=== PATIENT | female | born 1965 | race Caucasian/White ===

== ENCOUNTER → 2017-03-24 16:07 | Outpatient (CLI) | payer MEDICARE, MEDICAID, SELFPAY ==
--- NOTE | 2017-03-24 16:13 | MM_ITS ---
MM Dig screening mamm BI w/CAD CAD Screening ORDERING PHYSICIAN : Jonny Burton MD PATIENT AGE: 51 years GENDER: Female COMPARISON: Previous mammograms: Jun2014October 2015, November 2012 INDICATION: 51-yr-old female Taking Premarin . No new complaints. Family history. Noncontributory TECHNIQUE: Standard CC and MLO images were obtained. R2 CAD reviewed. FINDINGS: No significant calcifications. Minimal Benign calcifications bilateral appear stable.. No new worrisome mass or architectural distortion. Mild asymmetry with fibrolinear elements slightly more evident the left breast RIGHT BREAST:A stable small intramammary node at the deep axillary right breast.. It measures up to 7 mm height & millimeters AP on today's MLO view, unchanged since August 2014 MLO view. Minimal umbilication at hilum seen along the posterior margin of this feature supporting intramammary lymph node is well follow-up in one year adequate Minimal area wispy parenchymal density superior right breast is similar to 2015 MLO view, and dissipates on the cc view. LEFT BREAST:No significant new findings but stable fibroglandular elements most evident towards upper-outer quadrant IMPRESSION: 1.. No significant interval change. Stable bilateral mammogram. Stable Mild asymmetry. Stable Intramammary lymph node upper-outer quadrant right breast stable since 2014. BI-RADS Category: 2 Benign Finding(s) RECOMMENDED FOLLOW-UP: 1YR - 1 YEAR FOLLOW-UP (A letter has been sent to the patient regarding results of the study.)
== END ==
PROVIDERS: Family Provider Family Medicine; PCP Family Medicine; Visit Provider Obstetrics & Gynecology
DX: Z12.31 Encounter for screening mammogram for malignant neoplasm of breast (principal)
CPT/HCPCS: 77067

== ENCOUNTER 2017-04-12 17:53 | Emergency (ER) | payer MEDICARE, MEDICAID, SELFPAY ==
[2017-04-12 18:04] VITALS: BP 148/87; PULSE 120; RESP 20; TEMP 38.3; O2SAT 95; BMI 29.5
--- NOTE | 2017-04-12 18:09 | HMH.EDUTC ---
[facility] [place] Impression: Influenza Disposition: Home, Self-Care Condition on Discharge: Good Instructions: Influenza, DI for Fever (Symptom) -- Adult, DI for Headache Additional Instructions: ? Start Tamiflu today if you are going to take it. Discussed risk and possible benefits. ? Lots of rest ? Increase Fluids water, Gatorade, powerade, pedialyte,if infant/toddler/child ? Alternate Tylenol and / or ibuprofen as discussed for fever, aches, chills x 24 hours without medication for symptoms ? Follow up IMMEDIATELY for new or worsening Symptoms OR no noticeable improvement over the next 48-72 hours, 911 for difficulty or breathing ? You or your child area contagious until no fever, aches, chills for 24 hours with medication for symptoms Prescriptions: Dextromethorphan Polistirex [Delsym] 10 ml PO Q12H PRN #200 buck.er.12h PRN Reason: Cough Oseltamivir Phosphate [Tamiflu 75mg Capsule] 75 mg PO BID #10 cap Referrals: Sandy Steven [Primary Care Provider] - Time of Disposition: 18:30 Medical Decision Making - Medical Records Medical records reviewed: Yes: I reviewed the patient's medical records. Vital Signs: 04/12/17 18:04 Temperature 100.9 F H Temperature Source Oral Pulse Rate [Right] 120 H Respiratory Rate 20 Blood Pressure [Right Arm] 148/87 Blood Pressure Mean [Right Arm] 107 Blood Pressure Source [Right Arm] Automatic Cuff Blood Pressure Position [Right Arm] Sitting 02 Sat by Pulse Oximetry 95 Oxygen Delivery Method Room Air - Kimo Inquiry Pt receiving controlled substance: No Kimo was queried for this patient: No - Reevaluation(s) Time: 18:24 (Patient flu swab positive patient informed and educated on drinking plenty of fluids, over the coutner medication for fever or pain ) [facility] [place] - General Stated complaint: Fever, body aches Mode of Arrival: Ambulatory Source of Information: Patient Limitations: No Limitations Description of Symptoms (Recalled from Triage Doc. by RN): HEADACHE, ACHES, FEVER X3 DAYS HEENT Symptoms (Recalled from RN notes): Yes Resp Symptoms (Recalled from RN notes): No Skin Symptoms (Recalled from RN notes): No MS Symptoms (Recalled from RN notes): No Functional Status (Recalled from RN notes): N - History of Present Illness Provider Complaint: Patient states that she started feeling bad about 3 days ago and has continued to get worse States that she is having fever, body aches, cough nasal congestion and headache State that earlier today she began to run a fever and it was as high as 102.2 State that she took Motrin and Tylenol to controll fever and treat headache - Related Data Home Medications Medication Instructions Recorded Confirmed Estrogens, Conjugated [Premarin] 1.25 mg PO DAILY 03/22/17 03/22/17 Gabapentin [Gabapentin 100mg Cap] 200 mg PO HS 03/22/17 03/22/17 Levocetirizine Dihydrochloride 5 mg PO DAILY 03/22/17 03/22/17 Losartan/Hydrochlorothiazide 0.5 each PO DAILY 03/22/17 03/22/17 [Losartan-Hctz 100-12.5 mg Tab] Topiramate [Topamax 100mg tablet] 100 mg PO DAILY 03/22/17 03/22/17 Previous Rx's Medication Instructions Recorded Dextromethorphan Polistirex 10 ml PO Q12H PRN #200 buck.er.12h 04/12/17 [Delsym] Oseltamivir Phosphate [Tamiflu 75 mg PO BID #10 cap 04/12/17 75mg Capsule] Allergies Allergy/AdvReac Type Severity Reaction Status Date / Time codeine [CODEINE] Allergy Unknown ITCHING Verified 04/12/17 18:08 - Worker's Comp Is this a Worker's Comp case?: No [facility] History I have reviewed the patient's past medical history: Yes Medical History: Reports:: Diabetes Mellitus Type 2 (BORDERLINE) Denies:: Diabetes Mellitus Type 1, Internal Pacemaker, Lung Disease Laterality Cases: Right: Total Knee Replacement Other Surgeries: No: Pacemaker - *Social History Smoking Status: Never smoker Alcohol Intake: never - Psychiatric History Expresses thoughts of harming self/others: None Suicide Plan Description:
--- NOTE | 2017-04-12 18:12 | ED_ITS ---
[facility] [place]: Influenza Disposition: Home, Self-Care Condition on Discharge: Good Instructions: Influenza, DI for Fever (Symptom) -- Adult, DI for Headache Additional Instructions: ? Start Tamiflu today if you are going to take it. Discussed risk and possible benefits. ? Lots of rest ? Increase Fluids water, Gatorade, powerade, pedialyte,if infant/toddler/child ? Alternate Tylenol and / or ibuprofen as discussed for fever, aches, chills x 24 hours without medication for symptoms ? Follow up IMMEDIATELY for new or worsening Symptoms OR no noticeable improvement over the next 48-72 hours, 911 for difficulty or breathing ? You or your child area contagious until no fever, aches, chills for 24 hours with medication for symptoms Prescriptions: Dextromethorphan Polistirex [Delsym] 10 ml PO Q12H PRN #200 buck.er.12h PRN Reason: Cough Oseltamivir Phosphate [Tamiflu 75mg Capsule] 75 mg PO BID #10 cap Referrals: Sandy Steven [Primary Care Provider] - Time of Disposition: 18:30 Medical Decision Making - Medical Records Medical records reviewed: Yes: I reviewed the patient's medical records. Vital Signs: 04/12/17 18:04 Temperature 100.9 F H Temperature Source Oral Pulse Rate [Right] 120 H Respiratory Rate 20 Blood Pressure [Right Arm] 148/87 Blood Pressure Mean [Right Arm] 107 Blood Pressure Source [Right Arm] Automatic Cuff Blood Pressure Position [Right Arm] Sitting 02 Sat by Pulse Oximetry 95 Oxygen Delivery Method Room Air - Kimo Inquiry Pt receiving controlled substance: No Kimo was queried for this patient: No - Reevaluation(s) Time: 18:24 (Patient flu swab positive patient informed and educated on drinking plenty of fluids, over the coutner medication for fever or pain ) [facility] [place] - General Stated complaint: Fever, body aches Mode of Arrival: Ambulatory Source of Information: Patient Limitations: No Limitations Description of Symptoms (Recalled from Triage Doc. by RN): HEADACHE, ACHES, FEVER X3 DAYS HEENT Symptoms (Recalled from RN notes): Yes Resp Symptoms (Recalled from RN notes): No Skin Symptoms (Recalled from RN notes): No MS Symptoms (Recalled from RN notes): No Functional Status (Recalled from RN notes): N - History of Present Illness Provider Complaint: Patient states that she started feeling bad about 3 days ago and has continued to get worse States that she is having fever, body aches, cough nasal congestion and headache State that earlier today she began to run a fever and it was as high as 102.2 State that she took Motrin and Tylenol to controll fever and treat headache - Related Data Home Medications Medication Instructions Recorded Confirmed Estrogens, Conjugated [Premarin] 1.25 mg PO DAILY 03/22/17 03/22/17 Gabapentin [Gabapentin 100mg Cap] 200 mg PO HS 03/22/17 03/22/17 Levocetirizine Dihydrochloride 5 mg PO DAILY 03/22/17 03/22/17 Losartan/Hydrochlorothiazide 0.5 each PO DAILY 03/22/17 03/22/17 [Losartan-Hctz 100-12.5 mg Tab] Topiramate [Topamax 100mg tablet] 100 mg PO DAILY 03/22/17 03/22/17 Previous Rx's Medication Instructions Recorded Dextromethorphan Polistirex 10 ml PO Q12H PRN #200 buck.er.12h 04/12/17 [Delsym] Oseltamivir Phosphate [Tamiflu 75 mg PO BID #10 cap 04/12/17 75mg Capsule] Allergies Allergy/AdvReac Type Sever
[2017-04-12 18:46] LABS: UTC Influenza A Antigen Positive (Negative); UTC Influenza B Antigen Negative (Negative)
== END 2017-04-12 18:43 | disposition home or self-care (01) ==
PROVIDERS: Emergency Provider Nurse Practitioner; Family Provider Family Medicine; PCP Family Medicine
DX: J11.1 Influenza due to unidentified influenza virus with other respiratory manifestations (principal); E11.9 Type 2 diabetes mellitus without complications; Z79.890 Hormone replacement therapy; Z79.899 Other long term (current) drug therapy; Z88.5 Allergy status to narcotic agent; Z96.659 Presence of unspecified artificial knee joint
CPT/HCPCS: 87804; 99201

== ENCOUNTER 2017-05-24 17:18 | Emergency (ER) | payer MEDICARE, MEDICAID, SELFPAY ==
[2017-05-24 17:24] VITALS: BP 144/89; PULSE 83; RESP 20; TEMP 36.7; O2SAT 100; BMI 28.6
--- NOTE | 2017-05-24 17:31 | XR_ITS ---
XR knee RT 3V HISTORY: Right knee pain ITS.REASON: Hx of replacement, states it popped out of place. ORDERING PHYSICIAN: Joshua Marc MD PATIENT AGE: 51 years COMPARISON: 08/19/2013 FINDINGS: Patient has had prior medial hemiarthroplasty which appears to be in good alignment. There are no other postoperative exams available. Minimal osteoarthritic changes are present involving the lateral compartment. No fracture or dislocation. IMPRESSION: Status post medial hemiarthroplasty with good alignment.
--- NOTE | 2017-05-24 17:34 | HMH.EDGENADL ---
ED Disposition Clinical Impression: Right knee pain Qualifiers: Chronicity: acute Qualified Code(s): M25.561 - Pain in right knee Disposition: Home, Self-Care Condition on Discharge: Good Instructions: DI for Knee Pain, How to Use a Knee Immobilizer Additional Instructions: Use your walker. Use knee immobilizer. Follow-up with your orthopedist, call tomorrow. Additional instructions for EXTREMITY PAIN: See your physician as soon as possible for further evaluation. Return to an emergency department immediately if you have uncontrollable pain, fever, loss of feeling or inability to move your injured extremity. Referrals: Chanel Nielsen APRN [Primary Care Provider] - - Critical Care Critical Care Time: No Attestation: On , the high probability of a clinically significant, sudden or life threatening deterioration of the following system(s) required my full and direct attention, intervention and personal management. The time I documented below is in addition to time spent performing reported procedures but includes the following listed in this critical care notation. Medical Decision Making Vital Signs: 05/24/17 17:24 05/24/17 18:01 Temperature 98.0 F Temperature Source Oral Pulse Rate [Right Radial] 83 78 Respiratory Rate 20 20 Blood Pressure [Right Arm] 144/89 140/85 Blood Pressure Mean [Right Arm] 107 103 Blood Pressure Source [Right Arm] Automatic Cuff Automatic Cuff Blood Pressure Position [Right Arm] Sitting Sitting 02 Sat by Pulse Oximetry 100 98 Oxygen Delivery Method Room Air Room Air Orders (Tests/Meds): ORDERS Category Date Time Status Knee XR right 3 views [XR knee RT 3V] Stat Exams 05/24/17 17:31 Taken - Radiology Data #1 Image(s): Knee Image Reviewed: Yes I reviewed the patient's radiology results - Kimo Inquiry Pt receiving controlled substance: No General Adult HPI - General Chief complaint: PAIN Stated complaint: Right knee pain Mode of Arrival: Wheelchair Limitations: Physical Limitations Description of Symptoms (Recalled from ER Triage Doc. by RN): States she was just sitting on her couch and her right knee popped out of place. States this is the fifth time this has happened. Has been to Dr. Verduzco and he was going to set her up for knee surgery. Has had a double knee replacement. States that the left one is fine, but the right one is always swollen. - History of Present Illness HPI narrative: Patient complains of severe right knee pain. She says that she was sitting on the couch and her right knee felt like it popped out of place. She is unable to tell me whether her patella was visibly out of normal position. She thinks that since she arrived here it as pop back . She says that she had her right knee replaced in December of last year by Dr. Stephens in [place] due to severe osteoarthritis. Since that surgery this has occurred 4 times. It has always popped back on its own and she has not been to an emergency department or to a physician for evaluation for it until today. She did see her orthopedic physician last and states that she is supposed to have surgery later this month because the parts he put and are not working . She says she was told that if it popped out again to come to the emergency room to have it x-rayed. She says that she has been off of pain medication for couple of months but was given a new prescription for Percocet on . She says that since her surgery she still has swelling whenever she walks on it. She is currently able to walk without any assistance or devices. She does have a walker and a crutch at home. She does not have a right knee brace. - Related Data Home Medications Medication Instructions Recorded Confirmed Estrogens, Conjugated [Premarin] 1.25 mg PO DAILY 03/22/17 03/22/17 Gabapentin [Gabapentin 100mg Cap] 200 mg PO HS 03/22/17 03/22/17 Levocetirizine Dihydrochloride 5 mg PO DAILY 03/22/17
[2017-05-24 18:01] VITALS: BP 140/85; PULSE 78; RESP 20; O2SAT 98
[2017-05-24 19:03] VITALS: BP 126/87; PULSE 79; RESP 14; TEMP 36.7; O2SAT 99
== END 2017-05-24 19:04 | disposition home or self-care (01) ==
PROVIDERS: Emergency Provider Emergency Medicine; Family Provider Family Medicine; PCP Nurse Practitioner Family
DX: M25.561 Pain in right knee (principal); E11.9 Type 2 diabetes mellitus without complications; Z79.899 Other long term (current) drug therapy; Z88.6 Allergy status to analgesic agent; Z96.653 Presence of artificial knee joint, bilateral
CPT/HCPCS: 29505; 73562; 99283

== ENCOUNTER → 2017-06-01 11:39 | Outpatient (CLI) | payer MEDICARE, MEDICAID, SELFPAY ==
[2017-06-01 14:13] LABS: Alanine Aminotransferase 18 U/L (12-78); Albumin Level 3.1 gm/dL (3.4-5.0); Albumin/Globulin Ratio 0.8 (1.1-1.8); Alkaline Phosphatase 131 U/L (46-116); Anion Gap 12.5 mEq/L (5-15); Aspartate Amino Transferase 12 U/L (15-37); Bilirubin,Total 0.2 mg/dL (0.2-1.0); Blood Urea Nitrogen 7 mg/dL (7-18); Calcium 8.7 mg/dL (8.5-10.1); Carbon Dioxide 26 mmol/L (21.0-32.0); Chloride 107 mmol/L (98-107); Creatinine,Serum 0.67 mg/dL (0.55-1.02); Estimated Glomerular Filt Rate 93 ml/min (>60); GFR (African American) 113 ML/MIN (>60); Globulin 3.7 gm/dl (1.3-3.2); Glucose 94 mg/dL (74-106); Potassium 3.5 mmoL/L (3.5-5.1); Sodium 142 mmol/L (136-145); Total Protein,Serum 6.8 gm/dL (6.4-8.2)
== END ==
PROVIDERS: PCP Nurse Practitioner Family; Visit Provider Nurse Practitioner Family
DX: E11.41 Type 2 diabetes mellitus with diabetic mononeuropathy (principal)
CPT/HCPCS: 36415; 80053

== ENCOUNTER 2017-08-25 10:00 | Outpatient (RCR) | payer MEDICARE, MEDICAID, SELFPAY | END 2017-08-25 10:01 | disposition home or self-care (01) | LOC: PT 10:00 | PROVIDERS: Family Provider Family Medicine; PCP Nurse Practitioner Family; Visit Provider Nurse Practitioner Family | DX: G44.209 Tension-type headache, unspecified, not intractable (principal); M54.2 Cervicalgia | CPT/HCPCS: 97010; 97014; 97035; 97163; G0283 ==

== ENCOUNTER → 2017-09-21 14:09 | Outpatient (CLI) | payer MEDICARE, MEDICAID, SELFPAY ==
[2017-09-21 14:23] LABS: Basophils % 0.2 % (0.1-2.0); Eosinophils # 0.1 K/mm3 (0.0-0.4); Eosinophils % 2.6 % (0.1-12.0); Hematocrit 37.8 % (37.0-47.0); Hemoglobin 12.1 g/dL (12.2-16.2); Lymphocytes % 36.4 K/mm3 (10-50); Mean Corpuscular HGB Conc 32.1 g/dL (31.8-35.4); Mean Corpuscular Hemoglobin 28.9 pg (27.0-31.2); Mean Corpuscular Volume 90.2 fl (81-99); Mean Platelet Volume 7.6 fl (7.4-10.4); Monocytes # 0.3 K/mm3 (0.1-1.0); Monocytes % 5.8 % (1.7-9.3); Neutrophils % 55.1 % (37.0-80.0); Platelet Count 230 K/mm3 (142-424); Red Blood Count 4.19 M/mm3 (4.20-5.40); Red Cell Distribution Width 13.3 % (11.5-17.5); White Blood Count 5.5 K/mm3 (4.8-10.8)
--- NOTE | 2017-09-21 14:23 | MR_ITS ---
MR head/brain wo/w con HISTORY: Severe headaches with blurred vision with feeling of blacking out ITS.REASON: Headache ORDERING PHYSICIAN: Brayan Edwards PATIENT AGE: 52 years Comparison: None TECHNIQUE: Standard multiplanar multiecho sequences are performed without and with gadolinium enhancement . FINDINGS: No midline shift, mass effect, intracranial hemorrhage, hydrocephalus, or enhancing lesions are evident. No intra or extra-axial masses. The cerebellopontine angle, cerebellum, and brainstem are unremarkable. There is normal morton-white matter differentiation. The hippocampal gyri are unremarkable and the temporal horns are symmetric. The optic chiasm is unremarkable as well as the pituitary. No cerebellar ectopia. There are scant T2 white matter hyperintensities nonspecific. No mastoid effusion or sinus air-fluid level. There is some minimal mucosal thickening of the ethmoid and right frontal sinus. IMPRESSION: 1. No acute intracranial findings. 2. Scant punctate T2 white matter hyperintensities nonspecific and may be seen with gliotic microangiopathic changes or migraine headache. 3. Mild sinus disease
[2017-09-21 15:04] LABS: Blood Urea Nitrogen 10 mg/dL (7-18); Creatinine,Serum 0.84 mg/dL (0.55-1.02); Estimated Glomerular Filt Rate 71 ml/min (>60); GFR (African American) 86 ML/MIN (>60)
[2017-09-21 15:14] LABS: Thyroid Stimulating Hormone 1.65 uIU/ml (0.358-3.740)
--- NOTE | 2017-09-21 15:26 | HMH.ITSHM ---
PREMARIN POTASSIUM METFORMIN TOPIRAMATE LEVOCETIRIZE HCTZ LOSARTAN
[2017-09-21 15:48] LABS: Erythrocyte Sedimentation Rate 21 mm/hr (0-30)
[2017-09-22 11:43] LABS: Folate 8.7 ng/mL (>3.0); Vitamin B12 165 pg/mL (232-1245)
== END ==
PROVIDERS: Family Provider Family Medicine; PCP Nurse Practitioner Family; Visit Provider Nurse Practitioner Family
DX: R51 Headache (principal); R53.83 Other fatigue; M54.2 Cervicalgia
CPT/HCPCS: 36415; 70553; 82565; 82607; 82746; 84443; 84520; 85025; 85651; A9576

== ENCOUNTER → 2017-10-03 09:00 | Outpatient (CLI) | payer MEDICARE, MEDICAID, SELFPAY ==
--- NOTE | 2017-10-03 09:03 | XR_ITS ---
EXAM: XR cervical spine w flex/ext HISTORY: Neck pain ITS.REASON: Occipital headache with radiation to the neck ORDERING PHYSICIAN: Brayan Edwards PATIENT AGE: 52 years COMPARISON: None FINDINGS: Normal alignment. No fracture or dislocation. No lytic or blastic change. No significant degenerative change. The disc spaces are preserved. Oblique films show normal neural foramina bilaterally. The prevertebral soft tissues are normal and the odontoid is normal. Flexion-extension and extension views show normal range of motion. IMPRESSION: No acute finding, grossly normal-appearing cervical spine
== END ==
PROVIDERS: PCP Nurse Practitioner Family; Visit Provider Nurse Practitioner Family
DX: M54.2 Cervicalgia; R51 Headache
CPT/HCPCS: 72052

== ENCOUNTER → 2017-10-09 09:23 | Outpatient (CLI) | payer MEDICARE, MEDICAID, SELFPAY | PROVIDERS: Family Provider Family Medicine; PCP Nurse Practitioner Family; Visit Provider Nurse Practitioner Family | DX: R55 Syncope and collapse (principal); R51 Headache | CPT/HCPCS: 93225; 93226; 95819 ==

== ENCOUNTER → 2017-11-07 10:30 | Outpatient (POV) | payer MEDICARE, MEDICAID, SELFPAY | PROVIDERS: Visit Provider Otolaryngology | DX: Z00.00 Encounter for general adult medical examination without abnormal findings (principal) ==

== ENCOUNTER → 2018-03-30 08:55 | Outpatient (CLI) | payer MEDICARE, MEDICAID, SELFPAY ==
--- NOTE | 2018-03-30 08:59 | XR_ITS ---
XR DEXA axial skeleton HISTORY: ITS.REASON: SCREENING ORDERING PHYSICIAN: Jonny Burton MD PATIENT AGE: 52 years COMPARISON: None FINDINGS: The BMD measured at the Left femoral neck is 1.233 g/cm squared with a T score of 1.4. This is considered Normal according to the World Health Organization criteria. Fracture risk is Low. L1 L4 density has a T score 2.4 which is normal. IMPRESSION: Normal bone density with low fracture risk. Recommend follow-up exam March 2020
--- NOTE | 2018-03-30 08:59 | MM_ITS ---
MM Dig screening mamm BI w/CAD ORDERING PHYSICIAN : Jonny Burton MD PATIENT AGE: 52 years GENDER: Female COMPARISON: March 2007 02 November 2015. Bilateral mammogram INDICATION: Screening mammogram. takes Premarin.. No new complaints. Noncontributory family history. TECHNIQUE: Standard CC and MLO images were obtained. R2 CAD reviewed. FINDINGS: Minimal residual fibroglandular elements with stable mild asymmetry. Mild to moderate generalized fatty replacement most evident at the right breast RIGHT BREAST: No new findings Stable small nodular density [quadrant right breast small intramammary lymph node is unchanged LEFT BREAST: No new findings of concern . minor asymmetric breast tissue upper-outer quadrant left breast is unchanged. IMPRESSION: Stable bilateral mammogram. . Follow-up in one year Low-density breast with Moderate generalized replacement. Stable mild asymmetry BI-RADS Category: 2 Benign Finding(s) RECOMMENDED FOLLOW-UP: 1YR 1 YEAR FOLLOW-UP (A letter has been sent to the patient regarding results of the study.)
== END ==
PROVIDERS: PCP Nurse Practitioner Family; Visit Provider Obstetrics & Gynecology
DX: Z12.31 Encounter for screening mammogram for malignant neoplasm of breast (principal); Z78.0 Asymptomatic menopausal state; Z13.820 Encounter for screening for osteoporosis
CPT/HCPCS: 77067; 77080

== ENCOUNTER 2018-05-23 15:00 | Outpatient (RCR) | payer MEDICARE, MEDICAID, SELFPAY | END 2018-05-23 15:05 | disposition home or self-care (01) | LOC: PT 15:00 | PROVIDERS: Visit Provider Nurse Practitioner Family | DX: G44.209 Tension-type headache, unspecified, not intractable (principal) | CPT/HCPCS: 97010; 97014; 97035; 97110; 97140; 97163; G0283 ==

== ENCOUNTER → 2018-10-16 10:36 | Outpatient (CLI) | payer MEDICARE, MEDICAID, SELFPAY ==
--- NOTE | 2018-10-16 10:41 | XR_ITS ---
XR chest 2V HISTORY: ITS.REASON: CHEST PAIN ORDERING PHYSICIAN: Chanel Nielsen APRN PATIENT AGE: 53 years COMPARISON: 8 FINDINGS: The cardiomediastinal silhouette and pulmonary vascularity are within normal limits. The lungs are clear without infiltrates, suspicious nodules, or pleural effusions. There is calcified granuloma in the right middle lobe No acute bony abnormalities. IMPRESSION: Negative chest, no acute finding
== END ==
PROVIDERS: PCP Nurse Practitioner Family; Visit Provider Nurse Practitioner Family
DX: R07.9 Chest pain, unspecified (principal)
CPT/HCPCS: 71046

== ENCOUNTER → 2019-01-23 12:20 | Outpatient (CLI) | payer MEDICARE, MEDICAID, SELFPAY ==
--- NOTE | 2019-01-23 12:22 | CT_ITS ---
PROCEDURE: CT HEAD/BRAIN WO CON CLINICAL INDICATION: MIGRAINE WITH AURA Severe headache COMPARISON: No exams were available for comparison TECHNIQUE: Axial images obtained. All CT scans at the facility use one or more dose reduction, viz: automated exposure control, ma/kV adjustment per patient size (including targeted exams where dose is matched to indication, i.e. head), or iterative reconstruction technique. FINDINGS: No midline shift, mass effect, intracranial hemorrhage, hydrocephalus, or extra-axial fluid collection is evident. The calvarium has an unremarkable appearance. No mastoid effusion. There is mild mucosal thickening of the ethmoid and right maxillary sinuses. IMPRESSION: 1. No acute intracranial findings. 2. Mild sinus disease Dictated by: Tyrese Downey MD 01/24/2019 06:55 Electronically signed by Tyrese Downey MD in [facility] 01/24/2019 06:56
== END ==
PROVIDERS: PCP Nurse Practitioner Family; Visit Provider Nurse Practitioner
DX: G43.109 Migraine with aura, not intractable, without status migrainosus (principal)
CPT/HCPCS: 70450

== ENCOUNTER → 2019-08-02 09:38 | Outpatient (CLI) | payer MEDICARE, MEDICAID, SELFPAY ==
--- NOTE | 2019-08-02 09:46 | XR_ITS ---
PROCEDURE: XR CHEST 2V CLINICAL HISTORY: COUGH COMPARISON: No exams were available for comparison FINDINGS: The cardiomediastinal silhouette and pulmonary vascularity are within normal limits. The lungs are clear without infiltrates, suspicious nodules, or pleural effusions. There is a small partially calcified granuloma right middle lobe. No acute bony abnormalities. IMPRESSION: No acute findings. Dictated by: Dr. Wali Valdes MD 08/02/2019 10:[address] Wali Valdes MD in [place] 08/02/2019 10:42
--- NOTE | 2019-08-02 09:46 | MM_ITS ---
PROCEDURE: MM DIG SCREENING MAMM BI W/CAD DIGITAL BREAST TOMOSYNTHESIS INCLUDED Patient Age:53Y CLINICAL INDICATION: SCREENING taking Premarin. No new complaints. Family history. Noncontributory COMPARISON: [facility] DIG MAMM-DX [facility] from 12/04/2012 [facility] DIG MAMM-SCREEN [facility] from 09/15/2014 [facility] DIG MAMM-SCREEN [facility] from 10/28/2015 [facility] MM Dig screening mamm BI w/CAD from 03/24/2017 [facility] MM Dig screening mamm BI w/CAD from 03/30/2018 TECHNIQUE: Standard CC and MLO images were obtained. R2 CAD reviewed. Bilateral digital breast tomosynthesis included. FINDINGS: Minimal residual fibroglandular elements. No dominant nor new suspicious mass no architectural changes but no suspicious calcifications the Right breast: Small stable intramammary nodes deep axillary breast Left breast: No new areas of significant concern. Fibroglandular elements most evident superiorly superior breast and towards upper-outer quadrant the left breast but these areas appear stable. IMPRESSION: Stable bilateral mammogram. Follow-up 1 year recommended BI-RAD Category: 2 Benign Finding(s) FOLLOW-UP: 1YR 1 Year Follow-up (A letter has been sent to the patient regarding results of the study.) Dictated by: Lukas Chakraborty MD 08/07/2019 09:55 Electronically signed by Lukas Chakraborty MD in [place] 08/07/2019 09:55
== END ==
PROVIDERS: PCP Nurse Practitioner Family; Visit Provider Nurse Practitioner Family
DX: Z12.31 Encounter for screening mammogram for malignant neoplasm of breast (principal); R05 Cough
CPT/HCPCS: 71046; 77063; 77067

== ENCOUNTER → 2019-08-08 13:16 | Outpatient (CLI) | payer MEDICARE, MEDICAID, SELFPAY ==
[2019-08-08 14:33] LABS: Basophils % 0.2 % (0.1-2.0); Eosinophils # 0.2 K/mm3 (0.0-0.4); Eosinophils % 2.3 % (0.1-12.0); Hemoglobin 11.6 g/dL (12.2-16.2); Lymphocytes # 2.3 K/mm3 (0.7-4.5); Lymphocytes % 29.8 % (10-50); Mean Corpuscular HGB Conc 30.6 g/dL (31.8-35.4); Mean Corpuscular Hemoglobin 27.9 pg (27.0-31.2); Mean Corpuscular Volume 91.1 fl (81-99); Mean Platelet Volume 6.9 fl (7.4-10.4); Monocytes # 0.5 K/mm3 (0.1-1.0); Monocytes % 6.3 % (1.7-9.3); Neutrophils # 4.7 K/mm3 (1.8-7.8); Neutrophils % 61.3 % (37.0-80.0); Platelet Count 238 K/mm3 (142-424); Red Blood Count 4.17 M/mm3 (4.20-5.40); Red Cell Distribution Width 14.5 % (11.5-17.5); White Blood Count 7.7 K/mm3 (4.8-10.8)
[2019-08-08 16:13] LABS: Free T4 (Free Thyroxine) 0.71 ng/dl (0.78-2.19)
[2019-08-08 16:26] LABS: Thyroid Stimulating Hormone 2.32 uIU/mL (0.465-4.68)
[2019-08-10 10:36] LABS: Thyroid Peroxidase Antibodies <9 IU/mL (0-34); Vitamin D 25 Hydroxy 21.1 ng/mL (30.0-100.0)
[2019-08-12 11:12] LABS: Immunoglobulin E, Total 749 IU/mL (6-495)
[2019-08-14 03:47] LABS: Thyroglobulin Level <1.0 IU/mL (0.0-0.9)
== END ==
PROVIDERS: Visit Provider Nurse Practitioner
DX: J45.50 Severe persistent asthma, uncomplicated (principal); J30.9 Allergic rhinitis, unspecified; R49.0 Dysphonia
CPT/HCPCS: 36415; 82652; 82785; 84439; 84443; 85025; 86376; 86800

== ENCOUNTER 2019-10-30 08:15 | Outpatient (CLI) | payer MEDICARE, MEDICAID, SELFPAY ==
[2019-10-30 08:45] VITALS: BP 126/78; PULSE 59; RESP 18; TEMP 36.3; O2SAT 98
[2019-10-30 09:15] VITALS: BP 117/63; PULSE 49; RESP 18; O2SAT 100
[2019-10-30 09:45] VITALS: BP 115/71; PULSE 67; RESP 18; O2SAT 99
[2019-10-30 10:15] VITALS: BP 118/71; PULSE 55; RESP 18
[2019-10-30 10:45] VITALS: BP 116/73; PULSE 54; RESP 18; O2SAT 100
--- NOTE | 2019-10-30 11:09 | XR_ITS ---
PROCEDURE: XR FOOT WT BEARING LT 3V CLINICAL INDICATION: pain COMPARISON: No exams were available for comparison FINDINGS: No fracture or dislocation. No lytic or blastic change. There is normal mineralization. The joint spaces are well-preserved. No significant degenerative/arthritic changes. No erosive changes evident. Other findings:There is a small calcaneal spur. Minimal hypertrophic changes are present at the dorsal and proximal aspect of the navicular IMPRESSION: No acute findings. Dictated b Tyrese Downey MD 10/30/2019 14:08 Tyrese Downey MD in [place] 10/30/2019 14:08
--- NOTE | 2019-10-30 11:09 | XR_ITS ---
PROCEDURE: XR FOOT WT BEARING RT 3V CLINICAL INDICATION: pain COMPARISON: No exams were available for comparison FINDINGS: No fracture or dislocation. No lytic or blastic change. There is normal mineralization. The joint spaces are well-preserved. No significant degenerative/arthritic changes. No erosive changes evident. Other findings:There is a small calcaneal spur. Minimal hypertrophic changes noted along the dorsal distal aspect of the 1st metatarsal IMPRESSION: No acute findings. Dictated b Tyrese Downey MD 10/30/2019 14:09 Tyrese Downey MD in [place] 10/30/2019 14:09
== END 2019-10-30 10:50 | disposition home or self-care (01) ==
PROVIDERS: PCP Internal Medicine Adolescent Medicine; Visit Provider Allergy & Immunology
DX: M79.671 Pain in right foot (principal); M79.672 Pain in left foot
CPT/HCPCS: 73630; 96372; J2357

== ENCOUNTER 2019-11-15 08:25 | Outpatient (CLI) | payer MEDICARE, MEDICAID, SELFPAY ==
[2019-11-15 08:50] VITALS: BP 125/64; PULSE 49; RESP 20; TEMP 36.6; O2SAT 100
[2019-11-15 09:20] VITALS: BP 119/66; PULSE 54; RESP 18
[2019-11-15 09:50] VITALS: BP 112/66; PULSE 49; RESP 18; O2SAT 98
[2019-11-15 10:20] VITALS: BP 114/60; PULSE 63; RESP 18
[2019-11-15 10:50] VITALS: BP 113/63; PULSE 60; RESP 16
== END 2019-11-15 10:55 | disposition home or self-care (01) ==
LOC: INF 08:28
PROVIDERS: Visit Provider Allergy & Immunology
DX: J45.50 Severe persistent asthma, uncomplicated (principal)
CPT/HCPCS: 96372; J2357

== ENCOUNTER 2019-12-13 08:56 | Outpatient (CLI) | payer MEDICARE, MEDICAID, SELFPAY ==
[2019-12-13 09:21] VITALS: BP 106/60; PULSE 55; RESP 20; TEMP 36.9; O2SAT 95
--- NOTE | 2019-12-13 09:21 | PC.NURSE ---
injections given in both arms
[2019-12-13 10:00] VITALS: BP 110/74; PULSE 68; RESP 20; TEMP 36.9; O2SAT 95
[2019-12-13 11:00] VITALS: BP 108/74; PULSE 68; RESP 20; TEMP 36.7; O2SAT 95
== END 2019-12-13 11:15 | disposition home or self-care (01) ==
PROVIDERS: Visit Provider Allergy & Immunology
DX: J45.50 Severe persistent asthma, uncomplicated (principal)
CPT/HCPCS: 96372; J2357

== ENCOUNTER → 2019-12-27 08:59 | Outpatient (CLI) | payer MEDICARE, MEDICAID, SELFPAY ==
[2019-12-27 09:40] VITALS: BP 121/86; PULSE 61; RESP 18; TEMP 36.6; O2SAT 98
== END ==
PROVIDERS: Visit Provider Allergy & Immunology
DX: J45.50 Severe persistent asthma, uncomplicated (principal)
CPT/HCPCS: 96372; J2357

== ENCOUNTER 2020-01-09 09:04 | Outpatient (CLI) | payer MEDICARE, MEDICAID, SELFPAY ==
[2020-01-09 09:25] VITALS: BP 122/72; PULSE 62; RESP 18; TEMP 36.5; O2SAT 99
== END 2020-01-09 09:40 | disposition home or self-care (01) ==
LOC: INF 09:04
PROVIDERS: Visit Provider Allergy & Immunology
DX: J45.50 Severe persistent asthma, uncomplicated (principal)
CPT/HCPCS: 96372; J2357

== ENCOUNTER 2020-01-24 09:50 | Outpatient (CLI) | payer MEDICARE, MEDICAID, SELFPAY ==
[2020-01-24 10:07] VITALS: BP 119/65; PULSE 62; RESP 18; TEMP 36.8; O2SAT 99
== END 2020-01-24 10:07 | disposition home or self-care (01) ==
LOC: INF 09:50
PROVIDERS: Visit Provider Nurse Practitioner
DX: J45.50 Severe persistent asthma, uncomplicated (principal)
CPT/HCPCS: 96372; J2357

== ENCOUNTER 2020-02-24 09:04 | Emergency (ER) | payer MEDICARE, MEDICAID, SELFPAY ==
--- NOTE | 2020-02-24 09:00 | ECG_ITS ---
APPROVED REPORT Exam: Resting ECG HR:78 bpm ECG Measurements Heart Rate 78 AXES OR 136 P 63 QRSd 88 QRS 31 QT 422 T 41 QTc 481 Conclusion Normal sinus rhythm with sinus arrhythmia Nonspecific ST abnormality Prolonged QT Abnormal ECG Electronically signed by : Fran Jaimes, 02/25/2020 19:37:56
[2020-02-24 09:05] VITALS: BP 118/79; PULSE 78; RESP 18; TEMP 37.1; O2SAT 96; BMI 33.2
--- NOTE | 2020-02-24 09:15 | XR_ITS ---
PROCEDURE: XR CHEST PORTABLE CLINICAL HISTORY: cough COMPARISON: 08/02/2019 FINDINGS: The cardiomediastinal silhouette and pulmonary vascularity are within normal limits. The lungs are clear without infiltrates, suspicious nodules, or pleural effusions. No acute bony abnormalities. IMPRESSION: No acute findings. Dictated by: Tyrese Downey MD 02/24/2020 10:02 Tyrese Downey MD in [place] 02/24/2020 10:02
--- NOTE | 2020-02-24 09:18 | HMH.EDCP ---
ED Disposition Clinical Impression: Musculoskeletal chest pain Disposition: Home, Self-Care Condition on Discharge: Good Instructions: DI for Atypical Chest Pain - Critical Care Critical Care Time: No Attestation: On , the high probability of a clinically significant, sudden or life threatening deterioration of the following system(s) required my full and direct attention, intervention and personal management. The time I documented below is in addition to time spent performing reported procedures but includes the following listed in this critical care notation. Medical Decision Making - Medical Records Medical records reviewed: Yes: I reviewed the patient's medical records. - Kimo Inquiry Pt receiving controlled substance: No Vital Signs: 02/24/20 09:05 02/24/20 09:27 Temperature 98.7 F Temperature Source Oral Pulse Rate [Left Radial] 78 65 Respiratory Rate 18 Blood Pressure [Right Arm] 118/79 121/89 Blood Pressure Mean [Right Arm] 92 99 Blood Pressure Source [Right Arm] Automatic Cuff Automatic Cuff Blood Pressure Position [Right Arm] Sitting Sitting 02 Sat by Pulse Oximetry 96 96 Oxygen Delivery Method Room Air Room Air - Lab Data Lab Results 02/24/20 09:05: WBC 7.9, RBC 4.50, Hgb 13.1, Hct 39.6, MCV 87.9, MCH 29.1, MCHC 33.1, RDW 14.7, Plt Count 274, MPV 7.4, Neut % (Auto) 59.7, Lymph % (Auto) 33.0, [place] % (Auto) 5.5, Eos % (Auto) 1.3, Baso % (Auto) 0.4, Neut # (Auto) 4.7, Lymph # (Auto) 2.6, [place] # (Auto) 0.4, Eos # (Auto) 0.1, Baso # (Auto) 0.0 02/24/20 09:05: Sodium 138, Potassium 2.8 L*, Chloride 103, Carbon Dioxide 26, BUN 11, Creatinine 1.00, Estimated Creat Clear 99, Estimated GFR 58 L, Est GFR ( Amer) 70, Glucose 102 H, Calcium 9.2, Total Bilirubin 0.7, AST 23, ALT 14, Alkaline Phosphatase 180 H, Troponin I < 0.01, NT-Pro-B Natriuret Pep 44.4, Total Protein 7.6, Albumin 4.2, Globulin 3.4 H, Albumin/Globulin Ratio 1.2 02/24/20 09:05: D-Dimer 0.76 Result diagrams: 02/24/20 09:05 02/24/20 09:05 Orders (Tests/Meds): ED MEDICATIONS Discontinued Medications Generic Name Dose Route Start Last Admin Trade Name Omar PRN Reason Stop Dose Admin Acetaminophen 1,000 mg 02/24/20 09:30 02/24/20 09:36 Acetaminophen 500mg Tab PO 02/24/20 09:31 1,000 mg ONCE ONE Administration Morphine Sulfate 4 mg 02/24/20 09:16 02/24/20 09:25 Morphine 4mg/Ml Syringe IV 02/24/20 09:17 Not Given ONCE ONE Ondansetron HCl 4 mg 02/24/20 09:16 02/24/20 09:26 Ondansetron 4mg/2ml Vial IV 02/24/20 09:17 Not Given ONCE ONE Potassium Chloride 40 meq 02/24/20 09:38 02/24/20 09:42 Potassium Chloride 20meq Tab PO 02/24/20 09:39 40 meq ONCE ONE Administration ORDERS Category Date Time Status Brain Natriuretic Peptide Stat Lab 02/24/20 09:05 Results Comprehensive Metabolic Panel Stat Lab 02/24/20 09:05 Results Trop I [Troponin I] Stat Lab 02/24/20 09:05 Results Troponin I Q3H Lab 02/24/20 12:30 Ordered Troponin I Q3H Lab 02/24/20 15:30 Ordered - Radiology Data #1 Image(s): Chest Image Reviewed: Yes I reviewed the patient's radiology results, Yes I reviewed the patient's radiology image, Yes I have reviewed radiologist's interpretation Preliminary Findings: Normal/NAD, No Fracture Seen - ECG Data Tracing #1 No ventricular rate is 70 bpm, DE interval 136 ms. Prolonged QTC. Normal sinus rhythm with nonspecific changes. ECG initial impression date: 02/24/20 ECG initial impression time: 09:03 - Reevaluation(s) Time: 10:15 Reevaluation #1: On reevaluation, the patient's pain is improved. There is no evidence of fracture. Negative troponin, negative D-dimer. Patient is to follow-up with PCP. Given strict return precautions. Verbalized understanding. Medical Decision Narrative: 54-year-old female presenting with chest discomfort. Appears to be musculoskeletal in nature. Reproducible. Low risk for ACS. Work-up initiated. C
--- NOTE | 2020-02-24 09:24 | PC.NURSE ---
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
[2020-02-24 09:27] VITALS: BP 121/89; PULSE 65; O2SAT 96
--- NOTE | 2020-02-24 09:31 | PC.NURSE ---
rad at BS for portable xray
[2020-02-24 09:33] LABS: Basophils % 0.4 % (0.1-2.0); Chloride 103 mmol/L (98-107); Eosinophils # 0.1 K/mm3 (0.0-0.4); Eosinophils % 1.3 % (0.1-12.0); Hematocrit 39.6 % (37.0-47.0); Hemoglobin 13.1 g/dL (12.2-16.2); Lymphocytes # 2.6 K/mm3 (0.7-4.5); Mean Corpuscular HGB Conc 33.1 g/dL (31.8-35.4); Mean Corpuscular Hemoglobin 29.1 pg (27.0-31.2); Mean Corpuscular Volume 87.9 fl (81-99); Mean Platelet Volume 7.4 fl (7.4-10.4); Monocytes # 0.4 K/mm3 (0.1-1.0); Monocytes % 5.5 % (1.7-9.3); Neutrophils # 4.7 K/mm3 (1.8-7.8); Neutrophils % 59.7 % (37.0-80.0); Platelet Count 274 K/mm3 (142-424); Red Cell Distribution Width 14.7 % (11.5-17.5); White Blood Count 7.9 K/mm3 (4.8-10.8)
[2020-02-24 09:34] LABS: Sodium 138 mmol/L (136-145)
[2020-02-24 09:36] LABS: Alanine Aminotransferase 14 U/L (12-78); Alkaline Phosphatase 180 U/L (38-126); Aspartate Amino Transferase 23 U/L (14-36); Bilirubin,Total 0.7 mg/dl (0.2-1.3); Blood Urea Nitrogen 11 mg/dl (7-17); Carbon Dioxide 26 mmol/L (22.0-30.0); Creatinine Clearance Estimated 99 mL/min (50-200); Estimated Glomerular Filt Rate 58 ml/min (>60); GFR (African American) 70 ML/MIN (>60)
[2020-02-24 09:37] LABS: Albumin Level 4.2 g/dl (3.5-5.0); Albumin/Globulin Ratio 1.2 (1.1-1.8); Calcium 9.2 mg/dl (8.4-10.2); Globulin 3.4 g/dL (1.3-3.2); Glucose 102 mg/dl (74-100); Potassium 2.8 mmoL/L (3.5-5.1); Total Protein,Serum 7.6 g/dl (6.3-8.2)
--- NOTE | 2020-02-24 09:37 | PC.NURSE ---
ER notified of critical potassium
[2020-02-24 09:43] LABS: D-Dimer 0.76 ug/mL (0.15-8.0)
--- NOTE | 2020-02-24 09:44 | PC.NURSE ---
PT RESTING WITH NO COMPLAINTS
[2020-02-24 09:48] LABS: NT Pro Brain Natriuretic Pep. 44.4 pg/mL (0-125)
[2020-02-24 09:52] LABS: Troponin I < 0.01 ng/ml (0.00-0.034)
[2020-02-24 10:16] VITALS: BP 118/83; PULSE 68; O2SAT 96
[2020-02-24 10:43] VITALS: BP 123/82; PULSE 78; RESP 20; TEMP 37.1; O2SAT 97
== END 2020-02-24 10:44 | disposition home or self-care (01) ==
PROVIDERS: Emergency Provider Emergency Medicine; PCP Nurse Practitioner
DX: R07.89 Other chest pain (principal); R06.02 Shortness of breath; E11.9 Type 2 diabetes mellitus without complications; I10 Essential (primary) hypertension; Z79.899 Other long term (current) drug therapy; G43.709 Chronic migraine without aura, not intractable, without status migrainosus; Z88.5 Allergy status to narcotic agent
CPT/HCPCS: 71045; 80053; 83880; 84484; 85025; 85378; 93005; 99283

== ENCOUNTER 2020-03-24 13:20 | Outpatient (CLI) | payer MEDICARE, MEDICAID, SELFPAY ==
[2020-03-24 13:38] VITALS: BP 116/76; PULSE 77; RESP 18; TEMP 36.6; O2SAT 100
== END 2020-03-24 13:38 ==
PROVIDERS: Visit Provider Nurse Practitioner
DX: J45.50 Severe persistent asthma, uncomplicated (principal)
CPT/HCPCS: 96372; J2357

== ENCOUNTER 2020-06-17 08:15 | Outpatient (CLI) | payer MEDICARE, MEDICAID, SELFPAY ==
[2020-06-17 08:34] VITALS: BP 141/86; PULSE 74; RESP 18; TEMP 36.3; O2SAT 98
== END 2020-06-17 08:34 | disposition home or self-care (01) ==
LOC: INF 08:21
PROVIDERS: Visit Provider Allergy & Immunology
DX: J45.50 Severe persistent asthma, uncomplicated (principal)
CPT/HCPCS: 96372; J2357

== ENCOUNTER 2020-07-01 08:24 | Outpatient (CLI) | payer MEDICARE, MEDICAID, SELFPAY ==
[2020-07-01 08:39] VITALS: BP 128/77; PULSE 56; RESP 18; TEMP 36.2; O2SAT 100
== END 2020-07-01 09:06 | disposition home or self-care (01) ==
LOC: INF 08:24
PROVIDERS: Visit Provider Nurse Practitioner
DX: J45.50 Severe persistent asthma, uncomplicated (principal)
CPT/HCPCS: 96372; J2357

== ENCOUNTER 2020-07-21 08:14 | Outpatient (CLI) | payer MEDICARE, MEDICAID, SELFPAY ==
[2020-07-21 08:36] VITALS: BP 131/59; PULSE 60; RESP 17; TEMP 36.7; O2SAT 98
[2020-07-21 08:42] VITALS: BP 131/59; PULSE 60; RESP 17; TEMP 36.7; O2SAT 98
== END 2020-07-21 08:45 | disposition home or self-care (01) ==
LOC: INF 08:24
PROVIDERS: Visit Provider Nurse Practitioner
DX: J45.50 Severe persistent asthma, uncomplicated (principal)
CPT/HCPCS: 96372; J2357

== ENCOUNTER → 2020-08-04 08:21 | Outpatient (CLI) | payer MEDICARE, MEDICAID, SELFPAY ==
--- NOTE | 2020-08-04 08:21 | MM_ITS ---
PROCEDURE INFORMATION: Exam: MG Screening 3D Mammography Exam date and time: 08/04/2020 8:21 AM Age: 54 years old Clinical indication: screening mammogram for malignant neoplasm of breast TECHNIQUE: Imaging protocol: Screening tomosynthesis and 2D mammography including computer-aided detection (CAD) when performed. COMPARISON: 1. MG MM DIG SCREENING MAMM BI W/CAD 08/02/2019 9:51 AM 2. MG SCBI MM Dig screening mamm BI w/CAD 03/30/2018 9:22 AM 3. MG SCBI MM Dig screening mamm BI w/CAD 03/24/2017 4:29 PM 4. MG DMSB DIG MAMM-SCREEN SABRINA 10/28/2015 10:18 AM FINDINGS: MAMMOGRAPHY: Breast composition: There are scattered areas of fibroglandular density. Mass: None. Architectural distortion: No new or suspicious architectural distortion. Calcifications: No new or suspicious calcifications are present Asymmetric density: No new or suspicious asymmetric density is present Skin thickening: None. Axillary adenopathy: None. IMPRESSION: No mammographic evidence of malignancy. Recommend annual screening mammography unless otherwise clinically indicated. ASSESSMENT: BI-RADS category 2: Benign
== END ==
PROVIDERS: PCP Pediatrics; Visit Provider Obstetrics & Gynecology
DX: Z12.31 Encounter for screening mammogram for malignant neoplasm of breast (principal)
CPT/HCPCS: 77063; 77067

== ENCOUNTER 2020-08-04 08:49 | Outpatient (CLI) | payer MEDICARE, MEDICAID, SELFPAY ==
[2020-08-04 09:22] VITALS: BP 149/79; PULSE 69; RESP 17; O2SAT 96
== END 2020-08-04 09:25 | disposition home or self-care (01) ==
LOC: INF 08:53
PROVIDERS: Visit Provider Nurse Practitioner
DX: J45.50 Severe persistent asthma, uncomplicated (principal); Z12.31 Encounter for screening mammogram for malignant neoplasm of breast
CPT/HCPCS: 77063; 77067; 96372; J2357

== ENCOUNTER 2020-08-21 08:54 | Outpatient (CLI) | payer MEDICARE, MEDICAID, SELFPAY ==
[2020-08-21 09:25] VITALS: BP 110/89; PULSE 67; RESP 17; TEMP 36.7; O2SAT 98
[2020-08-21 09:35] VITALS: BP 103/86; PULSE 62; RESP 17; TEMP 36.6; O2SAT 97
== END 2020-08-21 09:27 | disposition home or self-care (01) ==
LOC: INF 08:54
PROVIDERS: PCP Pediatrics; Visit Provider Allergy & Immunology
DX: J45.50 Severe persistent asthma, uncomplicated (principal)
CPT/HCPCS: 96372; J2357

== ENCOUNTER 2020-09-11 08:55 | Outpatient (CLI) | payer MEDICARE, MEDICAID, SELFPAY ==
[2020-09-11 09:20] VITALS: BP 126/81; PULSE 55; RESP 18; TEMP 36.6; O2SAT 99
== END 2020-09-11 09:35 | disposition home or self-care (01) ==
LOC: INF 08:57
PROVIDERS: Visit Provider Allergy & Immunology
DX: J45.50 Severe persistent asthma, uncomplicated (principal)
CPT/HCPCS: 96372; J2357

== ENCOUNTER 2020-09-29 08:55 | Outpatient (CLI) | payer MEDICARE, MEDICAID, SELFPAY ==
[2020-09-29 09:40] VITALS: BP 128/74; PULSE 61; RESP 18; TEMP 36.3; O2SAT 98
== END 2020-09-29 10:00 | disposition home or self-care (01) ==
LOC: INF 08:55
PROVIDERS: Visit Provider Allergy & Immunology
DX: J45.50 Severe persistent asthma, uncomplicated (principal)
CPT/HCPCS: 96372; J2357

== ENCOUNTER 2020-10-13 09:00 | Outpatient (CLI) | payer MEDICARE, MEDICAID, SELFPAY ==
[2020-10-13 09:30] VITALS: BP 117/70; PULSE 87; RESP 17; TEMP 36.8
== END 2020-10-13 09:32 | disposition home or self-care (01) ==
LOC: INF 09:07
PROVIDERS: Visit Provider Allergy & Immunology
DX: J45.50 Severe persistent asthma, uncomplicated (principal)
CPT/HCPCS: 96372; J2357

== ENCOUNTER 2020-11-04 08:55 | Outpatient (CLI) | payer MEDICARE, MEDICAID, SELFPAY ==
[2020-11-04 09:15] VITALS: BP 100/61; PULSE 74; RESP 18; O2SAT 98
== END 2020-11-04 09:30 | disposition home or self-care (01) ==
LOC: INF 09:07
PROVIDERS: Visit Provider Allergy & Immunology
DX: J45.50 Severe persistent asthma, uncomplicated (principal)
CPT/HCPCS: 96372; J2357

== ENCOUNTER 2020-11-17 08:56 | Outpatient (CLI) | payer MEDICARE, MEDICAID, SELFPAY ==
[2020-11-17 09:51] VITALS: BP 117/71; PULSE 71; RESP 17; TEMP 36.8; O2SAT 98
== END 2020-11-17 09:53 | disposition home or self-care (01) ==
LOC: INF 08:59
PROVIDERS: PCP Pediatrics; Visit Provider Allergy & Immunology
DX: J45.50 Severe persistent asthma, uncomplicated (principal)
CPT/HCPCS: 96372; J2357

== ENCOUNTER 2020-12-14 08:57 | Outpatient (CLI) | payer MEDICARE, MEDICAID, SELFPAY ==
[2020-12-14 09:30] VITALS: BP 106/62; PULSE 65; RESP 20; TEMP 36.9; O2SAT 95
== END 2020-12-14 09:40 | disposition home or self-care (01) ==
LOC: INF 09:01
PROVIDERS: PCP Pediatrics; Visit Provider Surgery
DX: J45.50 Severe persistent asthma, uncomplicated (principal)
CPT/HCPCS: 96372; J2357

== ENCOUNTER 2021-01-01 08:24 | Outpatient (CLI) | payer MEDICARE, MEDICAID, SELFPAY ==
[2021-01-01 08:55] VITALS: BP 131/75; PULSE 81; RESP 17; TEMP 36.6; O2SAT 97
== END 2021-01-01 09:02 | disposition home or self-care (01) ==
LOC: INF 08:26
PROVIDERS: PCP Nurse Practitioner Family; Visit Provider Allergy & Immunology
DX: J45.50 Severe persistent asthma, uncomplicated (principal)
CPT/HCPCS: 96372; J2357

== ENCOUNTER → 2021-01-06 14:45 | Outpatient (CLI) | payer MEDICARE, MEDICAID, SELFPAY ==
--- NOTE | 2021-01-06 14:49 | XR_ITS ---
PROCEDURE: XR FOOT WT BEARING RT 3V CLINICAL INDICATION: pain COMPARISON: CR XR FOOT WT BEARING RT 3V from 10/30/2019 CR XR FOOT WT BEARING LT 3V from 10/30/2019 FINDINGS: No fracture or dislocation. No lytic or blastic change. There is normal mineralization. Minimal hypertrophic changes are present involving the distal aspect of the 1st metatarsal. There is a small calcaneal spur. Other findings:None. IMPRESSION: No change with no acute finding Dictated by: Tyrese Downey MD 01/06/2021 15:15 Tyrese Downey MD in [facility] 01/06/2021 15:15
--- NOTE | 2021-01-06 14:49 | XR_ITS ---
PROCEDURE: XR FOOT WT BEARING LT 3V CLINICAL INDICATION: pain COMPARISON: CR XR FOOT WT BEARING RT 3V from 10/30/2019 CR XR FOOT WT BEARING LT 3V from 10/30/2019 FINDINGS: No fracture or dislocation. No lytic or blastic change. There is normal mineralization. The joint spaces are well-preserved. No significant degenerative/arthritic changes. No erosive changes evident. Other findings:Mild spurring along the anterior aspect of the navicular proximally. Small calcaneal spur. IMPRESSION: No acute findings. Dictated by: Tyrese Downey MD 01/06/2021 15:16 Tyrese Downey MD in [facility] 01/06/2021 15:16
--- NOTE | 2021-01-06 14:50 | CT_ITS ---
PROCEDURE: CT SINUS WO CON CLINICAL HISTORY: CHRONIC SINUSITIS COMPARISON: No exams were available for comparison TECHNIQUE: Axial images obtained with sagittal and coronal reformats. All CT scans at the facility use one or more dose reduction, viz: automated exposure control, ma/kV adjustment per patient size (including targeted exams where dose is matched to indication, i.e. head), or iterative reconstruction technique. FINDINGS: There has been bilateral maxillary antrostomies in superior turbinectomies.. No significant mucosal thickening. No sinus air-fluid levels. There is a small right jeffrey bullosa. There is mild leftward nasal septal deviation. No mastoid effusion. The orbits have an unremarkable appearance. There are few scattered small cervical lymph nodes. Small soft tissue density noted in the parotid on the left at 5 mm possibly due to small intraparotid node. Follow-up may confirm stability. TMJs have an unremarkable appearance. IMPRESSION: Postsurgical changes. No evidence of acute or chronic sinusitis. Dictated by: Tyrese Downey MD 01/07/2021 08:41 Tyrese Downey MD in [facility] 01/07/2021 08:41
== END ==
PROVIDERS: PCP Nurse Practitioner Family; Visit Provider Allergy & Immunology
DX: M79.672 Pain in left foot (principal); M79.671 Pain in right foot; J32.8 Other chronic sinusitis
CPT/HCPCS: 70486; 73630

== ENCOUNTER → 2021-01-08 17:35 | Outpatient (CLI) | payer MEDICARE, BC, SELFPAY | PROVIDERS: Visit Provider Nurse Practitioner Family | DX: Z20.822 Contact with and (suspected) exposure to COVID-19 (principal) | CPT/HCPCS: C9803; U0003; U0005 ==

== ENCOUNTER 2021-01-15 08:52 | Outpatient (CLI) | payer MEDICARE, MEDICAID, SELFPAY ==
[2021-01-15 09:15] VITALS: BP 123/73; PULSE 78; RESP 18; TEMP 36.4; O2SAT 98
== END 2021-01-15 09:30 | disposition home or self-care (01) ==
LOC: INF 08:54
PROVIDERS: PCP Family Medicine; Visit Provider Allergy & Immunology
DX: J45.50 Severe persistent asthma, uncomplicated (principal)
CPT/HCPCS: 96372; J2357

== ENCOUNTER 2021-01-29 08:51 | Outpatient (CLI) | payer MEDICARE, MEDICAID, SELFPAY ==
[2021-01-29 09:38] VITALS: BP 130/84; PULSE 71; RESP 18; TEMP 36.3; O2SAT 99
== END 2021-01-29 09:50 | disposition home or self-care (01) ==
LOC: INF 08:52
PROVIDERS: PCP Family Medicine; Visit Provider Allergy & Immunology
DX: J45.50 Severe persistent asthma, uncomplicated (principal)
CPT/HCPCS: 96372; J2357

== ENCOUNTER 2021-02-15 09:14 | Outpatient (CLI) | payer MEDICARE, MEDICAID, SELFPAY ==
[2021-02-15 09:41] VITALS: BP 141/81; PULSE 78; RESP 18; TEMP 36.4; O2SAT 98
== END 2021-02-15 10:03 | disposition home or self-care (01) ==
LOC: INF 09:14
PROVIDERS: PCP Family Medicine; Visit Provider Allergy & Immunology
DX: J45.50 Severe persistent asthma, uncomplicated (principal)
CPT/HCPCS: 96372; J2357

== ENCOUNTER 2021-02-26 08:53 | Outpatient (CLI) | payer MEDICARE, MEDICAID, SELFPAY ==
[2021-02-26 09:39] VITALS: BP 129/76; PULSE 79; RESP 19; O2SAT 97
== END 2021-02-26 09:39 | disposition home or self-care (01) ==
LOC: INF 08:55
PROVIDERS: PCP Family Medicine; Visit Provider Allergy & Immunology
DX: J45.50 Severe persistent asthma, uncomplicated (principal)
CPT/HCPCS: 96372; J2357

== ENCOUNTER 2021-03-10 08:20 | Outpatient (CLI) | payer MEDICARE, MEDICAID, SELFPAY ==
[2021-03-10 08:40] VITALS: BP 117/66; PULSE 66; RESP 18; TEMP 36.5; O2SAT 99
== END 2021-03-10 08:55 | disposition home or self-care (01) ==
LOC: INF 08:22
PROVIDERS: PCP Family Medicine; Visit Provider Allergy & Immunology
DX: J45.50 Severe persistent asthma, uncomplicated (principal)
CPT/HCPCS: 96372; J2357

== ENCOUNTER 2021-04-09 08:16 | Outpatient (CLI) | payer MEDICARE, MEDICAID, SELFPAY ==
[2021-04-09 08:45] VITALS: BP 116/78; PULSE 75; RESP 16; TEMP 36.5; O2SAT 100
== END 2021-04-09 09:00 | disposition home or self-care (01) ==
LOC: INF 08:18
PROVIDERS: PCP Family Medicine; Visit Provider Allergy & Immunology
DX: J45.50 Severe persistent asthma, uncomplicated (principal)
CPT/HCPCS: 96372; J2357

== ENCOUNTER 2021-04-26 08:23 | Outpatient (CLI) | payer MEDICARE, MEDICAID, SELFPAY ==
[2021-04-26 08:43] VITALS: BP 122/75; PULSE 91; RESP 20; TEMP 36.4; O2SAT 99
== END 2021-04-26 09:15 | disposition home or self-care (01) ==
LOC: INF 08:25
PROVIDERS: PCP Family Medicine; Visit Provider Allergy & Immunology
DX: J45.50 Severe persistent asthma, uncomplicated (principal)
CPT/HCPCS: 96372; J2357

== ENCOUNTER → 2021-05-06 09:42 | Outpatient (CLI) | payer MEDICARE, MEDICAID, SELFPAY ==
[2021-05-06 10:37] LABS: Basophils % 0.2 % (0.1-2.0); Eosinophils # 0.1 K/mm3 (0.0-0.4); Eosinophils % 1.2 % (0.1-12.0); Hematocrit 39.8 % (37.0-47.0); Hemoglobin 12.7 g/dL (12.2-16.2); Lymphocytes # 2.8 K/mm3 (0.7-4.5); Lymphocytes % 28.6 % (10-50); Mean Corpuscular Hemoglobin 29.1 pg (27.0-31.2); Mean Corpuscular Volume 91.1 fl (81-99); Mean Platelet Volume 6.8 fl (7.4-10.4); Monocytes # 0.5 K/mm3 (0.1-1.0); Monocytes % 4.6 % (1.7-9.3); Neutrophils # 6.3 K/mm3 (1.8-7.8); Neutrophils % 65.4 % (37.0-80.0); Platelet Count 256 K/mm3 (142-424); Red Blood Count 4.37 M/mm3 (4.20-5.40); Red Cell Distribution Width 13.8 % (11.5-17.5); White Blood Count 9.7 K/mm3 (4.8-10.8)
[2021-05-06 10:51] LABS: Chloride 108 mmol/L (98-107); Potassium 3.7 mmoL/L (3.5-5.1); Sodium 134 mmol/L (136-145)
[2021-05-06 10:54] LABS: Alanine Aminotransferase 26 U/L (12-78); Aspartate Amino Transferase 31 U/L (14-36); Bilirubin,Total 0.3 mg/dl (0.2-1.3); Blood Urea Nitrogen 6 mg/dl (7-17); Estimated Glomerular Filt Rate 75 ml/min (>60); GFR (African American) 90 ML/MIN (>60)
[2021-05-06 11:10] LABS: Free T4 (Free Thyroxine) 0.93 ng/dl (0.78-2.19)
[2021-05-06 11:37] LABS: Albumin Level 3.5 g/dl (3.5-5.0); Albumin/Globulin Ratio 1.3 (1.1-1.8); Alkaline Phosphatase 121 U/L (38-126); Anion Gap 7.7 mEq/L (5-15); Calcium 8.6 mg/dl (8.4-10.2); Carbon Dioxide 22 mmol/L (22.0-30.0); Globulin 2.7 g/dL (1.3-3.2); Glucose 95 mg/dl (74-100); Total Protein,Serum 6.2 g/dl (6.3-8.2)
[2021-05-06 11:56] LABS: 25-OH Vitamin D, Total 31.4 ng/mL (30-100)
[2021-05-06 12:09] LABS: Thyroid Stimulating Hormone 2.29 uIU/mL (0.465-4.68)
[2021-05-06 12:44] LABS: Vitamin B12 562 pg/mL (239-931)
[2021-05-06 12:57] LABS: Folate 7.89 ng/mL
[2021-05-07 12:14] LABS: Ceruloplasmin 42.1 mg/dL (19.0-39.0)
[2021-05-07 19:17] LABS: Antinuclear Antibodies, IFA Negative (.)
[2021-05-14 15:12] LABS: Vitamin B6 31.5 ug/L (2.0-32.8)
[2021-05-17 12:09] LABS: Vitamin B1 104.5 nmol/L (66.5-200.0)
== END ==
PROVIDERS: Visit Provider Nurse Practitioner
DX: R53.83 Other fatigue; G62.9 Polyneuropathy, unspecified; D51.8 Other vitamin B12 deficiency anemias; E53.1 Pyridoxine deficiency; E55.9 Vitamin D deficiency, unspecified
CPT/HCPCS: 36415; 80053; 82306; 82390; 82525; 82607; 82746; 84207; 84425; 84439; 84443; 85025; 86038

== ENCOUNTER 2021-05-14 08:12 | Outpatient (CLI) | payer MEDICARE, MEDICAID, SELFPAY ==
[2021-05-14 08:44] VITALS: BP 143/98; PULSE 62; RESP 18; O2SAT 99
== END 2021-05-14 08:44 | disposition home or self-care (01) ==
LOC: INF 08:12
PROVIDERS: Visit Provider Allergy & Immunology
DX: J45.50 Severe persistent asthma, uncomplicated (principal)
CPT/HCPCS: 96372; J2357

== ENCOUNTER 2021-06-18 08:51 | Outpatient (CLI) | payer MEDICARE, MEDICAID, SELFPAY ==
--- NOTE | 2021-06-18 10:56 | PC.NURSE ---
904 - PT CAME IN FOR XOLAIR INJECTION. PHARMACY NOTIFIED US THAT ORDER WAS THEREFORE PT COULD NOT RECEIVE MED TODAY. DR APPLE OFFICE CLOSED TODAY SO UNABLE TO GET NEW ORDER. PLAN TO CALL OFFICE ON MONDAY TO REQUEST NEW ORDER AND RESCHEDULE PT FOR XOLAIR.
== END 2021-06-18 09:15 | disposition home or self-care (01) ==
LOC: INF 08:53
PROVIDERS: PCP Family Medicine; Visit Provider Allergy & Immunology
DX: J45.50 Severe persistent asthma, uncomplicated (principal)

== ENCOUNTER → 2021-06-29 07:54 | Outpatient (CLI) | payer MEDICARE, MEDICAID, SELFPAY ==
--- NOTE | 2021-06-29 07:55 | XR_ITS ---
FINAL REPORT TECHNIQUE: Chest PA & Lateral CLINICAL HISTORY: SOB FINDINGS: 2 views of the chest were performed. The heart size is normal. The mediastinum is within normal limits. There is no acute cardiopulmonary process. There are no pleural effusions. There is no pneumothorax. The bony thorax appears intact. IMPRESSION: No acute cardiopulmonary process. Reviewed, Interpreted and Dictated by Ken Colon MD Transcribed by Xavier Gibson Authenticated by Ken Colon MD on 06/29/2021 11:38:[address] [facility]
[2021-06-29 08:40] VITALS: PULSE 61; PULSE 70
[2021-06-29 09:42] LABS: Basophils # 0.1 K/mm3 (0-0.2); Basophils % 0.7 % (0.1-2.0); Eosinophils # 0.1 K/mm3 (0.0-0.4); Eosinophils % 1.9 % (0.1-12.0); Hematocrit 38.4 % (37.0-47.0); Hemoglobin 12.5 g/dL (12.2-16.2); Lymphocytes # 3.2 K/mm3 (0.7-4.5); Lymphocytes % 44.3 % (10-50); Mean Corpuscular HGB Conc 32.4 g/dL (31.8-35.4); Mean Corpuscular Hemoglobin 30.1 pg (27.0-31.2); Mean Corpuscular Volume 92.8 fl (81-99); Mean Platelet Volume 7.1 fl (7.4-10.4); Monocytes # 0.4 K/mm3 (0.1-1.0); Monocytes % 5.7 % (1.7-9.3); Neutrophils # 3.4 K/mm3 (1.8-7.8); Neutrophils % 47.4 % (37.0-80.0); Platelet Count 269 K/mm3 (142-424); Red Blood Count 4.14 M/mm3 (4.20-5.40); Red Cell Distribution Width 14.5 % (11.5-17.5); White Blood Count 7.2 K/mm3 (4.8-10.8)
[2021-07-05 09:14] LABS: D001-IgE D pteronyssinus <0.10 kU/L (Class 0); D002-IgE D farinae <0.10 kU/L (Class 0); E001-IgE Cat Dander <0.10 kU/L (Class 0); E005-IgE Dog Dander 3.45 kU/L (Class III); E072-IgE Mouse Urine <0.10 kU/L (Class 0); G006-IgE Timothy Grass 0.24 kU/L (Class 0/I); Immunoglobulin E, Total 638 IU/mL (6-495); M001-IgE Penicillium chrysogen <0.10 kU/L (Class 0); M002-IgE Cladosporium herbarum <0.10 kU/L (Class 0); M003-IgE Aspergillus fumigatus <0.10 kU/L (Class 0); M006-IgE Alternaria alternata <0.10 kU/L (Class 0); T001-IgE Maple/Box Elder 0.26 kU/L (Class 0/I); T003-IgE Common Silver Birch 0.17 kU/L (Class 0/I); T006-IgE Cedar, Mountain 0.23 kU/L (Class 0/I); T007-IgE Oak, White 0.28 kU/L (Class 0/I); T008-IgE Elm, American 0.22 kU/L (Class 0/I); T010-IgE Walnut 0.22 kU/L (Class 0/I); T011-IgE Maple Leaf Sycamore 0.26 kU/L (Class 0/I); T015-IgE Ash, White 0.23 kU/L (Class 0/I); T022-IgE Pecan, Hickory 0.16 kU/L (Class 0/I); T070-IgE White Mulberry 0.14 kU/L (Class 0/I); W001-IgE Ragweed, Short 0.23 kU/L (Class 0/I); W011-IgE Thistle, Russian 0.25 kU/L (Class 0/I); W014-IgE Pigweed, Common 0.21 kU/L (Class 0/I)
== END ==
PROVIDERS: PCP Family Medicine; Visit Provider Internal Medicine Pulmonary Disease
DX: R06.00 Dyspnea, unspecified (principal); R06.02 Shortness of breath; J45.909 Unspecified asthma, uncomplicated
CPT/HCPCS: 36415; 71046; 82785; 85025; 86003; 94060; 94618; 94640; 94727; 94729

== ENCOUNTER 2021-10-05 10:29 | Emergency (ER) | payer MEDICARE, MEDICAID, SELFPAY ==
[2021-10-05 10:35] VITALS: BP 144/80; PULSE 69; RESP 20; TEMP 36.7; O2SAT 97; BMI 34.0
--- NOTE | 2021-10-05 10:58 | HMH.EDUTC ---
[facility] [place] Disposition Clinical Impression: Viral syndrome, Exposure to COVID-19 virus Disposition: Home, Self-Care Condition on Discharge: Good Instructions: DI for Viral Syndrome, DI for Headache, DI for COVID-19 (Suspected or Confirmed ), Preventing the Spread of Coronavirus Discharge Instructions Additional Instructions: *Monitor Temp, Over the counter Motrin or Tylenol as directed/as needed Tylenol every 4 hours and Motrin every 6 hours (as long as your family doctor has told you that you can take it) for fever or pain. and straight to ER if unable to lower temp less than 101.0 after medication given *Warm salt water gargles may help to soothe the throat *Throat Lozenges *Warm fluids like tea with honey may help to soothe the throat *Sleep elevated *Humidifier/Vaporizer *Make sure that you are drinking plenty of water and gatoraid to stay hydrated Follow up IMMEDIATELY for new or worsening symptoms or no Noticeable improvement over the next 48-72 hours. 911 for difficulty breathing or swallowing Straight to ER for any life threatening symptoms You were tested for today for COVID19 your test result should be back in the next 24-48 hours, you may check your results on the [facility] My Health Portal Make sure to take your Vitamins Vit. C Vit D and Zinc if you can take them Referrals: Elvi Sheets [Primary Care Provider] - As needed Time of Disposition: 11:37 Medical Decision Making - Kimo Inquiry Pt receiving controlled substance: No Kimo was queried for this patient: No Vital Signs: 10/05/21 10:35 10/05/21 11:10 Temperature 98.0 F 98.0 F Temperature Source Oral Pulse Rate 69 Pulse Rate [Right Brachial] 69 Respiratory Rate 20 20 Blood Pressure 144/80 H Blood Pressure [Right Arm] 144/80 H Blood Pressure Mean [Right Arm] 101 Blood Pressure Source [Right Arm] Automatic Cuff Blood Pressure Position [Right Arm] Sitting 02 Sat by Pulse Oximetry 97 Oxygen Delivery Method Room Air Orders (Tests/Meds): ED MEDICATIONS Discontinued Medications Generic Name Dose Route Start Last Admin Trade Name Freq PRN Reason Stop Dose Admin Ubrogepant 50 mg 10/05/21 11:14 10/05/21 11:23 Ubrogepant 50mg Tablet PO 10/05/21 11:15 50 mg ONCE ONE Administration ORDERS Category Date Time Status Covid-19 Nasal PCR ([facility]) Routine Lab 10/05/21 10:40 Received Medical Decision Narrative: Medication discussed with pharmacy will give Ubrelvy for headache Patient states that headache is much improved after medication [facility] [place] HPI - General Stated complaint: covid test Time Seen by Provider: 10/05/21 10:59 Mode of Arrival: Ambulatory Source of Information: Patient Limitations: No Limitations Description of Symptoms (Recalled from Triage Doc. by RN): PATIENT C/O CHILLS, DIARREHA, NAUSEA, SNEEZING, BODY ACHES, HEADACHE, AND FATIGUE X 1 WEEK. RECENTLY EXPOSED TO COVID HEENT Symptoms (Recalled from RN notes): Yes Resp Symptoms (Recalled from RN notes): No Skin Symptoms (Recalled from RN notes): No MS Symptoms (Recalled from RN notes): No Functional Status (Recalled from RN notes): WNL - History of Present Illness Provider Complaint: Patient states that she was around her neice all last week and she tested positive for COVID yesterday States that she has been having a bad headache, body aches, chills, nausea, diarrhea and sleeping alot States that she is not sure if she has had a fever or anything but she has been having chills and then when she woke up she had sweated some. States that she has taken Excedrin and stuff for her headache and it will come right back Denies vision changes states that she just feels sick and weak - Related Data Home Medications Medication Instructions Recorded Confirmed Levocetirizine Dihydrochloride 5 mg PO DAILY 03/22/17 09/02/21 pantoprazole 40 mg tablet,delayed 40 mg PO DAILY 30 Days #30 10/16/17 09/02/21 release Topiramate [Topiramate ER] 200 mg PO DAILY 09/29/2009/02
[2021-10-05 11:10] VITALS: BP 144/80; PULSE 69; RESP 20; TEMP 36.7; O2SAT 97
== END 2021-10-05 11:42 | disposition home or self-care (01) ==
PROVIDERS: Emergency Provider Nurse Practitioner; PCP Family Medicine
DX: Z20.822 Contact with and (suspected) exposure to COVID-19 (principal); B34.9 Viral infection, unspecified; R50.9 Fever, unspecified; R19.7 Diarrhea, unspecified; R11.0 Nausea; R51.9 Headache, unspecified; R53.1 Weakness; Z88.6 Allergy status to analgesic agent; E11.9 Type 2 diabetes mellitus without complications; E78.5 Hyperlipidemia, unspecified; I10 Essential (primary) hypertension
CPT/HCPCS: 99212; C9803; G0463; U0003; U0005

== ENCOUNTER → 2021-10-18 07:42 | Outpatient (CLI) | payer MEDICARE, MEDICAID, SELFPAY ==
--- NOTE | 2021-10-18 07:45 | MR_ITS ---
FINAL REPORT CLINICAL HISTORY: LOW BACK PAIN. Bilateral leg pain and tingling. symptoms for years. No injury or trauma. COMPARISON: 01/21/2016 FINDINGS: MRI LUMBAR SPINE W/O CONTRAST Multiplanar MR imaging of the lumbar spine was performed without contrast. On the sagittal T2-weighted images, disc degeneration is seen at several levels. The vertebral alignment is normal. There is no evidence of fracture. The conus has an unremarkable appearance. T11-12: An annular disc bulge is present. No significant central canal stenosis or neural foraminal narrowing. T12-L1: No central canal stenosis or neural foraminal narrowing. L1-2: An annular disc bulge is present. No significant central canal stenosis or neural foraminal narrowing. L2-3: No significant central canal stenosis or neural foraminal narrowing. L3-4: An annular disc bulge is present. There is mild bilateral neural foraminal narrowing. L4-5: An annular disc bulge is present. There is mild right neural foraminal narrowing. L5-S1: There is an annular disc bulge with facet arthropathy and vertebral osteophytes. There is mild bilateral neural foraminal narrowing. IMPRESSION: Multilevel disc degeneration and spondylosis with areas of neural foraminal narrowing, similar to the prior exam. Reviewed, Interpreted and Dictated by Steve Richardson III, MD Transcribed by Chica Gonzalez Authenticated and [facility]
== END ==
PROVIDERS: PCP Family Medicine; Visit Provider Nurse Practitioner
DX: M54.16 Radiculopathy, lumbar region (principal)
CPT/HCPCS: 72148; 76376

== ENCOUNTER → 2021-12-03 12:36 | Outpatient (CLI) | payer MEDICARE, MEDICAID, SELFPAY ==
--- NOTE | 2021-12-03 12:39 | XR_ITS ---
FINAL REPORT CLINICAL HISTORY: knee pain FINDINGS: 4 weight-bearing views of the right knee were obtained. There is no acute fracture or dislocation. There has been knee arthroplasty. There are soft tissue calcifications. IMPRESSION: Right knee arthroplasty without evidence of hardware complication. Reviewed, Interpreted and Dictated by Steve Richardson III, MD Transcribed by Xavier Gibson Authenticated and [facility]
== END ==
PROVIDERS: PCP Family Medicine; Visit Provider Orthopaedic Surgery
DX: M25.561 Pain in right knee (principal)
CPT/HCPCS: 73564

== ENCOUNTER 2022-01-25 08:13 | Outpatient (CLI) | payer MEDICARE, MEDICAID, SELFPAY ==
[2022-01-25 08:31] VITALS: BP 124/77; PULSE 55; RESP 18; TEMP 36.3; O2SAT 99
== END 2022-01-25 08:34 | disposition home or self-care (01) ==
LOC: INF 08:15
PROVIDERS: PCP Family Medicine; Visit Provider Nurse Practitioner
DX: J45.50 Severe persistent asthma, uncomplicated (principal)
CPT/HCPCS: 96372; J2357

== ENCOUNTER 2022-02-14 08:12 | Emergency (ER) | payer MEDICARE, MEDICAID, SELFPAY ==
[2022-02-14 08:18] VITALS: BP 120/84; PULSE 105; RESP 17; TEMP 37.6; O2SAT 97; BMI 33.3
--- NOTE | 2022-02-14 09:09 | EXP.UTC ---
Discharge Plan Disposition Patient Disposition: Home, Self-Care Condition: Good Prescriptions Prescriptions: New benzonatate [benzonatate] 100 mg capsule 100 mg PO TIDP PRN (Reason: Cough) Qty: 30 0RF phenazopyridine [Pyridium] 200 mg tablet 200 mg PO Q8H 2 Days Qty: 6 0RF cefdinir 300 mg capsule 300 mg PO BID Qty: 20 0RF No Action Zembrace Symtouch 3 mg/0.5 mL pen injector 0.5 ml SQ Q2HP PRN (Reason: MIGRAINES) atorvastatin 20 mg tablet 20 mg PO DAILY pantoprazole 40 mg tablet,delayed release (DR/EC) 40 mg PO DAILY 30 Days Qty: 30 albuterol sulfate 90 mcg/actuation HFA aerosol inhaler 2 inh INHALATION Q6H PRN (Reason: shortness of breath or wheezing) 90 Days Qty: 8.5 3RF budesonide-formoterol [Symbicort] 160-4.5 mcg/actuation HFA aerosol inhaler 2 puff INHALATION BID 90 Days Qty: 10.2 3RF fluticasone propionate 50 mcg/actuation spray,suspension 2 spray INTRANASAL DAILY 90 Days Qty: 15.8 3RF Rx Instructions: administer into each nostril azelastine 205.5 mcg (0.15 %) spray,non-aerosol 2 spray INTRANASAL HS 90 Days Qty: 30 3RF Rx Instructions: administer into each nostril ipratropium-albuterol 0.5 mg-3 mg(2.5 mg base)/3 mL solution for nebulization 3 ml INHALATION QID PRN (Reason: shortness of breath or wheezing) 90 Days Qty: 360 3RF Qulipta 60 mg tablet 60 mg PO DAILY Reyvow 100 mg tablet PO Label Comments: patient states she is given on site of her neurologist topiramate 50 MG capsule,sprinkle,ER 24hr 50 mg PO HS multivitamin 1 EACH tablet 1 each PO DAILY cyanocobalamin (vitamin B-12) 1,000 MCG tablet 1,000 mcg PO BID pyridoxine (vitamin B6) 100 MG tablet 100 mg PO DAILY cholecalciferol (vitamin D3) 1,000 UNIT capsule 2,000 unit PO DAILY magnesium oxide 400 MG capsule 400 mg PO DAILY ascorbic acid (vitamin C) 500 MG capsule 500 mg PO DAILY levocetirizine 5 MG tablet 5 mg PO DAILY topiramate 200 MG capsule,royer,ER 24hr 200 mg PO DAILY Referrals Follow up/Referrals: Elvi Sheets [Primary Care Provider] - See instructions Activity Restrictions/Add. Instructions Additional Instructions/Restrictions: Drink plenty of fluids. Take tylenol or ibuprofen for pain or fever. Take the medications as directed. Follow up with your regular doctor. GO TO THE ER FOR ANY WORSENING SYMPTOMS The pyridium will make your urine turn orange, this is an expected side effect. It will stain your clothes if it comes into contact with them. We will culture the urine. That will tell what bacteria is causing your infection and which antibiotics will treat it best. Sometimes the first antibiotic we prescribe turns out to not work against different bacteria. So, make sure you follow up within 3 days if you are not getting better. Clinical Impressions Clinical Impression: UTI (urinary tract infection), Sinusitis Instructions Patient Instructions: Urinary Tract Infection, Urine Culture, DI for Sinusitis, DI for Urinary Tract Infection (UTI), Phenazopyridine Discharge ED Provider: Yash Krishnan [facility] General Stated complaint: Cough,Congestion,fever Limitations: No Limitations Time Seen by Provider: 02/14/22 09:09 Description of Symptoms (Recalled from Triage Doc. by RN): PT REPORTS COUGH, FEVER, BODYACHES, CONGESTION, SORE THROAT AND HEADACHE History of Present Illness Provider Complaint: She reports that for the past 3 days she has had left sided low back pain, dysuria, foul smelling urine. She has also had sinus congestion, sore throat and ear pain. Related Data Home Medications Medication Instructions Recorded Confirmed levocetirizine 5 mg tablet 5 mg PO DAILY Allergy symptoms 03/22/17 01/24/22 pantoprazole 40 mg tablet,delayed 40 mg PO DAILY GERD 30 days ##30 10/16/17 01/24/22 release topiramate 200 mg capsule 200 mg PO DAILY migraines
[2022-02-14 09:17] LABS: UTC Strep Screen (Rapid) Negative (Negative)
[2022-02-14 09:18] LABS: UTC Influenza A Antigen Negative (Negative); UTC Influenza B Antigen Negative (Negative)
[2022-02-14 09:20] VITALS: BP 120/84; PULSE 105; RESP 17; TEMP 37.6; O2SAT 97; BMI 34.3
[2022-02-14 09:31] LABS: Apearance,Urine Clear (Clear); Bilirubin,Urine 1+ (Negative); Blood, Urine 4+ (Negative); Color,Urine Dark Yellow (Yellow); Glucose,Urine (UA) Negative (Negative); Ketones,Urine TRACE (Negative); PH,Urine 5.5 (5.0-8.5); Protein,Urine 1+ (Negative); Specific Gravity, Urine >= 1.030 (1.005-1.030); UTC Leukocyte Esterase,Urine Negative (Negative); UTC Nitrate,Urine Negative (Negative); Urobilinogen,Urine 0.2 EU/dl (0.2)
[2022-02-14 09:36] LABS: Adenovirus,PCR Not Detected (NotDetected); Bordetella Pertussis Not Detected (NotDetected); Chlamydophila Pneumoniae, PCR Not Detected (NotDetected); Coronavirus 229E Not Detected (NotDetected); Coronavirus NL63 Not Detected (NotDetected); Coronavirus OC43 Not Detected (NotDetected); Coronovirus HKU1,PCR Not Detected (NotDetected); Human Metapneumovirus Not Detected (NotDetected); Influenza A, PCR Not Detected (NotDetected); Influenza AH1, 2009 Not Detected (NotDetected); Influenza AH1, PCR Not Detected (NotDetected); Influenza AH3,PCR Not Detected (NotDetected); Influenza B, PCR Not Detected (NotDetected); Mycoplasma Pneumoniae, PCR Not Detected (NotDetected); Parainfluenza 1, PCR Not Detected (NotDetected); Parainfluenza 2, PCR Not Detected (NotDetected); Parainfluenza 3, PCR Not Detected (NotDetected); Parainfluenza 4, PCR Not Detected (NotDetected); Respiratory Syncytial Virus Not Detected (NotDetected); Rhinovirus/Enterovirus Not Detected (NotDetected)
[2022-02-14 09:41] VITALS: BP 120/84; PULSE 105; RESP 17; TEMP 37.6
[2022-02-14 20:54] LABS: Coronavirus 19, PCR Detected (NotDetected)
== END 2022-02-14 09:45 | disposition home or self-care (01) ==
PROVIDERS: Emergency Provider Nurse Practitioner Family; PCP Family Medicine
DX: U07.1 COVID-19 (principal); J32.9 Chronic sinusitis, unspecified; N39.0 Urinary tract infection, site not specified
CPT/HCPCS: 81003; 87086; 87581; 87632; 87798; 87804; 87880; 99212; C9803; G0463; U0003; U0005

== ENCOUNTER → 2022-02-22 10:27 | Outpatient (CLI) | payer MEDICARE, MEDICAID, SELFPAY ==
--- NOTE | 2022-02-22 10:33 | MM_ITS ---
PROCEDURE INFORMATION: Exam: MG Bilateral Screening 3D Mammography Exam date and time: 02/22/2022 10:30 AM Age: 56 years old Clinical indication: Screening. No family history of breast cancer. TECHNIQUE: Imaging protocol: Bilateral Screening tomosynthesis and 2D mammography including computer-aided detection (CAD) when performed. COMPARISON: 1. MG MM DIG SCREENING MAMM BI W/CAD 08/04/2020 8:23 AM 2. MG MM DIG SCREENING MAMM BI W/CAD 08/02/2019 9:51 AM 3. MG SCBI MM Dig screening mamm BI w/CAD 03/30/2018 9:22 AM 4. MG SCBI MM Dig screening mamm BI w/CAD 03/24/2017 4:29 PM FINDINGS: MAMMOGRAPHY: Breast composition: There are scattered areas of fibroglandular density. Mass: Oval 0.6 cm mass in the left upper outer quadrant, 4-5 cm from the nipple ,CC frame 27 and MLO frame 20. Architectural distortion: None. Calcifications: No suspicious calcifications. Asymmetric density: None. Skin thickening: None. Axillary adenopathy: None. IMPRESSION: Patient will be recalled for left sonography for further evaluation of left breast mass. ASSESSMENT: BI-RADS Category 0: Incomplete- Need Additional Imaging Evaluation and/or Prior Mammograms for Comparison
== END ==
PROVIDERS: PCP Family Medicine; Visit Provider Obstetrics & Gynecology
DX: Z12.31 Encounter for screening mammogram for malignant neoplasm of breast (principal)
CPT/HCPCS: 77063; 77067

== ENCOUNTER → 2022-03-02 08:44 | Outpatient (CLI) | payer MEDICARE, MEDICAID, SELFPAY ==
[2022-03-02 08:45] VITALS: BP 143/79; PULSE 66; RESP 18; O2SAT 96
== END ==
PROVIDERS: PCP Family Medicine; Visit Provider Allergy & Immunology
DX: J45.50 Severe persistent asthma, uncomplicated (principal)
CPT/HCPCS: 96372; J2357

== ENCOUNTER → 2022-03-14 10:42 | Outpatient (CLI) | payer MEDICARE, MEDICAID, SELFPAY ==
--- NOTE | 2022-03-14 10:42 | US_ITS ---
PROCEDURE INFORMATION: Exam: US Left Breast, Complete Exam date and time: 03/14/2022 10:51 AM Age: 56 years old Clinical indication: Patient recalled for further evaluation of a left breast mass TECHNIQUE: Imaging protocol: Complete ultrasound of all four quadrants of the Left breast and the retroareolar regions, including ultrasound of the axilla when performed. COMPARISON: MG MM DIG SCREENING MAMM BI W/CAD 02/22/2022 10:30 AM FINDINGS: Breast: Sonographic images of the left breast including the retroareolar region, all 4 quadrants and the axilla do not demonstrate any solid masses. Few cysts are noted in the upper outer quadrant including a 0.7 cm cyst in the 2 o'clock axis 3 cm from the nipple most closely corresponding to the mass on mammography. No architectural distortion or acoustical shadowing. No skin thickening or axillary adenopathy. IMPRESSION: Mass on screening mammography corresponds to underlying cystic change sonographically. There is no mammographic evidence of malignancy.Annual bilateral mammographic screening is recommended unless otherwise clinically indicated. ASSESSMENT: BI-RADS Category 2: Benign
== END ==
PROVIDERS: PCP Family Medicine; Visit Provider Obstetrics & Gynecology
DX: R92.8 Other abnormal and inconclusive findings on diagnostic imaging of breast (principal)
CPT/HCPCS: 76641

== ENCOUNTER 2022-03-16 13:06 | Outpatient (CLI) | payer MEDICARE, MEDICAID, SELFPAY ==
[2022-03-16 13:22] VITALS: BP 149/91; PULSE 90; RESP 18; O2SAT 97
== END 2022-03-16 13:31 | disposition home or self-care (01) ==
LOC: INF 13:07
PROVIDERS: PCP Family Medicine; Visit Provider Allergy & Immunology
DX: J45.50 Severe persistent asthma, uncomplicated (principal)
CPT/HCPCS: 96372; J2357

== ENCOUNTER 2022-03-30 09:27 | Outpatient (CLI) | payer MEDICARE, MEDICAID, SELFPAY ==
[2022-03-30 09:50] VITALS: BP 137/76; PULSE 89; RESP 18; TEMP 36.4; O2SAT 99
== END 2022-03-30 10:10 | disposition home or self-care (01) ==
LOC: INF 09:29
PROVIDERS: PCP Family Medicine; Visit Provider Allergy & Immunology
DX: J45.50 Severe persistent asthma, uncomplicated (principal)
CPT/HCPCS: 96372; J2357

== ENCOUNTER 2022-04-13 10:41 | Outpatient (CLI) | payer MEDICARE, MEDICAID, SELFPAY ==
[2022-04-13 10:52] VITALS: BP 133/68; PULSE 61; RESP 18; TEMP 36.4; O2SAT 99
== END 2022-04-13 11:18 | disposition home or self-care (01) ==
LOC: INF 10:42
PROVIDERS: PCP Family Medicine; Visit Provider Allergy & Immunology
DX: J45.50 Severe persistent asthma, uncomplicated (principal)
CPT/HCPCS: 96372; J2357

== ENCOUNTER 2022-04-27 08:41 | Outpatient (CLI) | payer MEDICARE, MEDICAID, SELFPAY ==
[2022-04-27 09:00] VITALS: BP 127/73; PULSE 72; RESP 18; O2SAT 100
== END 2022-04-27 09:15 | disposition home or self-care (01) ==
LOC: INF 08:42
PROVIDERS: PCP Family Medicine; Visit Provider Allergy & Immunology
DX: J45.50 Severe persistent asthma, uncomplicated (principal)
CPT/HCPCS: 96372; J2357

== ENCOUNTER 2022-05-11 08:14 | Outpatient (CLI) | payer MEDICARE, MEDICAID, SELFPAY ==
[2022-05-11 08:30] VITALS: BP 119/69; PULSE 60; RESP 18; TEMP 36.4; O2SAT 98
== END 2022-05-11 08:40 | disposition home or self-care (01) ==
LOC: INF 08:15
PROVIDERS: PCP Family Medicine; Visit Provider Allergy & Immunology
DX: J45.50 Severe persistent asthma, uncomplicated (principal)
CPT/HCPCS: 96372; J2357

== ENCOUNTER 2022-05-25 08:28 | Outpatient (CLI) | payer MEDICARE, MEDICAID, SELFPAY ==
[2022-05-25 08:48] VITALS: BP 130/65; PULSE 75; RESP 18; O2SAT 98
== END 2022-05-25 08:55 | disposition home or self-care (01) ==
LOC: INF 08:29
PROVIDERS: PCP Family Medicine; Visit Provider Allergy & Immunology
DX: J45.50 Severe persistent asthma, uncomplicated (principal)
CPT/HCPCS: 96372; J2357

== ENCOUNTER 2022-06-08 08:22 | Outpatient (CLI) | payer MEDICARE, MEDICAID, SELFPAY ==
[2022-06-08 08:50] VITALS: BP 146/87; PULSE 69; RESP 18; TEMP 36.2; O2SAT 99
[2022-06-08] MEDS: OMALIZUMAB 150MG VIAL 375 MG SQ (08:50)
== END 2022-06-08 09:15 | disposition home or self-care (01) ==
LOC: INF 08:22
PROVIDERS: PCP Family Medicine; Visit Provider Allergy & Immunology
DX: J45.50 Severe persistent asthma, uncomplicated (principal)
CPT/HCPCS: 96372; J2357

== ENCOUNTER 2022-06-22 08:51 | Outpatient (CLI) | payer MEDICARE, MEDICAID, SELFPAY ==
[2022-06-22] MEDS: OMALIZUMAB 150MG VIAL 375 MG SQ (09:19)
[2022-06-22 09:20] VITALS: BP 113/70; PULSE 70; RESP 18; O2SAT 99
== END 2022-06-22 09:30 | disposition home or self-care (01) ==
LOC: INF 08:52
PROVIDERS: PCP Family Medicine; Visit Provider Allergy & Immunology
DX: J45.50 Severe persistent asthma, uncomplicated (principal)
CPT/HCPCS: 96372; J2357

== ENCOUNTER 2022-07-06 09:14 | Outpatient (CLI) | payer MEDICARE, MEDICAID, SELFPAY ==
[2022-07-06 09:40] VITALS: BP 113/73; PULSE 60; RESP 18; TEMP 36.3; O2SAT 100
[2022-07-06] MEDS: OMALIZUMAB 150MG VIAL 375 MG SQ (09:40)
== END 2022-07-06 09:55 | disposition home or self-care (01) ==
LOC: INF 09:15
PROVIDERS: PCP Family Medicine; Visit Provider Allergy & Immunology
DX: J45.50 Severe persistent asthma, uncomplicated (principal)
CPT/HCPCS: 96372; J2357

== ENCOUNTER 2022-07-20 09:20 | Outpatient (CLI) | payer MEDICARE, MEDICAID, SELFPAY ==
[2022-07-20 09:57] VITALS: BP 121/74; PULSE 84; RESP 18; O2SAT 97
[2022-07-20] MEDS: OMALIZUMAB 150MG VIAL 375 MG SQ (09:57)
== END 2022-07-20 10:02 | disposition home or self-care (01) ==
LOC: INF 09:20
PROVIDERS: PCP Family Medicine; Visit Provider Allergy & Immunology
DX: J45.50 Severe persistent asthma, uncomplicated (principal)
CPT/HCPCS: 96372; J2357

== ENCOUNTER 2022-08-03 09:15 | Outpatient (CLI) | payer MEDICARE, MEDICAID, SELFPAY ==
[2022-08-03 10:10] VITALS: BP 118/79; PULSE 59; RESP 18; TEMP 36.7; O2SAT 98
[2022-08-03] MEDS: OMALIZUMAB 150MG VIAL 375 MG SQ (10:10)
== END 2022-08-03 10:30 | disposition home or self-care (01) ==
LOC: INF 09:16
PROVIDERS: PCP Family Medicine; Visit Provider Allergy & Immunology
DX: J45.50 Severe persistent asthma, uncomplicated (principal)
CPT/HCPCS: 96372; J2357

== ENCOUNTER 2022-08-24 08:37 | Outpatient (CLI) | payer MEDICARE, MEDICAID, SELFPAY ==
[2022-08-24 09:04] VITALS: BP 120/71; PULSE 73; RESP 18; O2SAT 97
[2022-08-24] MEDS: OMALIZUMAB 150MG VIAL 375 MG SQ (09:04)
== END 2022-08-24 09:15 | disposition home or self-care (01) ==
LOC: INF 08:38
PROVIDERS: PCP Family Medicine; Visit Provider Allergy & Immunology
DX: J45.50 Severe persistent asthma, uncomplicated (principal)
CPT/HCPCS: 96372; J2357

== ENCOUNTER 2022-09-07 08:27 | Outpatient (CLI) | payer MEDICARE, MEDICAID, SELFPAY ==
[2022-09-07] MEDS: OMALIZUMAB 150MG VIAL 375 MG SQ (08:53)
[2022-09-07 08:55] VITALS: BP 131/73; PULSE 63; RESP 18; TEMP 36.6; O2SAT 97
== END 2022-09-07 08:55 | disposition home or self-care (01) ==
LOC: INF 08:28
PROVIDERS: PCP Family Medicine; Visit Provider Allergy & Immunology
DX: J45.50 Severe persistent asthma, uncomplicated (principal)
CPT/HCPCS: 96372; J2357

== ENCOUNTER 2022-09-21 08:16 | Outpatient (CLI) | payer MEDICARE, MEDICAID, SELFPAY ==
[2022-09-21 08:36] VITALS: BP 109/74; PULSE 61; RESP 18; TEMP 36.4; O2SAT 99
[2022-09-21] MEDS: OMALIZUMAB 150MG VIAL 375 MG SQ (08:36)
== END 2022-09-21 08:47 | disposition home or self-care (01) ==
LOC: INF 08:16
PROVIDERS: PCP Family Medicine; Visit Provider Allergy & Immunology
DX: J45.50 Severe persistent asthma, uncomplicated (principal)
CPT/HCPCS: 96372; J2357

== ENCOUNTER 2022-10-05 08:08 | Outpatient (CLI) | payer MEDICARE, MEDICAID, SELFPAY ==
[2022-10-05 08:35] VITALS: BP 111/72; PULSE 73; RESP 16; O2SAT 98
[2022-10-05] MEDS: OMALIZUMAB 150MG VIAL 375 MG SQ (08:35)
== END 2022-10-05 08:50 | disposition home or self-care (01) ==
LOC: INF 08:10
PROVIDERS: PCP Family Medicine; Visit Provider Allergy & Immunology
DX: J45.50 Severe persistent asthma, uncomplicated (principal)
CPT/HCPCS: 96372; J2357

== ENCOUNTER 2022-10-07 10:16 | Emergency (ER) | payer MEDICARE, MEDICAID, SELFPAY ==
[2022-10-07 10:17] VITALS: BP 154/81; PULSE 79; RESP 18; TEMP 36.7; O2SAT 99; BMI 34.2
[2022-10-07 10:20] VITALS: BP 154/81; PULSE 79; O2SAT 97
[2022-10-07 10:30] VITALS: BP 143/70; PULSE 60; O2SAT 98
--- NOTE | 2022-10-07 10:40 | XR_ITS ---
FINAL REPORT CLINICAL HISTORY: fall, right knee injury COMPARISON: 12/03/2021 FINDINGS: AP, lateral and oblique views of the right knee were obtained. There are changes from total knee arthroplasty. The hardware is intact with a stable appearance. There is no acute osseous abnormality of the right knee. The joint space is preserved. The soft tissues are normal. There is no joint effusion. IMPRESSION: Postoperative changes without acute osseous abnormality. Reviewed, Interpreted and Dictated by Alexandra Powell MD Transcribed by Maki Sr Authenticated and [facility]
--- NOTE | 2022-10-07 10:40 | XR_ITS ---
FINAL REPORT CLINICAL HISTORY: fall, left knee pain COMPARISON: None FINDINGS: AP, lateral and oblique views of the left knee were obtained. There is no prior exam for comparison. There are changes from medial hemiarthroplasty. The hardware is intact. There is no acute osseous abnormality of the left knee. There is degenerative disease at the patellofemoral compartment. The soft tissues are normal. There is no joint effusion. IMPRESSION: Postoperative and degenerative changes without acute osseous abnormality. Reviewed, Interpreted and Dictated by Alexandra Powell MD Transcribed by Maki Sr Authenticated and . [facility]
--- NOTE | 2022-10-07 10:43 | HMH.EDGENADL ---
Discharge Plan Disposition Patient Disposition: Home, Self-Care Prescriptions Prescriptions: New cephalexin 500 mg capsule 500 mg PO QID 5 Days Qty: 20 0RF No Action atorvastatin 20 mg tablet 20 mg PO DAILY pantoprazole 40 mg tablet,delayed release (DR/EC) 40 mg PO DAILY 30 Days Qty: 30 albuterol sulfate 90 mcg/actuation HFA aerosol inhaler 2 inh INHALATION Q6H PRN (Reason: shortness of breath or wheezing) 90 Days Qty: 8.5 3RF ipratropium-albuterol 0.5 mg-3 mg(2.5 mg base)/3 mL solution for nebulization 3 ml INHALATION QID PRN (Reason: shortness of breath or wheezing) 90 Days Qty: 360 3RF Qulipta 60 mg tablet 60 mg PO DAILY Reyvow 100 mg tablet 100 mg PO NEEDED PRN (Reason: migraines) Patient Comments: patient states she is given on site of her neurologist gabapentin 300 mg capsule 300 mg PO HS Xolair 150 mg recon soln 375 mg SQ Q2W estradiol valerate [Delestrogen] 20 mg/mL oil 20 mg IM Q4W topiramate 50 MG capsule,sprinkle,ER 24hr 50 mg PO HS multivitamin 1 EACH tablet 1 each PO DAILY pyridoxine (vitamin B6) 100 MG tablet 100 mg PO DAILY indomethacin 50 mg Capsule 50 mg PO BIDP PRN (Reason: migraines) Rx Instructions: administer with food or milk hydroxyzine HCl 25 mg Tablet 25 mg PO HSP PRN (Reason: Itching) levocetirizine 5 MG tablet 5 mg PO DAILY topiramate 200 MG capsule,sprinkle,ER 24hr 200 mg PO DAILY fluticasone propionate 50 mcg/actuation spray,suspension 2 spray INTRANASAL DAILY Rx Instructions: administer into each nostril budesonide-formoterol [Symbicort] 160-4.5 mcg/actuation HFA aerosol inhaler 2 puff INHALATION BID azelastine 205.5 mcg (0.15 %) spray,non-aerosol 2 spray INTRANASAL HS Rx Instructions: administer into each nostril Referrals Follow up/Referrals: Elvi Sheets [Primary Care Provider] - See instructions Activity Restrictions/Add. Instructions Additional Instructions/Restrictions: Your wound was extensively irrigated no foreign bodies noted. However with a wood injury infection is still possible and it may cause an immunogenic inflammatory response as well. Return with any significant worsening redness or pus coming from your wound. Get your sutures out in 7 days. Clinical Impressions Clinical Impression: Laceration of right upper arm, Contusion of knee, left, Contusion of knee, right Instructions Patient Instructions: DI for Laceration Repair Discharge ED Provider: Hortencia Bishop General Adult HPI General Chief complaint: Wound/Laceration Stated complaint: AO7/@home, lac on Rt arm Time Seen by Provider: 10/07/22 10:22 Mode of Arrival: Ambulatory Source of Information: Patient Limitations: No Limitations Description of Symptoms (Recalled from ER Triage Doc. by RN): Patient states she was carrying some things when she tripped and fell landing on the dog gate causing a laceration to her right inner upper arm. History of Present Illness HPI narrative: Patient is a 57-year-old female here with bilateral knee injuries and right upper extremity laceration after falling and landing directly into a dog gate. She sustained a laceration to the medial aspect of her right upper extremity around antecubital fossa. She is not sure as to when she has had her last tetanus vaccination. Additionally she fell directly onto her knees and had significant bruising of bilateral knees and states that she had some pain with ambulation but has been able to ambulate. No injuries elsewhere. Has not had any Tylenol or ibuprofen or anything for pain yet. Related Data Home Medications Medication Instructions Recorded Confirmed levocetirizine 5 mg tablet 5 mg PO DAILY Allergy symptoms 03/22/17 10/05/22 pantoprazole 40 mg tablet,delayed 40 mg PO DAILY GERD 30 days ##30 10/16/17 10/05/22 release topiramate 200 mg capsule 200 mg PO DAILY migrai
[2022-10-07 11:40] VITALS: BP 141/71; PULSE 77; RESP 18; TEMP 36.8; O2SAT 99
== END 2022-10-07 11:42 | disposition home or self-care (01) ==
PROVIDERS: Emergency Provider Student in an Organized Health Care Education/Training Program; PCP Family Medicine
DX: S41.111A Laceration without foreign body of right upper arm, initial encounter (principal); S80.02XA Contusion of left knee, initial encounter; S80.01XA Contusion of right knee, initial encounter; W01.198A Fall on same level from slipping, tripping and stumbling with subsequent striking against other object, initial encounter; J45.50 Severe persistent asthma, uncomplicated; G43.909 Migraine, unspecified, not intractable, without status migrainosus; Z23 Encounter for immunization
CPT/HCPCS: 12034; 73562; 90471; 90715; 96372; 99283

== ENCOUNTER 2022-10-24 08:21 | Outpatient (CLI) | payer MEDICARE, MEDICAID, SELFPAY ==
[2022-10-24 08:56] VITALS: BP 125/73; PULSE 58; RESP 18; TEMP 36.4; O2SAT 98
[2022-10-24] MEDS: OMALIZUMAB 150MG VIAL 375 MG SQ (08:56)
== END 2022-10-24 09:20 | disposition home or self-care (01) ==
LOC: INF 08:21
PROVIDERS: PCP Family Medicine; Visit Provider Allergy & Immunology
DX: J45.50 Severe persistent asthma, uncomplicated (principal)
CPT/HCPCS: 96372; J2357

== ENCOUNTER 2022-11-11 08:13 | Outpatient (CLI) | payer MEDICARE, MEDICAID, SELFPAY ==
[2022-11-11] MEDS: OMALIZUMAB 150MG VIAL 375 MG SQ (09:01)
[2022-11-11 09:04] VITALS: BP 143/79; PULSE 57; RESP 18; TEMP 36.4; O2SAT 99
== END 2022-11-11 09:04 | disposition home or self-care (01) ==
LOC: INF 08:13
PROVIDERS: PCP Family Medicine; Visit Provider Allergy & Immunology
DX: J45.50 Severe persistent asthma, uncomplicated (principal)
CPT/HCPCS: 96372; J2357

== ENCOUNTER → 2022-12-08 10:48 | Outpatient (CLI) | payer MEDICARE, MEDICAID, SELFPAY | PROVIDERS: PCP Family Medicine; Visit Provider Allergy & Immunology | DX: J45.50 Severe persistent asthma, uncomplicated (principal) ==

== ENCOUNTER 2022-12-09 08:39 | Outpatient (CLI) | payer MEDICARE, MEDICAID, SELFPAY ==
[2022-12-09 09:06] VITALS: BP 128/70; PULSE 71; RESP 20; TEMP 36.9; O2SAT 95
[2022-12-09] MEDS: OMALIZUMAB 150MG VIAL 375 MG SQ (09:25)
== END 2022-12-09 09:30 | disposition home or self-care (01) ==
LOC: INF 08:40
PROVIDERS: PCP Family Medicine; Visit Provider Allergy & Immunology
DX: J45.50 Severe persistent asthma, uncomplicated (principal)
CPT/HCPCS: 96372; J2357

== ENCOUNTER 2022-12-23 08:20 | Outpatient (CLI) | payer MEDICARE, MEDICAID, SELFPAY ==
--- OUTSIDE RECORDS SUMMARY | 2022-12-23 08:24 | XMS_ITS | Clinical Summary ---
Author Name Unknown Address [address] [place] [address] Phone Organization [facility] Address [address] [place] [address] Phone Care Team Providers Care Entertainment Reporter Name Role Phone ARIS KING, NIGEL Guillen Primary Care Provider [phone] Thai KING, Steven Rizo Unavailable [phone] Adrian Landa MD Unavailable Unavailable Reason for Visit and Chief Complaint The Chief Complaint is: Right Knee Pain Problems Includes: Problems addressed during this encounter and other active Problems All Visits Onset Date Resolved Date Provider Condition S tatus Lower Back Pain Radiating To the Legs 11/05/2020 Duncan Lovett MD Active Plan of Treatment No Plan of Treatment Recorded Assessments Includes: Assessments from this encounter Findings 53-year-old female with right total knee pain again I think this is neuropathic in nature recommend nerve ablation study we had a long discussion today about what that entailed patient voiced understanding of it is willing to move forward with attempt at that she will follow up with me on an as-needed basis - Last Documented On 04/19/2019 4:35PM ; [facility] Medical Equipment - Implanted Devices Includes: Current Devices No Medical Equipment Recorded Medications Includes: Medications discussed during this encounter and other current Medications Current Medications (continue as prescribed) Pennsaid 2% External Solution 11/08/2021 Provider: Sheila Reina PA-C Diagnosis: use as directed Apply 2 pump s to affected knee 2 times daily Reyvow 100 MG Oral Tablet 11/08/2021 Provider: Diagnosis: Gabapentin 300 MG Oral Capsule 10/30/2021 Provider: Diagnosis: Topiramate ER 200 MG Oral Capsule ER 24 Hour Sprinkle 10/25/2021 Provider: Diagnosis: Past Medications on file Dexamethasone Sodium Phosphate 4MG/ML Injection Solution 11/27/2018 - 12/27/2018 Provider: Panfilo Matos MD Diagnosis: use as directed by physical therapist Roxicodone 5mg Oral Tablet 01/24/2017 - 02/23/2017 Pro vider: Tito Stephens MD Diagnosis: 1 every 4 - 6 hours as needed TraMADol HCl 50MG Oral Tablet 01/24/2017 - 02/23/2017 Provider: Tito menchaca MD Diagnosis: 1 every 4 - 6 hours as needed TraMADol HCl 50 MG Tablet 11/30/2015 - 12/30/2015 Prov ider: Tito Stephens MD Diagnosis: 1 po q 4h Mobic 15 MG OR TABS 11/04/2015 - 02/02/2016 Provider: Tito Stephens MD Diagnosis: to replace celebrex rx Roxicodone 5mg Tablet 10/13/2015 - 11/12/2015 Provider : Tito Stephens MD Diagnosis: 1-2 po q 4-6h TraMADol HCl 50 MG Tablet 10/13/2015 - 11/12/2015 Prov ider: Tito Stephens MD Diagnosis: 1 po q 4h Promethazine HCl 12.5 MG Tablet 09/29/2015 - 10/09/2015 Provider: Tito menchaca MD Diagnosis: 1 po q 6h prn nausea- use after surgery CeleBREX 200 MG Capsule, conventional 09/29/2015 - 12/28/2015 Provider: Tito menchaca MD Diagnosis: once a day - use after surgery Ultram 50 MG Tablet 09/29/2015 - 10/09/2015 Provider: Tito Stephens MD Diagnosis: 1 every 6 hours Roxicodone 5mg Tablet 09/29/2015 - 10/09/2015 Provider : Tito Stephens MD Diagnosis: 1 tab every 6 hrs prn pain Aspirin 325 MG Tablet 09/29/2015 - 10/14/2015 Provider : Tito Stephens MD Diagnosis: twice a day- use after surgery Mupirocin 2 % Ointment 08/27/2015 - 09/01/2015 Provide r: Tito Stephens MD Diagnosis: twice a day- use in each nos tril starting on 09/24/15 twice a day for surgery Medications Administered Includes: Administered Medications from this encounter No Administered Medications Recorded Vital Signs Includes: Vital Signs from this encounter Vital Name 04/19/2019 02:41P Blood Pressure Sitting (mmHg) 141/88 Pulse Rate-Sitting (bpm) 74 Height (in) 67 Weight (lb) 180 Body Mass Index (kg/m2) 28.2 Body Surface Area (m2) 1.9 Note: PJ Last Documented On: 04/19/2019 2:42PM ; [facility] Results Includes: Results discussed during this encounter No Results Recorded For Specified Dates History of Present Illness Includes: History of Present Illness from this encounter CHONG Mendez is a 53 year old female. - Allergy list reviewed - Problem list reviewed - Medication list reviewed with patient - Medication reconciliation performed 53-year-old female here today for follow-up she is referred up from a conversion from partial total knee overall she continues to have lateral sided pain that has been recalcitrant to multiple therapy options last visit I had recommended a nerve ablation study by pain management she got scared at what the hospital receptionist had said that they would burn her nerves and all had more questions about that and discuss that with me today Social History Description Last Updated Caffeine use 07/08/2016 Procedures and Surgical History Includes: Procedures from this encounter Procedures Code Diagnosis Performing Provider Service L ocation Service Date Clinical summary provided to patient Surgical History Last Updated History of hysterectomy 06/15/2015 Medical History Includes: Medical History addressed during this encounter Description Last Updated Arthritic joint problems acid reflux Family History Includes: Family History addressed during this encounter Description Last Updated Family history [use for free text] 07/08 Review of Systems Includes: Review of Systems from this encounter Systemic: Not feeling tired (fatigue), no recent weight loss, and no recent weight gain. No edema. Head: Headache. No sinus pain. Eyes: No vision problems. Vision problems. No glaucomatous visual field defect. Otolaryngeal: No hearing loss and no tinnitus. No nasal symptoms. Cardiovascular: Chest pain or discomfort. No chest pain or discomfort and no palpitations. Pulmonary: No daytime asthma symptoms and no cough. Chronic cough and wheezing. Gastrointestinal: No heartburn and no abdominal pain. Endocrine: No hot flashes and no muscle weakness. Hematologic: No easy bleeding and no tendency for easy bruising. Musculoskeletal: Lower back pain. No soft tissue swelling and no localized joint pain. Neurological: No dizziness, no convulsions, and no numbness. Psychological: No anxiety, no emotional lability, no depression, and no insomnia. Not crying for no reason. Skin: No dry skin, no rash, and no ulcers. Allergic and Immunologic: No complaint of seasonal allergic reaction. no ROS changes 04/19/2019 Mental Status Includes: Mental Status from this encounter Description No anxiety Functional Status Includes: Functional Status from this encounter No Functional Status Recorded Physical Exam Includes: Physical Exam from this encounter Allergies Includes: Active Allergies Substance Type Reaction Onset Date Resolved Date Statu s Codeine Phosphate Allergy itching 06/15/2015 A ctive Encounters Encounter Provider Location Date Check-In Time Check- Out Time Diagnosis Follow Up Panfilo Shepherd MD [facility] 0 2:20PM 3:05PM Insurance Includes: Active Insurance Policies Plan Name Member ID Group # Subscriber Relationship Effect lizzy Dates 1 - [facility] [id number] Allison Mendez Self 03/20/2019 - Unknown 2 - [facility] [id number] Allison Mendez Self 11/18/2005 - Unknown Clinical Notes Includes: Clinical Notes from this encounter No Clinical Notes Recorded
--- OUTSIDE RECORDS SUMMARY | 2022-12-23 08:24 | XMS_ITS | Clinical Summary ---
Author Name Unknown Address [address] [place] [address] Phone Organization [facility] Address [address] [place] [address] Phone Care Team Providers Care Rifle Case Repairer Name Role Phone ARIS KING, NIGEL Guillen Primary Care Provider [phone] Thai KING, Steven Rizo Unavailable [phone] Adrian Landa MD Unavailable Unavailable Reason for Referral Date Encounter Description Provider Reason for Referral 11/08/21 Follow Up Sheila Reina PA-C Referral To Physician Reason for Visit and Chief Complaint The Chief Complaint is: Right Knee Pain Problems Includes: Problems addressed during this encounter and other active Problems All Visits Onset Date Resolved Date Provider Condition S tatus Lower Back Pain Radiating To the Legs 11/05/2020 Duncan Lovett MD Active Plan of Treatment I gave her Pennsaid samples to apply to the lateral aspect of the right knee and will send in a prescription as well. She will follow up with our office if she does not have improvement in symptoms, at which time, she will be scheduled with Dr. Shepherd for further evaluation. - Last Documented On 11/08/2021 4:35PM ; [facility] Instructions to patient No intervention and counseli maci on cessation of tobacco use Last Documented On 2 2:36PM ; [facility] Lose weight Last Documented On 2 2:36PM ; [facility] Assessments Includes: Assessments from this encounter Findings 56 year old female presents with symptoms that correlate with a right LCL sprain. She is status post right total knee arthroplasty that took place on 11/29/17. Incision site is well healed and without signs of infection. She denies fever and chills. She states that 2 days ago she felt a pop while she was moving over on the couch and has had discomfort along the lateral aspect of the knee since. - Last Documented On 11/08/2021 4:35PM ; [facility] Instructions Includes: Instructions from this encounter Instructions to patient No intervention and counseli maci on cessation of tobacco use Last Documented On 2 2:36PM ; [facility] Lose weight Last Documented On 2 2:36PM ; [facility] Medical Equipment - Implanted Devices Includes: Current Devices No Medical Equipment Recorded Medications Includes: Medications discussed during this encounter and other current Medications Discontinued / Stopped on this date on 11/05/2020 Pantoprazole Sodium 40 MG Oral Tablet Delayed Release Provider: Diagnosis: Valsartan 80 MG Oral Tablet Provider: Diagnosis: Premarin 0.9 MG Oral Tablet Provider: Diagnosis: Azelastine HCl 137 MCG/SPRAY Nasal Solution Provider: Diagnosis: Levalbuterol HCl 1.25 MG/0.5 ML Inhalation Nebulization solution Provider: Diagnosis: Fluticasone Propionate (Inha l) 50 MCG/BLIST Inhalation Aerosol Powder Breath Activated Provider: Diagnosis: Nystatin 153192 UNIT/GM External Ointment Provider: Diagnosis: Atorvastatin Calcium 20 MG Oral Tablet Pr ovider: Steven Andre MD Diagnosis: hydroCHLOROthiazide 12.5 MG Oral Tablet P rovider: Steven Andre MD Diagnosis: Gabapentin 300 MG Oral Capsule Provider: Steven Andre MD Diagnosis: Gabapentin 300 MG Oral Capsule Provider: Steven Andre MD Diagnosis: Topiramate ER 200 MG Oral Capsule ER 24 Hour Sprinkle Provider: Diagnosis: Topiramate ER 50 MG Oral Capsule ER 24 Hour Sprinkle Provider: Diagnosis: Spiriva Respimat 1.25 MCG/ACT Inhalation Aerosol Solut ion Provider: Diagnosis: New / Renewed during this visit Sheila Reina PA-C on 11/08/2021 Pennsaid 2% External Solution Provider: Sheila Reina PA-C 30 day supply: 112 gram, 2 refills Diagnosis: use as directed Apply 2 pump s to affected knee 2 times daily Pharmacy: [facility] - [address] [place], [address] - Current Medications (continue as prescribed) Reyvow 100 MG Oral Tablet 11/08/2021 Provider: [...] Vital Signs from this encounter Vital Name 11/08/2021 02:35P Blood Pressure Sitting (mmHg) 140/80 Pulse Rate-Sitting (bpm) 76 Height (in) 66 Weight (lb) 219 Body Mass Index (kg/m2) 35.3 Body Surface Area (m2) 2.1 Note: rw Last Documented On: 11/08/2021 2:35PM ; [facility] Results Includes: Results discussed during this encounter No Results Recorded For Specified Dates History of Present Illness Includes: History of Present Illness from this encounter HPI Allison Mendez is a 56 year old female. - Allergy list reviewed - Problem list reviewed - Medication reconciliation performed - Medication list reviewed - Medication list reviewed with patient - Pain is throbbing - Pain is dull, aching - Patient pain level from 1-10: 6 56 year old female presents with right knee pain. She is status post right total knee arthroplasty that took place on 11/29/17. Incision site is well healed and without signs of infection. She denies fever and chills. She states that 2 days ago she felt a pop while she was moving over on the couch and has had discomfort along the lateral aspect of the knee since. Social History Description Last Updated No recent change in diet 11/08/2021 Procedures and Surgical History Includes: Procedures from this encounter Procedures Code Diagnosis Performing Provider Service L ocation Service Date no intervention and counseling on cessation of tobacco use 4000F Surgical History Last Updated History of History of Gallbladder 2021 Medical History Includes: Medical History addressed during this encounter Description Last Updated History of arthritis 11/08/2021 Family History Includes: Family History addressed during this encounter Description Last Updated No significant family history 11/08/2021 Review of Systems Includes: Review of Systems from this encounter Systemic: Not feeling tired, no recent weight loss, and no recent weight gain. No edema. Head: Headache and sinus pain. Eyes: Vision problems and vision problems. No glaucomatous visual field defect. No Cataracts, no Glasses/Contacts, and no Glaucoma. Otolaryngeal: No hearing loss and no tinnitus. No nasal symptoms. Cardiovascular: Chest pain or discomfort. No chest pain or discomfort, no palpitations, no Hypertension, and no High Cholesterol. Pulmonary: Daytime asthma symptoms. No cough. Chronic cough and wheezing. Gastrointestinal: No heartburn and no abdominal pain. No Indigestion, no Acid Reflux, no Peptic Ulcer, no GI Stomach Bleed, and no Ulcers. Endocrine: No hot flashes, no muscle weakness, no Diabetes, no Hypothyroid, and no Hyperthyroid. Hematologic: No easy bleeding, no tendency for easy bruising, and no Anemia. Musculoskeletal: Arthritis and lower back pain. No soft tissue swelling and no localized joint pain. Neurological: No dizziness, no convulsions, and no numbness. Psychological: No anxiety, no emotional lability, no depression, and no insomnia. Not crying for no reason. Skin: No dry skin. No Ulcers, no Scars, no rash, and no ulcers. Allergic and Immunologic: Complaint of seasonal allergic reaction. Mental Status Includes: Mental Status from this [...] Time Check- Out Time Diagnosis Follow Up Sheila Reina PA-C [facility] 2 1:52PM 2:56PM Insurance Includes: Active Insurance Policies Plan Name Member ID Group # Subscriber Relationship Effect lizzy Dates 1 - [facility] [id number] Allison Mendez Self 03/20/2019 - Unknown 2 - [facility] [id number] Allison Mendez Self 11/18/2005 - Unknown Clinical Notes Includes: Clinical Notes from this encounter No Clinical Notes Recorded
--- OUTSIDE RECORDS SUMMARY | 2022-12-23 08:24 | XMS_ITS ---
Care Plan - [facility], [facility] Created on: December 23, 2022 Allison Mendez : 1965 Sex: Female Author Name Unknown Address [address] [place] [address] Phone Organization [facility] Address [address] [place] [address] Phone Care Team Providers Care Store Receiving Clerk Name Role Phone ARIS KING, NIGEL Guillen Primary Care Provider [phone] Thai KING, Steven Rizo Unavailable [phone] Cordell KING, Adrian Falcon Unavailable Unavailable
--- OUTSIDE RECORDS SUMMARY | 2022-12-23 08:24 | XMS_ITS ---
Author Name Unknown Address [address] [place] [address] Phone Organization [facility] Address [address] [place] [address] Phone Care Team Providers Care Premium Auditor Name Role Phone ARIS KING, NIGEL Guillen Primary Care Provider [phone] Thai KING, Steven Rizo Unavailable [phone] Adrian Landa MD Unavailable Unavailable Reason for Referral Date Encounter Description Provider Reason for Referral 11/08/21 Follow Up Sheila CALLESC Referral To Physician Problems Includes: Active, inactive, and resolved Problems All Visits Onset Date Resolved Date Provider Condition S tatus Lower Back Pain Radiating To the Legs 11/05/2020 Duncan Lovett MD Active Plan of Treatment Instructions to patient No intervention and counseli ng on cessation of tobacco use Last Documented On 2 2:36PM ; [facility] Lose weight Last Documented On 2 2:36PM ; [facility] Lose weight Last Documented On 1 11:10AM ; [facility] Instructions for patient see pcp for bp and weight Last Documented On 9 8:08AM ; [facility] Lose weight Last Documented On 9 8:08AM ; [facility] Instructions for patient see pcp for bp and weight Last Documented On 9 8:04AM ; [facility] Lose weight Last Documented On 9 8:04AM ; [facility] Instructions for patient see pcp for bp and weight Last Documented On 9 8:21AM ; [facility] Lose weight Last Documented On 9 8:21AM ; [facility] Instructions for patient see pcp for bp and weight Last Documented On 8 9:54AM ; [facility] Lose weight Last Documented On 8 9:54AM ; [facility] Instructions for patient see pcp for bp and weight Last Documented On 8 1:24PM ; [facility] Lose weight Last Documented On 8 1:24PM ; [facility] Instructions for patient see pcp for bp and weight Last Documented On 8 3:14PM ; [facility] Lose weight Last Documented On 8 3:14PM ; [facility] Instructions for patient see pcp for bp Last Documented On 8 2:37PM ; [facility] Instructions for patient see pcp for bp Last Documented On 8 10:33AM ; [facility] Lose weight Last Documented On 8 10:33AM ; [facility] Instructions for patient see pcp for bp Last Documented On 8 2:22PM ; [facility] Lose weight Last Documented On 8 2:22PM ; [facility] Instructions for patient see pcp for bp Last Documented On 8 9:03AM ; [facility] Lose weight Last Documented On 8 9:03AM ; [facility] Instructions for patient see pcp for bp Last Documented On 8 9:14AM ; [facility] Lose weight Last Documented On 8 9:14AM ; [facility] Instructions for patient see pcp for bp Last Documented On 8 9:28AM ; [facility] Lose weight Last Documented On 8 9:28AM ; [facility] Instructions for patient see pcp for bp Last Documented On 8 11:16AM ; [facility] Lose weight Last Documented On 8 11:16AM ; [facility] Instructions for patient see pcp for bp Last Documented On 7 10:36AM ; [facility] Lose weight Last Documented On 7 10:36AM ; [facility] Instructions for patient see pcp for bp Last Documented On 7 9:29AM ; [facility] Lose weight Last Documented On 7 9:29AM ; [facility] Instructions for patient see pcp for bp Last Documented On 7 1:54PM ; [facility] Lose weight Last Documented On 7 1:54PM ; [facility] Instructions for patient see pcp for bp Last Documented On 7 10:16AM ; [facility] Lose weight Last Documented On 7 10:16AM ; [facility] Instructions for patient see pcp for bp Last Documented On 7 10:20AM ; [facility] Lose weight Last Documented On 7 10:20AM ; [facility] Instructions for patient see pcp for bp Last Documented On 7 10:29AM ; [facility] Lose weight Last Documented On 7 10:29AM ; [facility] Instructions for patient see pcp for bp Last Documented On 7 1:52PM ; [facility] Lose weight Last Documented On 7 1:53PM ; [facility] Instructions for patient see pcp for bp Last Documented On 7 10:35AM ; [facility] Instructions for patient see pcp for bp Last Documented On 7 10:10AM ; [facility] Instructions for patient see pcp fro weight and bp Last Documented On 7 9:09AM ; [facility] Lose weight Last Documented On 7 9:09AM ; [facility] Instructions for patient see pcp fro weight and bp Last Documented On 6 9:47AM ; [facility] Lose weight Last Documented On 6 9:47AM ; [facility] Instructions for patient see pcp fro weight and bp Last Documented On 6 3:26PM ; [facility] Lose weight Last Documented On 6 3:26PM ; [facility] Instructions for patient see pcp fro weight and bp Last Documented On 6 9:13AM ; [facility] Lose weight Last Documented On 6 9:13AM ; [facility] Instructions for patient see pcp fro weight and bp Last Documented On 6 11:35AM ; [facility] Lose weight Last Documented On 6 11:35AM ; [facility] Instructions for patient see pcp fro weight and bp Last Documented On 6 9:17AM ; [facility] Lose weight Last Documented On 6 9:17AM ; [facility] Instructions for patient Last Documented On 6 12:49PM ; [facility] Instructions for patient Last Documented On 6 7:57AM ; [facility] Instructions for patient see pcp for wt mgmt Last Documented On 6 8:49AM ; [facility] Instructions for patient see pcp for wt mgmt Last Documented On 6 1:27PM ; [facility] Instructions for patient Last Documented On 6 9:51AM ; [facility] Assessments Includes: Assessments for all patient encounters No Assessments Recorded Instructions Includes: Instructions for all patient encounters Instructions to patient No intervention and counseli ng on cessation of tobacco use Last Documented On 2 2:36PM ; [facility] Lose weight Last Documented On 2 2:36PM ; [facility] Lose weight Last Documented On 1 11:10AM ; [facility] Instructions for patient see pcp for bp and weight Last Documented On 9 8:08AM ; [facility] Lose weight Last Documented On 9 8:08AM ; [facility] Instructions for patient see pcp for bp and weight Last Documented On 9 8:04AM ; [facility] Lose weight Last Documented On 9 8:04AM ; [facility] Instructions for patient see pcp for bp and weight Last Documented On 9 8:21AM ; [facility] Lose weight Last Documented On 9 8:21AM ; [facility] Instructions for patient see pcp for bp and weight Last Documented On 8 9:54AM ; [facility] Lose weight Last Documented On 8 9:54AM ; [facility] Instructions for patient see pcp for bp and weight Last Documented On 8 1:24PM ; [facility] Lose weight Last Documented On 8 1:24PM ; [facility] Instructions for patient see pcp for bp and weight Last Documented On 8 3:14PM ; [facility] Lose weight Last Documented On 8 3:14PM ; [facility] Instructions for patient see pcp for bp Last Documented On 8 2:37PM ; [facility] Instructions for patient see pcp for bp Last Documented On 8 10:33AM ; [facility] Lose weight Last Documented On 8 10:33AM ; [facility] Instructions for patient see pcp for bp Last Documented On 8 2:22PM ; [facility] Lose weight Last Documented On 8 2:22PM ; [facility] Instructions for patient see pcp for bp Last Documented On 8 9:03AM ; [facility] Lose weight Last Documented On 8 9:03AM ; [facility] Instructions for patient see pcp for bp Last Documented On 8 9:14AM ; [facility] Lose weight Last Documented On 8 9:14AM ; [facility] Instructions for patient see pcp for bp Last Documented On 8 9:28AM ; [facility] Lose weight Last Documented On 8 9:28AM ; [facility] Instructions for patient see pcp for bp Last Documented On 8 11:16AM ; [facility] Lose weight Last Documented On 8 11:16AM ; [facility] Instructions for patient see pcp for bp Last Documented On 7 10:36AM ; [facility] Lose weight Last Documented On 7 10:36AM ; [facility] Instructions for patient see pcp for bp Last Documented On 7 9:29AM ; [facility] Lose weight Last Documented On 7 9:29AM ; [facility] Instructions for patient see pcp for bp Last Documented On 7 1:54PM ; [facility] Lose weight Last Documented On 7 1:54PM ; [facility] Instructions for patient see pcp for bp Last Documented On 7 10:16AM ; [facility] Lose weight Last Documented On 7 10:16AM ; [facility] Instructions for patient see pcp for bp Last Documented On 7 10:20AM ; [facility] Lose weight Last Documented On 7 10:20AM ; [facility] Instructions for patient see pcp for bp Last Documented On 7 10:29AM ; [facility] Lose weight Last Documented On 7 10:29AM ; [facility] Instructions for patient see pcp for bp Last Documented On 7 1:52PM ; [facility] Lose weight Last Documented On 7 1:53PM ; [facility] Instructions for patient see pcp for bp Last Documented On 7 10:35AM ; [facility] Instructions for patient see pcp for bp Last Documented On 7 10:10AM ; [facility] Instructions for patient see pcp fro weight and bp Last Documented On 7 9:09AM ; [facility] Lose weight Last Documented On 7 9:09AM ; [facility] Instructions for patient see pcp fro weight and bp Last Documented On 6 9:47AM ; [facility] Lose weight Last Documented On 6 9:47AM ; [facility] Instructions for patient see pcp fro weight and bp Last Documented On 6 3:26PM ; [facility] Lose weight Last Documented On 6 3:26PM ; [facility] Instructions for patient see pcp fro weight and bp Last Documented On 6 9:13AM ; [facility] Lose weight Last Documented On 6 9:13AM ; [facility] Instructions for patient see pcp fro weight and bp Last Documented On 6 11:35AM ; [facility] Lose weight Last Documented On 6 11:35AM ; [facility] Instructions for patient see pcp fro weight and bp Last Documented On 6 9:17AM ; [facility] Lose weight Last Documented On 6 9:17AM ; [facility] Instructions for patient Last Documented On 6 12:49PM ; [facility] Instructions for patient Last Documented On 6 7:57AM ; [facility] Instructions for patient see pcp for wt mgmt Last Documented On 6 8:49AM ; [facility] Instructions for patient see pcp for wt mgmt Last Documented On 6 1:27PM ; [facility] Instructions for patient Last Documented On 6 9:51AM ; [facility] Medical Equipment - Implanted Devices Includes: Current and historical Devices No Medical Equipment Recorded Medications Includes: Current and historical Medications Current Medications (continue as prescribed) Pennsaid 2% External Solution 11/08/2021 Provider: Sheila Reina PA-C Diagnosis: use as directed Apply 2 pump s to affected knee 2 times daily Reyvow 100 MG Oral Tablet 11/08/2021 Provider: Diagnosis: Gabapentin 300 MG Oral Capsule 10/30/2021 Provider: Diagnosis: Topiramate ER 200 MG Oral Capsule ER 24 Hour Sprinkle 10/25/2021 Provider: Diagnosis: Past Medications on file Pantoprazole Sodium 40 MG Or al Tablet Delayed Release 11/05/2020 - 11/08/2021 Provider: Diagnosis: Valsartan 80 MG Oral Tablet 11/05/2020 - 11/08/2021 Pr ovider: Diagnosis: Premarin 0.9 MG Oral Tablet 11/05/2020 - 11/08/2021 Pr ovider: Diagnosis: Azelastine HCl 137 MCG/SPRAY Nasal Solution 11/05/2020 - 11/08/2021 Provider: Diagnosis: Levalbuterol HCl 1.25 MG/0.5 ML Inhalation Nebulization solution 11/05/2020 - 11/08/2021 Provider: Diagnosis: Fluticasone Propionate (Inha l) 50 MCG/BLIST Inhalation Aerosol Powder Breath Activated 11/05/2020 - 11/08/2021 Provider: Diagnosis: Nystatin 829520 UNIT/GM External Ointment 11/05/2020 - 11/08/2021 Provider: Diagnosis: Atorvastatin Calcium 20 MG Oral Tablet 10/22/2020 - 11/08/2021 Provider: Steven montana MD Diagnosis: hydroCHLOROthiazide 12.5 MG Oral Tablet 10/21/2020 - 11/08/2021 Provider: Steven montana MD Diagnosis: Gabapentin 300 MG Oral Capsule 10/14/2020 - 11/08/2021 Provider: Steven Andre MD Diagnosis: Gabapentin 300 MG Oral Capsule 10/14/2020 - 11/08/2021 Provider: Steven Andre MD Diagnosis: Topiramate ER 200 MG Oral Ca psule ER 24 Hour Sprinkle 10/13/2020 - 11/08/2021 Provider: Diagnosis: Topiramate ER 50 MG Oral Cap juan ER 24 Hour Sprinkle 10/12/2020 - 11/08/2021 Provider: Diagnosis: Spiriva Respimat 1.25 MCG/AC T Inhalation Aerosol Solution 10/12/2020 - 11/08/2021 Provider: Diagnosis: Dexamethasone Sodium Phosphate 4MG/ML Injection Solution 11/27/2018 - 12/27/2018 Provider: Panfilo Matos MD Diagnosis: use as directed by physical therapist Gabapentin 300MG Oral Capsule, conventional 01/25/2018 - 11/27/2018 Provider: Panfilo Shepherd MD Diagnosis: 1 every bedtime [place] 7.5-325MG Oral Tablet 12/08/2017 - 11/27/2018 Pr ovider: Panfilo Shepherd MD Diagnosis: 1 every 4 - 6 hours as needed for pain Cefadroxil 500MG Oral Capsule 12/08/2017 - 11/27/2018 Provider: Panfilo Matos MD Diagnosis: twice a day Cefadroxil 500MG Oral Capsule 12/01/2017 - 11/27/2018 Provider: Diagnosis: [place] 7.5-325MG Oral Tablet 11/27/2017 - 11/27/2018 Pr ovider: Panfilo Shepherd MD Diagnosis: 1 every 4 - 6 hours as needed for pain Mupirocin 2% External Ointment 11/23/2017 - 11/27/2018 Provider: Panfilo Matos MD Diagnosis: Apply twice a day to the ins micah of each nostril every day for 5 days prior to surgery [place] 10-325MG Oral Tablet 06/02/2017 - 11/27/2018 Pro vider: Tito Stephens MD Diagnosis: 1 every 4 - 6 hours as needed for pain Percocet 7.5-325MG Oral Tablet 05/22/2017 - 11/27/2018 Provider: Tito menchaca MD Diagnosis: 1 every 4 - 6 hours as needed for pain MetFORMIN HCl 1000MG Oral Tablet 04/03/2017 - 11/06/19 21 Provider: Diagnosis: [place] 10-325MG Oral Tablet 02/20/2017 - 11/27/2018 Pro vider: Tito Stephens MD Diagnosis: 1 every 4 - 6 hours as needed for pain Roxicodone 5mg Oral Tablet 01/24/2017 - 02/23/2017 Pro vider: Tito Stephens MD Diagnosis: 1 every 4 - 6 hours as needed TraMADol HCl 50MG Oral Tablet 01/24/2017 - 02/23/2017 Provider: Tito menchaca MD Diagnosis: 1 every 4 - 6 hours as needed Roxicodone 5mg Oral Tablet 01/17/2017 - 11/27/2018 Pro vider: Tito Stephens MD Diagnosis: 1 every 4 - 6 hours as needed Roxicodone 5mg Oral Tablet 01/10/2017 - 11/27/2018 Pro vider: Tito Stephens MD Diagnosis: 1 every 4 - 6 hours as needed TraMADol HCl 50MG Oral Tablet 01/10/2017 - 11/27/2018 Provider: Tito menchaca MD Diagnosis: 1 every 4 - 6 hours as needed TraMADol HCl 50MG Oral Tablet 01/06/2017 - 11/27/2018 Provider: Tito menchaca MD Diagnosis: 1 every 4 - 6 hours as needed FOR PAIN Roxicodone 5mg Oral Tablet 01/06/2017 - 11/27/2018 Pro vider: Tito Stephens MD Diagnosis: 1 every 4 - 6 hours as needed FOR PAIN Promethazine HCl 50MG Oral Tablet 01/06/2017 - 11/27/2018 Provider: Tito menchaca MD Diagnosis: 1 every 6 hours NEEDED FOR NAUSEA Aspirin 325MG Oral Tablet 01/06/2017 - 11/05/2020 Prov ider: Tito Stephens MD Diagnosis: twice a day POST OP ONLY Omeprazole 40 MG Capsule Delayed Release 07/08/2016 - 11/05/2020 Provider: Diagnosis: Potassium Chloride ER 10 MEQ Capsule Extended Release 07/08/2016 - 11/05/2020 Provider: Diagnosis: RaNITidine HCl 150 MG Tablet 07/08/2016 - 11/05/2020 P rovider: Diagnosis: Topiramate 100 MG Tablet 07/08/2016 - 11/05/2020 Provi aashish: Diagnosis: Cetirizine HCl 10 MG Tablet 07/08/2016 - 11/05/2020 Pr ovider: Diagnosis: Losartan Potassium 50 MG Tablet 07/08/2016 - Provider: Diagnosis: TraMADol HCl 50 MG Tablet 11/30/2015 - [...] on 09/24/15 twice a day for surgery Topamax 50 MG Tablet 06/15/2015 - 11/05/2020 Provider: Diagnosis: Gabapentin 100 MG Capsule 06/15/2015 - 07/08/2016 Prov ider: Diagnosis: Premarin 1.25 MG Tablet 06/15/2015 - 11/05/2020 Provid er: Diagnosis: Medications Administered Includes: Administered Medications in patient's chart No Administered Medications Recorded Results Includes: Results from 12/23/2021 through 12/23/2022 No Results Recorded For Specified Dates History of Present Illness History of Present Illness not supported for this document type No History of Present Illness Recorded Social History Description Last Updated No recent change in diet 11/08/2021 Procedures and Surgical History Surgical History Last Updated History of History of Gallbladder 2021 Medical History Includes: Medical History in patient's chart Description Last Updated History of arthritis 11/08/2021 Family History Includes: Family History in patient's chart Description Last Updated No significant family history 11/08/2021 Review of Systems Review of Systems not supported for this document type No Review of Systems Recorded Mental Status Description No anxiety Functional Status No Functional Status Recorded Physical Exam Physical Exam not supported for this document type No Physical Exam Recorded Allergies Includes: Active, inactive, and resolved Allergies Substance Type Reaction Onset Date Resolved Date Statu s Codeine Phosphate Allergy itching 06/15/2015 A ctive Insurance Includes: Active Insurance Policies Plan Name Member ID Group # Subscriber Relationship Effect lizzy Dates 1 - [facility] [id number] Allison Mendez Self 03/20/2019 - Unknown 2 - [facility] [id number] Allison Mendez Self 11/18/2005 - Unknown Clinical Notes Includes: Signed Clinical Notes starting from 03/03/2022 No Clinical Notes Recorded
--- OUTSIDE RECORDS SUMMARY | 2022-12-23 08:24 | XMS_ITS | Clinical Summary ---
Author Name Unknown Address [address] [place] [address] Phone Organization [facility] , [facility] Address [address] [place] [address] Phone Care Team Providers Care Breaker Up Name Role Phone ARIS KING, NIGEL Guillen Primary Care Provider [phone] Thai KING, Steven Rizo Unavailable [phone] Adrian Landa MD Unavailable Unavailable Reason for Visit and Chief Complaint The Chief Complaint is: Lumbar pain radiates down both legs Problems Includes: Problems addressed during this encounter and other active Problems Current Visit Onset Date Resolved Date Provider Conditio n Status Lower Back Pain Radiating To the Legs 11/05/2020 Duncan Lovett MD Active Past Visits Onset Date Resolved Date Provider Condition Status Joint Pain, Localized in the Knee 07/08/2016 Tito Stephens MD Active Plan of Treatment Patient was seen by myself and Dr. Bony Gonzalez PA-C. Patient will follow up With us as needed working to refer her to pain management to possibly have a spinal cord stimulator trial to block pain no back surgery would be needed - Last Documented On 11/05/2020 11:11AM ; [facility] Instructions to patient Lose weight Last Documented On 1 11:10AM ; [facility] Assessments Includes: Assessments from this encounter Findings Left lower leg numbness likely related from the previous surgery on the left lower leg that she had in December 2019 - Last Documented On 11/05/2020 11:11AM ; [facility] Instructions Includes: Instructions from this encounter Instructions to patient Lose weight Last Documented On 08/19/202 1 11:10AM ; [facility] Medical Equipment - Implanted Devices Includes: Current Devices No Medical Equipment Recorded Medications Includes: Medications discussed during this encounter and other current Medications Discontinued / Stopped on this date on 04/03/2017 MetFORMIN HCl 1000MG Oral Tablet Provider : Diagnosis: Aspirin 325MG Oral Tablet Provider: Gilberto Stephens MD Diagnosis: Omeprazole 40 MG Capsule Delayed Release Provider: Diagnosis: Potassium Chloride ER 10 MEQ Capsule Extended Release Provider: Diagnosis: RaNITidine HCl 150 MG Tablet Provider: Diagnosis: Topiramate 100 MG Tablet Provider: Diagnosis: Cetirizine HCl 10 MG Tablet Provider: Diagnosis: Losartan Potassium 50 MG Tablet Provider: Diagnosis: Topamax 50 MG Tablet Provider: Diagnosis: Premarin 1.25 MG Tablet Provider: Diagnosis: Current Medications (continue as prescribed) Pennsaid 2% [...] Vital Signs from this encounter Vital Name 11/05/2020 10:21A Blood Pressure Sitting (mmHg) 100/68 Pulse Rate-Sitting (bpm) 86 Height (in) 66 Weight (lb) 219 Body Mass Index (kg/m2) 35.3 Body Surface Area (m2) 2.1 Note: rosetta Last Documented On: 11/05/2020 10:22AM ; [facility] Results Includes: Results discussed during this encounter No Results Recorded For Specified Dates History of Present Illness Includes: History of Present Illness from this encounter HPI Allison Mendez is a 55 year old female. - Symptoms Rubbing legs and hot bath makes symptoms better. Walking, stiting, standing, or laying makes symptoms worse. - Allergy list reviewed - Problem list reviewed - Medication reconciliation performed - Medication list reviewed with patient - Previous history of new onset pain Injury is not work related or an automotive accident - Sharp pain Symptoms - Stabbing - Pain is occasional (25% of the time) - Pain is dull, aching - Patient pain level from 1-10: 8 - Yes, previous treatment. Dr. Siegel - History of Physical Therapy - History of Home Exercise Medications used for this condition: Gabapentin Patient did have complaints of numbness in the left lower leg and some in the right lower leg the left lower leg started after her surgery by a account services specialist he states in December 2019 is been worse since that time she not exactly sure what surgery she had done. The left leg is more painful than the right difficulties walking she has had an EMG study also denies any bowel or bladder problems and was sent here as they thought maybe this was coming from her back Social History Description Last Updated Not a current smoker. 11/05/2020 Procedures and Surgical History Includes: Procedures from this encounter Procedures Code Diagnosis Performing Provider Service L ocation Service Date use of tobacco assessment performed 1000F Surgical History Last Updated History of hysterectomy 06/15/2015 Medical History Includes: Medical History addressed during this encounter Description Last Updated Arthritis 11/05/2020 Family History Includes: Family History addressed during this encounter Description Last Updated Diabetes mellitus 11/05/2020 Review of Systems Includes: Review of Systems from this encounter Systemic: Not feeling tired and no recent weight loss. Recent weight gain. No edema. Head: Headache. No sinus pain. Eyes: Vision problems and vision problems. No glaucomatous visual field defect. No Cataracts, no Glasses/Contacts, and no Glaucoma. Otolaryngeal: No hearing loss and no tinnitus. No nasal symptoms. Cardiovascular: No chest pain or discomfort, no chest pain or discomfort, no palpitations, and no Hypertension. High Cholesterol. Pulmonary: Daytime asthma symptoms. No cough. Chronic cough. No wheezing. Gastrointestinal: No heartburn and no abdominal pain. No Indigestion, no Acid Reflux, no Peptic Ulcer, no GI Stomach Bleed, and no Ulcers. Endocrine: No hot flashes, no muscle weakness, no Diabetes, no Hypothyroid, and no Hyperthyroid. Hematologic: No easy bleeding, no tendency for easy bruising, and no Anemia. Musculoskeletal: Arthritis and lower back pain. No soft tissue swelling. Pain localized to one or more joints. Neurological: No dizziness, no convulsions, and no numbness. Psychological: No anxiety, no emotional lability, no depression, and no insomnia. Not crying for no reason. Skin: No dry skin. No Ulcers, no Scars, no rash, and no ulcers. Allergic and Immunologic: No complaint of seasonal allergic reaction. no ROS changes 11/05/2020 Mental Status Includes: Mental Status from this encounter Description No anxiety Functional Status Includes: Functional Status from this encounter No Functional Status Recorded Physical Exam Includes: Physical Exam from this encounter Allergies Includes: Active Allergies Substance Type Reaction Onset Date Resolved Date Statu s Codeine Phosphate Allergy itching 06/15/2015 A ctive Encounters Encounter Provider Location Date Check-In Time Check-Out Time Diagnosis Physician Specified Duncan Lovett MD [facility] 11/06/19 21 10:00AM 10:40AM Insurance Includes: Active Insurance Policies Plan Name Member ID Group # Subscriber Relationship Effect lizzy Dates 1 - [facility] [id number] Allison Mendez Self 03/20/2019 - Unknown 2 - [facility] [id number] Allison Mendez Self 11/18/2005 - Unknown Clinical Notes Includes: Clinical Notes from this encounter No Clinical Notes Recorded
--- OUTSIDE RECORDS SUMMARY | 2022-12-23 08:24 | XMS_ITS | Clinical Summary ---
Author Name Unknown Address [address] [place] [address] Phone Organization [facility] , [facility] Address [address] [place] [address] Phone Care Team Providers Care Edge Blacker Name Role Phone ARIS KING, NIGEL Guillen Primary Care Provider [phone] Thai KING, Steven Rizo Unavailable [phone] Cordell KING, Adrian Falcon Unavailable Unavailable Reason for Visit and Chief Complaint IN HOUSE REFERRAL Problems Includes: Problems addressed during this encounter and other active Problems All Visits Onset Date Resolved Date Provider Condition S tatus Lower Back Pain Radiating To the Legs 11/05/2020 Duncan Lovett MD Active Plan of Treatment Urine drug screen is positive for marijuana she admits using it. ORT is moderate. She complains of chronic tingling numbness 1 insertion bilateral lower extremities below the knee for a few years. Also lumbar facet joint tenderness at L3-4-5 levels bilateral. Tingling numbness bilateral lower extremities. NCV EMG bilateral lower extremities showed neuropathy. MRI scan lumbar spine show degenerative disc disease facet joint arthritis. Dr. Lovett recommend a spinal cord stimulator trial no surgery at this time. Continue Neurontin 3 mg twice a day from PCP at this time. She tried high doses without any help. Refer to Dr. Irwin for SCS trial clearance. - Last Documented On 11/13/2020 9:10AM ; [facility] Assessments Includes: Assessments from this encounter Findings Idiopathic peripheral neuropathy or possible diabetic neuropathy bilateral lower extremities below the knee and feet. The facet joint arthritis lumbar radiculopathy - Last Documented On 11/13/2020 9:10AM ; [facility] Medical Equipment - Implanted Devices Includes: [...] Vital Signs from this encounter Vital Name 11/13/2020 08:47A Height (in) 66 Weight (lb) 219 Body Mass Index (kg/m2) 35.3 Body Surface Area (m2) 2.1 Note: bnf Last Documented On: 11/13/2020 8:48AM ; [facility], [facility] Results Includes: Results discussed during this encounter No Results Recorded For Specified Dates History of Present Illness Includes: History of Present Illness from this encounter HPI Allison Mendez is a 55 year old female. - Allergy list reviewed - Problem list reviewed - Medication reconciliation performed Pain Medication: gabapentis for legs Last Dose:2 every night (11/12/20 Date/Time of Last Dose: Current Pain(1-10):6 Average Pain (1-10):8 Worse Pain (1-10):10 Previous Pain Management: none ADL's affected by pain: cant walk,grocery really everything, including house work due to the pain Previous Surgeries: none Previous Physical Therapy:yes Social History Description Last Updated Caffeine use 07/08/2016 Procedures and Surgical History Surgical History Last Updated History of hysterectomy 06/15/2015 Medical History Includes: Medical History addressed during this encounter Description Last Updated Arthritic joint problems acid reflux Family History Includes: Family History addressed during this encounter Description Last Updated Family history [use for free text] 07/08 Review of Systems Includes: Review of Systems from this encounter No Review of Systems Recorded Mental Status Includes: Mental Status from this encounter No Mental Status Recorded Functional Status Includes: Functional Status from this encounter No Functional Status Recorded Physical Exam Includes: Physical Exam from this encounter Allergies Includes: Active Allergies Substance Type Reaction Onset Date Resolved Date Statu s Codeine Phosphate Allergy itching 06/15/2015 A ctive Encounters Encounter Provider Location Date Check-In Time Check-Out Time Diagnosis IN HOUSE REFERRAL Juan Villatoro MD [facility] 11/14/19 21 8:38AM 9:06AM Insurance Includes: Active Insurance Policies Plan Name Member ID Group # Subscriber Relationship Effect lizzy Dates 1 - [facility] [id number] Allison Andrea Self 03/20/2019 - Unknown 2 - [facility] [id number] Allison Mendez Self 11/18/2005 - Unknown Clinical Notes Includes: Clinical Notes from this encounter No Clinical Notes Recorded
--- OUTSIDE RECORDS SUMMARY | 2022-12-23 08:25 | XMS_ITS | Clinical Summary ---
Author Name Unknown Address [address] [place] [address] Phone Organization [facility] , [facility] Address [address] [place] [address] Phone Care Team Providers Care Rental Manager Name Role Phone ARIS KING, NIGEL Guillen Primary Care Provider [phone] Thai KING, Steven Rizo Unavailable [phone] Cordell KING, Adrian Falcon Unavailable Unavailable Reason for Visit and Chief Complaint The Chief Complaint is: Right Knee Pain Problems Includes: Problems addressed during this encounter and other active Problems All Visits Onset Date Resolved Date Provider Condition S tatus Lower Back Pain Radiating To the Legs 11/05/2020 Duncan Lovett MD Active Plan of Treatment Instructions to patient Instructions for patient see pcp for bp and weight Last Documented On 9 8:08AM ; [facility] Lose weight Last Documented On 9 8:08AM ; [facility], [facility] Assessments Includes: Assessments from this encounter Findings 53-year-old female with pain following revision right total knee replacement. At this point her objective viable things of her knee are very benign she is no fluid in the knee and great motion of the knee very stable knee x-rays look stable not quite sure what to continue to cause his lateral sided pain however consider seeing pain management for potential nerve ablation of some of the lateral geniculate nerves to see if this could help improve some of the pain in her knee - Last Documented On 01/29/2019 11:27AM ; [facility], [facility] Instructions Includes: Instructions from this encounter Instructions to patient Instructions for patient see pcp for bp and weight Last Documented On 9 8:08AM ; [facility] Lose weight Last Documented On 9 8:08AM ; [facility] Medical Equipment - Implanted Devices [...] Vital Signs from this encounter Vital Name 01/29/2019 08:09A Blood Pressure Sitting (mmHg) 124/65 Pulse Rate-Sitting (bpm) 70 Height (in) 67 Weight (lb) 180 Body Mass Index (kg/m2) 28.2 Body Surface Area (m2) 1.9 Note: aek Last Documented On: 01/29/2019 8:12AM ; [facility], [facility] Results Includes: Results discussed during this encounter No Results Recorded For Specified Dates History of Present Illness Includes: History of Present Illness from this encounter CHONG Mendez is a 53 year old female. - Allergy list reviewed - Problem list reviewed - Medication list reviewed with patient - Medication reconciliation performed 53-year-old female here today for follow-up she is status post conversion from partial to total knee she continues to have some lateral sided knee pain I sent her to physical therapy to work on IT band tendinitis she states that she was unable to really tolerate the physical therapy because the pain was so severe in her leg. Objectively she is got very good finding she has good motion and good stability she walks without assistive device walks without a limp when she is here in the office but states that this lateral pain becomes so severe that she is unable to really ambulate or do daily activities. Social History Description Last Updated Caffeine use [...] Immunologic: No complaint of seasonal allergic reaction. reviewed 01/29/19 Mental Status Includes: Mental Status from this [...] Time Diagnosis Follow Up Panfilo Shepherd MD [facility] 9 8:07AM 8:21AM Insurance Includes: Active Insurance Policies Plan Name Member ID Group # Subscriber Relationship Effect lizzy Dates 1 - [facility] [id number] Allison Mendez Self 03/20/2019 - Unknown 2 - [facility] [id number] Allison Mendez Self 11/18/2005 - Unknown Clinical Notes Includes: Clinical Notes from this encounter No Clinical Notes Recorded
[2022-12-23] MEDS: OMALIZUMAB 150MG VIAL 375 MG SQ (08:45)
[2022-12-23 08:54] VITALS: BP 119/83; PULSE 74; RESP 18; O2SAT 97
== END 2022-12-23 08:50 | disposition home or self-care (01) ==
PROVIDERS: PCP Family Medicine; Visit Provider Allergy & Immunology
DX: J45.50 Severe persistent asthma, uncomplicated (principal)
CPT/HCPCS: 96372; J2357

== ENCOUNTER 2023-01-05 08:22 | Outpatient (CLI) | payer MEDICARE, MEDICAID, SELFPAY ==
[2023-01-05 08:45] VITALS: BP 128/76; PULSE 81; RESP 18; O2SAT 99
[2023-01-05] MEDS: OMALIZUMAB 150MG VIAL 375 MG SQ (08:45)
== END 2023-01-05 09:00 | disposition home or self-care (01) ==
LOC: INF 08:23
PROVIDERS: PCP Family Medicine; Visit Provider Nurse Practitioner
DX: J45.50 Severe persistent asthma, uncomplicated (principal)
CPT/HCPCS: 96372; J2357

== ENCOUNTER 2023-01-20 08:20 | Outpatient (CLI) | payer MEDICARE, MEDICAID, SELFPAY ==
[2023-01-20] MEDS: OMALIZUMAB 150MG VIAL 375 MG SQ (08:46)
[2023-01-20 08:50] VITALS: BP 114/66; PULSE 67
== END 2023-01-20 09:00 | disposition home or self-care (01) ==
LOC: INF 08:21
PROVIDERS: PCP Family Medicine; Visit Provider Allergy & Immunology
DX: J45.50 Severe persistent asthma, uncomplicated (principal)
CPT/HCPCS: 96372; J2357

== ENCOUNTER 2023-02-03 08:19 | Outpatient (CLI) | payer MEDICARE, MEDICAID, SELFPAY ==
[2023-02-03 08:45] VITALS: BP 139/74; PULSE 74; RESP 18; O2SAT 99
[2023-02-03] MEDS: OMALIZUMAB 150MG VIAL 375 MG SQ (08:45)
== END 2023-02-03 09:00 | disposition home or self-care (01) ==
LOC: INF 08:21
PROVIDERS: PCP Family Medicine; Visit Provider Allergy & Immunology
DX: J45.50 Severe persistent asthma, uncomplicated (principal)
CPT/HCPCS: 96372; J2357

== ENCOUNTER 2023-02-20 08:13 | Outpatient (CLI) | payer MEDICARE, MEDICAID, SELFPAY ==
[2023-02-20 08:50] VITALS: BP 116/67; PULSE 74; RESP 18; TEMP 36.8; O2SAT 97
[2023-02-20] MEDS: OMALIZUMAB 150MG VIAL 375 MG SQ (08:50)
== END 2023-02-20 09:00 | disposition home or self-care (01) ==
LOC: INF 08:14
PROVIDERS: PCP Family Medicine; Visit Provider Allergy & Immunology
DX: J45.50 Severe persistent asthma, uncomplicated (principal)
CPT/HCPCS: 96372; J2357

== ENCOUNTER 2023-03-06 08:17 | Outpatient (CLI) | payer MEDICARE, MEDICAID, SELFPAY ==
[2023-03-06 08:47] VITALS: BP 130/65; PULSE 72; RESP 18; TEMP 36.3; O2SAT 98
[2023-03-06] MEDS: OMALIZUMAB 150MG VIAL 375 MG SQ (08:47)
== END 2023-03-06 08:56 | disposition home or self-care (01) ==
LOC: INF 08:18
PROVIDERS: PCP Family Medicine; Visit Provider Allergy & Immunology
DX: J45.50 Severe persistent asthma, uncomplicated (principal)
CPT/HCPCS: 96372; J2357

== ENCOUNTER → 2023-03-08 13:58 | Outpatient (CLI) | payer MEDICARE, MEDICAID, SELFPAY ==
--- NOTE | 2023-03-08 14:01 | CT_ITS ---
FINAL REPORT CLINICAL HISTORY: CHRONIC SINUSITIS patient could not get the earrings out, she took out what she could COMPARISON: 01/06/2021 FINDINGS: There has been interval resection of the ostiomeatal units bilaterally. There is no mucoperiosteal thickening or air-fluid levels. The paranasal sinuses are well aerated. There is no fracture. IMPRESSION: Unremarkable. Reviewed, Interpreted and Dictated by Ken Colon MD Transcribed by Maki Sr Authenticated and [facility]
== END ==
PROVIDERS: PCP Family Medicine; Visit Provider Allergy & Immunology
DX: J32.9 Chronic sinusitis, unspecified (principal)
CPT/HCPCS: 70486

== ENCOUNTER 2023-03-24 08:38 | Outpatient (CLI) | payer MEDICARE, MEDICAID, SELFPAY ==
[2023-03-24] MEDS: OMALIZUMAB 150MG VIAL 375 MG SQ (09:08)
[2023-03-24 09:11] VITALS: BP 126/62; PULSE 73; RESP 18; O2SAT 98
== END 2023-03-24 09:11 | disposition home or self-care (01) ==
LOC: INF 08:39
PROVIDERS: PCP Family Medicine; Referring Provider Nurse Practitioner; Visit Provider Nurse Practitioner
DX: J45.50 Severe persistent asthma, uncomplicated (principal)
CPT/HCPCS: 96372; J2357

== ENCOUNTER 2023-04-10 08:54 | Outpatient (CLI) | payer MEDICARE, MEDICAID, SELFPAY ==
[2023-04-10 09:14] VITALS: BP 137/78; PULSE 72; RESP 18; TEMP 36.6; O2SAT 97
[2023-04-10] MEDS: OMALIZUMAB 150MG VIAL 375 MG SQ (09:14)
== END 2023-04-10 09:30 | disposition home or self-care (01) ==
LOC: INF 08:55
PROVIDERS: PCP Family Medicine; Visit Provider Allergy & Immunology
DX: J45.50 Severe persistent asthma, uncomplicated (principal)
CPT/HCPCS: 96372; J2357

== ENCOUNTER 2023-04-17 13:33 | Outpatient (CLI) | payer MEDICARE, MEDICAID, SELFPAY ==
--- NOTE | 2023-04-17 13:33 | US_ITS ---
Ultrasound Sonograher: PROCEDURE: US TRANSVAGINAL CLINICAL INDICATION: pelvic pain COMPARISON: No exams were available for comparison FINDINGS: Transvaginal and transabdominal sonographic images of the pelvis were obtained. UTERUS: Surgically absent The vaginal cuff is intact. LEFT OVARY: Surgically absent RIGHT OVARY: Surgically absent Both ovaries are surgically absent. There is no fluid in the cul-de-sac. IMPRESSION: 1. The uterus and ovaries have been surgically removed. 2. The vaginal cuff is intact. 3. No adnexal masses. 4. No fluid in the cul-de-sac. Dictated by: Juan Antonio Dixon MD 04/17/2023 16:09 Juan Antonio Dixon MD in OV 04/17/2023 16:09
== END 2023-04-17 23:59 ==
LOC: RAD 13:33
PROVIDERS: PCP Family Medicine; Visit Provider Obstetrics & Gynecology
DX: R10.2 Pelvic and perineal pain (principal)
CPT/HCPCS: 76830

== ENCOUNTER 2023-04-27 08:42 | Outpatient (CLI) | payer MEDICARE, MEDICAID, SELFPAY ==
[2023-04-27] MEDS: OMALIZUMAB 150MG VIAL 375 MG SQ (09:06)
[2023-04-27 09:10] VITALS: BP 124/71; PULSE 76; RESP 18; O2SAT 97
== END 2023-04-27 09:15 | disposition home or self-care (01) ==
LOC: INF 08:44
PROVIDERS: PCP Family Medicine; Visit Provider Nurse Practitioner
DX: J45.50 Severe persistent asthma, uncomplicated (principal)
CPT/HCPCS: 96372; J2357

== ENCOUNTER 2023-05-11 08:41 | Outpatient (CLI) | payer MEDICARE, MEDICAID, SELFPAY ==
[2023-05-11 09:13] VITALS: BP 133/82; PULSE 76; RESP 18; TEMP 36.6; O2SAT 98
[2023-05-11] MEDS: OMALIZUMAB 150MG VIAL 375 MG SQ (09:13)
== END 2023-05-11 09:25 | disposition home or self-care (01) ==
LOC: INF 08:42
PROVIDERS: PCP Family Medicine; Visit Provider Allergy & Immunology
DX: J45.50 Severe persistent asthma, uncomplicated (principal)
CPT/HCPCS: 96372; J2357

== ENCOUNTER 2023-05-29 09:08 | Outpatient (CLI) | payer MEDICARE, MEDICAID, SELFPAY ==
[2023-05-29 09:36] VITALS: BP 151/78; PULSE 71; RESP 20; TEMP 36.6; O2SAT 100
[2023-05-29] MEDS: OMALIZUMAB 150MG VIAL 375 MG SQ (09:36)
== END 2023-05-29 09:56 | disposition home or self-care (01) ==
LOC: INF 09:08
PROVIDERS: PCP Family Medicine; Visit Provider Allergy & Immunology
DX: J45.50 Severe persistent asthma, uncomplicated (principal)
CPT/HCPCS: 96372; J2357

== ENCOUNTER 2023-06-12 08:47 | Outpatient (CLI) | payer MEDICARE, MEDICAID, SELFPAY ==
[2023-06-12 09:20] VITALS: BP 136/76; PULSE 69; RESP 18; TEMP 36.6; O2SAT 99
[2023-06-12] MEDS: OMALIZUMAB 150MG VIAL 375 MG SQ (09:20)
== END 2023-06-12 09:32 | disposition home or self-care (01) ==
LOC: INF 08:49
PROVIDERS: PCP Family Medicine; Visit Provider Allergy & Immunology
DX: J45.50 Severe persistent asthma, uncomplicated (principal)
CPT/HCPCS: 96372; J2357

== ENCOUNTER 2023-07-06 08:48 | Outpatient (CLI) | payer MEDICARE, MEDICAID, SELFPAY ==
[2023-07-06] MEDS: OMALIZUMAB 150MG VIAL 375 MG SQ (09:37)
== END 2023-07-06 09:43 | disposition home or self-care (01) ==
LOC: INF 08:49
PROVIDERS: Visit Provider Allergy & Immunology
DX: J45.50 Severe persistent asthma, uncomplicated (principal)
CPT/HCPCS: 96372; J2357

== ENCOUNTER 2023-07-19 08:49 | Outpatient (CLI) | payer MEDICARE, MEDICAID, SELFPAY ==
[2023-07-19 09:12] VITALS: BP 146/85; PULSE 61; RESP 18; TEMP 36.5; O2SAT 100
[2023-07-19] MEDS: OMALIZUMAB 150MG VIAL 375 MG SQ (09:12)
== END 2023-07-19 09:30 | disposition home or self-care (01) ==
LOC: INF 08:50
PROVIDERS: Visit Provider Allergy & Immunology
DX: J45.50 Severe persistent asthma, uncomplicated (principal)
CPT/HCPCS: 96372; J2357

== ENCOUNTER 2023-08-02 08:27 | Outpatient (CLI) | payer MEDICARE, MEDICAID, SELFPAY ==
[2023-08-02 09:12] VITALS: BP 123/69; PULSE 63; RESP 20; TEMP 36.4; O2SAT 99
[2023-08-02] MEDS: OMALIZUMAB 150MG VIAL 375 MG SQ (09:12)
== END 2023-08-02 09:29 | disposition home or self-care (01) ==
LOC: INF 08:28
PROVIDERS: PCP Family Medicine; Visit Provider Nurse Practitioner
DX: J45.50 Severe persistent asthma, uncomplicated (principal)
CPT/HCPCS: 96372; J2357

== ENCOUNTER 2023-08-10 11:04 | Outpatient (CLI) | payer MEDICARE, MEDICAID, SELFPAY ==
--- NOTE | 2023-08-10 11:13 | XR_ITS ---
FINAL REPORT CLINICAL HISTORY: SOA FINDINGS: 2 views of the chest were obtained . The heart is normal in size. The mediastinum is within normal limits. The lungs are clear. There is no pneumothorax. Osseous structures are unremarkable. IMPRESSION: No acute cardiopulmonary process. Reviewed, Interpreted and Dictated by Ken Colon MD Transcribed by Sonam Kim Authenticated and [facility]
== END 2023-08-10 23:59 | disposition home or self-care (01) ==
LOC: RAD 11:05
PROVIDERS: PCP Family Medicine; Visit Provider Allergy & Immunology
DX: R06.02 Shortness of breath (principal)
CPT/HCPCS: 71046

== ENCOUNTER 2023-08-16 14:50 | Outpatient (CLI) | payer MEDICARE, MEDICAID, SELFPAY ==
--- NOTE | 2023-08-16 14:55 | MM_ITS ---
PROCEDURE INFORMATION: Exam: MG Bilateral Diagnostic Breast Tomosynthesis Exam date and time: 08/16/2023 2:43 PM Age: 58 years old Clinical indication: Left breast pain TECHNIQUE: Imaging protocol: Bilateral Diagnostic tomosynthesis and 2D mammography including computer-aided detection (CAD) when performed. Unilateral or bilateral exam. COMPARISON: MG MM DIG SCREENING MAMM BI W/CAD 02/22/2022 10:30 AM FINDINGS: MAMMOGRAPHY: Breast composition: The breasts are heterogeneously dense, which may obscure small masses. Breast mammogram findings: Questionable 1.5 cm focal asymmetry in the posterior left upper outer quadrant. There is no stellate mass, architectural distortion or suspicious microcalcifications in either breast to suggest malignancy. No skin thickening or axillary adenopathy. IMPRESSION: Patient to be recalled for spot compression views of the left breast in the CC and MLO projections, a full 90 degree lateral view, and possible left breast ultrasound for further evaluation of left breast asymmetry and pain. ASSESSMENT: BI-RADS Category 0: Incomplete- Need Additional Imaging Evaluation and/or Prior Mammograms for Comparison.
[2023-08-16 15:24] VITALS: BP 142/81; PULSE 76; RESP 18; TEMP 36.6; O2SAT 96
[2023-08-16] MEDS: OMALIZUMAB 150MG VIAL 375 MG SQ (15:24)
== END 2023-08-16 15:49 | disposition home or self-care (01) ==
LOC: INF 14:52
PROVIDERS: Visit Provider Nurse Practitioner
DX: J45.50 Severe persistent asthma, uncomplicated (principal); N64.4 Mastodynia
CPT/HCPCS: 77062; 77066; 96372; G0279; J2357

== ENCOUNTER 2023-08-30 08:46 | Outpatient (CLI) | payer MEDICARE, MEDICAID, SELFPAY ==
[2023-08-30 09:12] VITALS: BP 127/74; PULSE 64; RESP 18; TEMP 36.6; O2SAT 98
== END 2023-08-30 09:39 | disposition home or self-care (01) ==
LOC: INF 08:47
PROVIDERS: Visit Provider Nurse Practitioner
DX: R06.09 Other forms of dyspnea (principal)
CPT/HCPCS: 96372; J2357

== ENCOUNTER 2023-08-31 13:46 | Outpatient (CLI) | payer MEDICARE, MEDICAID, SELFPAY ==
--- NOTE | 2023-08-31 13:47 | MM_ITS ---
PROCEDURE INFORMATION: Exam: US Left Breast, Complete MG Left Diagnostic Breast Tomosynthesis Exam date and time: 08/31/2023 1:49 PM Age: 58 years old Clinical indication: Callback for additional assessment questionable 1.5 cm focal asymmetry in the posterior left upper outer quadrant identified on screening mammogram 08/16/2023 TECHNIQUE: Imaging protocol: Complete ultrasound of all four quadrants of the left breast and the retroareolar regions, including ultrasound of the axilla when performed. Left Diagnostic tomosynthesis and 2D mammography including computer-aided detection (CAD) when performed. Unilateral or bilateral exam. COMPARISON: 1. MG MM DIG MAMM BI DX W/CAD 08/16/2023 2:43 PM 2. MG MM DIG SCREENING MAMM BI W/CAD 02/22/2022 10:30 AM 3. MG MM DIG SCREENING MAMM BI W/CAD 08/04/2020 8:23 AM FINDINGS: MAMMOGRAPHY: Breast composition: The breast is heterogeneously dense, which may obscure small masses. Breast mammogram findings: There is a persistent 1.5 cm focal asymmetry in the posterior left upper outer quadrant without associated architectural distortion or calcifications ULTRASOUND: Breast ultrasound findings: Heterogeneously hypoechoic suspected collection with posterior acoustic enhancement along the 1 o'clock axis 6 cm from the left nipple measures 1 x 0.3 x 0.9 cm compared with 0.8 x 0.8 x 0 point 4 cm on 03/14/2022 Heterogeneously hypoechoic mass along the 2 o'clock axis 3 cm from the left nipple measures 0.6 x 0.6 x 0.3 cm, compared with 0.7 x 0.3 x 0.7 cm on 03/14/2022. This has features of a complicated cyst Heterogeneously hypoechoic parallel gently lobulated circumscribed suspected collection along the 8 o'clock axis 6 cm from the left nipple measures 0.7 x 0.2 x 0.7 cm Heterogeneously hypoechoic suspected cysts with posterior acoustic enhancement along the 2 o'clock axis 7 cm from the left nipple measures 0.3 x 0.3 a 0.3 cm No suspicious solid or cystic mass is present. No architectural distortion or shadowing is present. IMPRESSION: Probably benign. There are 4 morphologically similar appearing heterogeneously hypoechoic parallel mostly circumscribed masses which have features suggestive complicated cysts along the 1 o'clock axis, 2 o'clock axis, and 8 o'clock axis. As a precaution, six-month follow-up targeted ultrasound is recommended to assure stability ASSESSMENT: BI-RADS category 3: Probably benign
== END 2023-08-31 23:59 | disposition home or self-care (01) ==
LOC: RAD 13:47
PROVIDERS: Visit Provider Obstetrics & Gynecology
DX: R92.8 Other abnormal and inconclusive findings on diagnostic imaging of breast (principal)
CPT/HCPCS: 76641; 77061; 77065; G0279

== ENCOUNTER 2023-09-12 08:23 | Outpatient (CLI) | payer MEDICARE, MEDICAID, SELFPAY ==
[2023-09-12 09:10] VITALS: BP 126/70; PULSE 76; RESP 19; TEMP 36.4; O2SAT 96
== END 2023-09-12 09:10 | disposition home or self-care (01) ==
LOC: INF 08:24
PROVIDERS: PCP Family Medicine; Visit Provider Allergy & Immunology
DX: R06.00 Dyspnea, unspecified (principal)
CPT/HCPCS: 96372; J2357

== ENCOUNTER 2023-09-29 08:44 | Outpatient (CLI) | payer MEDICARE, MEDICAID, SELFPAY ==
[2023-09-29 09:33] VITALS: BP 124/73; PULSE 76; RESP 18; TEMP 37.1; O2SAT 95
== END 2023-09-29 23:59 | disposition home or self-care (01) ==
LOC: INF 08:45
PROVIDERS: Visit Provider Allergy & Immunology
DX: R06.00 Dyspnea, unspecified (principal)
CPT/HCPCS: 96372; J2357

== ENCOUNTER 2023-10-13 08:45 | Outpatient (CLI) | payer MEDICARE, MEDICAID, SELFPAY ==
[2023-10-13 09:05] VITALS: BP 128/69; PULSE 60; RESP 20; TEMP 36.8; O2SAT 99
== END 2023-10-13 09:40 | disposition home or self-care (01) ==
LOC: INF 08:46
PROVIDERS: PCP Family Medicine; Visit Provider Nurse Practitioner
DX: R06.00 Dyspnea, unspecified (principal)
CPT/HCPCS: 96372; J2357

== ENCOUNTER 2023-10-25 08:33 | Outpatient (CLI) | payer MEDICARE, MEDICAID, SELFPAY ==
[2023-10-25 09:00] LABS: Basophils % 0.4 % (0.1-2.0); Eosinophils # 0.1 K/mm3 (0.0-0.4); Eosinophils % 1.5 % (0.1-12.0); Hematocrit 38.5 % (37.0-47.0); Hemoglobin 12.2 g/dL (12.2-16.2); Lymphocytes # 2.5 K/mm3 (0.7-4.5); Lymphocytes % 35.6 % (10-50); Mean Corpuscular HGB Conc 31.7 g/dL (31.8-35.4); Mean Corpuscular Hemoglobin 29.6 pg (27.0-31.2); Mean Corpuscular Volume 93.1 fl (81-99); Mean Platelet Volume 7.2 fl (7.4-10.4); Monocytes # 0.4 K/mm3 (0.1-1.0); Neutrophils # 4.1 K/mm3 (1.8-7.8); Neutrophils % 57.6 % (37.0-80.0); Platelet Count 217 K/mm3 (142-424); Red Blood Count 4.13 M/mm3 (4.20-5.40); Red Cell Distribution Width 14.1 % (11.5-17.5)
[2023-10-25 09:33] LABS: Alanine Aminotransferase 12 U/L (12-78); Albumin Level 3.3 g/dl (3.5-5.0); Albumin/Globulin Ratio 1.2 (1.1-1.8); Alkaline Phosphatase 100 U/L (38-126); Anion Gap 9.6 mEq/L (5-15); Aspartate Amino Transferase 19 U/L (14-36); Bilirubin,Total 0.5 mg/dl (0.2-1.3); Blood Urea Nitrogen 8 mg/dl (7-17); Calcium 8.3 mg/dl (8.4-10.2); Carbon Dioxide 23 mmol/L (22.0-30.0); Chloride 111 mmol/L (98-107); Estimated Glomerular Filt Rate 65 ml/min (>60); GFR (African American) 78 ML/MIN (>60); Globulin 2.8 g/dL (1.3-3.2); Glucose 112 mg/dl (74-100); Potassium 3.6 mmoL/L (3.5-5.1); Sodium 140 mmol/L (136-145); Total Protein,Serum 6.1 g/dl (6.3-8.2)
[2023-10-25 09:50] LABS: Free T4 (Free Thyroxine) 0.63 ng/dl (0.78-2.19)
[2023-10-25 09:51] LABS: 25-OH Vitamin D, Total 26.4 ng/mL (30-100)
[2023-10-25 10:03] LABS: Thyroid Stimulating Hormone 2.96 uIU/mL (0.465-4.68)
[2023-10-25 10:39] LABS: Vitamin B12 395 pg/mL (239-931)
[2023-10-25 10:55] LABS: Folate 6.12 ng/mL
[2023-10-25 12:10] LABS: Hemoglobin A1C 5.4 % (4.0-6.0)
[2023-10-28 10:12] LABS: Vitamin B1 97.5 nmol/L (66.5-200.0)
[2023-10-28 16:16] LABS: Vitamin B6 4.2 ug/L (3.4-65.2)
== END 2023-10-25 23:59 | disposition home or self-care (01) ==
LOC: LAB 08:34
PROVIDERS: PCP Family Medicine; Visit Provider Nurse Practitioner
DX: G62.9 Polyneuropathy, unspecified (principal); R73.09 Other abnormal glucose; E56.9 Vitamin deficiency, unspecified; E55.9 Vitamin D deficiency, unspecified
CPT/HCPCS: 36415; 80050; 80053; 82306; 82607; 82746; 83036; 84207; 84425; 84439; 84443; 85025

== ENCOUNTER 2023-11-01 12:50 | Outpatient (CLI) | payer MEDICARE, MEDICAID, SELFPAY ==
--- NOTE | 2023-11-01 12:54 | XR_ITS ---
FINAL REPORT CLINICAL HISTORY: LT ANKLE PAIN FINDINGS: Left ankle Three views were obtained. There is no acute fracture or dislocation. The joint spaces appear normal. No soft tissue abnormality is identified. Plantar calcaneal spur is identified. IMPRESSION: No acute process. Reviewed, Interpreted and Dictated by Steve Richardson III, MD Transcribed by Christie Ibrahim Authenticated and [facility]
--- NOTE | 2023-11-01 12:54 | XR_ITS ---
FINAL REPORT CLINICAL HISTORY: LT FOOT PAIN COMPARISON: 10/30/2019 FINDINGS: Left foot Three views were obtained. There is no acute fracture or dislocation. There are mild degenerative changes. Small plantar calcaneal spur is identified. No soft tissue abnormality is identified. IMPRESSION: Mild degenerative changes. Reviewed, Interpreted and Dictated by Steve Richardson III, MD Transcribed by Christie Ibrahim Authenticated and [facility]
== END 2023-11-01 23:59 | disposition home or self-care (01) ==
LOC: RAD 12:51
PROVIDERS: PCP Family Medicine; Visit Provider Physician Assistant
DX: M25.572 Pain in left ankle and joints of left foot (principal); M79.672 Pain in left foot
CPT/HCPCS: 73610; 73630

== ENCOUNTER 2023-11-02 08:31 | Outpatient (CLI) | payer MEDICARE, MEDICAID, SELFPAY ==
[2023-11-02 09:00] VITALS: BP 118/74; PULSE 66; RESP 18; O2SAT 96
== END 2023-11-02 09:00 | disposition home or self-care (01) ==
LOC: INF 08:33
PROVIDERS: PCP Family Medicine; Visit Provider Allergy & Immunology
DX: R06.09 Other forms of dyspnea (principal)
CPT/HCPCS: 96372; J2357

== ENCOUNTER 2023-11-17 08:52 | Outpatient (CLI) | payer MEDICARE, MEDICAID, SELFPAY ==
[2023-11-17 09:21] VITALS: BP 130/74; PULSE 66; RESP 18; O2SAT 98
== END 2023-11-17 09:21 | disposition home or self-care (01) ==
LOC: INF 08:53
PROVIDERS: PCP Family Medicine; Visit Provider Nurse Practitioner
DX: R06.09 Other forms of dyspnea (principal)
CPT/HCPCS: 96372; J2357

== ENCOUNTER 2023-12-01 09:01 | Outpatient (CLI) | payer MEDICARE, MEDICAID, SELFPAY ==
[2023-12-01] MEDS: OMALIZUMAB 150MG VIAL 375 MG SQ (09:30)
[2023-12-01 09:34] VITALS: BP 134/74; PULSE 63; RESP 18; TEMP 36.7; O2SAT 99
== END 2023-12-01 09:34 | disposition home or self-care (01) ==
LOC: INF 09:03
PROVIDERS: PCP Family Medicine; Visit Provider Allergy & Immunology
DX: R06.09 Other forms of dyspnea (principal)
CPT/HCPCS: 96372; J2357

== ENCOUNTER 2023-12-15 08:43 | Outpatient (CLI) | payer MEDICARE, MEDICAID, SELFPAY ==
[2023-12-15 09:12] VITALS: BP 131/68; PULSE 52; RESP 17; O2SAT 98
[2023-12-15] MEDS: OMALIZUMAB 150MG VIAL 375 MG SQ (09:12)
== END 2023-12-15 09:30 | disposition home or self-care (01) ==
LOC: INF 08:45
PROVIDERS: PCP Family Medicine; Visit Provider Nurse Practitioner
DX: J45.909 Unspecified asthma, uncomplicated (principal)
CPT/HCPCS: 96372; J2357

== ENCOUNTER 2024-01-03 08:45 | Outpatient (CLI) | payer MEDICARE, MEDICAID, SELFPAY ==
[2024-01-03 09:10] VITALS: BP 135/77; PULSE 64; RESP 17; O2SAT 98
[2024-01-03] MEDS: OMALIZUMAB 150MG VIAL 375 MG SQ (09:10)
== END 2024-01-03 09:30 | disposition home or self-care (01) ==
LOC: INF 08:47
PROVIDERS: Visit Provider Nurse Practitioner
DX: J45.909 Unspecified asthma, uncomplicated (principal)
CPT/HCPCS: 96372; J2357

== ENCOUNTER 2024-01-17 08:57 | Outpatient (CLI) | payer MEDICARE, MEDICAID, SELFPAY ==
[2024-01-17 09:13] VITALS: BMI 34.7
[2024-01-17 09:22] VITALS: BP 125/81; PULSE 68; RESP 18; TEMP 36.5; O2SAT 98
[2024-01-17] MEDS: OMALIZUMAB 150MG VIAL 375 MG SUBCUT (09:22)
== END 2024-01-17 09:27 | disposition home or self-care (01) ==
LOC: INF 08:58
PROVIDERS: PCP Family Medicine; Visit Provider Allergy & Immunology
DX: J45.909 Unspecified asthma, uncomplicated (principal)
CPT/HCPCS: 96372; J2357

== ENCOUNTER 2024-01-22 08:22 | Outpatient (CLI) | payer MEDICARE, MEDICAID, SELFPAY ==
[2024-01-22 09:17] LABS: Basophils % 0.4 % (0.1-2.0); Eosinophils # 0.1 K/mm3 (0.0-0.4); Eosinophils % 1.5 % (0.1-12.0); Hematocrit 38.7 % (37.0-47.0); Lymphocytes # 2.4 K/mm3 (0.7-4.5); Lymphocytes % 38.1 % (10-50); Mean Corpuscular HGB Conc 33.6 g/dL (31.8-35.4); Mean Corpuscular Hemoglobin 29.6 pg (27.0-31.2); Mean Corpuscular Volume 87.9 fl (81-99); Mean Platelet Volume 6.6 fl (7.4-10.4); Monocytes # 0.4 K/mm3 (0.1-1.0); Monocytes % 5.4 % (1.7-9.3); Neutrophils # 3.5 K/mm3 (1.8-7.8); Neutrophils % 54.6 % (37.0-80.0); Platelet Count 224 K/mm3 (142-424); Red Blood Count 4.41 M/mm3 (4.20-5.40); Red Cell Distribution Width 14.3 % (11.5-17.5); White Blood Count 6.4 K/mm3 (4.8-10.8)
[2024-01-22 09:41] LABS: Alanine Aminotransferase 10 U/L (12-78); Albumin Level 3.4 g/dl (3.5-5.0); Albumin/Globulin Ratio 1.3 (1.1-1.8); Alkaline Phosphatase 117 U/L (38-126); Anion Gap 5.5 mEq/L (5-15); Aspartate Amino Transferase 16 U/L (14-36); Bilirubin,Total 0.6 mg/dl (0.2-1.3); Blood Urea Nitrogen 7 mg/dl (7-17); Calcium 8.6 mg/dl (8.4-10.2); Carbon Dioxide 22 mmol/L (22.0-30.0); Chloride 113 mmol/L (98-107); Chol/HDL Ratio 3.1 (1-3.5); Cholesterol 152 mg/dl (140-200); Estimated Glomerular Filt Rate 65 ml/min (>60); GFR (African American) 78 ML/MIN (>60); Globulin 2.7 g/dL (1.3-3.2); Glucose 98 mg/dl (74-100); HDL Cholesterol 49 mg/dl (40-60); Potassium 3.5 mmoL/L (3.5-5.1); Sodium 137 mmol/L (136-145); Total Protein,Serum 6.1 g/dl (6.3-8.2); Triglycerides 147 mg/dl (30-150); VLDL Cholesterol 29 mg/dL (0-40)
[2024-01-22 09:48] LABS: Hemoglobin A1C 5.3 % (4.0-6.0)
[2024-01-22 09:53] LABS: Direct LDL Cholesterol 67.23 mg/dL (100-129)
[2024-01-22 09:58] LABS: 25-OH Vitamin D, Total 34.5 ng/mL (30-100)
[2024-01-22 10:00] LABS: Free T4 (Free Thyroxine) 0.78 ng/dl (0.78-2.19)
[2024-01-22 10:12] LABS: Iron 62 ug/dL (37-170)
[2024-01-22 10:13] LABS: Thyroid Stimulating Hormone 3.58 uIU/mL (0.465-4.68)
[2024-01-22 10:22] LABS: Total Iron Binding Capacity 325 ug/dL (265-497)
[2024-01-22 10:48] LABS: Vitamin B12 481 pg/mL (239-931)
[2024-01-22 10:49] LABS: Folate 6.52 ng/mL
[2024-01-22 10:50] LABS: Ferritin 9.44 ng/ml (11.1-264)
[2024-01-24 15:12] LABS: Antinuclear Antibodies, IFA Negative (.)
[2024-01-27 15:37] LABS: Vitamin B1 73.9 nmol/L (66.5-200.0)
[2024-01-29 16:15] LABS: Vitamin B6 1.7 ug/L (3.4-65.2)
== END 2024-01-22 23:59 | disposition home or self-care (01) ==
LOC: LAB 08:24
PROVIDERS: PCP Family Medicine; Visit Provider Family Medicine
DX: E11.42 Type 2 diabetes mellitus with diabetic polyneuropathy (principal); E55.9 Vitamin D deficiency, unspecified; E78.2 Mixed hyperlipidemia; E56.9 Vitamin deficiency, unspecified; G25.81 Restless legs syndrome; R61 Generalized hyperhidrosis; M19.049 Primary osteoarthritis, unspecified hand; R79.9 Abnormal finding of blood chemistry, unspecified; G62.9 Polyneuropathy, unspecified
CPT/HCPCS: 36415; 80053; 80061; 82306; 82533; 82607; 82728; 82746; 83036; 83540; 83550; 84207; 84425; 84439; 84443; 85025; 86038; 86140

== ENCOUNTER 2024-01-29 09:57 | Outpatient (CLI) | payer MEDICARE, MEDICAID, SELFPAY ==
[2024-01-29 11:01] LABS: Alanine Aminotransferase 11 U/L (12-78); Albumin Level 3.8 g/dl (3.5-5.0); Albumin/Globulin Ratio 1.4 (1.1-1.8); Alkaline Phosphatase 111 U/L (38-126); Anion Gap 13.8 mEq/L (5-15); Aspartate Amino Transferase 16 U/L (14-36); Bilirubin,Total 0.6 mg/dl (0.2-1.3); Blood Urea Nitrogen 7 mg/dl (7-17); Calcium 9.1 mg/dl (8.4-10.2); Carbon Dioxide 21 mmol/L (22.0-30.0); Chloride 110 mmol/L (98-107); Estimated Glomerular Filt Rate 65 ml/min (>60); GFR (African American) 78 ML/MIN (>60); Globulin 2.7 g/dL (1.3-3.2); Glucose 104 mg/dl (74-100); Potassium 3.8 mmoL/L (3.5-5.1); Sodium 141 mmol/L (136-145); Total Protein,Serum 6.5 g/dl (6.3-8.2)
== END 2024-01-29 23:59 | disposition home or self-care (01) ==
LOC: LAB 09:58
PROVIDERS: PCP Family Medicine; Visit Provider Obstetrics & Gynecology
DX: E11.42 Type 2 diabetes mellitus with diabetic polyneuropathy (principal)
CPT/HCPCS: 36415; 80053

== ENCOUNTER 2024-01-31 08:53 | Outpatient (CLI) | payer MEDICARE, MEDICAID, SELFPAY ==
[2024-01-31] MEDS: OMALIZUMAB 150MG VIAL 375 MG SUBCUT (09:14)
[2024-01-31 09:20] VITALS: BP 124/70; PULSE 68; RESP 17; O2SAT 99
== END 2024-01-31 09:35 | disposition home or self-care (01) ==
LOC: INF 08:54
PROVIDERS: PCP Family Medicine; Visit Provider Nurse Practitioner
DX: J45.909 Unspecified asthma, uncomplicated (principal)
CPT/HCPCS: 96372; J2357

== ENCOUNTER 2024-02-14 08:47 | Outpatient (CLI) | payer MEDICARE, MEDICAID, SELFPAY ==
[2024-02-14] MEDS: OMALIZUMAB 150MG VIAL 375 MG SUBCUT (09:20)
[2024-02-14 09:22] VITALS: BP 128/68; PULSE 69; RESP 18; O2SAT 98
== END 2024-02-14 09:22 | disposition home or self-care (01) ==
LOC: INF 08:48
PROVIDERS: PCP Family Medicine; Visit Provider Nurse Practitioner
DX: J45.909 Unspecified asthma, uncomplicated (principal)
CPT/HCPCS: 96372; J2357

== ENCOUNTER 2024-02-27 08:44 | Outpatient (CLI) | payer MEDICARE, MEDICAID, SELFPAY ==
[2024-02-27 09:11] VITALS: BP 131/63; PULSE 72; RESP 18; TEMP 36.6; O2SAT 97
[2024-02-27] MEDS: OMALIZUMAB 150MG VIAL 375 MG SUBCUT (09:11)
[2024-02-27 09:25] LABS: Albumin Level 3.8 g/dl (3.5-5.0); Chloride 111 mmol/L (98-107)
[2024-02-27 09:26] LABS: Potassium 3.7 mmoL/L (3.5-5.1); Sodium 141 mmol/L (136-145)
[2024-02-27 09:28] LABS: Alanine Aminotransferase 14 U/L (12-78); Albumin/Globulin Ratio 1.4 (1.1-1.8); Alkaline Phosphatase 112 U/L (38-126); Anion Gap 9.7 mEq/L (5-15); Aspartate Amino Transferase 21 U/L (14-36); Bilirubin,Total 0.6 mg/dl (0.2-1.3); Blood Urea Nitrogen 7 mg/dl (7-17); Carbon Dioxide 24 mmol/L (22.0-30.0); Estimated Glomerular Filt Rate 57 ml/min (>60); GFR (African American) 69 ML/MIN (>60); Globulin 2.7 g/dL (1.3-3.2); Total Protein,Serum 6.5 g/dl (6.3-8.2)
[2024-02-27 09:29] LABS: Calcium 8.7 mg/dl (8.4-10.2); Glucose 109 mg/dl (74-100)
== END 2024-02-27 09:30 | disposition home or self-care (01) ==
LOC: INF 08:45
PROVIDERS: Obstetrics & Gynecology; PCP Family Medicine; Visit Provider Allergy & Immunology
DX: N95.1 Menopausal and female climacteric states (principal); G43.111 Migraine with aura, intractable, with status migrainosus
CPT/HCPCS: 80053; 96372; J2357

== ENCOUNTER 2024-03-04 12:56 | Outpatient (CLI) | payer MEDICARE, MEDICAID, SELFPAY ==
--- NOTE | 2024-03-04 12:57 | US_ITS ---
PROCEDURE INFORMATION: Exam: US Left Breast, Complete Exam date and time: 03/04/2024 1:19 PM Age: 58 years old Clinical indication: Follow-up from prior for probably benign masses in the left breast. TECHNIQUE: Imaging protocol: Complete ultrasound of all four quadrants of the left breast and the retroareolar regions, including ultrasound of the axilla when performed. COMPARISON: US BREAST LT COMPLETE 08/31/2023 2:28 PM FINDINGS: ULTRASOUND: Breast ultrasound findings: Left breast ultrasound: Parallel circumscribed palpable oval mass at 1 o'clock 6 cm from nipple measuring 0.9 x 0.8 x 0 3 cm, unchanged. Similar-appearing structure at 2 o'clock, 7 cm from the nipple measuring 0.7 x 0.8 x 0.6 cm. On today's exam compatible with benign clustered microcysts. Benign calcification at 2 o'clock 4 cm from nipple measuring 0.3 cm. Probable complicated cyst at 7 o'clock 4 cm from the nipple measuring 0.7 cm (previously labeled as 8 o'clock 6 cm from the nipple. No abnormal lymph nodes in the axilla. IMPRESSION: Stable probable complicated cysts in the left breast at 1 o'clock and 7 o'clock, unchanged since 08/31/2023 and probably benign. Recommend six-month follow-up left breast ultrasound to ensure stability. The patient will be due for screening mammography at time. ASSESSMENT: BI-RADS Category 3: Probably benign.
== END 2024-03-04 23:59 | disposition home or self-care (01) ==
LOC: RAD 12:57
PROVIDERS: PCP Family Medicine; Referring Provider Obstetrics & Gynecology; Visit Provider Obstetrics & Gynecology
DX: R92.8 Other abnormal and inconclusive findings on diagnostic imaging of breast (principal)
CPT/HCPCS: 76641

== ENCOUNTER 2024-03-14 09:12 | Outpatient (CLI) | payer MEDICARE, MEDICAID, SELFPAY ==
[2024-03-14] MEDS: OMALIZUMAB 150MG VIAL 375 MG SUBCUT (09:40)
[2024-03-14 09:54] VITALS: BP 120/77; PULSE 54; RESP 18; O2SAT 99
== END 2024-03-14 09:44 | disposition home or self-care (01) ==
LOC: INF 09:13
PROVIDERS: PCP Family Medicine; Visit Provider Nurse Practitioner
DX: J45.50 Severe persistent asthma, uncomplicated (principal)
CPT/HCPCS: 96372; J2357

== ENCOUNTER 2024-03-28 08:47 | Outpatient (CLI) | payer MEDICARE, MEDICAID, SELFPAY ==
[2024-03-28 09:15] VITALS: BP 130/78; PULSE 74; RESP 17; O2SAT 98
[2024-03-28] MEDS: OMALIZUMAB 150MG VIAL 375 MG SUBCUT (09:15)
== END 2024-03-28 09:30 | disposition home or self-care (01) ==
LOC: INF 08:48
PROVIDERS: PCP Family Medicine; Visit Provider Allergy & Immunology
DX: J45.901 Unspecified asthma with (acute) exacerbation (principal)
CPT/HCPCS: 96372; J2357

== ENCOUNTER 2024-04-11 08:44 | Outpatient (CLI) | payer MEDICARE, MEDICAID, SELFPAY ==
[2024-04-11 09:10] VITALS: BP 122/69; PULSE 62; RESP 16; TEMP 36.4; O2SAT 99
[2024-04-11] MEDS: OMALIZUMAB 150MG VIAL 375 MG SUBCUT (09:10)
== END 2024-04-11 09:25 | disposition home or self-care (01) ==
LOC: INF 08:45
PROVIDERS: PCP Family Medicine; Visit Provider Nurse Practitioner
DX: J45.909 Unspecified asthma, uncomplicated (principal)
CPT/HCPCS: 96372; J2357

== ENCOUNTER 2024-04-26 09:09 | Outpatient (CLI) | payer MEDICARE, MEDICAID, SELFPAY ==
[2024-04-26 09:40] VITALS: BP 138/75; PULSE 83; RESP 18; TEMP 36.8; O2SAT 98
[2024-04-26] MEDS: OMALIZUMAB 150MG VIAL 375 MG SUBCUT (11:12)
== END 2024-04-26 09:50 | disposition home or self-care (01) ==
LOC: INF 09:11
PROVIDERS: PCP Family Medicine; Visit Provider Nurse Practitioner
DX: J45.50 Severe persistent asthma, uncomplicated (principal)
CPT/HCPCS: 96372; J2357

== ENCOUNTER 2024-05-10 08:42 | Outpatient (CLI) | payer MEDICARE, MEDICAID, SELFPAY ==
[2024-05-10 09:12] VITALS: BP 138/79; PULSE 81; RESP 18; TEMP 36.7; O2SAT 98
[2024-05-10] MEDS: OMALIZUMAB 150MG VIAL 375 MG SUBCUT (09:12)
== END 2024-05-10 09:30 | disposition home or self-care (01) ==
LOC: INF 08:43
PROVIDERS: PCP Family Medicine; Visit Provider Allergy & Immunology
DX: J45.50 Severe persistent asthma, uncomplicated (principal)
CPT/HCPCS: 96372; J2357

== ENCOUNTER 2024-05-24 08:41 | Outpatient (CLI) | payer MEDICARE, SELFPAY | END 2024-05-24 08:50 | disposition home or self-care (01) | PROVIDERS: PCP Family Medicine; Visit Provider Nurse Practitioner | DX: J45.50 Severe persistent asthma, uncomplicated (principal) ==

== ENCOUNTER 2024-06-12 10:07 | Outpatient (CLI) | payer MEDICARE, MEDICAID, SELFPAY ==
--- NOTE | 2024-06-12 10:34 | US_ITS ---
FINAL REPORT CLINICAL HISTORY: PAIN IN ARMPIT AND DOWN ARM -LEFT FINDINGS: ULTRASOUND SOFT TISSUES OF THE LEFT AXILLA Limited sonographic images of the soft tissues of the left axilla were obtained. There were multiple lymph nodes at the area of interest. The largest measures 1.7 cm. All have a benign appearance with fatty joon. There is no mass or fluid collection. IMPRESSION: Mildly prominent benign appearing lymph nodes. Reviewed, Interpreted and Dictated by Alexandra Powell MD Transcribed by Allyn Severino Authenticated and [facility]
[2024-06-12 11:47] LABS: Alanine Aminotransferase 16 U/L (12-78); Albumin/Globulin Ratio 1.5 (1.1-1.8); Alkaline Phosphatase 108 U/L (38-126); Anion Gap 12.9 mEq/L (5-15); Aspartate Amino Transferase 21 U/L (14-36); Bilirubin,Total 0.6 mg/dl (0.2-1.3); Blood Urea Nitrogen 11 mg/dl (7-17); Calcium 9.5 mg/dl (8.4-10.2); Carbon Dioxide 26 mmol/L (22.0-30.0); Chloride 105 mmol/L (98-107); Estimated Glomerular Filt Rate 65 ml/min (>60); GFR (African American) 78 ML/MIN (>60); Globulin 2.6 g/dL (1.3-3.2); Glucose 94 mg/dl (74-100); Potassium 3.9 mmoL/L (3.5-5.1); Sodium 140 mmol/L (136-145); Total Protein,Serum 6.6 g/dl (6.3-8.2)
[2024-06-12 13:09] LABS: HIV Combo NEGATIVE (Negative)
[2024-06-12 13:16] LABS: Hepatitis C Ab Qual. W/ RFX NEGATIVE (Negative)
== END 2024-06-12 23:59 | disposition home or self-care (01) ==
PROVIDERS: PCP Family Medicine; Visit Provider Obstetrics & Gynecology
DX: N95.1 Menopausal and female climacteric states (principal); M79.622 Pain in left upper arm; R92.8 Other abnormal and inconclusive findings on diagnostic imaging of breast; Z11.59 Encounter for screening for other viral diseases
CPT/HCPCS: 36415; 76642; 80053; 86803; 87389

== ENCOUNTER 2024-08-07 13:34 | Outpatient (CLI) | payer MEDICARE, MEDICAID, SELFPAY ==
--- NOTE | 2024-08-07 13:45 | US_ITS ---
PROCEDURE INFORMATION: Exam: US Left Breast, Complete Exam date and time: 08/07/2024 1:47 PM Age: 58 years old Clinical indication: Concern for palpable finding at 4 o'clock, notes that 2 weeks ago patient was bitten by a child in that area and started feeling the lump. Six-month follow-up for probably benign complicated cysts on the left at 1 and 7 o'clock initiation 08/31/2023. TECHNIQUE: Imaging protocol: Complete ultrasound of all four quadrants of the left breast and the retroareolar regions, including ultrasound of the axilla when performed. COMPARISON: US BREAST LT COMPLETE 03/04/2024 1:19 PM US BREAST LT COMPLETE 08/31/2023 2:28 PM FINDINGS: ULTRASOUND: Breast ultrasound findings: Targeted sonography of the palpable concern at 4 o'clock 5 cm from the nipple shows a superficial mass which is mostly echogenic with slightly ill-defined borders and some cystic components, measuring 3.3 x 1.3 x 2.6 cm with related Doppler flow. At 1 o'clock 6 cm from the nipple, oval hypoechoic avascular mass measuring 0.8 x 0.9 x 0.3 cm which measured 0.9 x 0.8 x 0.3 cm on 08/31/2023. At 2 o'clock 7 cm from the nipple, lobulated hypoechoic mass measuring 1.0 x 0.6 x 0.7 cm which measured 0.7 x 0.8 x 0.6 cm on 08/31/2023. At 2 o'clock 4 cm from the nipple, echogenic shadowing calcification, stable since 08/31/2023. In the lower inner quadrant, no findings demonstrated, following up 2 findings demonstrated at 7 o'clock-8 o'clock on 08/31/2023 and 03/04/2024. IMPRESSION: See comments Corresponding to the palpable concern, mostly echogenic and heterogeneous mass which may be a hematoma though related flow may be technical or suggest an infected component. Correlate clinically and consider antibiotics if appropriate and recommend repeat left sonography in 2 weeks unless otherwise clinically indicated. Probably benign complicated cluster of cysts on the left 2 o'clock is slightly larger than 2023, and probably benign mass at 1 o'clock is stable since 08/31/2023, suggest continued six-month follow-up left sonography unless otherwise clinically indicated. No that patient is due for her mammogram in August 2024. ASSESSMENT: BI-RADS Category 3: Probably benign.
== END 2024-08-07 23:59 | disposition home or self-care (01) ==
LOC: RAD 13:35
PROVIDERS: PCP Family Medicine; Visit Provider Obstetrics & Gynecology
DX: N63.23 Unspecified lump in the left breast, lower outer quadrant (principal); N63.21 Unspecified lump in the left breast, upper outer quadrant; N60.12 Diffuse cystic mastopathy of left breast
CPT/HCPCS: 76641

== ENCOUNTER 2024-08-21 10:51 | Outpatient (CLI) | payer MEDICARE, MEDICAID, SELFPAY ==
--- NOTE | 2024-08-21 11:08 | US_ITS ---
PROCEDURE INFORMATION: Exam: US Left Breast Limited Exam date and time: 08/21/2024 11:15 AM Age: 59 years old Clinical indication: Follow-up from prior for probably benign probable hematoma in the left breast. TECHNIQUE: Imaging protocol: Limited ultrasound of left breast with image documentation, including axilla when performed. Exam focused on the search and evaluation for mass. COMPARISON: US BREAST LT COMPLETE 08/07/2024 1:47 PM FINDINGS: ULTRASOUND: Breast ultrasound findings: Left breast ultrasound: Targeted ultrasound was performed in the left breast at 4 o'clock, 5 cm from nipple. Redemonstrated parallel oval echogenic region measuring 2.1 x 0.9 x 1.7 cm, decreased in size since prior when measured 2.6 x 3.3 x 1 3 cm compatible with resolving benign process such as hematoma. No solid or suspicious masses. IMPRESSION: 1. Interval decrease in size of echogenic region of tissue in the left breast at 4 o'clock compatible with resolving benign process such as hematoma. Recommend clinical follow-up. 2. The patient is due for screening mammography. 3. The patient will be due for follow-up left breast ultrasound in six-months for additional findings noted on 08/07/2024 exam which were not evaluated on today's exam. ASSESSMENT: BI-RADS Category 3: Probably benign.
== END 2024-08-21 23:59 | disposition home or self-care (01) ==
LOC: RAD 10:52
PROVIDERS: PCP Obstetrics & Gynecology; Visit Provider Obstetrics & Gynecology
DX: N63.23 Unspecified lump in the left breast, lower outer quadrant (principal); R92.332 Mammographic heterogeneous density, left breast
CPT/HCPCS: 76642

== ENCOUNTER 2024-09-02 09:49 | Outpatient (CLI) | payer MEDICARE, MEDICAID, SELFPAY ==
--- OUTSIDE RECORDS SUMMARY | 2024-07-16 09:00 | XMS_ITS | Encounter Summary ---
Author Organization [employer] Address [address] [place] [address] Care Team Providers Care Vb Developer Name Role Phone Mariluz Reyes DO Primary Care Provider [phone] Mana Rodriguez PA-C Unavailable [phone] Reason for Referral * Consultation (Routine) - Closed Specialty Diagnoses / Procedures Referred By Rahul villarreal Referred To Contact Bariatrics Diagnoses Obesity, class 2 Mariluz Reyes DO [address] [place] [address] Phone: tel: fax: [facility] [address] [place] [phone] Phone: tel: fax: Referral ID Status Reason Start Date Expiration Date Visits Re quested Visits Authorized [id number] Closed 07/16/2024 07/16/2025 1 1 Scheduling Instructions Medical Weight Loss Reason for Visit * Reason Comments Follow-up 2 month follow up Encounter Details Date Type Department Care Team (Carlota st Contact Info) Description 07/16/2024 9:00 AM EDT Office Visit [facility] [address] [place] [place] [address] Mrailuz Reyes, [address] [place] [address] Vitamin B6 deficiency neuropathy (HCC) (Primary Dx); Moderate persistent allergic asthma; Obesity, class 2; Hypokalemia; B12 deficiency Social History Tobacco Use Types Packs/Day Years Used Date Smoking Tobacco: Never Smokeless Tobacco: Never Tobacco Cessation:Counseling Given: Not Answered Alcohol Use Standard Drinks/Week Comments Never 0 (1 standard drink = 0.6 oz pur e alcohol) PHQ-2 Answer Date Recorded Patient Health Questionnaire-2 Score 3 01/18/2024 Interpersonal Safety Answer Date Record ed Family or friends hurt you Not on file 03/29 Family or friends insult you Not on file 12/2023 Family or friends threaten you Not on file 0 03/29/2023 Family or friends scream or curse at you Not on file 03/29/2023 Housing Stability Answer Date Recorded Living situation today Not on file Living situation problems Not on file 2023 Family and Community Support Answer Moses e Recorded Help with Day to Day Activities Not on file 03/29/2023 Feeling Lonely or Isolated Not on file 03/29 Educational Attainment Answer Date Rayray rded Speak language other than Syrian at home Not on file 03/29/2023 Want help with school or training Not on file 03/29/2023 Depression Answer Date Recorded PHQ-2 Risk Not on file 03/29/2023 Disabilities Answer Date Recorded Difficulty concentrating Not on file 024 Difficulty doing errands alone Not on file 0 03/29/2023 Substance Use Answer Date Recorded Used prescription meds for non-medical reasons N ot on file 03/29/2023 Used illegal drugs past 12 months Not on file 03/29/2023 Comments No Sex and Gender Information Value Date Recorded Sex Assigned at Female 12/14/2023 2:59 PM CDT Legal Sex Female 6:19 PM CDT Gender Identity Female 12/14/2023 2:58 PM CDT Sexual Orientation Straight 12/14/2023 2: 58 PM CDT documented as of this encounter Last Filed Vital Signs Vital Sign Reading Time Taken Comments Blood Pressure 121/74 07/16/2024 9:14 AM EDT Pulse 77 07/16/2024 9:14 AM EDT Temperature 36.5 C (97.7 F) 07/16/2024 9:14 AM EDT Respiratory Rate 16 07/16/2024 9:14 AM EDT Oxygen Saturation 96% 07/16/2024 9:14 AM EDT Inhaled Oxygen Concentration - - Weight 101.2 kg (223 lb) 07/16/2024 9:14 AM EDT Height 167.6 cm (5' 6 ) 07/16/2024 9:14 AM EDT Body Mass Index 35.99 07/16/2024 9:14 AM EDT documented in this encounter Progress Notes * Analysarah Eric, DO - 07/16/2024 9:00 AM EDT Subjective Allison Mendez is a 58 y.o. female with active problems as below presents to clinic today for Follow-up (2 month follow up) HPI GERD Referred to GI Was diagnosed with campylobacter diarrhea treated with Azithromycin Hypokalemia On K replacement Started B1 and B6 replacement Has seen neurology for neuropathic pain this month Laboratory workup completed. Started on Nortriptyline 25mg increase as tolerated to 75mg Stopped as it made her stomach hurt. Concern for small fiber neuropathy Consistently low B6 after 2 months on 100mg daily increased from 4 to 9. Is gaining weight Gain/Loss Since Last Wt (Kgs): 3 kg Bowels are moving well Lost weight intially on Topamax but leveled out and did not help migraines so she doesn't take daily. Patient Active Problem List Diagnosis Date Noted ??? Abnormal stools 05/16/2024 ??? Abdominal bloating 05/16/2024 ??? Abdominal pain 05/16/2024 ??? Acid reflux 05/14/2024 ??? Hypokalemia 05/14/2024 ??? Muscle spasm 05/14/2024 ??? B12 deficiency 05/05/2024 ??? Iron deficiency 03/22/2024 ??? Hand arthritis 01/21/2024 ??? Intractable chronic migraine with aura and without status migrainosus 01/21/2024 ??? Vegetarian diet 01/21/2024 ??? Mononeuritis of lower limb 01/18/2024 ??? Menopausal problem 01/18/2024 ??? Metatarsalgia of both feet 01/18/2024 ??? Memory impairment 01/18/2024 ??? Moderate persistent allergic asthma 01/18/2024 ??? Nausea 01/18/2024 ??? Night sweats 01/18/2024 ??? Musculoskeletal chest pain 01/18/2024 ??? Obesity (BMI 30.0-34.9) 01/18/2024 ??? Osteoarthritis of knee 01/18/2024 ??? Diabetic feet (HCC) 01/18/2024 ??? Plantar fasciitis 01/18/2024 ??? Pre-diabetes 01/18/2024 ??? Restless legs 01/18/2024 ??? Sciatica 01/18/2024 ??? Severe persistent asthma 01/18/2024 ??? Status post right knee replacement 01/18/2024 ??? Cobalamin deficiency 01/18/2024 ??? Mixed hyperlipidemia 08/21/2023 ??? Neuropathy 05/05/2021 ??? Vitamin B6 deficiency 05/05/2021 Current Outpatient Medications Medication Instructions ??? albuterol 90 mcg/actuation inhaler 2 puffs, inhalation, Every 6 hours PRN ??? amLODIPine (NORVASC) 5 mg, Daily ??? atorvastatin (LIPITOR) 20 mg, Daily ??? cholecalciferol, vitamin D3, 1,250 mcg (50,000 unit) capsule Take 1 cap weekly for 8 weeks thenonce monthly ??? cyanocobalamin 1,000 mcg/mL injection Inject 1ml subcutaneously weekly for 4 doses and then start monthly injections for 6 doses ??? ferrous gluconate (FERGON) 324 mg, oral, Daily with breakfast ??? fluticasone propionate (FLONASE) 50 mcg/actuation nasal spray 2 sprays, Every morning ??? folic acid (FOLVITE) 1 mg, oral, Daily ??? hydroCHLOROthiazide (HYDRODIURIL) 12.5 mg, Daily ??? ipratropium-albuteroL (DUO-NEB) 0.5 mg-3 mg(2.5 mg base)/3 mL nebulizer solution 3 mLs, nebulization, Every 6 hours PRN ??? levalbuterol (XOPENEX) 1.25 mg/3 mL nebulizer solution 1 ampule, Every 4 hours PRN ??? levocetirizine (XYZAL) 5 MG tablet levocetirizine 5 mg tablet ??? Linzess 72 mcg Cap 1 capsule, Daily ??? losartan (COZAAR) 25 mg ??? pantoprazole (PROTONIX) 40 mg, Daily ??? pyridoxine (vitamin B6) (VITAMIN B6) 500 mg, oral, Daily ??? sod sulf-pot chloride-mag sulf (Sutab) 1.479-0.188- 0.225 gram tab 12 tablets, oral, See admin instructions, Take first 12 tablets at 4 pm evening before procedure. Take remaining 12 tablets at 10 pm evening before procedure. ??? Spiriva Respimat 1.25 mcg/actuation mist inhalation 2 puffs, inhalation, Daily (RT) ??? syringe-needle,safety,disp unt 3 mL 25 gauge x 5/8 syrg Use as directed for B12 subcutaneous Injections ??? thiamine (VITAMIN B-1) 100 mg, oral, Daily ??? topiramate (QUDEXY XR) 150 mg, oral, Daily ??? Veozah 45 mg tab 1 tablet, Daily Allergies Allergen Reactions ??? Codeine Itching 1no rash, just [id number] ??? Tramadol Other reaction(s): Insomnia, Itching The following portions of the patient's chart were reviewed in this encounter and updated as appropriate: past medical history, surgical history, family history, tobacco history, allergies and medications. ROS documented in HPI Objective Vitals: 07/16/24 0914 BP: 121/74 BP Location: Left arm Patient Position: Sitting Cuff Size: Large Adult Pulse: 77 Resp: 16 Temp: 97.7 ??F (36.5 ??C) SpO2: 96% Weight: 101.2 kg (223 lb) Height: 1.676 m (5' 6 ) Physical Exam Vitals reviewed. Constitutional: Appearance: Normal appearance. She is obese. She is not ill-appearing. HENT: Head: Normocephalic and atraumatic. Nose: Nose normal. Neurological: General: No focal deficit present. Mental Status: She is alert and oriented to person, place, and time. Mental status is at baseline. Psychiatric: Mood and Affect: Mood normal. Behavior: Behavior normal. Thought Content: Thought content normal. Judgment: Judgment normal. Results: None Assessment/Plan: Allison Mendez is a 58 y.o. female who has been evaluated today for The primary encounter diagnosis was Vitamin B6 deficiency neuropathy (HCC). Diagnoses of Moderate persistent allergic asthma, Obesity, class 2, Hypokalemia, and B12 deficiency were also pertinent to this visit. Discussion: B6 neuropathy Only slight improvement in B6 levels after 2 months on 100mg B6 Increase B6 supplementation to 500mg for 3 months and then decrease to 250mg daily. Follow up with neurology as planned. Given B12 shot today. Referral to medical weight loss given persistently gaining weight. Suspect she will get additional benefit from B6 supplementation for nausea symptoms. RFP today to monitor hypokalemia on supplementation. ICD-10-CM ICD-9-CM 1. Vitamin B6 deficiency neuropathy (HCC) E53.1 266.1 G63 357.4 2. Moderate persistent allergic asthma J45.40 493.90 pyridoxine, vitamin B6, (VITAMIN B6) 500 MG tablet 3. Obesity, class 2 E66.812 278.00 Ambulatory referral to Medical Weight Loss 4. Hypokalemia E87.6 276.8 Renal function panel Renal function panel 5. B12 deficiency E53.8 266.2 New Prescriptions No medications on file Modified Medications Modified Medication Previous Medication PYRIDOXINE, VITAMIN B6, (VITAMIN B6) 500 MG TABLET pyridoxine, vitamin B6, (VITAMIN B6) 100 MG tablet Take 1 tablet (500 mg total) by mouth daily. Take 1 tablet (100 mg total) by mouth daily. Previous Medications ALBUTEROL 90 MCG/ACTUATION INHALER Inhale 2 puffs by mouth every 6 (six) hours as needed for wheezing. AMLODIPINE (NORVASC) 5 MG TABLET Take 1 tablet (5 mg total) by mouth daily. ATORVASTATIN (LIPITOR) 20 MG TABLET Take 1 tablet (20 mg total) by mouth daily. CHOLECALCIFEROL, VITAMIN D3, 1,250 MCG (50,000 UNIT) CAPSULE Take 1 cap weekly for 8 weeks then once monthly. CYANOCOBALAMIN 1,000 MCG/ML INJECTION Inject 1ml subcutaneously weekly for 4 doses and then start monthly injections for 6 doses. FERROUS GLUCONATE (FERGON) 324 MG TABLET Take 1 tablet (324 mg total) by mouth daily with breakfast. FLUTICASONE PROPIONATE (FLONASE) 50 MCG/ACTUATION NASAL SPRAY 2 sprays every morning. FOLIC ACID (FOLVITE) 1 MG TABLET Take 1 tablet (1 mg total) by mouth daily. HYDROCHLOROTHIAZIDE (HYDRODIURIL) 12.5 MG TABLET Take 1 tablet (12.5 mg total) by mouth daily. IPRATROPIUM-ALBUTEROL (DUO-NEB) 0.5 MG-3 MG(2.5 MG BASE)/3 ML NEBULIZER SOLUTION Inhale 3 mLs by nebulization every 6 (six) hours as needed for wheezing or shortness of breath. LEVALBUTEROL (XOPENEX) 1.25 MG/3 ML NEBULIZER SOLUTION Inhale 3 mLs (1.25 mg total) by nebulizationevery 4 (four) hours as needed for wheezing. LEVOCETIRIZINE (XYZAL) 5 MG TABLET levocetirizine 5 mg tablet LINZESS 72 MCG CAP Take 1 capsule (72 mcg total) by mouth daily. LOSARTAN (COZAAR) 25 MG TABLET Take 1 tablet (25 mg total) by mouth. PANTOPRAZOLE (PROTONIX) 40 MG TABLET Take 1 tablet (40 mg total) by mouth daily. SOD SULF-POT CHLORIDE-MAG SULF (SUTAB) 1.479-0.188- 0.225 GRAM TAB Take 12 tablets by mouth as directed Take first 12 tablets at 4 pm evening before procedure. Take remaining 12 tablets at 10 pm evening before procedure.. SPIRIVA RESPIMAT 1.25 MCG/ACTUATION MIST INHALATION Inhale 2 puffs by mouth once daily. SYRINGE-NEEDLE,SAFETY,DISP UNT 3 ML 25 GAUGE X 5/8 SYRG Use as directed for B12 subcutaneous Injections. THIAMINE (VITAMIN B-1) 100 MG TABLET Take 1 tablet (100 mg total) by mouth daily. TOPIRAMATE (QUDEXY XR) 150 MG ER CAPSULE Take 1 capsule by mouth once daily VEOZAH 45 MG TAB Take 1 tablet by mouth daily. Return in about 3 months (around 10/15/2024) for Follow Up (15 min), Ok for Telehealth. Mariluz Reyes, DO This note was partially generated using [employer], and there may be some incorrect words, spellings, and punctuation that were not noted in checking the note before saving. Note to Patient: The 21st Century Cure Act makes medical noted like these available to patients in the interest of transparency. However, be advised this is a medical document. It is intended as peerto peer communication. It is written in medical language and may contain abbreviations or verbiage that are unfamiliar. It may appear blunt or direct. Medical documents are intended to carry relevantinformation, facts as evident, and the clinical opinion of the physician. documented in this encounter Plan of Treatment Upcoming Encounters Date Type Department Care Team (Late st Contact Info) Description 09/06/2024 10:30 AM EDT Procedure Visit [facility] - [facility] [address] [facility] [address] [place] [id number] Nik Gu MD [address] [facility] [address] [place] [address] 09/19/2024 1:15 PM EDT Office Visit [facility] [address] [facility] [address] [place] [address] Ann Espana, [employer]BO[employer] OPERATOR C[address] [place] [address] 10/15/2024 9:00 AM EDT Office Visit [facility] [address] [place] [address] Mariluz Reyes DO [address] [place] [address] 10/24/2024 10:30 AM EDT Office Visit [facility] [address] [facility] [address] [place] [address] Mana Rodriguez PA-C [address] [place] [address] Scheduled Referrals Name Type Priority Associated Diagnoses Order Schedule Ambulatory referral to Medical Weight Loss Outpatient Referral Routine Obesity, class 2 Expected: 07/16/2024 (Approximate), Expires: 07/16/2025 documented as of this encounter Procedures Procedure Name Priority Date/Time Associated Diagnosis Comments RENAL FUNCTION PANEL Routine 07/16/2024 10:35 AM EDT Hypokalemia documented in this encounter Results * Renal function panel (07/16/2024 10:35 AM EDT) Pathologist [facility] Glucose, Serum 96 70 - 99 mg/dL [facility] BUN 9 6 - 24 mg/dL [facility] Creatinine, Serum 0.95 0.57 - 1.00 mg/dL [facility] EGFR 70 >59 mL/min/1.73 [facility] BUN/Creatinine Ratio 9 9 - 23 [facility] Sodium, Serum 141 134 - 144 mmol/L [facility] Potassium, Serum 4.3 3.5 - 5.2 mmol/L [facility] Chloride, Serum 104 96 - 106 mmol/L [facility] Carbon Dioxide, Total 22 20 - 29 mmol/L [facility] Calcium, Serum 9.5 8.7 - 10.2 mg/dL [facility] Phosphorus, Serum 3.9 3.0 - 4.3 mg/dL [facility] Albumin, Serum 4.1 3.8 - 4.9 g/dL [facility] Blood 07/16/2024 10:3 5 AM EDT 07/16/2024 Narrative [facility] - 07/17/2024 4:06 AM EDT Performed at: 01 - [facility] [address] [id number] Lapel Padder Blindstitch: Cliff Nugent PhD, Phone: [phone] us Nova White DO LAB BLOOD ORDERABLES Final Resul t [facility] documented in this encounter Visit Diagnoses Diagnosis Vitamin B6 deficiency neuropathy (HCC)- Primary Vitamin B6 deficiency Moderate persistent allergic asthma Obesity, class 2 Hypokalemia Hypopotassemia B12 deficiency documented in this encounter Administered Medications Active Administered Medications - up to 3 most recent administrations Medication Order MAR Action Action Date Dose Rate Site cyanocobalamin injection 1,000 mcg 1,000 mcg Every 30 days, intraMUSCULAR, First dose on Mon05/14/24 at 1630Indications:B12 deficiency Given 07/16/2024 11:47 AM EDT 1,000 mcg Left Deltoid Given 05/14/2024 4:02 PM EST 1,000 mcg Ri ght Deltoid documented in this encounter Care Teams Vb Developer Relationship Specialty Start Date End Date Mariluz Reyes DO [address] [place] [address] PCP - General Family Medicine 01/18/24 Mana Rodriguez PA-C [address] [place] [address] Gastroenterology 05/16/24 documented as of this encounter
--- OUTSIDE RECORDS SUMMARY | 2024-08-15 14:00 | XMS_ITS | Encounter Summary ---
Author Organization [employer] Address [address] [place] [address] Care Team Providers Care Rubber Stamp Assembler Name Role Phone Eric Mariluz Primary Care Provider [phone] Mana Rodriguez PA-C Unavailable [phone] Reason for Visit * Reason Comments Weight Management A1c was 5.7 on 025 Encounter Details Date Type Department Care Team (Late st Contact Info) Description 2024 2:00 PM EDT Office Visit [facility] Bariatric Services [address] [address] Ann Espana, ADMINISTRATIVE VOLUNTEER [address] [place] [address] BMI 35.0-35.9,adult (Primary Dx) Social History Tobacco Use Types Packs/Day Years Used Date Smoking Tobacco: Never Smokeless Tobacco: Never Alcohol Use Standard Drinks/Week Comments Never 0 [...] Date Rayray rded Speak language other than Slovak at home Not on file 03/29/2023 Want [...] Sign Reading Time Taken Comments Blood Pressure 130/70 2024 2:30 PM EDT Pulse 80 2024 2:30 PM EDT Temperature - - Respiratory Rate - - Oxygen Saturation - - Inhaled Oxygen Concentration - - Weight 102.1 kg (225 lb) 2024 2:30 PM EDT Height 170.2 cm (5' 7 ) 2024 2:30 PM EDT Body Mass Index 35.24 2024 2:30 PM EDT documented in this encounter Progress Notes * Ann Espana APRN - 2024 2:00 PM EDT Subjective: Chief Complaint Patient presents with Weight Management A1c was 5.7 on 06/20/2024 Allison Mendez is a 59 y.o. female who presents to the office today to establish care for obesity management. Comorbidities: Denies DM, heart disease, sleep apnea. Admits HTN, HLD Referred by: Mariluz Reyes Feels like eating patterns are out of control: N Reports frequent snacking: Y Reports emotional eating: Y Dietary Habits: Regular Exercise Habits: Walk dogs Short Term Goals: 50 lbs Jail Goals: Maintain Past efforts: over the counter diet aids Barriers: Legs/Feet Neuropathy Labs: Reviewed recent labs from 07/12 Denies personal and family history of MTC or MEN 2 syndrome. Denies history of thyroid nodules. Review of Systems All other systems reviewed and are negative. Past Medical History: Diagnosis Date Allergy Asthma Migraines Neuropathy Past Surgical History: Procedure Laterality Date CHOLECYSTECTOMY HYSTERECTOMY KNEE SURGERY Bilateral right total , left partial Social History: reports that she has never smoked. She has never used smokeless tobacco. She reports that she does not drink alcohol and does not use drugs. Family History Problem Relation Name Age of Onset Aneurysm Mother Heart disease Father Seizures Sister Diabetes Brother Allergies Allergen Reactions Codeine Itching 1no rash, just [id number] Tramadol Other reaction(s): Insomnia, Itching Current Outpatient Medications: albuterol 90 mcg/actuation inhaler, Inhale 2 puffs by mouth every 6 (six) hours as needed for wheezing., Disp: 1 Inhaler, Rfl: 3 amLODIPine (NORVASC) 5 MG tablet, Take 1 tablet (5 mg total) by mouth daily., Disp: 90 tablet, Rfl:3 atorvastatin (LIPITOR) 20 MG tablet, Take 1 tablet (20 mg total) by mouth nightly., Disp: 90 tablet, Rfl: 3 cholecalciferol, vitamin D3, 1,250 mcg (50,000 unit) capsule, Take 1 cap weekly for 8 weeks then once monthly., Disp: 10 capsule, Rfl: 1 cyanocobalamin 1,000 mcg/mL injection, Inject 1ml subcutaneously weekly for 4 doses and then start monthly injections for 6 doses., Disp: 10 mL, Rfl: 0 ferrous gluconate (FERGON) 324 MG tablet, Take 1 tablet (324 mg total) by mouth daily with breakfast., Disp: 90 tablet, Rfl: 0 fluticasone propionate (FLONASE) 50 mcg/actuation nasal spray, Administer 2 sprays into each nostril daily., Disp: 9.9 mL, Rfl: 11 folic acid (FOLVITE) 1 MG tablet, Take 1 tablet (1 mg total) by mouth daily., Disp: 30 tablet, Rfl:11 gabapentin (NEURONTIN) 600 MG tablet, Take 1 tablet (600 mg total) by mouth 3 (three) times daily for 180 days. Max Daily Amount: 1,800 mg (Patient taking differently: Take 1 tablet (600 mg total) bymouth daily.), Disp: 270 tablet, Rfl: 1 hydroCHLOROthiazide (HYDRODIURIL) 12.5 MG tablet, Take 1 tablet (12.5 mg total) by mouth daily., Disp: , Rfl: ipratropium-albuteroL (DUO-NEB) 0.5 mg-3 mg(2.5 mg base)/3 mL nebulizer solution, Inhale 3 mLs by nebulization every 6 (six) hours as needed for wheezing or shortness of breath., Disp: 90 mL, Rfl: 3 levalbuterol (XOPENEX) 1.25 mg/3 mL nebulizer solution, Inhale 3 mLs (1.25 mg total) by nebulization every 4 (four) hours as needed for wheezing., Disp: , Rfl: levocetirizine (XYZAL) 5 MG tablet, levocetirizine 5 mg tablet, Disp: , Rfl: Linzess 72 mcg Cap, Take 1 capsule (72 mcg total) by mouth daily., Disp: , Rfl: losartan (COZAAR) 25 MG tablet, Take 1 tablet (25 mg total) by mouth., Disp: , Rfl: pantoprazole (PROTONIX) 40 MG tablet, Take 1 tablet (40 mg total) by mouth daily., Disp: 90 tablet,Rfl: 3 pyridoxine, vitamin B6, (VITAMIN B6) 500 MG tablet, Take 1 tablet (500 mg total) by mouth daily., Disp: 90 tablet, Rfl: 0 sod sulf-pot chloride-mag sulf (Sutab) 1.479-0.188- 0.225 gram tab, Take 12 tablets by mouth as directed Take first 12 tablets at 4 pm evening before procedure. Take remaining 12 tablets at 10 pm evening before procedure.., Disp: 24 tablet, Rfl: 0 thiamine (vitamin B-1) 100 MG tablet, Take 1 tablet (100 mg total) by mouth daily., Disp: 30 tablet, Rfl: 11 topiramate (QUDEXY XR) 150 mg ER capsule, Take 1 capsule by mouth once daily, Disp: 30 capsule, Rfl: 0 Veozah 45 mg tab, Take 1 tablet by mouth daily., Disp: , Rfl: Spiriva Respimat 1.25 mcg/actuation mist inhalation, Inhale 2 puffs by mouth once daily. (Patient not taking: Reported on 2024), Disp: 4 g, Rfl: 3 syringe-needle,safety,disp unt 3 mL 25 gauge x 5/8 syrg, Use as directed for B12 subcutaneous Injections. (Patient not taking: Reported on 2024), Disp: 100 each, Rfl: 0 Current Facility-Administered Medications: cyanocobalamin injection 1,000 mcg, 1,000 mcg, intraMUSCULAR, Q30 Days, Novsarah Reyes DO, 1,000 mcg at 07/16/24 1147 Objective: BP 130/70 Pulse 80 Ht 1.702 m (5' 7 ) Wt 102.1 kg (225 lb) BMI 35.24 kg/m?? Physical Exam Vitals and nursing note reviewed. Constitutional: Appearance: Normal appearance. She is obese. HENT: Head: Normocephalic and atraumatic. Right Ear: External ear normal. Left Ear: External ear normal. Nose: Nose normal. Eyes: Pupils: Pupils are equal, round, and reactive to light. Cardiovascular: Rate and Rhythm: Normal rate and regular rhythm. Pulses: Normal pulses. Heart sounds: Normal heart sounds. Pulmonary: Effort: Pulmonary effort is normal. Breath sounds: Normal breath sounds. Abdominal: Palpations: Abdomen is soft. Musculoskeletal: General: Normal range of motion. Cervical back: Normal range of motion and neck supple. Skin: General: Skin is warm and dry. Neurological: General: No focal deficit present. Mental Status: She is alert and oriented to person, place, and time. Psychiatric: Mood and Affect: Mood normal. Behavior: Behavior normal. Thought Content: Thought content normal. Judgment: Judgment normal. Assessment: 1. BMI 35.0-35.9,adult No results found for this visit on 08/15/24 (from the past 24 hours). Plan: Diagnoses and all orders for this visit: BMI 35.0-35.9,adult - phentermine 15 MG capsule; Take 1 capsule (15 mg total) by mouth every morning for 30 days. Max Daily Amount: 15 mg Continue topamax, will add phentermine. Discussed weight loss medication options. Will start med asabove. Side effects, risks, benefits discussed with patient. Patient provided nutrition informationin office. F/U in 1 month, sooner if needed. Ann Espana APRN Electronically signed by Ann Espana APRN - 2024 - 2:40 PM EDT * Missy Wright RD - 2024 2:00 PM EDT Nutrition Note Assessment DOS: 2024 Allison Mendez 59 y.o. 1965 Reason for appointment: Patient here to meet with provider for weight loss medication. Interested in making some diet changes. Vitals: 08/15/24 1430 BP: 130/70 Pulse: 80 Weight: 102.1 kg (225 lb) Height: 1.702 m (5' 7 ) Body mass index is 35.24 kg/m??. [place] Body Wt: 61.36 kg Current Diet: Breakfast: 1 egg, 3 jimenez, piece of bread or toast Lunch: skips Dinner: maybe chicken and mac and cheese Snacks: cookies sometimes Beverages: pineapple lemonade, water, soda (3/d) Intervention Goals as discussed and agreed upon with Allison Mendez: Discussed trying to add in fruits and vegetables through canned foods. Also discussed switching to calorie-free beverages. Monitoring and Evaluation Encouraged her to reach out as needed. Electronically signed by Missy Wright RD - 2024 - 2:51 PM EDT documented in this encounter Plan of Treatment Upcoming Encounters Date Type Department Care Team (Late st Contact Info) Description 09/06/2024 10:30 AM EDT Procedure Visit [facility] Neurology - [address] [place] [address] [phone] Nik Gu MD [address] [place] [address] [address] [place] [address] 09/19/2024 1:15 PM EDT Office Visit [facility] Bariatric Services [address] [place] [address] Ann Espana, ADMINISTRATIVE VOLUNTEER [address] [place] [phone] 10/15/2024 9:00 AM EDT Office Visit [facility] Primary Care [address] [place] [id number] Mariluz Reyes DO [address] [place] [address] 10/24/2024 10:30 AM EDT Office Visit [facility] Gastroenterology [address] [facility] [address] [place] [address] Mana Rodriguez PA-C [address] [place] [address] [address] [place] [address] documented as of this encounter Visit Diagnoses Diagnosis BMI 35.0-35.9,adult- Primary documented in this encounter Care Teams Rubber Stamp Assembler Relationship Specialty Start Date End Date Marliuz Reyes DO [address] [place], [place] [id number] PCP - General Family Medicine 01/18/24 Mana Rodriguez PA-C [address] [facility] [address] [place] [address] Gastroenterology 05/16/24 documented as of this encounter
--- OUTSIDE RECORDS SUMMARY | 2024-08-22 09:10 | XMS_ITS | Encounter Summary ---
Author Organization [employer] Address [address] [place] [address] Care Team Providers Care Overlocker Name Role Phone EricMariluz Primary Care Provider [phone] Mana Rodrigeuz PA-C Unavailable [phone] Encounter Details Date Type Department Care Team (Late st Contact Info) Description 08/22/2024 9:10 AM EDT Anesthesia Event [facility] Endoscopy [address] [place] [address] MD [address] [place], [place] [id number] Anesthesia Record Procedure Summary Procedure Name Responsible Anesthesiologist Anesthesia Start Time Anesthesia Stop Time Events No events on file. Meds * Agents No agents on file. * Blood No blood administrations on file. Lines, Drains, and Airways No LDAs on file. documented in this encounter Social History Tobacco Use Types Packs/Day Years [...] Date Rayray rded Speak language other than South Korean at home Not on file 03/29/2023 Want [...] PM CDT documented as of this encounter OR Notes * Anesthesia Preprocedure Evaluation - Fernando St MD - 08/22/2024 7:40 AM EDT Relevant Problems GASTROINTESTINAL (+) Acid reflux NEURO/PSYCH (+) Intractable chronic migraine with aura and without status migrainosus (+) Status post right knee replacement RESPIRATORY SYSTEM (+) Moderate persistent allergic asthma (+) Severe persistent asthma Other (+) Hand arthritis (+) Osteoarthritis of knee ANESTHESIA PREOPERATIVE EVALUATION Patient: Allison Mendez Date/Time: 08/22/24 0910 Procedures: COLONOSCOPY EGD (ESOPHAGOGASTRODUODENOSCOPY) Location: [facility] ENDO BEDSIDE / [facility] ENDO Surgeons: Mary Goins MD There were no vitals filed for this visit. Allergies Allergen Reactions Codeine Itching 1no rash, just [id number] Tramadol Other reaction(s): Insomnia, Itching Current Outpatient Medications Medication Instructions albuterol 90 mcg/actuation inhaler 2 puffs, inhalation, Every 6 hours PRN amLODIPine (NORVASC) 5 mg, oral, Daily atorvastatin (LIPITOR) 20 mg, oral, Every Night cholecalciferol, vitamin D3, 1,250 mcg (50,000 unit) capsule Take 1 cap weekly for 8 weeks then once monthly cyanocobalamin 1,000 mcg/mL injection Inject 1ml subcutaneously weekly for 4 doses and then start monthly injections for 6 doses ferrous gluconate (FERGON) 324 mg, oral, Daily with breakfast fluticasone propionate (FLONASE) 50 mcg/actuation nasal spray 2 sprays, each nostril, Daily folic acid (FOLVITE) 1 mg, oral, Daily gabapentin (NEURONTIN) 600 mg, oral, 3 times daily hydroCHLOROthiazide (HYDRODIURIL) 12.5 mg, Daily ipratropium-albuteroL (DUO-NEB) 0.5 mg-3 mg(2.5 mg base)/3 mL nebulizer solution 3 mLs, nebulization, Every 6 hours PRN levalbuterol (XOPENEX) 1.25 mg/3 mL nebulizer solution 1 ampule, Every 4 hours PRN levocetirizine (XYZAL) 5 MG tablet levocetirizine 5 mg tablet Linzess 72 mcg Cap 1 capsule, Daily losartan (COZAAR) 25 mg pantoprazole (PROTONIX) 40 mg, oral, Daily phentermine 15 mg, oral, Every morning pyridoxine (vitamin B6) (VITAMIN B6) 500 mg, oral, Daily sod sulf-pot chloride-mag sulf (Sutab) 1.479-0.188- 0.225 gram tab 12 tablets, oral, See admin instructions, Take first 12 tablets at 4 pm evening before procedure. Take remaining 12 tablets at 10 pmevening before procedure. Spiriva Respimat 1.25 mcg/actuation mist inhalation 2 puffs, inhalation, Daily (RT) syringe-needle,safety,disp unt 3 mL 25 gauge x 5/8 syrg Use as directed for B12 subcutaneous Injections thiamine (VITAMIN B-1) 100 mg, oral, Daily topiramate (QUDEXY XR) 150 mg, oral, Daily Veozah 45 mg tab 1 tablet, Daily INPATIENT MEDICATIONS cyanocobalamin 1,000 mcg intraMUSCULAR Q30 Days 1,000 mcg at 07/16/24 1147 Problem List as of 08/22/2024 Cardiovascular and Mediastinum Intractable chronic migraine with aura and without status migrainosus Respiratory Moderate persistent allergic asthma Severe persistent asthma Digestive Acid reflux Endocrine Diabetic feet (HCC) Nervous and Auditory Mononeuritis of lower limb Neuropathy Sciatica Musculoskeletal and Integument Osteoarthritis of knee Plantar fasciitis Hand arthritis Other Menopausal problem Metatarsalgia of both feet Memory impairment Mixed hyperlipidemia Nausea Night sweats Musculoskeletal chest pain Obesity (BMI 30.0-34.9) Pre-diabetes Restless legs Status post right knee replacement Cobalamin deficiency Vitamin B6 deficiency Vegetarian diet Iron deficiency B12 deficiency Hypokalemia Muscle spasm Abnormal stools Abdominal bloating * (Principal) Abdominal pain Past Surgical History: Procedure Laterality Date CHOLECYSTECTOMY HYSTERECTOMY KNEE SURGERY Bilateral right total , left partial Social History Tobacco Use Smoking status: Never Smokeless tobacco: Never Vaping Use Vaping status: Never Used Substance Use Topics Alcohol use: Never Drug use: Never Clinical information reviewed: No data recorded Physical Exam Airway Mallampati: II TM distance: >3 FB Neck ROM: full Cardiovascular Rhythm: regular Rate: normal Dental Pulmonary - normal exam Breath sounds clear to auscultation Abdominal - normal exam Anesthesia Plan ASA 2 MAC The patient is not a current smoker. intravenous induction Anesthetic plan and risks discussed with patient. Use of blood products discussed with patient who. Plan discussed with ADMINISTRATIVE UNDERWRITER. documented in this encounter Plan of Treatment Upcoming Encounters Date Type Department Care Team (Late st Contact Info) Description 09/06/2024 10:30 AM EDT Procedure Visit [facility] Neurology - [address] [facility] [address] [place] [phone] Nik Gu MD [address] [facility] [address] [place] [address] 09/19/2024 1:15 PM EDT Office Visit [facility] Bariatric Services [address] [facility] [address] [place] [address] Ann Espana, SALES PROCESS MANAGER [address] [place] [address] 10/15/2024 9:00 AM EDT Office Visit [facility] Primary Care [address] [place] [address] Mariluz Reyes DO [address] [place] [address] 10/24/2024 10:30 AM EDT Office Visit [facility] Gastroenterology [address] [facility] [address] [place] [phone] Mana Rodriguez PA-C [address] [facility] [address] [place] [address] documented as of this encounter Visit Diagnoses Not on filedocumented in this encounter Care Teams Overlocker Relationship Specialty Start Date End Date Mariluz Reyes DO [address] [place] [address] PCP - General Family Medicine 01/18/24 Mana Rodriguez PA-C [address] [facility] [address] [place] [address] Gastroenterology 05/16/24 documented as of this encounter
--- NOTE | 2024-09-02 09:50 | MM_ITS ---
PROCEDURE INFORMATION: Exam: MG Bilateral Screening 3D Mammography Exam date and time: 09/02/2024 9:59 AM Age: 59 years old Clinical indication: Screening mammogram TECHNIQUE: Imaging protocol: Bilateral Screening tomosynthesis and 2D mammography including computer-aided detection (CAD) when performed. COMPARISON: 1. MG MM DIG MAMM DX UNILAT LT CAD 08/31/2023 1:49 PM 2. MG MM DIG MAMM BI DX W/CAD 08/16/2023 2:43 PM 3. MG MM DIG SCREENING MAMM BI W/CAD 02/22/2022 10:30 AM 4. MG MM DIG SCREENING MAMM BI W/CAD 08/04/2020 8:23 AM FINDINGS: MAMMOGRAPHY: Breast composition: There are scattered areas of fibroglandular density. Mass: Stable benign-appearing subcentimeter nodules are present in the left breast. No new or morphologically suspicious nodule has developed to suggest malignancy. Architectural distortion: No new or suspicious architectural distortion. Calcifications: No new or suspicious calcifications are present Asymmetric density: No new or suspicious asymmetric density is present Skin thickening: None. Axillary adenopathy: None. IMPRESSION: No mammographic evidence of malignancy. Recommend annual screening mammography unless otherwise clinically indicated. ASSESSMENT: BI-RADS category 2: Benign.
--- OUTSIDE RECORDS SUMMARY | 2024-09-02 09:52 | XMS_ITS | Encounter Summary ---
Author Organization [employer] Address [address] [place] [address] Care Team Providers Care Cycle Touring Guide Name Role Phone Analy Reyessarah Primary Care Provider [phone] Mana Rodriguez PA-C Unavailable [phone] Reason for Visit * Reason Onset Date Comments Medication Refill 08/06/2024 Encounter Details Date Type Department Care Team (Late st Contact Info) Description 08/06/2024 Telephone [facility] Neurology - [facility] [address] [facility] [address] [place] [address] Ana Amin APRN [address] [facility] [address] [place] [address] Medication Refill Social History Tobacco Use Types Packs/Day Years [...] Date Rayray rded Speak language other than Malagasy at home Not on file 03/29/2023 Want [...] PM CDT documented as of this encounter Miscellaneous Notes * Telephone Encounter - Rajani Torres - 08/06/2024 9:29 AM EDT Pt called requesting a refill for her Gabapentin documented in this encounter Plan of Treatment Upcoming Encounters Date Type Department Care Team (Late st Contact Info) Description 09/06/2024 10:30 AM EDT Procedure Visit [facility] Neurology - [facility] [address] [address] [facility] [address] [place] [phone] Nik Gu MD [address] [facility] [address] [place] [address] 09/19/2024 1:15 PM EDT Office Visit [facility] Bariatric Services [address] [place] [address] Ann Espana, STOREPERSON [address] [place] [address] 10/15/2024 9:00 AM EDT Office Visit [facility] Primary Care [address] [place] [address] Mariluz Reyes DO [address] [place] [address] 10/24/2024 10:30 AM EDT Office Visit [facility] Gastroenterology [address] [facility] [address] [place] [address] Mana Rodriguez PA-C [address] [facility] [address] [place] [address] documented as of this encounter Visit Diagnoses Not on filedocumented in this encounter Care Teams Cycle Touring Guide Relationship Specialty Start Date End Date Mariluz Reyes DO [address] [place] [address] PCP - General Family Medicine 01/18/24 Mana Rodriguez PA-C [address] [facility] [address] [place] [address] Gastroenterology 05/16/24 documented as of this encounter
--- OUTSIDE RECORDS SUMMARY | 2024-09-02 09:52 | XMS_ITS | Encounter Summary ---
Author Organization [employer] Address [address] [place] [address] Care Team Providers Care Photograph Inspector Name Role Phone Elvi Posada MD Primary Care Provider [phone] Mariluz Reyes DO Primary Care Provider [phone] Mariluz Reyes DO Primary Care Provider [phone] Mana Rodriguez PA-C Unavailable [phone] Reason for Visit * Reason Comments Medication Refill Encounter Details Date Type Department Care Team (Late st Contact Info) Description 12/20/2022 Refill [facility] Neurology - [facility] [address] [facility] [address] [place] [address] Ana Amin APRN [address] [facility] [address] [place] [address] Social History Tobacco Use Types Packs/Day Years Used Date Smoking Tobacco: Never Smokeless Tobacco: Never Alcohol Use Standard Drinks/Week Comments Not Currently 0 (1 standard drink = 0.6 oz pur e alcohol) Comments Unknown Sex and Gender Information Value Date Recorded Sex Assigned at Female 12/14/2023 2:59 PM CDT Legal Sex Female 6:19 PM CDT Gender Identity Female 12/14/2023 2:58 PM CDT Sexual Orientation Straight 12/14/2023 2: 58 PM CDT documented as of this encounter Plan of Treatment Upcoming Encounters Date Type Department Care Team (Late st Contact Info) Description 09/06/2024 10:30 AM EDT Procedure Visit [facility] Neurology - [address] [facility] [address] [place] [address] Nik Gu MD [address] [facility] [address] [place] [address] 09/19/2024 1:15 PM EDT [facility] [address] [facility] [address] [place] [address] Ann Espana, RISK MANAGER [address] [place] [address] 10/15/2024 9:00 AM EDT Office Visit [facility] Primary Care [address] [place] [address] Mariluz Reyes DO [address] [place] [address] 10/24/2024 10:30 AM EDT Office Visit [facility] Gastroenterology [address] [facility] [address] [place] [address] Mana Rodriguez PA-C [address] [place], [place] [id number] documented as of this encounter Visit Diagnoses Not on filedocumented in this encounter Care Teams Photograph Inspector Relationship Specialty Start Date End Date Elvi Posada MD PCP - General Family Medicine 01/21/22 12/19/23 Mariluz Reyes DO [address] [place] [address] PCP - General Family Medicine 12/20/23 01/13/24 Mariluz Reyes DO [address] [place] [address] PCP - General Family Medicine 01/18/24 Mana Rodriguez PA-C [address] [place] [address] Gastroenterology 05/16/24 documented as of this encounter
--- OUTSIDE RECORDS SUMMARY | 2024-09-02 09:52 | XMS_ITS | Encounter Summary ---
Author Organization [employer] Address [address] [place] [address] Care Team Providers Care Editorial Project Manager Name Role Phone EricMariluz Primary Care Provider [phone] Mana Rodriguez PA-C Unavailable [phone] Reason for Visit * Reason Comments Medication Refill Encounter Details Date Type Department Care Team (Late st Contact Info) Description 07/31/2024 Refill [facility] Neurology - [facility] [address] [facility] [address] [place] [address] Ana Amin APRN [address] [facility] [address] [place] [address] Social History Tobacco Use Types Packs/Day Years [...] Date Rayray rded Speak language other than Czech at home Not on file 03/29/2023 Want [...] Description 09/06/2024 10:30 AM EDT Procedure Visit [facility] Neurology - [address] [facility] [address] [place] [address] Nik Gu MD [address] [facility] [address] [place] [address] 09/19/2024 1:15 PM EDT Office Visit [facility] Bariatric Services [address] [facility] [address] [place] [address] Ann Espana, FILLER BLENDER [address] [place] [address] 10/15/2024 9:00 AM EDT Office Visit [facility] Primary Care [address] [place] [address] Mariluz Reyes DO [address] [place], [place] [address] 10/24/2024 10:30 AM EDT Office Visit [facility] Gastroenterology [address] [facility] [address] [place] [address] Mana Rodriguez PA-C [address] [facility] [address] [place] [id number] documented as of this encounter Visit Diagnoses Not on filedocumented in this encounter Care Teams Editorial Project Manager Relationship Specialty Start Date End Date Mariluz Reyes, [address] [place] [address] PCP - General Family Medicine 01/18/24 Mana Rodriguez PA-C [address] [facility] [address] [place] [address] Gastroenterology 05/16/24 documented as of this encounter
--- OUTSIDE RECORDS SUMMARY | 2024-09-02 09:52 | XMS_ITS | Encounter Summary ---
Author Organization [employer] Address [address] [place] [address] Care Team Providers Care Intelligence Consultant Name Role Phone Analy Reyessarah Primary Care Provider Mana Rodriguez PA-C Unavailable [phone] Encounter Details Date Type Department Care Team (Latest Contact Info) Description 07/16/2024 Travel Social History Tobacco Use Types Packs/Day Years [...] Date Rayray rded Speak language other than Tajik at home Not on file 03/29/2023 Want [...] Description 09/06/2024 10:30 AM EDT Procedure Visit [facility] Neurology - [facility] [address] [facility] [address] [place] [address] Nik Gu MD [address] [facility] [address] [place] [address] 09/19/2024 1:15 PM EDT Office Visit [facility] Bariatric Services [address] [facility] [address] [place] [address] Ann Espana, SUPERVISOR CIGAR MAKING HAND [address] [place] [address] 10/15/2024 9:00 AM EDT Office Visit [facility] Primary Care [address] [place] [address] Mariluz Reyes DO [address] [place] [address] 10/24/2024 10:30 AM EDT Office Visit [facility] Gastroenterology [address] [facility] [address] [place] [address] Mana Rodriguez PA-C [address] [address] documented as of this encounter Visit Diagnoses Not on filedocumented in this encounter Care Teams Intelligence Consultant Relationship Specialty Start Date End Date EricMariluz DO [address] [place] [address] PCP - General Family Medicine 01/18/24 Mana Rodriguez PA-C [address] [address] Gastroenterology 05/16/24 documented as of this encounter
--- OUTSIDE RECORDS SUMMARY | 2024-09-02 09:52 | XMS_ITS | Encounter Summary ---
Author Organization [employer] Address [address] [place] [address] Care Team Providers Care Tire Repair Mechanic Name Role Phone Elvi Posada MD Primary Care Provider [phone] Mariluz Reyes DO Primary Care Provider [phone] Mariluz Reyes DO Primary Care Provider [phone] Mana Rodriguez PA-C Unavailable [phone] Reason for Visit * Reason Comments Medication Refill Encounter Details Date Type Department Care Team (Late st Contact Info) Description 08/23/2023 Refill [facility] Neurology - [facility] [address] [facility] [address] [place] [address] Ana Amin APRN [address]70 [facility] [address] [place] [address] Social History Tobacco Use Types Packs/Day Years Used Date Smoking Tobacco: Never Smokeless Tobacco: Never Alcohol Use Standard Drinks/Week Comments Not Currently 0 (1 standard drink = 0.6 oz pur e alcohol) Interpersonal Safety Answer Date Record ed Family [...] Date Rayray rded Speak language other than Cambodian at home Not on file 03/29/2023 Want [...] 12 months Not on file 03/29/2023 Comments Unknown Sex and Gender Information Value [...] Description 09/06/2024 10:30 AM EDT Procedure Visit [facility] Neurology - [address] [place] [address] [place] [address] [place] [address] [address] [place] [address] 09/19/2024 1:15 PM EDT Office Visit [facility] Bariatric Services [address] [place] [address] Ann Espana, TACTICAL AIR CONTROL PARTY MANAGER [address] [place] [address] 10/15/2024 9:00 AM EDT Office Visit [facility] Primary Care [address] [place] [address] Mariluz Reyes DO [address] [place] [address] 10/24/2024 10:30 AM EDT Office Visit [facility] Gastroenterology [address] [facility] [address] [place] [address] Mana Rodriguez PA-C [address] [facility] [address] [place] [address] documented as of this encounter Visit Diagnoses Not on filedocumented in this encounter Care Teams Tire Repair Mechanic Relationship Specialty Start Date End Date Elvi Posada MD PCP - General Family Medicine 01/21/22 12/19/23 Mariluz Reyes DO [address] [place] [address] PCP - General Family Medicine 12/20/23 01/13/24 Mariluz Reyes DO [address] [place] [address] PCP - General Family Medicine 01/18/24 Mana Rodriguez PA-C 1401 [facility] [address] [place] [address] Gastroenterology 05/16/24 documented as of this encounter
--- OUTSIDE RECORDS SUMMARY | 2024-09-02 09:52 | XMS_ITS | Encounter Summary ---
Author Organization [employer] Address [address] [place] [address] Care Team Providers Care Natural Sciences Department Chair Name Role Phone Mariluz Reyes DO Primary Care Provider [phone] Mana Rodriguez PA-C Unavailable [phone] Encounter Details Date Type Department Care Team (Late st Contact Info) Description 08/09/2024 Abstract [facility] Primary Care [address] [place] [address] Mariluz Reyes DO [address] [place] [address] Social History Tobacco Use Types Packs/Day Years [...] Date Rayray rded Speak language other than Mauritanian at home Not on file 03/29/2023 Want [...] Description 09/06/2024 10:30 AM EDT Procedure Visit [facility] Neurology - [facility] [address] [facility] [address] [place] [address] Nik Gu MD 10[address] [facility] [address] [place] [address] 09/19/2024 1:15 PM EDT Office Visit [facility] Bariatric Services [address] [facility] [address] [place] [address] Ann Espana, WEBFOCUS DEVELOPER [address] [place] [address] 10/15/2024 9:00 AM EDT Office Visit [facility] Primary Care [address] [place] [address] Mariluz Reyes DO [address] [place] [address] 10/24/2024 10:30 AM EDT Office Visit [facility] Gastroenterology 14[address] [facility] [address] [place] [address] Mana Rodriguez PA-C 1401 [facility] [address] [place] [id number] documented as of this encounter Visit Diagnoses Not on filedocumented in this encounter Care Teams Natural Sciences Department Chair Relationship Specialty Start Date End Date Mariluz Reyes DO [address] [place] [address] PCP - General Family Medicine 01/18/24 Mana Rodriguez PA-C 1401 [facility] [address] [place] [id number] Gastroenterology 05/16/24 documented as of this encounter
--- OUTSIDE RECORDS SUMMARY | 2024-09-02 09:52 | XMS_ITS | Encounter Summary ---
Author Organization [employer] Address [address] [place] [address] Care Team Providers Care Wagon Driller Name Role Phone Umberto Olivares DO Primary Care Provider [phone] Mana Rodriguez PA-C Unavailable [phone] Reason for Visit * Reason Onset Date Comments Medication Problem 07/25/2024 Encounter Details Date Type Department Care Team (Late st Contact Info) Description 07/25/2024 Telephone [facility] Primary Care [address] [place] [address] Umberto Olivares DO [address] [place] [address] Medication Problem Social History Tobacco Use Types Packs/Day Years [...] Date Rayray rded Speak language other than Nigerien at home Not on file 03/29/2023 Want [...] encounter Miscellaneous Notes * Telephone Encounter - Taylor Arredondo - 07/25/2024 11:11 AM EDT FROM: Eva Lamar TO: [facility] CLINICAL FIRE WATCHMAN [[id number]] SUBJECT: Medication Related Request PROVIDER: UMBERTO OLIVARES [[id number]] DEPARTMENT: [facility] [employer] [facility] [[id number]] ENCOUNTER REASON FOR CALL: MEDICATION PROBLEM [65] ENCOUNTER TYPE: Telephone REASON FOR CALL: Medication change request
APPOINTMENT OFFERED? No
LAST VISIT: 2024-07-16
NEXT VISIT: 2024-10-15
MESSAGE PRIORITY: Routine
ADDITIONAL INFORMATION: The medication attached was sent to [facility], however they do not have this medication and do not get it in stock. Please transfer medication to [facility] as detailed below.
MEDICATION 1: MEDICATION TYPE: Non controlled RX
MEDICATION NAME: Pyridoxine, vitamin B6, (VITAMIN B6) 500 MG tablet
ORDERING PROVIDER: Umberto Olivares, DO
MEDICATION DETAILS: Take 1 tablet (500 mg total) by mouth daily.
PREFERRED PHARMACY? [id number] - [address] [facility] [address] [facility] [address] [address] [address] CALLER'S NAME: Allison Mendez RELATION TO PATIENT: Self [1] PREFERRED LANGUAGE: Nigerien BEST CALL BACK PHONE NUMBER: Mobile Phone: ([phone]) WHAT IS THE BEST WAY FOR THE OFFICE TO CONTACT YOU?: OK to leave message on voicemail documented in this encounter Plan of Treatment Upcoming Encounters Date Type Department Care Team (Late st Contact Info) Description 09/06/2024 10:30 AM EDT Procedure Visit [facility] Neurology - [address] [place] [address] 200 [place] [address] Nik Gu MD [address] [place] [address] [address] [place], [place] [address] 09/19/2024 1:15 PM EDT Office Visit [facility] Bariatric Services 160 [facility] 201 [place] [address] Ann Espana, VALUE ANALYST [address] [facility] [address] 10/15/2024 9:00 AM EDT Office Visit [facility] Primary Care [address] [place] [address] Umberto Olivares DO [address] [place] [address] 10/24/2024 10:30 AM EDT Office Visit [facility] Gastroenterology [address] [facility] [address] [place] [address] Mana Rodriguez PA-C [address] [facility] [address] [place] [address] documented as of this encounter Visit Diagnoses Not on filedocumented in this encounter Care Teams Wagon Driller Relationship Specialty Start Date End Date Umberto Olivares DO [address] [place], [place] [address] PCP - General Family Medicine 01/18/24 Mana Rodriguez PA-C [address] [facility] [address] [place], [place] [id number] Gastroenterology 05/16/24 documented as of this encounter
--- OUTSIDE RECORDS SUMMARY | 2024-09-02 09:52 | XMS_ITS | Encounter Summary ---
Author Organization [employer] Address [address] [place] [address] Care Team Providers Care Metal Bending Machine Operator Name Role Phone Elvi Posada MD Primary Care Provider [phone] Mariluz Reyes DO Primary Care Provider [phone] Mariluz Reyes DO Primary Care Provider [phone] Mana Rodriguez PA-C Unavailable [phone] Reason for Visit * Reason Comments Medication Refill Encounter Details Date Type Department Care Team (Late st Contact Info) Description 11/15/2023 Refill [facility] Neurology - [facility] [address] [facility] [address] [place] [address] Ana Amin APRN 3470 [facility] [address] [place] [address] Social History Tobacco Use Types Packs/Day Years [...] Date Rayray rded Speak language other than Argentine at home Not on file 03/29/2023 Want [...] Description 09/06/2024 10:30 AM EDT Procedure Visit [facility] Neurology - [address] [place] [address] [place] [address] [place] [address] [address] [place] [address] 09/19/2024 1:15 PM EDT Office Visit [facility] Bariatric Services [address] [place] [address] Ann Espana, RATOPRINTER [address] [place] [address] 10/15/2024 9:00 AM EDT Office Visit [facility] Primary Care [address] [place] [address] Mariluz Reyes DO [address] [place] [address] 10/24/2024 10:30 AM EDT Office Visit [facility] Gastroenterology [address] [facility] [address] [place] [address] Mana Rodriguez PA-C [address] [facility] [address] [place] [address] documented as of this encounter Visit Diagnoses Not on filedocumented in this encounter Care Teams Metal Bending Machine Operator Relationship Specialty Start Date End Date Elvi Posada MD PCP - General Family Medicine 01/21/22 12/19/23 Mariluz Reyes DO [address] [place] [address] PCP - General Family Medicine 12/20/23 01/13/24 Mariluz Reyes DO [address] [place] [address] PCP - General Family Medicine 01/18/24 Mana Rodriguez PA-C 1401 [facility] [address] [place] [address] Gastroenterology 05/16/24 documented as of this encounter
--- OUTSIDE RECORDS SUMMARY | 2024-09-02 09:52 | XMS_ITS | Encounter Summary ---
Author Organization [employer] Address [address] [place] [address] Care Team Providers Care Ramp Boss Name Role Phone Mariluz Reyes DO Primary Care Provider [phone] Mana Rodriguez PA-C Unavailable [phone] Encounter Details Date Type Department Care Team (Late st Contact Info) Description 07/28/2024 Orders Only [facility] Primary Care [address] [place] [address] Mariluz Reyes DO [address] [place] [address] Moderate persistent allergic asthma Social History Tobacco Use Types Packs/Day Years [...] Date Rayray rded Speak language other than Arabic at home Not on file 03/29/2023 Want [...] Description 09/06/2024 10:30 AM EDT Procedure Visit [facility] Neurology - [facility] [address] [facility] [address] [place] [address] Nik Gu MD 1021 [facility] [address] [place] [address] 09/19/2024 1:15 PM EDT Office Visit [facility]ariatric Services [address] [facility] [address] [place] [address] Ann Espana, MEDICAL DEVICE SALES CONSULTANT [address] [place] [address] 10/15/2024 9:00 AM EDT Office Visit [facility] Primary Care [address] [place] [address] Mariluz Reyes DO [address] [place] [address] 10/24/2024 10:30 AM EDT Office Visit [facility] Gastroenterology [address] [facility] [address] [place] [address] Mana Rodriguez PA-C 1401 [facility] [address] [place] [phone] documented as of this encounter Visit Diagnoses Diagnosis Moderate persistent allergic asthma documented in this encounter Care Teams Ramp Boss Relationship Specialty Start Date End Date Mariluz Reyes DO [address] [place] [address] PCP - General Family Medicine 01/18/24 Mana Rodriguez PA-C 1401 [facility] [address] [place] [phone] Gastroenterology 05/16/24 documented as of this encounter
--- OUTSIDE RECORDS SUMMARY | 2024-09-02 09:52 | XMS_ITS | Encounter Summary ---
Author Organization [employer] Address [address] [place] [address] Care Team Providers Care Geriatric Physical Therapist Name Role Phone Mariluz Reyes DO Primary Care Provider [phone] Mana Rodriguez PA-C Unavailable [phone] Encounter Details Date Type Department Care Team (Late st Contact Info) Description 08/08/2024 Abstract [facility] Primary Care [address] [place] [address] Mariluz Reyes DO [address] [place] [address] Social History Tobacco Use Types [...] Date Rayray rded Speak language other than Swiss at home Not on file 03/29/2023 Want [...] Description 09/06/2024 10:30 AM EDT Procedure Visit [facility] Neurology - [facility] [address] [facility] [address] [place] [address] Nik Gu MD 10[address] [facility] [address] [place] [address] 09/19/2024 1:15 PM EDT Office Visit [facility] Bariatric Services 160 [facility] [address] [place] [address] Ann Espana, TUBE STATION ATTENDANT [address] [place] [address] 10/15/2024 9:00 AM EDT Office Visit [facility] Primary Care [address] [place] [address] Mariluz Reyes DO [address] [place] [address] 10/24/2024 10:30 AM EDT Office Visit [facility] Gastroenterology [address] [facility] [address] [place] [address] Mana Rodriguez PA-C 1401 [facility] [address] [place] [phone] documented as of this encounter Visit Diagnoses Not on filedocumented in this encounter Care Teams Geriatric Physical Therapist Relationship Specialty Start Date End Date Mariluz Reyes DO [address] [place] [address] PCP - General Family Medicine 01/18/24 Mana Rodriguez PA-C [address]01 [facility] [address] [place] [id number] Gastroenterology 05/16/24 documented as of this encounter
--- OUTSIDE RECORDS SUMMARY | 2024-09-02 09:52 | XMS_ITS | Encounter Summary ---
Author Organization [employer] Address [address] [place] [address] Care Team Providers Care Algologist Name Role Phone Analy Reyessarah Primary Care Provider [phone] Mana Rodriguez PA-C Unavailable [phone] Encounter Details Date Type Department Care Team (Latest Contact Info) Description 07/26/2024 Travel Social History Tobacco Use Types Packs/Day [...] Date Rayray rded Speak language other than Nepali at home Not on file 03/29/2023 Want [...] Description 09/06/2024 10:30 AM EDT Procedure Visit [facility] Neurology - [facility] [address] [facility] [address] [place] [address] Nik Gu MD [address] [facility] [address] [place] [address] 09/19/2024 1:15 PM EDT Office Visit [facility] [address] [facility] [address] [place] [address] Ann Espana, ASSISTANT CORPORATE CONTROLLER [address] [place] [address] 10/15/2024 9:00 AM EDT Office Visit [facility] Primary Care [address] [place] [address] Mariluz Reyes DO [address] [place] [address] 10/24/2024 10:30 AM EDT Office Visit [facility] Gastroenterology [address] [facility] [address] [place] [address] Mana Rodriguez PA-C [address] [address] documented as of this encounter Visit Diagnoses Not on filedocumented in this encounter Care Teams Algologist Relationship Specialty Start Date End Date EricMariluz DO [address] [place] [address] PCP - General Family Medicine 01/18/24 Mana Rodriguez PA-C [address] [address] Gastroenterology 05/16/24 documented as of this encounter
--- OUTSIDE RECORDS SUMMARY | 2024-09-02 09:52 | XMS_ITS | Encounter Summary ---
Author Organization [employer] In [employer] Address [address] [place] [address] Care Team Providers Care Regrinder Operator Name Role Phone Elvi Posada MD Primary Care Provider [phone] Mariluz Reyes DO Primary Care Provider [phone] Mariluz Reyes DO Primary Care Provider [phone] Mana Rodriguez PA-C Unavailable [phone] Reason for Visit * Reason Comments Medication Refill Encounter Details Date Type Department Care Team (Late st Contact Info) Description 09/08/2022 Refill [facility] Neurology - [facility] [address] [facility] [address] [place] [address] Ana Amin APRN [address] [facility] [address] [place] [address] Social History Tobacco Use Types Packs/Day Years [...] Description 09/06/2024 10:30 AM EDT Procedure Visit [facility] Neurology - [address] [facility] [address] [place] [address] Nik Gu MD [address] [facility] [address] [place] [address] 09/19/2024 1:15 PM EDT Office Visit [facility] Bariatric Services [address] [facility] [address] [place] [address] Ann Espana, UNDERWRITING ASSISTANT [address] [place] [address] 10/15/2024 9:00 AM EDT Office Visit [facility] Primary Care [address] [place] [address] Mariluz Reyes DO [address] [place] [address] 10/24/2024 10:30 AM EDT Office Visit [facility] Gastroenterology [address] [facility] [address] [place] [address] Mana Rodriguez PA-C [address] [place], [place] [id number] documented as of this encounter Visit Diagnoses Not on filedocumented in this encounter Care Teams Regrinder Operator Relationship Specialty Start Date End Date Elvi Posada MD PCP - General Family Medicine 01/21/22 12/19/23 Mariluz Reyes DO [address] [place] [address] PCP - General Family Medicine 12/20/23 01/13/24 Mariluz Reyes DO [address] [place] [address] PCP - General Family Medicine 01/18/24 Mana Rodriguez PA-C [address] [place] [address] Gastroenterology 05/16/24 documented as of this encounter
--- OUTSIDE RECORDS SUMMARY | 2024-09-02 09:56 | XMS_ITS | Encounter Summary ---
Author Organization [employer] In [employer] Address [address] [place] [address] Care Team Providers Care Lead Producer Name Role Phone Elvi Posada MD Primary Care Provider [phone] Mariluz Reyes DO Primary Care Provider [phone] Mariluz Reyes DO Primary Care Provider [phone] Mana Rodriguez PA-C Unavailable [phone] Reason for Visit * Reason Comments Medication Refill Encounter Details Date Type Department Care Team (Late st Contact Info) Description 04/20/2022 Refill [facility] Neurology - [facility] [address] [facility] [address] [place] [address] Ana Amin APRN [address] [facility] [address] [place] [address] Social History Tobacco Use Types Packs/Day Years Used Date Smoking Tobacco: Never Assessed Comments Unknown Sex and Gender Information Value [...] Description 09/06/2024 10:30 AM EDT Procedure Visit [facility] Neurology - [address] [place] [address] Nik Gu MD [address] [place] [address] 09/19/2024 1:15 PM EDT Office Visit [facility] Bariatric Services [address] [place] [address] Ann Espana, CAR SUPERVISOR [address] [place] [address] 10/15/2024 9:00 AM EDT Office Visit [facility] Primary Care [address] [place] [address] Mariluz Reyes DO [address] [place] [address] 10/24/2024 10:30 AM EDT Office Visit [facility] Gastroenterology [address] [facility] [address] [place] [address] Mana Rodriguez PA-C [address] [place], [place] [address] documented as of this encounter Visit Diagnoses Not on filedocumented in this encounter Care Teams Lead Producer Relationship Specialty Start Date End Date Elvi Posada MD PCP - General Family Medicine 01/21/22 12/19/23 Mariluz Reyes DO [address] [place] [address] PCP - General Family Medicine 12/20/23 01/13/24 Mariluz Reyes DO [address] [place] [address] PCP - General Family Medicine 01/18/24 Mana Rodriguez PA-C [address] [place] [id number] Gastroenterology 05/16/24 documented as of this encounter
--- OUTSIDE RECORDS SUMMARY | 2024-09-02 09:56 | XMS_ITS | Encounter Summary ---
Author Organization [employer] Address [address] [place] [address] Care Team Providers Care Independent Agent Music Education Name Role Phone Elvi Posada MD Primary Care Provider [phone] Mariluz Reyes DO Primary Care Provider [phone] Mariluz Reyes DO Primary Care Provider Mana Rodriguez PA-C Unavailable [phone] Encounter Details Date Type Department Care Team (Late st Contact Info) Description 02/04/2020 Transcribed Document [facility] Family Medicine [address] [place] [address] ProviderLeslie MD [address] [place] [address] Social History Tobacco Use Types Packs/Day Years Used Date Smoking Tobacco: Never Assessed Comments Unknown Sex and Gender Information Value Date Recorded Sex Assigned at Female 12/14/2023 2:59 PM CDT Legal Sex Female 6:19 PM CDT Gender Identity Female 12/14/2023 2:58 PM CDT Sexual Orientation Straight 12/14/2023 2: 58 PM CDT documented as of this encounter Miscellaneous Notes * Cerner Conversion Note - Historical ProviderMD - 02/04/2020 7:48 AM FLASH RANGING [employer] [facility] Main OR PostOp Summary Primary Physician: ALAN TREVINO DPM-SUR Finalized Date/Time: 02/04/20 10:12:46 Pt. Name: ROBIN MENDEZ Zaira CarreraB./Sex: 1965 Female Med Rec #: [id number] Physician: ALAN TREVINO DPM-HANNAH Financial #: [id number] Pt. Type: O Room/Bed: / Admit/Disch: 02/04/20 08:24:00 - Institution: [facility] Main OR PostOp Case Times Entry 1 In PACU II 02/04/20 09:23:00 Ready for PACU II 02/04/20 10:12:00 Discharge Discharge from PACU 02/04/20 10:12:00 II Last Modified By: LACEY LOREDO, RICHY 02/04/20 10:12:44 [facility] Main OR PostOp Case Times Audit 02/04/20 10:12:44 Reel Repairer: HANS Modifier: ROYBETH <+> 1 Ready for PACU II Discharge <+> 1 Discharge from PACU II Finalized By: LACEY LOREDO, RN Document Signatures Signed By: LACEY LOREDO RN 02/04/20 10:12 Electronically signed by [facility] Conversion Plastic Fixture Builder Cerner at 07/05/2022 3:52 PM CDT documented in this encounter Plan of Treatment Upcoming Encounters Date Type Department Care Team (Late st Contact Info) Description 09/06/2024 10:30 AM EDT Procedure Visit [facility] Neurology - [address] [place] [address] Nik Gu MD [address] [place] [address] [address] [place] [address] 09/19/2024 1:15 PM EDT Office Visit [facility] Bariatric Services [address] [facility] [address] [place] [address] Ann Espana, PRECISION MACHINE OPERATOR [address] [place] [address] 10/15/2024 9:00 AM EDT Office Visit [facility] Primary Care [address] [place] [address] Mariluz Reyes DO [address] [place] [address] 10/24/2024 10:30 AM EDT Office Visit [facility] Gastroenterology [address] [facility] [address] [place] [address] Mana Rodriguez PA-C [address] [facility] [address] [place], [place] [id number] documented as of this encounter Visit Diagnoses Not on filedocumented in this encounter Care Teams Independent Agent Music Education Relationship Specialty Start Date End Date Elvi Posada MD PCP - General Family Medicine 01/21/22 12/19/23 Mariluz Reyes DO [address] [place] [address] PCP - General Family Medicine 12/20/23 01/13/24 Mariluz Reyes DO [address] [place] [address] PCP - General Family Medicine 01/18/24 Mana Rodriguez PA-C [address] [place] [address] [address] [place] [address] Gastroenterology 05/16/24 documented as of this encounter
--- OUTSIDE RECORDS SUMMARY | 2024-09-02 09:56 | XMS_ITS | Encounter Summary ---
Author Organization [employer] Address [address] [place] [address] Care Team Providers Care Solution Coordinator Name Role Phone Elvi Posada MD Primary Care Provider [phone] Mariluz Reyes DO Primary Care Provider [phone] Mariluz Reyes DO Primary Care Provider [phone] Mana Rodriguez PA-C Unavailable [phone] Encounter Details Date Type Department Care Team (Late st Contact Info) Description 01/28/2020 Transcribed Document [facility] Family Medicine [address] [place] [address] ProviderLeslie MD [address] [place] [address] Social History Tobacco Use Types [...] Cerner Conversion Note - Historical ProviderMD - 01/28/2020 10:24 AM CASE ADVOCATE PAT Adult Entered On: 01/28/2020 10:27 EST Performed On: 01/28/2020 10:24 EST by Jai Massey Rn Anesthesia/Transfusion History Family History of Anesthesia Reaction : No prior transfusion(s) Transfusion History : Prior anesthesia without reaction Family History of Anesthesia Reaction : None Jai Massey Rn - 01/28/2020 10:24 EST Functional Assessment Functional ADL Evaluation Index EBN Bathing : Independent (2) Dressing : Independent (2) Toileting : Independent (2) Transferring Bed or Chair : Independent (2) Continence : Independent (2) Feeding : Independent (2) Jai Massey Rn - 01/28/2020 10:24 EST ADL Index Score : 12 Jai Massey Rn - 01/28/2020 10:24 EST Advance Directive Patient has Advance Directive *Q : No, patient refuses Advance Directive information Jai Massey Rn - 01/28/2020 10:24 EST Spiritual/Cultural Needs Any Spiritual/Cultural Needs or Requests : No Jai Massey Rn - 01/28/2020 10:24 EST [place] Suicide Severity Rating Scale (C-SSRS) CSSRS Past Month Wish to be : No CSSRS Past Month Suicidal Thoughts : No CSSRS Lifetime Suicide Behavior : No Suicide Severity Rating Score : 0 Suicide Severity Rating : No Additional Care Required at this time Jai Massey Rn - 01/28/2020 10:24 EST Psychosocial History Do You Have a History of the Following? : Anxiety Currently in Unsafe Situation : No Jai Massey Rn - 01/28/2020 10:24 EST General Info Preferred Name : Allison Arrived From : Home Mode of Arrival on Unit : Ambulatory Support Person/Patient Technical Photographer : Yes Support Person/Pt Rep Name : Jarad Mendez - Support Person/Pt Rep Contact Information : [phone] Want Family/Rep/Phys Notified of Admit : No Emergency Contact #1 : ` Emergency Contact #1 Phone Number : ` Emergency Contact #1 Relationship : ` Emergency Contact #2 : ` Emergency Contact #2 Phone Number : ` Emergency Contact #2 Relationship : ` Information Obtained From : Patient Primary Language : Spanish Preferred Communication Mode : Verbal Communication Barrier : None Referral Agent Needed : No Jai Massey Rn - 01/28/2020 10:24 EST Bulmaro Scale Bulmaro Sensory Perception : No impairment Bulmaro Moisture : Rarely moist Bulmaro Activity : Walks occasionally Bulmaro Mobility : Slightly limited Bulmaro Nutrition : Adequate Bulmaro Friction and Shear : No apparent problem Bulmaro Score : 20 Jai Massey Rn - 01/28/2020 10:24 EST Sleep Apnea Risk Assmt Hx of Obstructive Sleep Apnea Diagnosis : No Snore Loudly : Yes Tired, Fatigued, or Sleepy During Day : No Observed Stopping Breathing During Sleep : No Have/Are Being Treated for Hypertension : Yes Age over 50 Years Old : Yes Gender Male : No Jai Massey Rn - 01/28/2020 10:24 EST Electronically signed by [facility] Conversion Calender Feeder Cerner at 07/05/2022 3:54 PM CDT documented in this encounter Plan of Treatment Upcoming Encounters Date Type Department Care Team (Late st Contact Info) Description 09/06/2024 10:30 AM EDT Procedure Visit [facility] Neurology - [address] [place] [address] Nik Gu MD [address] [place] [address] 09/19/2024 1:15 PM EDT Office Visit [facility] Bariatric Services [address] [place] [address] Ann Espana, RHINOLOGIST [address] [place] [address] 10/15/2024 9:00 AM EDT Office Visit [facility] Primary Care [address] [place] [address] Mariluz Reyes DO [address] [place] [address] 10/24/2024 10:30 AM EDT Office Visit [facility] Gastroenterology [address] [facility] [address] [place] [address] Mana Rodriguez PA-C [address] [place] [address] documented as of this encounter Visit Diagnoses Not on filedocumented in this encounter Care Teams Solution Coordinator Relationship Specialty Start Date End Date Elvi Posada MD PCP - General Family Medicine 01/21/22 12/19/23 Mariluz Reyes DO [address] [place] [address] PCP - General Family Medicine 12/20/23 01/13/24 Mariluz Reyes DO [address] [facility] [address] [place] [address] PCP - General Family Medicine 01/18/24 Mana Rodriguez PA-C [address] [facility] [address] [place] [address] Gastroenterology 05/16/24 documented as of this encounter
--- OUTSIDE RECORDS SUMMARY | 2024-09-02 09:56 | XMS_ITS | Clinical Summary ---
Author Organization [facility] [facility] [employer] Address [address] [place] [address] Care Team Providers Care Reporting Analyst Name Role Phone Mariluz Reyes DO Primary Care Provider [phone] Mana Rodriguez PA-C Unavailable [phone] Allergies Active Allergy Reactions Criticality Noted Date Comments Codeine Itching 06/15/2015 1no rash, just [id number] Tramadol 07/29/2022 Other reaction(s): Insomnia, Itching Medications levocetirizine (XYZAL) 5 MG tablet levocetirizine 5 mg tablet Active hydroCHLOROthiaz micah (HYDRODIURIL) 12.5 MG tablet Take 1 tablet (12.5 mg total) by mouth daily. Active levalbuterol (XOPENEX) 1.25 mg/3 mL nebulizer solution Inhale 3 mLs (1.25 mg total) by nebulization every 4 (four) hours as needed for wheezing. Active losartan (COZAAR) 25 MG tablet Take 1 tablet (25 mg total) by mouth. Active Linzess 72 mcg Cap Take 1 capsule (72 mcg total) by mouth daily. Active cholecalciferol, vitamin D3, 1,250 mcg (50,000 unit) capsule Take 1 cap weekly for 8 weeks then once monthly. 10 capsule 1 024 Active ferrous gluconate (FERGON) 324 MG tabletIndication s:Iron deficiency Take 1 tablet (324 mg total) by mouth daily with breakfast. 90 tablet Active cyanocobalamin 1,000 mcg/mL injectionIndicat ions:B12 deficiency Inject 1ml subcutaneously weekly for 4 doses and then start monthly injections for 6 doses. 10 mL Active syringe-needle,s marcial bobo 3 mL 25 gauge x 5/8 syrgIndications: B12 deficiency Use as directed for B12 subcutaneous Injections. 100 each Active Additional Information Patient not taking.Reported on 2024 folic acid (FOLVITE) 1 MG tablet Take 1 tablet (1 mg total) by mouth daily. 30 tablet 11 025 2025 Active thiamine (vitamin B-1) 100 MG tabletIndication s:Moderate persistent allergic asthma Take 1 tablet (100 mg total) by mouth daily. 30 tablet 11 025 2025 Active Spiriva Respimat 1.25 mcg/actuation mist inhalationIndica tions:Moderate persistent allergic asthma Inhale 2 puffs by mouth once daily. 4 g 3 Active Additional Information Patient not taking.Reported on 2024 albuterol 90 mcg/actuation inhalerIndicatio ns:Moderate persistent allergic asthma Inhale 2 puffs by mouth every 6 (six) hours as needed for wheezing. 1 Inhaler 3 Active ipratropium-albu teroL (DUO-NEB) 0.5 mg-3 mg(2.5 mg base)/3 mL nebulizer solutionIndicati ons:Moderate persistent allergic asthma Inhale 3 mLs by nebulization every 6 (six) hours as needed for wheezing or shortness of breath. 90 mL 3 Active sod sulf-pot chloride-mag sulf (Sutab) 1.479-0.188- 0.225 gram tab Take 12 tablets by mouth as directed Take first 12 tablets at 4 pm evening before procedure. Take remaining 12 tablets at 10 pm evening before procedure.. 24 tablet Active topiramate (QUDEXY XR) 150 mg ER capsule Take 1 capsule by mouth once daily 30 capsule Active Veozah 45 mg tab Take 1 tablet by mouth daily. Active pyridoxine, vitamin B6, (VITAMIN B6) 500 MG tabletIndication s:Moderate persistent allergic asthma Take 1 tablet (500 mg total) by mouth daily. 90 tablet Active gabapentin (NEURONTIN) 600 MG tablet Take 1 tablet (600 mg total) by mouth 3 (three) times daily for 180 days. Max Daily Amount: 1,800 mg 270 tablet 1 025 2024 Active Additional Information Patient taking differently:600 mg oralDaily, Reported on 2024 atorvastatin (LIPITOR) 20 MG tabletIndication s:Mixed hyperlipidemia Take 1 tablet (20 mg total) by mouth nightly. 90 tablet 3 Active amLODIPine (NORVASC) 5 MG tabletIndication s:HTN (hypertension) Take 1 tablet (5 mg total) by mouth daily. 90 tablet 3 Active fluticasone propionate (FLONASE) 50 mcg/actuation nasal sprayIndications :Environmental allergies Administer 2 sprays into each nostril daily. 9.9 mL 11 Active pantoprazole (PROTONIX) 40 MG tabletIndication s:Gastroesophage al reflux disease without esophagitis Take 1 tablet (40 mg total) by mouth daily. 90 tablet 3 Active phentermine 15 MG capsuleIndicatio ns:BMI 35.0-35.9,adult Take 1 capsule (15 mg total) by mouth every morning for 30 days. Max Daily Amount: 15 mg 30 capsule 025 2024 Active amLODIPine (NORVASC) 5 MG tablet Take 1 tablet (5 mg total) by mouth daily. 2024 Discontinued(R eorder) atorvastatin (LIPITOR) 20 MG tablet Take 1 tablet (20 mg total) by mouth daily. 2024 Discontinued(R eorder) pantoprazole (PROTONIX) 40 MG tablet Take 1 tablet (40 mg total) by mouth daily. 2024 Discontinued(R eorder) fluticasone propionate (FLONASE) 50 mcg/actuation nasal spray 2 sprays every morning. 023 2024 Discontinued(R eorder) gabapentin (NEURONTIN) 600 MG tablet Take 1 tablet (600 mg total) by mouth 3 (three) times daily for 180 days. Max Daily Amount: 1,800 mg 270 tablet 1 024 2024 Discontinued Hospital, Clinic, or Other Facility Administered Medication Ordered Dose Route Frequency Start Date End Date Status cyanocobalamin injection 1,000 mcgIndications:B12 deficiency 1000 mcg IM Every 30 days 05/14/2024 Active Active Problems Problem Noted Date Diagnosed Date Abnormal stools 05/16/2024 Abdominal bloating 05/16/2024 Abdominal pain 05/16/2024 Acid reflux 05/14/2024 Hypokalemia 05/14/2024 Muscle spasm 05/14/2024 B12 deficiency 05/05/2024 Iron deficiency 03/22/2024 Hand arthritis 01/21/2024 Intractable chronic migraine with aura and without status migrainosus 01/21/2024 Assessment & Plan (01/21/2024 7:56 PM EST): Following with neurology Les Amin APRN Vegetarian diet 01/21/2024 Mononeuritis of lower limb 01/18/2024 Assessment & Plan (01/21/2024 7:55 PM EST): Following with neurology Les Amin APRN Menopausal problem 01/18/2024 Overview (01/18/2024): On estradiol patch 0.5mg Dr. David Awad - gynecology On estrogen alone due to hysterectomy Has migraines with aura Metatarsalgia of both feet 01/18/2024 Memory impairment 01/18/2024 Moderate persistent allergic asthma 01/18/2024 Nausea 01/18/2024 Night sweats 01/18/2024 Musculoskeletal chest pain 01/18/2024 Obesity (BMI 30.0-34.9) 01/18/2024 Osteoarthritis of knee 01/18/2024 Diabetic feet 01/18/2024 Plantar fasciitis 01/18/2024 Pre-diabetes 01/18/2024 Restless legs 01/18/2024 Sciatica 01/18/2024 Severe persistent asthma 01/18/2024 Overview (01/18/2024): Follows with Pulmonology Dr. Mark Awad Status post right knee replacement 01/18/2024 Cobalamin deficiency 01/18/2024 Overview (01/18/2024): On injections for B12 deficiency with prior PCP Mixed hyperlipidemia 08/21/2023 Neuropathy 05/05/2021 Assessment & Plan (01/21/2024 7:55 PM EST): Following with neurology Les Amin APRN Vitamin B6 deficiency 05/05/2021 Resolved Problems Problem Noted Date Diagnosed Date Resolved Date New daily persistent headache 01/18/2024 01/18/2024 Pain 01/18/2024 05/14/2024 Encounters Date Type Department Care Team Description 08/22/2024 9:10 AM EDT Anesthesia Event [facility] Endoscopy 1 [place] [address] MD 08/22/2024 Surgery [facility] Endoscopy 1 [place] [address] Mary Goins MD 08/22/2024 Hospital Encounter [facility] Endoscopy 1 [place] [address] Mary Goins MD 2024 2:00 PM EDT Office Visit [facility] Bariatric Services [address] [facility] [address] [place] [address] Ann Espana APRN BMI 35.0-35.9,adult (Primary Dx) 2024 Telephone [facility]oscopy [address] [place] [address] Wilfrid English RN Appointment (/) 2024 Travel 2024 Orders Only [facility] Primary Care [address] [place] [address] Mariluz Reyes DO Mixed hyperlipidemia (Primary Dx); Environmental allergies; Gastroesophageal reflux disease without esophagitis; HTN (hypertension) 08/09/2024 Abstract [facility] Primary Care [address] [place] [address] Mariluz Reyes DO 08/08/2024 Abstract [facility] Primary Care [address] [place] [address] Mariluz Reyes DO 08/06/2024 Telephone [facility] Neurology [facility] [address] [place] [address] Ana Amin APRN Medication Refill 07/31/2024 Refill [facility] [address] [place] [address] Ana Amin APRN 07/28/2024 Orders Only [facility] Primary Care [address] [place] [address] Mariluz Reyes DO Moderate persistent allergic asthma 07/26/2024 Travel 07/25/2024 Telephone [facility] Primary Care [address] [place] [address] Mariluz Reyes DO Medication Problem 07/16/2024 9:00 AM EDT Office Visit [facility] Primary [facility] Emergency Department [address] [place] [address] Mariluz Reyes DO Vitamin B6 deficiency neuropathy (HCC) (Primary Dx); Moderate persistent allergic asthma; Obesity, class 2; Hypokalemia; B12 deficiency 07/16/2024 Travel 06/19/2024 Telephone [facility] Gastroenterology [address] [place] [address] [address] [place] [address] Mana Rodriguez PA-C med question 06/17/2024 12:26 PM EDT - 06/17/2024 11:59 PM EDT Hospital Encounter [facility] CT Imaging [address] [place] [address] Mana Rodriguez PA-C Abdominal pain; Diarrhea; Nausea; Gastroesophageal reflux disease, unspecified whether esophagitis present; Abnormal stools; Abdominal bloating Discharge Disposition: Home or Self Care 06/13/2024 Orders Only [facility] Primary Care [address] [place] [address] Minda Browne, DO 06/10/2024 Abstract [facility] Primary Care [address] [place] [address] Mariluz Reyes, DO 06/08/2024 Refill [facility] Neurology - [place] [address] [place] [address] Ana Amin APRN from Last 3 Months Immunizations Name Administration Dates Next Due (Shingrix, Recombinant, Adju vanted) Zoster Vaccine IM 09/30/2021,07/15/2021 Hep A / Hep B 07/17/2018,02/20/2018,12/31/2017 Influenza Four-QIV 6MO+ PF IM ([id number]) Influenza Four-qiv Pf 01/13/2021,12/10/2016 Influenza Quad-qiv Non Pf 01/12/2018,12/10/2016 Influenza Three-TIV Non-PF 4+YRS IM 12/10/2016 Influenza Three-tiv Non-pf 12/26/2011 Influenza Three-tiv Pf 12/31/2013 Pneumococcal Conjugate Vacci ne (20-Valent) IM 03/28/2023 Pneumococcal Polysaccharide (Pneumovax) 12/16/19 17 Td (Adult) 10/08/2010 Td 7+ years, (TDVAX) 2 Lf te tanus toxoid preservative free 10/15/2002 Tdap 10/07/2022,10/17/2011,10/08/2010 Family History Medical History Relation Name Comments Diabetes Brother Heart disease Father Aneurysm Mother Seizures Sister Relation Name Status Comments Brother Alive Father (Age 48) Mother (Age 50) Sister Alive Social History Tobacco Use Types Packs/Day Years [...] Date Rayray rded Speak language other than [place]an at home Not on file 03/29/2023 Want [...] Orientation Straight 12/14/2023 2: 58 PM CDT Last Filed Vital Signs Vital Sign Reading Time Taken Comments Blood Pressure 130/70 2024 2:30 PM EDT Pulse 80 2024 2:30 PM EDT Temperature 36.5 C (97.7 F) 07/16/2024 9:14 AM EDT Respiratory Rate 16 07/16/2024 9:14 AM EDT Oxygen Saturation 96% 07/16/2024 9:14 AM EDT Inhaled Oxygen Concentration - - Weight 102.1 kg (225 lb) 2024 2:30 PM EDT Height 170.2 cm (5' 7 ) 2024 2:30 PM EDT Body Mass Index 35.24 2024 2:30 PM EDT Plan of Treatment Upcoming Encounters Date Type Department Care Team (Late st Contact Info) Description 09/06/2024 10:30 AM EDT Procedure Visit [facility] Neurology - [address] [place] [address] Nik Gu MD [address] [place] [address] 09/19/2024 1:15 PM EDT Office Visit [facility] Bariatric Services [address] [place] [address] Ann Espana, HYDRAULIC ROCK DRILL OPERATOR [address] [place] [address] 10/15/2024 9:00 AM EDT Office Visit [facility] Primary Care [address] [place] [address] Mariluz Reyes DO [address] [place] [address] 10/24/2024 10:30 AM EDT Office Visit [facility] Gastroenterology [address] [facility] [address] [place] [address] Mana Rodriguez PA-C [address] [place], [place] [id number] Health Maintenance Due Date Last Done Comments CT Colonography 1966 Colonoscopy 1966 Colorectal Cancer Screening 1966 Diabetic Kidney Health Evalu ation (KED) 1966 FOBT/FIT 1966 Fit-DNA (Cologuard) 1966 Sigmoidoscopy 1966 Diabetic Eye Exam 1976 Diabetic foot exam 1976 HIV Screening 1981 Hepatitis C Screening 1984 Pap Smear 08/16/1987 Breast Cancer Screening 2006 Lipid Panel 05/31/2019 05/30/2016 COVID-19 VACCINE (2023-2 5 season) 2023 Medicare Initial AWV [id number] 05/18/2024 Hemoglobin A1C 10/28/2024 04/30/2024 Depression Screening (12+) 01/17/2025 01/18/2024 Tobacco Cessation Counseling and Screening (12+) 2025 2024 DTAP/TDAP/TD VACCINES (6 - T d or Tdap) 10/07/2032 10/07/2022, 10/17/2011, 10/08/2010, Additional history exists Shingles Vaccine (Zoster) Completed 09/30/2021, Pneumococcal 50+ years Completed 03/28/2023, 2016 Influenza Vaccine Completed 12/19/2023, , 12/10/2016 Procedures Procedure Name Priority Date/Time Associated Diagnosis Comments RENAL FUNCTION PANEL Routine 07/16/2024 10:[address] ABDOMEN/PELVIS WITH IV CONTRAST Routine 06/17/2024 2:40 PM EDT Abdominal pain Diarrhea Nausea Gastroesophageal reflux disease, unspecified whether esophagitis present Abnormal stools Abdominal bloating POCT-CREATININE NOVA Routine 06/17/2024 2:16 PM EDT EXTERNAL LAB - MISC Routine 06/13/2024 2 :02 PM EDT EXTERNAL IMAGING - US Routine 06/13/2024 1:48 PM EDT HEMOGLOBIN A1C Routine 04/30/2024 3:02 PM EST Small fiber neuropathy Elevated glucose from Last 3 Months or Most Recently Relevant to Health Maintenance Results * Renal function panel (07/16/2024 10:35 AM EDT) Glucose, Serum 96 70 - 99 mg/dL [...] AM EDT Performed at: 01 - [facility] [address] [id number] Senior Automation Engineer: Cliff Nugent PhD, Phone: [phone] us Nova White DO LAB BLOOD ORDERABLES Final Resul t [facility] * CT ABDOMEN/PELVIS WITH IV CONTRAST Standard Protocol (06/17/2024 2:40 PM EDT) Anatomical Region Laterality Modality Abdomen, Pelvis Computed Tomogra phy (CT) 06/17/2024 3:23 PM EDT Impressions 06/17/2024 3:33 PM EDT 1. Mild mucosal thickening in the descending colon, concerning for mild acute infectious or inflammatory colitis. Please correlate with nature of clinical symptoms. Lower endoscopy may be of value. Note is made that this finding is quite subtle, and could conceivably be related to simply a decompressed descending colon. Images reviewed, interpreted, and dictated by Ken Colon MD Narrative 06/17/2024 3:33 PM EDT Name: ROBIN MENDEZ : 1965 CT SCAN OF THE ABDOMEN AND PELVIS WITH CONTRAST COMPARISON: 06 May 2011 HISTORY: Abdominal pain and nausea PROCEDURE: The patient was injected with 100 mL of Isovue-370. Oral contrast was also administered. Axial images were obtained from the lung bases to the pubic symphysis by computed tomography. Individualized dose reduction techniques using automated exposure control or adjustment of the mA and/or kV according to patient size were employed. FINDINGS: ABDOMEN: Mild scarring is noted at the lung bases. There is mild diffuse fatty infiltration of the liver. Gallbladder is surgically absent. Spleen, pancreas, adrenals, and kidneys appear unremarkable. There is mild prominence of the mucosa of the descending colon. There is minimal pericolonic stranding. Findings may be related to mild descending colitis. PELVIS: Urinary bladder is of normal size and configuration. The appendix is not clearly identified. Uterus is not identified. Procedure Note Ken Colon MD - 06/17/2024 Name: ROBIN MENDEZ : 1965 CT SCAN OF THE ABDOMEN AND PELVIS WITH CONTRAST COMPARISON: 06 May 2011 HISTORY: Abdominal pain and nausea PROCEDURE: The patient was injected with 100 mL of Isovue-370. Oral contrast was also administered. Axial images were obtained from the lung bases to the pubic symphysis by computed tomography. Individualized dose reduction techniques using automated exposure control or adjustment of the mA and/or kV according to patient size were employed. FINDINGS: ABDOMEN: Mild scarring is noted at the lung bases. There is mild diffuse fatty infiltration of the liver. Gallbladder is surgically absent. Spleen, pancreas, adrenals, and kidneys appear unremarkable. There is mild prominence of the mucosa of the descending colon. There is minimal pericolonic stranding. Findings may be related to mild descending colitis. PELVIS: Urinary bladder is of normal size and configuration. The appendix is not clearly identified. Uterus is not identified. IMPRESSION: 1. Mild mucosal thickening in the descending colon, concerning for mild acute infectious or inflammatory colitis. Please correlate with nature of clinical symptoms. Lower endoscopy may be of value. Note is made that this finding is quite subtle, and could conceivably be related to simply a decompressed descending colon. Images reviewed, interpreted, and dictated by Ken Colon MD Mana Rodriguez PA-C [facility] CT ORDERABLES Final Result * POC-Creatinine (06/17/2024 2:16 PM EDT) POC-Creatinine 1.0 mg/dL 06/17/2024 2:19 PM EDT [facility] POC-EGFR 66 mL/min/1. 73M2 06/17/2024 2:19 PM EDT [facility] Comment:Proceed with contras t if eGFR > 45 ml/min/1.73 when performed on the NovaSTAT strip Creatinine meter. Compressor Technician GUSTAVO ELIZABETH 06/17/2024 2:19 PM EDT [facility] Blood 06/17/2024 2:16 PM EDT 06/17/2024 2:19 PM EDT Narrative [facility] - 06/17/2024 2:19 PM EDT Compressor Technician ID is - [id number] us Mana Rodriguez PA-C POINT OF CARE TEST ORDERABLES Final Result [facility] [address] [phone] * EXTERNAL LAB - MISC (06/13/2024 2:02 PM EDT) us Minda Browne DO LAB BLOOD ORDERABLES Fin al Result * EXTERNAL IMAGING - US (06/13/2024 1:48 PM EDT) Anatomical Region Laterality Modality Other us Minda Browne DO HEALTH MAINTENANCE Final Result * (ABNORMAL) Hemoglobin A1c (04/30/2024 3:02 PM EST) Hemoglobin A1c 5.8(H) 4.8 - 5.6 % [facility] Comment: Prediabetes: 5.7 - 6.4 Diabetes: >6.4 Glycemic control for adults with diabetes: <7.0 Blood 04/30/2024 3:02 PM EST 04/30/2024 Narrative [facility] - 05/07/2024 8:07 PM EST Performed at: 01 - [facility] [id number] Senior Automation Engineer: Cliff Nugent PhD, Phone: [phone] us Ana Amin APRN LAB BLOOD ORDERABLES Fin al Result [facility] from Last 3 Months or Most Recently Relevant to Health Maintenance Insurance MEDICAID OF [place] [employer] MCR ADV Care Teams Reporting Analyst Relationship Specialty Start Date End Date Mariluz Reyes DO [address] [place] [address] PCP - General Family Medicine 01/18/24 Mana Rodriguez PA-C [address] [place] [address] Gastroenterology 05/16/24
--- OUTSIDE RECORDS SUMMARY | 2024-09-02 09:56 | XMS_ITS | Encounter Summary ---
Author Organization [employer] Address [address] [place] [address] Care Team Providers Care Family And Consumer Education Teacher Name Role Phone Mariluz Reyes DO Primary Care Provider [phone] Mana Rodriguez PA-C Unavailable [phone] Encounter Details Date Type Department Care Team (Late st Contact Info) Description 2024 Orders Only [facility] Primary Care [address] [place] [address] Mariluz Reyes DO [address] [place] [address] Mixed hyperlipidemia (Primary Dx); Environmental allergies; Gastroesophageal reflux disease without esophagitis; HTN (hypertension) Social History Tobacco Use Types Packs/Day Years [...] Date Rayray rded Speak language other than Portuguese at home Not on file 03/29/2023 Want [...] Description 09/06/2024 10:30 AM EDT Procedure Visit [facility] Neurology - [address] [facility] [address] [place] [id number] Nik Gu MD [address] [facility] [address] [place] [address] 09/19/2024 1:15 PM EDT Office Visit [facility] Bariatric Services [address] [place] [address] Ann Espana, EMERGENCY DEPARTMENT COORDINATOR [address] [place] [address] 10/15/2024 9:00 AM EDT Office Visit [facility] Primary Care [address] [place] [address] Mariluz Reyes DO [address] [place], [place] [id number] 10/24/2024 10:30 AM EDT Office Visit [facility] Gastroenterology [address] [facility] [address] [place] [id number] Mana Rodriguez PA-C [address] [place] [phone] documented as of this encounter Visit Diagnoses Diagnosis Mixed hyperlipidemia- Primary Environmental allergies Other allergy, other than to medicinal agents Gastroesophageal reflux disease without esophagitis Esophageal reflux HTN (hypertension) Unspecified essential hypertension documented in this encounter Care Teams Family And Consumer Education Teacher Relationship Specialty Start Date End Date Mariluz Reyes, [address] [place] [address] PCP - General Family Medicine 01/18/24 Mana Rodriguez PA-C [address] [place] [address] [place] [id number] Gastroenterology 05/16/24 documented as of this encounter
--- OUTSIDE RECORDS SUMMARY | 2024-09-02 09:56 | XMS_ITS | Encounter Summary ---
Author Organization [facility] [employer] Address [address] [place] [address] Care Team Providers Care Storage Management Architect Name Role Phone Elvi Posada MD Primary Care Provider [phone] Mariluz Reyes DO Primary Care Provider [phone] Mariluz Reyes DO Primary Care Provider [phone] Mana Rodriguez PA-C Unavailable [phone] Encounter Details Date Type Department Care Team (Late st Contact Info) Description 02/04/2020 Transcribed Document [facility] [place] [address] [place] [address] ProviderLeslie MD [address] [place] [address] Social History Tobacco Use Types [...] Miscellaneous Notes * Cerner Conversion Note - Leslie ProviderMD - 02/04/2020 7:08 AM CABINET MAKER Peripheral Nerve Block Entered On: 02/04/2020 7:09 EST Performed On: 02/04/2020 7:08 EST by SANCHEZ WEAVER Peripheral Nerve Block Peripheral Nerve Block Start Date/Time : 02/04/2020 6:55 EST Verbally Confirm Pt, Site, and Procedure : Yes Time Out Pause Time : 02/04/2020 6:55 EST Site Preparation : Chlorhexidine (Hibiclens) Peripheral Nerve Block : Popliteal Laterality : Left Peripheral Nerve Block Performed by : AARON MCNALLY MD-ANS Medication Delivery Method : Single Shot Peripheral Nerve Block Assisted by : SANCHEZ WEAVER Ultra sound used during insertion : Yes Nerve Block Activity, Patient Tolerance : Good Peripheral Nerve Block End Date/Time : 02/04/2020 7:00 EST SANCHEZ WEAVER - 02/04/2020 7:08 EST documented in this encounter Plan of Treatment Upcoming Encounters Date Type Department Care Team (Late st Contact Info) Description 09/06/2024 10:30 AM EDT Procedure Visit [facility] Neurology - [facility] [address] [facility] [address] [place] [address] Nik Gu MD [address] [facility] [address] [place] [address] 09/19/2024 1:15 PM EDT Office Visit [facility] Bariatric Services [address] [facility] [address] [place] [address] Ann Espana, CARD ROOM MANAGER [address] [place] [address] 10/15/2024 9:00 AM EDT Office Visit [facility] Primary Care [address] [place] [address] Mariluz Reyes DO [address] [place] [address] 10/24/2024 10:30 AM EDT Office Visit [facility] Gastroenterology [address] [facility] [address] [place] [address] Mana Rodriguez PA-C [address] [facility] [address] [place] [address] documented as of this encounter Visit Diagnoses Not on filedocumented in this encounter Care Teams Storage Management Architect Relationship Specialty Start Date End Date Elvi Posada MD PCP - General Family Medicine 01/21/22 12/19/23 Mariluz Reyes, [address] [place] [address] PCP - General Family Medicine 12/20/23 01/13/24 Mariluz Reyes DO [address] [facility] [address] [place] [address] PCP - General Family Medicine 01/18/24 Mana Rodriguez PA-C [address] [facility] [address] [place] [id number] Gastroenterology 05/16/24 documented as of this encounter
--- OUTSIDE RECORDS SUMMARY | 2024-09-02 09:56 | XMS_ITS | Encounter Summary ---
Author Organization [facility] Address [address] [place] [address] Care Team Providers Care Stick Roller Name Role Phone Elvi Posada MD Primary Care Provider [phone] Mariluz Reyes DO Primary Care Provider [phone] Mariluz Reyes DO Primary Care Provider Mana Rodriguez PA-C Unavailable [phone] Encounter Details Date Type Department Care Team (Late st Contact Info) Description 02/04/2020 Transcribed Document [facility] [place] [address] [place] [address] ProviderLeslie MD [address] [place] [address] Social History Tobacco Use Types [...] - Historical ProviderMD - 02/04/2020 7:48 AM PROCESS DEVELOPMENT ENGINEER [facility] Main OR IntraOp Summary Primary Physician: ALAN TREVINO DPM-HANNAH Finalized Date/Time: 02/05/20 09:48:27 Pt. Name: ROBIN MENDEZ Zaira /Sex: 1965 Female Med Rec #: [id number] Physician: ALAN TREVINO DPM-SUR Financial #: [id number] Pt. Type: O Room/Bed: / Admit/Disch: 02/04/20 08:24:00 - 02/04/20 10:12:00 Institution: [facility] IntraOp Case Attendance Entry 1 Entry 2 Entry 3 Case Attendee ALAN TREVINO DPM-SUR VON KUSTER, MARIE BARRETT, LAURIE, MD-ANS LYNNETTE, PATIENT ADMITTING REPRESENTATIVE Role Performed Surgeon/Proceduralist, PATIENT ADMITTING REPRESENTATIVE/Nurse Scale Tester Anesthesiologist First Time In 02/04/20 07:28:00 02/04/20 07:28:00 02/04/20 07:28:00 Time Out 02/04/20 08:17:00 02/04/20 08:17:00 02/04/20 08:17:00 Procedure Plantar Fascia Release Plantar Fascia Release Plantar Fascia Release Endoscopic(Left) Endoscopic(Left) Endoscopic(Left) Other Attendee Superficial Wound Closed By: Last Modified By: Laine Oates Rn Taylor, Carolyn, Laine Melara Rn 02/04/20 08:20:56 02/04/20 08:20:56 02/04/20 08:20:56 Entry 4 Entry 5 Entry 6 Case Attendee Laine Oates, INDIRA Haley, Jarad Guidry, Primary Health Organisation Manager Role Performed Tractor Trailer Technician, First Tractor Trailer Technician, Second Scrub, First Time In 02/04/20 07:28:00 02/04/20 07:28:00 02/04/20 07:28:00 Time Out 02/04/20 08:17:00 02/04/20 08:17:00 02/04/20 08:17:00 Procedure Plantar Fascia Release Plantar Fascia Release Plantar Fascia Release Endoscopic(Left) Endoscopic(Left) Endoscopic(Left) Other Attendee Superficial Wound Closed By: Last Modified By: Laine Oates, Laine Melara, Laine Melara Rn 02/04/20 08:20:56 02/04/20 08:20:56 02/04/20 08:20:56 Entry 7 Case Attendee Donaldo Powell CARE ASST-HEALTH Role Performed Student Time In 02/04/20 07:28:00 Time Out 02/04/20 08:17:00 Procedure Plantar Fascia Release Endoscopic(Left) Other Attendee Superficial Wound Closed By: Last Modified By: Laine Oates Rn 02/04/20 08:20:56 [facility] IntraOp Case Attendance Audit 02/04/20 08:20:56 Wire Inserter: [id number] Modifier: [id number] 1 <+> Time Out 1 <*> Procedure Plantar Fascia Release Endoscopic(Left) 2 <+> Time Out 2 <*> Procedure Plantar Fascia Release Endoscopic(Left) 3 <+> Time Out 3 <*> Procedure Plantar Fascia Release Endoscopic(Left) 4 <+> Time Out 4 <*> Procedure Plantar Fascia Release Endoscopic(Left) 5 <+> Time Out 5 <*> Procedure Plantar Fascia Release Endoscopic(Left) 6 <+> Time Out 6 <*> Procedure Plantar Fascia Release Endoscopic(Left) 7 <+> Time Out 7 <*> Procedure Plantar Fascia Release Endoscopic(Left) 02/04/20 07:58:02 Wire Inserter: [id number] Modifier: [id number] <+> 1 Procedure 2 <*> Procedure Plantar Fascia Release Endoscopic(Left) 3 <*> Procedure Plantar Fascia Release Endoscopic(Left) 4 <*> Procedure Plantar Fascia Release Endoscopic(Left) 5 <*> Procedure Plantar Fascia Release Endoscopic(Left) 6 <*> Procedure Plantar Fascia Release Endoscopic(Left) 7 <*> Procedure Plantar Fascia Release Endoscopic(Left) 02/04/20 07:49:21 Wire Inserter: [id number] Modifier: [id number] <+> 1 Time In 2 <+> Time In 2 <*> Procedure Plantar Fascia Release Endoscopic(Left) 3 <+> Time In 3 <*> Procedure Plantar Fascia Release Endoscopic(Left) 4 <+> Time In 4 <*> Procedure Plantar Fascia Release Endoscopic(Left) 5 <+> Time In 5 <*> Procedure Plantar Fascia Release Endoscopic(Left) 6 <+> Time In 6 <*> Procedure Plantar Fascia Release Endoscopic(Left) 7 <+> Time In 7 <*> Procedure Plantar Fascia Release Endoscopic(Left) [facility] IntraOp Case Times Entry 1 Patient In Room Time 02/04/20 07:28:00 Out Room Time 02/04/20 08:17:00 Anesthesia Start Time 02/04/20 07:28:00 Stop Time 02/04/20 08:22:00 Surgery / Procedure Times Start Time 02/04/20 07:48:00 Stop Time 02/04/20 08:15:00 Last Modified By: Laine Oates Rn 02/04/20 08:20:53 [facility] IntraOp Case Times Audit 02/04/20 08:21:02 Wire Inserter: [id number] Modifier: [id number] <+> 1 Start Time 02/04/20 08:20:53 Wire Inserter: [id number] Modifier: [id number] <+> 1 Out Room Time <+> 1 Stop Time <+> 1 Stop Time 02/04/20 07:49:26 Wire Inserter: [id number] Modifier: [id number] 1 <*> Start Time 02/04/20 07:48:00 [facility] IntraOp Cautery Entry 1 ESU Identification Cautery Type Monopolar ESU ID Number [id number] ID Type Hospital Number Cautery Settings Cut Setting 30 Coag Setting 30 ESU Grounding Pad Ground Pad Type Adult Grounding Pad Site Left Lower Abdomen Grounding Pad Laine Oates Rn Applied By Grounding Pad Site Warm, dry and intact Skin Condition Before Cautery Grounding Pad Site Unchanged Skin Condition After Cautery Last Modified By: Laine Oates Rn 02/04/20 07:51:00 [facility] IntraOp Communication Entry 1 Communication To Family/Significant other Communication By INDIRA CRUZ RN Date and Time 02/04/20 07:58:00 Last Modified By: Laine Oates Rn 02/04/20 07:58:13 [facility] IntraOp Counts Verification Entry 1 Procedure Plantar Fascia Release Endoscopic(Left) Count Info Count Type Sponge, Sharps Counts Verification Baseline/pre-procedure Sequence Count Results Not Applicable Counts Performed By Count Performed By Jarad Ramos, Surgical (Scrub) Manager Oracle Count Performed By INDIRA CRUZ RN (RN) Last Modified By: Laine Oates Rn 02/04/20 07:51:15 [facility] IntraOp Counts Final Entry 1 Procedure Plantar Fascia Release Endoscopic(Left) Final Count Info Count Type Sponge, Sharps Counts Verification Skin Closure/end of Sequence procedure Count Results Correct, surgeon notified Counts Performed By Count Performed By Jarad Ramos, Surgical (Scrub) Manager Oracle Count Performed By INDIRA CRUZ RN (RN) Last Modified By: Laine Oates Rn 02/04/20 07:51:25 [facility] IntraOp Counts Final Audit 02/04/20 08:03:17 Wire Inserter: [id number] Modifier: [id number] 1 <*> Procedure Plantar Fascia Release Endoscopic(Left) 1 <+> Count Results [facility] IntraOp Delays Entry 1 Delay Reason No Delay Duration 0 Minute(s) Last Modified By: Laine Oates Rn 02/04/20 07:51:33 [facility] IntraOp Departure from OR Entry 1 Integumentary Assessment Integumentary WDL Assessment WDL Transfer/Handoff Transfer to PACU Phase I Handoff Method Online nursing summary Post-op Transport Stretcher/Gurney Via Patient Transport INDIRA CRUZ RN, Accompanied by MIGUELITO MONTIEL CRNA Last Modified By: Laine Oates Rn 02/04/20 07:51:55 [facility] IntraOp Dressing and Packing Entry 1 Type Dressing Location LEFT FOOT Applied By ALAN TREVINO DPM-HANNAH Last Modified By: Laine Oates Rn 02/04/20 07:52:13 [facility] IntraOp Fire Risk Assessment Entry 1 Fire Info Surgical Site or 0- No Incision Above the Xyphoid Open O2 Source 0- No (Mask or Cannula) Available Ignition 1- Yes (ESU, Laser, Light Source) Fire Risk 1 Assessment Score Fire Score Fire Risk Yes Assessment Complete Fire Risk Laine Oates Rn Assessment Verified By Fire Risk 02/04/20 07:45:00 Assessment Verified Date/Time Fire Risk Standard Fire Yes Safety Precautions Followed Last Modified By: Laine Oates Rn 02/04/20 07:52:34 [facility] IntraOp General Case Round Boner 1 Case Information OR OR 05 [facility] Case Level 1 Room Verified Yes Wound Class I - Clean Specialty SN Podiatry Anesthesia Type General ASA Class 2 Diagnosis Preop Diagnosis LEFT PLANTAR FASCITIS, GASTROCNEMIUS RECESSION Postop Same As Preop Yes Postop Diagnosis LEFT PLANTAR FASCITIS, GASTROCNEMIUS RECESSION Last Modified By: Laine Oates Rn 02/04/20 07:53:28 [facility] IntraOp General Case Data Audit 02/04/20 08:04:30 Wire Inserter: [id number] Modifier: [id number] 1 <*> Preop Diagnosis LEFT PLANTAR FASCITIS, GASTROCNEMIUS RECESSION 1 <*> Postop Diagnosis LEFT PLANTAR FASCITIS, GASTROCNEMIUS RECESSION [facility] IntraOp Intraoperative Assessment Entry 1 Handoff Method Online nursing summary Valid History / Yes Physical in Chart Preoperative Yes Checklist Reviewed/Evaluated Allergies Reviewed Yes Patient is Latex No Sensitive Isolation Contact Precautions Noted Level of WDL Consciousness (WDL = Alert, Oriented to Person, Place, and Time) Present Upon IVs Arrival to OR Last Modified By: Laine Oates Rn 02/04/20 07:53:44 [facility] IntraOp Intraoperative Equipment Entry 1 Type Monitoring Equipment Equipment Other ID Number [id number] [employer] Intraop Monitoring Antiembolic Devices Scopes Photo/Video Documentation Last Modified By: Laine Oates Rn 02/04/20 08:03:06 [facility] IntraOp Medication Admin Entry 1 Entry 2 Entry 3 Medication/Irrigant Bupivacaine .5% plain - lidocaine 0.5% 50ml NS 0.9% 2000ml [id number] --[id number] irrigation bottle --[id number] Combo Med List Time Administered 02/04/20 07:54:00 02/04/20 07:55:00 02/04/20 07:55:00 Route of MIXED WITH LIDOCAINE 1% LOCAL IRRIGATION ON FIELD Administration 1:1 Dose Dose 15 Unit of Measure ml Volume Administered By ALAN TREVINO DPM-SUR KIDON, ALAN, ALAN TOUSSAINT DPM-SUR Procedure Irrigation Irrigant Volume In Irrigant Volume Out Last Modified By: Laine Oates, Laine Melara, Laine Melara Rn 02/04/20 08:02:19 02/04/20 07:55:33 02/04/20 07:55:33 [facility] IntraOp Medication Admin Audit 02/04/20 08:02:19 Wire Inserter: [id number] Modifier: [id number] 1 <*> Medication/Irrigant Bupivacaine .5% plain - [id number] 1 <*> Route of Administration LOCAL 1 <+> Dose 1 <+> Unit of Measure [facility] IntraOp Patient Positioning Entry 1 Procedure Plantar Fascia Release Endoscopic(Left) Body Position Supine Left Arm Position Secured on padded arm board Right Arm Position Secured on padded arm board Left Leg Position Held on field Right Leg Position Uncrossed, parallel Positioning Devices Pad, Arm, Safety Strap, Thighs, Table, Taj Frame Positioned By MIGUELITO MONTIEL, BELINDA PATTERSON ALAN, DPM-SUR, Laine Oates, William Position Verified Positioning Yes Verified by Anesthesia Positioning Yes Verified by Surgeon Last Modified By: Laine Oates Rn 02/04/20 07:56:31 [facility] IntraOp Sign In Entry 1 Patient, Site, Yes Procedure Identified Surgical Consent Yes Confirmed Relevant Surgical Yes Documents Available Surgical Site Yes Marked by person performing procedure Anesthesia Machine Yes Check Completed Medication Checks Yes Completed Allergies Yes Airway Difficult No Airway/Aspiration Risk Difficult No Airway/Aspiration Intervention Equipment Available Blood Loss Risk No Blood Loss No Intervention Equipment Prepared and Ready Blood Identifiers Not applicable Verified Per Policy Hypothermia Risk No Warming Measures Yes Taken Last Modified By: Laine Oates Rn 02/04/20 07:56:59 [facility] IntraOp Sign Out Entry 1 RN Confirmation Surgical Yes Procedure(s) Identified Instrument, Sponge Yes and Sharps Counts Correct/Documented Equipment Problems N/A Documented Specimen Labeled N/A Correctly Urinary Catheter N/A Documented in IView [place] Patient Yes Recovery Concerns Reviewed with Anesthesia Provider, Surgeon and RN [place] Patient Yes Management Concerns Reviewed with Anesthesia Provider, Surgeon and RN Safety Checklist Yes Elements Complete? RN Sign Out Laine Oates Rn Signature RN Sign Out 02/04/20 08:20:00 Signature Date/Time Plan of Care Outcome - Fire Risk OUTCOME STATEMENT: Goal met Patient is free from injury related to surgical fire Plan of Care Outcome - Pt Positioning OUTCOME STATEMENT: Goal met Absence of signs and symptoms of positioning injury. Plan of Care Outcome - Skin Prep OUTCOME STATEMENT: Goal met Intraoperative care is consistent with measures to prevent infection Plan of Care Outcome - Xray/Images OUTCOME STATEMENT: N/A Absence of observable signs or symptoms of radiation injury Plan of Care Outcome - Counts OUTCOME STATEMENT: Goal met Absence of signs and symptoms of injury related to extraneous objects Last Modified By: Laine Oates Rn 02/04/20 07:57:23 [facility] IntraOp Sign Out Audit 02/04/20 08:21:12 Wire Inserter: [id number] Modifier: [id number] <+> 1 RN Sign Out Signature Date/Time [facility] IntraOp Skin Prep Entry 1 Procedure Plantar Fascia Release Endoscopic(Left) Prescribed N/A Pre-Surgical Prep Completed Prep Area LEFT FOOT AND LOWER LEG TO KNEE Intraop Prep Integumentary WDL Assessment WDL Prep Agents Chloraprep Prep by Laine Oates Rn Hair Removal Methods No hair removal performed Last Modified By: Laine Oates Rn 02/04/20 07:57:52 [facility] IntraOp Surgical Procedures Entry 1 Procedure Plantar Fascia Release Endoscopic Modifiers Left Additional (LT FOOT ENDOSCOPIC Procedure PLANTAR FASCIA RELEASE, Description LT LEG GASTROCNEMIUS RECESSION) Primary Procedure Yes Primary Surgeon ALAN TREVINO DPM-SUR Start 02/04/20 07:48:00 Stop 02/04/20 08:15:00 Anesthesia Type General Specialty SN Podiatry Wound Class I - Clean Last Modified By: Laine Oates Rn 02/04/20 07:58:02 [facility] IntraOp Surgical Procedures Audit 02/04/20 08:21:13 Wire Inserter: [id number] Modifier: [id number] <+> 1 Stop [facility] IntraOP Time Out Entry 1 Procedure to be Plantar Fascia Release Performed Endoscopic(Left) Time Out Time Out Pause Time 02/04/20 07:52:00 All activity Yes suspended (unless life threatening emergency) Team Verbally Correct patient Confirms Information identity, Correct side and site are marked, Consent form is present and accurate, Agreement on the procedure to be done, Correct patient position, Confirm antibiotics have been administered, Confirm the skin prep has dried, Performed in location of procedure after prepped/draped Antibiotic Yes Prophylaxis Administered Or In Progress Within the Last 60 Minutes Beta Nancy N/A Administered Venous N/A Thromboembolism Prophylaxis Required Anticipated Critical Events Surgeon None expected Anesthesia Provider None expected Nursing Assures Sterility of instruments Essential Imaging N/A Labeled and Displayed Last Modified By: Laine Oates Rn 02/04/20 07:53:06 [facility] IntraOp Tourniquet Entry 1 Type Pneumatic Serial/Unit Number [id number] Setting 300 mmHg Pheumatic Yes Tourniquet Checked Per Protocol Size 34 inches Placement Thigh, left upper Skin Protection - Yes Padded Under Cuff Applied By ALAN TREVINO DPM-SUR Removed By Jarad Ramos, Primary Health Organisation Manager Times Start Time 02/04/20 07:47:00 Stop Time 02/04/20 08:11:00 Total Time 24 calculated manually (Mins) Last Modified By: Laine Oates Rn 02/04/20 08:21:36 [facility] IntraOp Tourniquet Audit 02/04/20 08:21:36 Wire Inserter: [id number] Modifier: [id number] <+> 1 Total Time calculated manually (Mins) <+> 1 Stop Time Case Comments <None> Finalized By: DEEDEE PINZON Document Signatures Signed By: Laine Oates Rn 02/04/20 08:21 DEEDEE PINZON 02/05/20 09:48 Unfinalized History Date/Time Username Reason for Unfinalizing Freetext Reason for Unfinalizing 02/05/20 09:47 [email or web address] Correct Billing documented in this encounter Plan of Treatment Upcoming Encounters Date Type Department Care Team (Late st Contact Info) Description 09/06/2024 10:30 AM EDT Procedure Visit [facility] Neurology - [facility] [address] [facility] [address] [place] [address] Nik Gu MD [address] [facility] [address] [place] [address] 09/19/2024 1:15 PM EDT Office Visit [facility]ric Services [address] [facility] [address] [place] [address] Ann Espana, STUDENT SUCCESS ADVISOR [address] [place] [address] 10/15/2024 9:00 AM EDT Office Visit [facility] Primary Care [address] [place] [address] Mariluz Reyes DO [address] [place] [address] 10/24/2024 10:30 AM EDT Office Visit [facility] Gastroenterology [address] [facility] [address] [place] [address] Mana Rodriguez PA-C [address] [address] documented as of this encounter Visit Diagnoses Not on filedocumented in this encounter Care Teams Stick Roller Relationship Specialty Start Date End Date Elvi Posada MD PCP - General Family Medicine 01/21/22 12/19/23 Mariluz Reyes DO [address] [place] [address] PCP - General Family Medicine 12/20/23 01/13/24 Mariluz Reyes DO [address] [facility] [address] [place] [address] PCP - General Family Medicine 01/18/24 Mana Rodriguez PA-C [address] [address] Gastroenterology 05/16/24 documented as of this encounter
--- OUTSIDE RECORDS SUMMARY | 2024-09-02 09:56 | XMS_ITS | Encounter Summary ---
Author Organization [employer] Address [address] [place] [address] Care Team Providers Care Senior Technical Recruiter Name Role Phone Mariluz Reyes DO Primary Care Provider [phone] Mana Rodriguez PA-C Unavailable Reason for Visit * Auth/Cert (Routine) Specialty Diagnoses / Procedures Referred By Rahul t Referred To Contact Diagnoses Abdominal pain abdominal pain, diarrhea, bloating, nausea Procedures OK COLONOSCOPY FLX DX W/COLLJ SPEC WHEN PFRMD OK ESOPHAGOGASTRODUODENOSCOPY TRANSORAL DIAGNOSTIC COLONOSCOPY EGD (ESOPHAGOGASTRODUODENOSCOPY) [facility] 1 [place] [address] Phone: tel: fax: [facility] 1 [place] [address] Phone: tel: fax: Referral ID Status Reason Start Date Expiration Date Visits Re quested Visits Authorized [id number] 1 1 Encounter Details Date Type Department Care Team (Late st Contact Info) Description 08/22/2024 Surgery [facility] 1 [place] [address] Mary Goins MD [address] [facility] [address] [place], [place] [id number] Social History Tobacco Use Types Packs/Day Years [...] Date Rayray rded Speak language other than Spanish at home Not on file 03/29/2023 Want [...] PM CDT documented as of this encounter H&P Notes * Mary Goins MD - 08/22/2024 7:27 AM EDT HPI Patient did not show. History Of Present Illness Patient is here today for evaluation of epigastric abdominal pain worse after eating, nausea and early satiety, alternating bowel habits with foul odor. Seen in office 05/16/24 by Mana Columbus, PAC. No blood in stools and denies dysphagia. Recent infectious colitis as noted below. S/p CCY 2002. Frequent migraines and has asthma. Mana stopped her oral iron suspecting it may have been causing some of her GI upset and no recordsof iron deficiency, she also advised her to avoid NSAIDs and recommended a lactose free diet. No known family history of GI disease or malignancy. Occasional NSAIDs. Denies use of aspirin, anticoagulation/antiplatelets. Previous EGD: Dr. Miller per Mana note. No records Previous Colonoscopy: 2023 per PCP note but no records found. Recent imaging or labs: CT in May showing mild mucosal thickening in the descending colon and stool test was positive for campylobacter--treated with Azithromycin. Inflammatory markers, celiac panel negative. Normal iron studies. Current GI Meds: Protonix daily for several years, Linzess as needed Past Medical History Past Medical History: Diagnosis Date Allergy Asthma Migraines Neuropathy Surgical History Past Surgical History: Procedure Laterality Date CHOLECYSTECTOMY HYSTERECTOMY KNEE SURGERY Bilateral right total , left partial Social History Social History Tobacco Use Smoking status: Never Smokeless tobacco: Never Vaping Use Vaping status: Never Used Substance Use Topics Alcohol use: Never Drug use: Never Family History Family History Problem Relation Name Age of Onset Aneurysm Mother Heart disease Father Seizures Sister Diabetes Brother Allergies Allergies Allergen Reactions Codeine Itching 1no rash, just [id number] Tramadol Other reaction(s): Insomnia, Itching Medications Current Facility-Administered Medications: cyanocobalamin injection 1,000 mcg, 1,000 mcg, intraMUSCULAR, Q30 Days, Nova White, DO, 1,000 mcg at 07/16/24 1147 Current Outpatient Medications: albuterol 90 mcg/actuation inhaler, [...] by mouth daily., Disp: 90 tablet,Rfl: 3 phentermine 15 MG capsule, Take 1 capsule (15 mg total) by mouth every morning for 30 days. Max Daily Amount: 15 mg, Disp: 30 capsule, Rfl: 0 pyridoxine, vitamin B6, (VITAMIN B6) 500 MG tablet, Take 1 tablet (500 mg total) by mouth daily., Disp: 90 tablet, Rfl: 0 sod sulf-pot chloride-mag sulf (Sutab) 1.479-0.188- 0.225 gram tab, Take 12 tablets by mouth as directed Take first 12 tablets at 4 pm evening before procedure. Take remaining 12 tablets at 10 pm evening before procedure.., Disp: 24 tablet, Rfl: 0 Spiriva Respimat 1.25 mcg/actuation mist inhalation, Inhale 2 puffs by mouth once daily. (Patient not taking: Reported on 2024), Disp: 4 g, Rfl: 3 syringe-needle,safety,disp unt 3 mL 25 gauge x 5/8 syrg, Use as directed for B12 subcutaneous Injections. (Patient not taking: Reported on 2024), Disp: 100 each, Rfl: 0 thiamine (vitamin B-1) 100 MG tablet, Take 1 tablet (100 mg total) by mouth daily., Disp: 30 tablet, Rfl: 11 topiramate (QUDEXY XR) 150 mg ER capsule, Take 1 capsule by mouth once daily, Disp: 30 capsule, Rfl: 0 Veozah 45 mg tab, Take 1 tablet by mouth daily., Disp: , Rfl: Review of Systems Review of Systems All other systems reviewed and are negative. VITALS No data recorded Physical Exam Physical Exam Constitutional: Appearance: Normal appearance. HENT: Head: Normocephalic and atraumatic. Mouth/Throat: Mouth: Mucous membranes are moist. Eyes: Extraocular Movements: Extraocular movements intact. Pupils: Pupils are equal, round, and reactive to light. Cardiovascular: Rate and Rhythm: Normal rate and regular rhythm. Heart sounds: Normal heart sounds. Pulmonary: Effort: Pulmonary effort is normal. Breath sounds: Normal breath sounds. Abdominal: General: Abdomen is flat. Bowel sounds are normal. Palpations: Abdomen is soft. Tenderness: There is no abdominal tenderness. Musculoskeletal: General: Normal range of motion. Cervical back: Normal range of motion and neck supple. Skin: General: Skin is warm and dry. Neurological: Mental Status: She is alert and oriented to person, place, and time. Psychiatric: Mood and Affect: Mood normal. Behavior: Behavior normal. Assessment & Plan Epigastric abdominal pain worse after eating, nausea and early satiety, alternating bowel habits with foul odor with recent infectious colitis. Proceed with EGD and colonoscopy for further evaluation. Risks including that of infection, splenic rupture, bleeding and perforation have been discussed with the patient who verbalizes understanding and agrees to proceed. Further recommendations will be based on the above findings. Electronically signed by: STEFFEN CUTLER PA-C, 10:39 AM 08/22/24 documented in this encounter Plan of Treatment Upcoming Encounters Date Type Department Care Team (Late st Contact Info) Description 09/06/2024 10:30 AM EDT Procedure Visit [facility] Neurology - [address] [facility] [address] [place] [id number] [place] [address] [place] [address] [address] [place] [address] 09/19/2024 1:15 PM EDT Office Visit [facility]ariat[facility] Services [address] [facility] [address] [place] [address] Ann Espana, CORE WINDING OPERATOR [address] [place] [address] 10/15/2024 9:00 AM EDT Office Visit [facility] Primary Care [address] [place] [address] Mariluz eRyes DO [address] [place], [place] [id number] 10/24/2024 10:30 AM EDT Office Visit [facility] Gastroenterology [address] [facility] [address] [place] [address] Mana Rodriguez PA-C [address] [place] [address] documented as of this encounter Visit Diagnoses Diagnosis Abdominal pain- Primary Abdominal pain, unspecified site Abdominal pain Abdominal pain, unspecified site documented in this encounter Admitting Diagnoses Diagnosis Abdominal pain Abdominal pain, unspecified site documented in this encounter Care Teams Senior Technical Recruiter Relationship Specialty Start Date End Date Mariluz Reyes DO [address] [place] [address] PCP - General Family Medicine 01/18/24 Maan Rodriguez PA-C [address] [place] [address] Gastroenterology 05/16/24 documented as of this encounter
--- OUTSIDE RECORDS SUMMARY | 2024-09-02 09:56 | XMS_ITS | Referral Summary ---
Author Organization [employer] Address [address] [place] [address] Care Team Providers Care Lithoplate Maker Name Role Phone Mariluz Reyes DO Primary Care Provider [phone] Mana Rodriguez PA-C Unavailable [phone] Encounters Date Type Department Care Team Description 08/22/2024 9:10 AM EDT Anesthesia Event [facility] 1 [place] [address] MD 08/22/2024 Surgery [facility] Endoscopy 1 [place] [address] Mary Goins MD 08/22/2024 Hospital Encounter [facility] Endoscopy 1 [place] [address] Mary Goins MD 2024 Telephone [facility] Endoscopy 1 [place] [address] Wilfrid English RN Appointment (/) 2024 Travel 2024 Orders Only [facility] Primary Care [address] [place] [address] Mariluz Reyes DO Mixed hyperlipidemia (Primary Dx); Environmental allergies; Gastroesophageal reflux disease without esophagitis; HTN (hypertension) 2024 2:00 PM EDT Office Visit [facility] Bariatric Services [address] [place] [address] Ann Espana APRN BMI 35.0-35.9,adult (Primary Dx) 08/09/2024 Abstract [facility] Primary Care [address] [place] [address] Mariluz Reyes DO 08/08/2024 Abstract [facility] Primary Care [address] [place] [address] Mariluz Reyes DO 08/06/2024 Telephone [facility] Neurology - [facility] [address] [place] [address] Ana Amin APRN Medication Refill 07/31/2024 Refill [facility] Neurology - [facility] [address] [place] [address] Ana Amin APRN 07/28/2024 Orders Only [facility] Primary Care [address] [place] [address] Mariluz Reyes DO Moderate persistent allergic asthma 07/26/2024 Travel 07/25/2024 Telephone [facility] Primary Care [address] [place] [address] Mariluz Reyes DO Medication Problem 07/16/2024 Travel 07/16/2024 9:00 AM EDT Office Visit [facility] Primary [facility] [address] [place] [address] Mariluz Reyes, Vitamin B6 deficiency neuropathy (HCC) (Primary Dx); Moderate persistent allergic asthma; Obesity, class 2; Hypokalemia; B12 deficiency 06/19/2024 Telephone [facility] Gastroenterology [address] [facility] [address] [place] [address] Mana Rodriguez PA-C med question 06/17/2024 12:26 PM EDT - 06/17/2024 11:59 PM EDT Hospital Encounter [facility] CT Imaging [address] [place] [address] Mana Rodriguez PA-C Abdominal pain; Diarrhea; Nausea; Gastroesophageal reflux disease, unspecified whether esophagitis present; Abnormal stools; Abdominal bloating Discharge Disposition: Home or Self Care 06/13/2024 Orders Only [facility] Primary Care [address] [place] [address] Minda Browne, DO 06/10/2024 Abstract [facility] Primary Care [address] [place] [address] Mariluz Reyes, DO 06/08/2024 Refill [facility] Neurology - [place] [address] [place] [address] Ana Amin APRN from Last 3 Months Allergies Active Allergy Reactions Criticality Noted Date Comments Codeine Itching 06/15/2015 1no rash, just [id number] Tramadol 07/29/2022 Other reaction(s): Insomnia, Itching Medications [...] capsule (72 mcg total) by mouth daily. 024 Active cholecalciferol, vitamin D3, 1,250 mcg (50,000 unit) capsule Take 1 cap weekly for 8 weeks then once monthly. 10 capsule 1 024 Active ferrous gluconate (FERGON) 324 MG tabletIndication s:Iron deficiency Take 1 tablet (324 mg total) by mouth daily with breakfast. 90 tablet 025 Active cyanocobalamin 1,000 mcg/mL injectionIndicat ions:B12 deficiency Inject 1ml subcutaneously weekly for 4 doses and then start monthly injections for 6 doses. 10 mL Active syringe-needletabitha disp unt 3 mL 25 gauge x 5/8 syrgIndications: B12 deficiency Use as directed for B12 subcutaneous Injections. 100 each Active Additional Information Patient not taking.Reported on 2024 folic acid (FOLVITE) 1 MG tablet Take 1 tablet (1 mg total) by mouth daily. 30 tablet 025 2025 Active thiamine (vitamin B-1) 100 MG tabletIndication s:Moderate persistent allergic asthma Take 1 tablet (100 mg total) by mouth daily. 30 tablet 2025 Active Spiriva Respimat 1.25 mcg/actuation mist [...] Daily Amount: 1,800 mg 270 tablet 1 2024 Discontinued Hospital, Clinic, or Other Facility [...] persistent headache 01/18/2024 01/18/2024 Pain 01/18/2024 05/14/2024 Immunizations Name Administration Dates Next Due (Shingrix, Recombinant, Adju vanted) Zoster Vaccine IM 09/30/2021,07/15/2021 Hep A / Hep B 07/17/2018,02/20/2018,12/31/2017 Influenza Four-QIV 6MO+ PF IM ([id number]) Influenza Four-qiv Pf 01/13/2021,12/10/2016 Influenza Quad-qiv Non Pf 01/12/2018,12/10/2016 Influenza Three-TIV Non-PF 4+YRS IM 12/10/2016 Influenza Three-tiv Non-pf 12/26/2011 Influenza Three-tiv Pf 12/31/2013 Pneumococcal Conjugate Vacci ne (20-Valent) IM 03/28/2023 Pneumococcal Polysaccharide (Pneumovax) 12/16/19 17 Td (Adult) 10/08/2010 Td 7+ years, (TDVAX) 2 Lf te tanus toxoid preservative free 10/15/2002 Tdap 10/07/2022,10/17/2011,10/08/2010 Social History Tobacco Use Types Packs/Day Years [...] Date Rayray rded Speak language other than [place] Islander at home Not on file 03/29/2023 Want [...] Description 09/06/2024 10:30 AM EDT Procedure Visit [facility] Neurology - [address] [place] [address] Nik Gu MD [address] [facility] [address] [place] [address] 09/19/2024 1:15 PM EDT Office Visit [facility]ariatric Services [address] [facility] [address] [place] [address] Ann Espana, COIN WRAPPING MACHINE OPERATOR [address] [place] [address] 10/15/2024 9:00 AM EDT Office Visit [facility] Primary Care [address] [place] [address] Mariluz Reyes DO [address] [place] [address] 10/24/2024 10:30 AM EDT Office Visit [facility] Gastroenterology [address] [facility] [address] [place] [address] Mana Rodriguez PA-C [address] [place], [place] [id number] Procedures Procedure Name Priority Date/Time Associated Diagnosis [...] Renal function panel (07/16/2024 10:35 AM EDT) [facility] Glucose, Serum 96 70 - 99 mg/dL [...] - 07/17/2024 4:06 AM EDT Performed at: [address] [place] [id number] Senior Bookkeeper: Cliff Nugent PhD, Phone: [phone] us Nova White DO LAB BLOOD ORDERABLES [...] interpreted, and dictated by Ken Colon MD us Mana Rodriguez PA-C IMG CT ORDERABLES Final Result * POC-Creatinine (06/17/2024 2:16 PM EDT) POC-Creatinine 1.0 mg/dL 06/17/2024 2:19 PM EDT [facility] POC-EGFR 66 mL/min/1. 73M2 06/17/2024 2:19 PM EDT [facility] Comment:Proceed with contras t if eGFR > 45 ml/min/1.73 when performed on the NovaSTAT strip Creatinine meter. Infusion Therapy Nurse EILZABETH CHEN 06/17/2024 2:19 PM EDT [facility] Blood 06/17/2024 2:16 PM EDT 06/17/2024 2:19 PM EDT Narrative [facility] - 06/17/2024 2:19 PM EDT Infusion Therapy Nurse ID is - [id number] us Mana Rodriguez PA-C POINT OF CARE TEST ORDERABLES Final Result [facility] [address] [phone] * EXTERNAL LAB - MISC (06/13/2024 2:02 [...] 8:07 PM EST Performed at: 01 - [facility] [address] [id number] Senior Bookkeeper: Cliff Nugent PhD, Phone: [phone] us Ana Amin APRN LAB BLOOD ORDERABLES Fin al Result [facility] from Last 3 Months or Most Recently Relevant to Health Maintenance Insurance MEDICAID OF [place] [employer] [facility] AD[facility] Care Teams Lithoplate Maker Relationship Specialty Start Date End Date Mariluz Ryees DO [address] [place] [address] PCP - General Family Medicine 01/18/24 Mana Rodriguez PA-C [address] [place], [place] [id number] Gastroenterology 05/16/24
--- OUTSIDE RECORDS SUMMARY | 2024-09-02 09:56 | XMS_ITS | Encounter Summary ---
Author Organization [employer] Address [address] [place] [address] Care Team Providers Care Warehouse Assembly Worker Name Role Phone Elvi Posada MD Primary Care Provider [phone] Mariluz Reyes DO Primary Care Provider [phone] Mariluz Reyes DO Primary Care Provider [phone] Mana Rodriguez PA-C Unavailable [phone] Encounter Details Date Type Department Care Team (Late st Contact Info) Description 02/04/2020 Transcribed Document [facility] [place] Family Medicine [address] [place] [address] ProviderLeslie MD [address] [place] [address] Social History Tobacco Use Types [...] Notes * Cerner Conversion Note - Leslie Garcia MD - 02/04/2020 9:41 AM CONSTRUCTION SALES MANAGER Patient Education Materials Follows: General Anesthesia, Adult, Care After This sheet gives you information about how to care for yourself after your procedure. Your health care provider may also give you more specific instructions. If you have problems or questions, contact your health care provider. What can I expect after the procedure? After the procedure, the following side effects are common: ??? Pain or discomfort at the IV site. ??? Nausea. ??? Vomiting. ??? Sore throat. ??? Trouble concentrating. ??? Feeling cold or chills. ??? Weak or tired. ??? Sleepiness and fatigue. ??? Soreness and body aches. These side effects can affect parts of the body that were not involved in surgery. Follow these instructions at home: For at least 24 hours after the procedure: ??? Have a responsible adult stay with you. It is important to have someone help care for you until you are awake and alert. ??? Rest as needed. ??? Do not: ? Participate in activities in which you could fall or become injured. ? Drive. ? Use heavy machinery. ? Drink alcohol. ? Take sleeping pills or medicines that cause drowsiness. ? Make important decisions or sign legal documents. ? Take care of children on your own. Eating and drinking ??? Follow any instructions from your health care provider about eating or drinking restrictions. ??? When you feel hungry, start by eating small amounts of foods that are soft and easy to digest (bland), such as toast. Gradually return to your regular diet. ??? Drink enough fluid to keep your urine pale yellow. ??? If you vomit, rehydrate by drinking water, juice, or clear broth. General instructions ??? If you have sleep apnea, surgery and certain medicines can increase your risk for breathing problems. Follow instructions from your health care provider about wearing your sleep device: ? Anytime you are sleeping, including during daytime naps. ? While taking prescription pain medicines, sleeping medicines, or medicines that make you drowsy. ??? Return to your normal activities as told by your health care provider. Ask your health care provider what activities are safe for you. ??? Take qpto-xyx-vthxjyl and prescription medicines only as told by your health care provider. ??? If you smoke, do not smoke without supervision. ??? Keep all follow-up visits as told by your health care provider. This is important. Contact a health care provider if: ??? You have nausea or vomiting that does not get better with medicine. ??? You cannot eat or drink without vomiting. ??? You have pain that does not get better with medicine. ??? You are unable to pass urine. ??? You develop a skin rash. ??? You have a fever. ??? You have redness around your IV site that gets worse. Get help right away if: ??? You have difficulty breathing. ??? You have chest pain. ??? You have blood in your urine or stool, or you vomit blood. Summary ??? After the procedure, it is common to have a sore throat or nausea. It is also common to feel tired. ??? Have a responsible adult stay with you for the first 24 hours after general anesthesia. It is important to have someone help care for you until you are awake and alert. ??? When you feel hungry, start by eating small amounts of foods that are soft and easy to digest (bland), such as toast. Gradually return to your regular diet. ??? Drink enough fluid to keep your urine pale yellow. ??? Return to your normal activities as told by your health care provider. Ask your health care provider what activities are safe for you. This information is not intended to replace advice given to you by your health care provider. Make sure you discuss any questions you have with your health care provider. Document Released: 06/12/2001 Document Revised: 03/09/2018 Document Reviewed: 10/20/2017 Elsevier Patient Education ? 2019 [employer] Electronically signed by Ayden Mandujano Conversion Child And Family Services Specialist Cerner at 07/05/2022 3:39 PM CDT documented in this encounter Plan of Treatment Upcoming Encounters Date Type Department Care Team (Late st Contact Info) Description 09/06/2024 10:30 AM EDT Procedure Visit [facility] Neurology - [address] [facility] [address] [place] [address] [place] [address] [place] [address] [address] [place] [address] 09/19/2024 1:15 PM EDT Office Visit [facility] Bariatric Services [address] [facility] [address] [place] [address] Ann Espana, CUTTING MACHINE OPERATOR HELPER [address] [place] [address] 10/15/2024 9:00 AM EDT Office Visit [facility] Primary Care [address] [place] [address] Mariluz Reyes DO [address] [place], [place] [id number] 10/24/2024 10:30 AM EDT Office Visit [facility] Gastroenterology [address] [facility] [address] [place] [address] Mana Rodriguez PA-C [address] [facility] [address] [place] [address] documented as of this encounter Visit Diagnoses Not on filedocumented in this encounter Care Teams Warehouse Assembly Worker Relationship Specialty Start Date End Date Elvi Posada MD PCP - General Family Medicine 01/21/22 12/19/23 Mariluz Reyes DO [address] [place] [address] PCP - General Family Medicine 12/20/23 01/13/24 Mariluz Reyes DO [address] [place] [address] PCP - General Family Medicine 01/18/24 Mana Rodriguez PA-C [address] [facility] [address] [place], [place] [id number] Gastroenterology 05/16/24 documented as of this encounter
--- OUTSIDE RECORDS SUMMARY | 2024-09-02 09:56 | XMS_ITS | Encounter Summary ---
Author Organization [employer] Address [address] [place] [address] Care Team Providers Care Outreach Analyst Name Role Phone Elvi Posada MD Primary Care Provider [phone] Mariluz Reyes DO Primary Care Provider [phone] Mariluz Reyes DO Primary Care Provider [phone] Mana Rodriguez PA-C Unavailable [phone] Encounter Details Date Type Department Care Team (Late st Contact Info) Description 02/04/2020 Transcribed Document [facility] [address] [place] [address] ProviderLeslie MD [address] [place] [address] Social History Tobacco Use Types [...] - Historical ProviderMD - 02/04/2020 7:48 AM CASKET COVERER [facility] Main OR Preop Summary Primary Physician: ALAN TREVINO DPM-SUR Finalized Date/Time: 02/04/20 11:59:14 Pt. Name: ROBIN MENDEZ Zaira CarreraB./Sex: 1965 Female Med Rec #: [id number] Physician: ALAN TREVINO DPM-HANNAH Financial #: [id number] Pt. Type: O Room/Bed: / Admit/Disch: 02/04/20 08:24:00 - Institution: [facility] PreOp Case Times Entry 1 In Preop 02/04/20 05:50:00 Ready for Holding n/a Room Patient Ready for 02/04/20 07:12:00 Surgery Patient Out of Preop 02/04/20 07:23:00 Patient Out of n/a Holding Room Last Modified By: SANCHEZ WEAVER 02/04/20 11:59:11 [facility] PreOp Case Times Audit 02/04/20 11:59:11 Supervisor Fabrication: [email or web address] Modifier: [email or web address] <+> 1 Patient Out of Preop Finalized By: SANCHEZ WEAVER Document Signatures Signed By: SANCHEZ WEAVER 02/04/20 11:59 documented in this encounter Plan of Treatment Upcoming Encounters Date Type Department Care Team (Late st Contact Info) Description 09/06/2024 10:30 AM EDT Procedure Visit [facility] Neurology - [facility] [address] [facility] [address] [place] [id number] Nik Gu MD [address] [place] [address] [address] [place] [address] 09/19/2024 1:15 PM EDT Office Visit [facility] Bariatric Services [address] [facility] [address] [place] [address] Ann Espana, LABORER AIRPORT MAINTENANCE [address] [place] [address] 10/15/2024 9:00 AM EDT Office Visit [facility] Primary Care [address] [place] [address] Mariluz Reyes DO [address] [place] [address] 10/24/2024 10:30 AM EDT Office Visit [facility] Gastroenterology [address] [facility] [address] [place] [address] Mana Rodriguez PA-C [address] [facility] [address] [place] [id number] documented as of this encounter Visit Diagnoses Not on filedocumented in this encounter Care Teams Outreach Analyst Relationship Specialty Start Date End Date Elvi Posada MD PCP - General Family Medicine 01/21/22 12/19/23 Mariluz Reyes DO [address] [place] [address] PCP - General Family Medicine 12/20/23 01/13/24 Mariluz Reyes DO [address] [place] [address] PCP - General Family Medicine 01/18/24 Mana Rodriguez PA-C [address] [place] [address] [address] [place] [address] Gastroenterology 05/16/24 documented as of this encounter
--- OUTSIDE RECORDS SUMMARY | 2024-09-02 09:56 | XMS_ITS | Encounter Summary ---
Author Organization [employer] Address [address] [place] [address] Care Team Providers Care Acupuncture Physician Name Role Phone Elvi Posada MD Primary Care Provider [phone] Mariluz Reyes DO Primary Care Provider [phone] Mariluz Reyes DO Primary Care Provider [phone] Mana Rodriguez PA-C Unavailable [phone] Encounter Details Date Type Department Care Team (Late st Contact Info) Description 02/04/2020 Transcribed Document [facility] [place] [address] [place] [address] ProviderLeslie MD [address] [place] [address] Social History Tobacco Use Types [...] Conversion Note - Leslie ProviderMD - 02/04/2020 6:15 AM RESEARCH CHEMIST Patient: ALLISON MENDEZ Age: 54 years Sex: Female : 1965 Associated Diagnoses: None Author: COMER, JOSE Gonzalez APRN Chief Complaint L plantar fasciitis Review of Systems ROS reviewed as documented in chart no change since last seen by surgeon [facility] Status Allergies: Allergic Reactions (Selected) Severity Not Documented TraMADol- Insomnia and itching. Nonallergic Reactions (Selected) Severity Not Documented Codeine- Itching., Allergies (2) Active Reaction codeine Itching traMADol Insomnia Current medications: (Selected) Inpatient Medications Ordered Ancef: 2 Gram, 50 mL, 100 mL/Hr, IV Piggyback, PREOP Lactated Ringers Injection intravenous solution 1,000 mL: 20 mL/Hr, IntraVENous fentaNYL: 50 mcg, IV Push, Q10Min, PRN: Pain midazolam: 2 mg, IV Push, Q10Min, PRN: Anxiety Documented Medications Documented Breo Ellipta 200 mcg-25 mcg/inh inhalation powder: 1 Puff, Inhalation, Daily, 0 Refill(s) Flonase: 1 [place], Nostrils Both, Daily, 0 Refill(s) Premarin 0.9 mg oral tablet: Tab, Oral, Daily, 0 Refill(s) ProAir HFA 90 mcg/inh inhalation aerosol: 2 Puff, Inhalation, QID, PRN: as needed for wheezing, 0 Refill(s) Xolair 150 mg subcutaneous injection: mg, SubCutaneous, Q2Woyeg, 0 Refill(s) atorvastatin 20 mg oral tablet: Tab, Oral, Daily, 0 Refill(s) gabapentin 300 mg oral capsule: 2 Cap, Oral, At Bedtime, 0 Refill(s) hydroCHLOROthiazide 12.5 mg oral tablet: 12.5 mg, Oral, Daily, 90 Tab, 0 Refill(s) levocetirizine 5 mg oral tablet: 5 mg, Oral, QAM, 0 Refill(s) metFORMIN 500 mg oral tablet: 0.5 Tab, Oral, Daily, 180 Tab, 0 Refill(s) pantoprazole 40 mg oral delayed release tablet: 1 Tab, Oral, Daily, PRN: Indigestion, 30 Tab, 0 Refill(s) topiramate 100 mg oral tablet: 1 Tab, Oral, BID, 0 Refill(s) valsartan: 40 mg, Oral, Daily, 0 Refill(s), Home Medications (13) Active atorvastatin 20 mg oral tablet , Oral, Daily Breo Ellipta 200 mcg-25 mcg/inh inhalation powder 1 Puff, Inhalation, Daily Flonase 1 [place], Nostrils Both, Daily gabapentin 300 mg oral capsule 600 mg = 2 Cap, Oral, At Bedtime hydroCHLOROthiazide 12.5 mg oral tablet 12.5 mg, Oral, Daily levocetirizine 5 mg oral tablet 5 mg, Oral, QAM metFORMIN 500 mg oral tablet 250 mg = 0.5 Tab, Oral, Daily pantoprazole 40 mg oral delayed release tablet 40 mg = 1 Tab, PRN, Oral, Daily Premarin 0.9 mg oral tablet , Oral, Daily ProAir HFA 90 mcg/inh inhalation aerosol 2 Puff, PRN, Inhalation, QID topiramate 100 mg oral tablet 100 mg = 1 Tab, Oral, BID valsartan 40 mg, Oral, Daily Xolair 150 mg subcutaneous injection , SubCutaneous, [id number] , Medications (4) Active Scheduled: (1) ceFAZolin/D5w 2 Gram 50 mL, IV Piggyback, PREOP Continuous: (1) lactated ringers 1,000 mL 1,000 mL, IntraVENous, 20 mL/Hr PRN: (2) fentaNYL 100 mcg/2 mL inj 50 mcg 1 mL, IV Push, Q10Min midazolam 1 mg/1 mL inj 2 mL 2 mg 2 mL, IV Push, Q10Min Problem list: All Problems Chronic Sinusitis / SNOMED CT 06379087 / Confirmed Seasonal allergies / SNOMED CT 949596847 / Confirmed Plantar fasciitis kristine / SNOMED CT 234822888 / Confirmed Pain (just above right breast) / SNOMED CT 91211421 / Confirmed Osteoarthritis / SNOMED CT 3571496094 / Confirmed Migraines / SNOMED CT 61020906 / Confirmed 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 / SNOMED CT 8433801691 / Confirmed Knee pain, right / SNOMED CT 01829945 / Confirmed Kidney stones(hx of) / SNOMED CT 163067928 / Confirmed HTN (hypertension) / SNOMED CT 9162448975 / Confirmed Acid reflux / SNOMED CT 350504426 / Confirmed Diabetes / SNOMED CT 331987474 / Confirmed Abnormal heart rhythm / SNOMED CT 5077709166 / Confirmed Back pain / SNOMED CT 505119328 / Confirmed At risk for sleep apnea / IMO 14785168 / Confirmed Asthma / SNOMED CT 891182361 / Confirmed Anxiety / SNOMED CT 02612894 / Confirmed, Active Problems (17) Abnormal heart rhythm Acid reflux Anxiety Asthma At risk for sleep apnea Back pain Chronic Sinusitis Diabetes HTN (hypertension) Kidney stones(hx of) Knee pain, right 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 Family History: No family history items have been selected or recorded. Procedure history: BELLA / BSO. lithotripsy. Lap cholecystectomy. left UKA. cardiac cath (no stents/no intervention). right UKA. Hysterectomy 1998 ([id number]). Appendectomy ([id number]). Physical Examination VS/Measurements No qualifying data available General: Alert and oriented, No acute distress, obese. Eye: Pupils are equal, round and reactive to light, Extraocular movements are intact, glasses. HENT: Normocephalic, Normal hearing. Neck: Supple, Non-tender. Respiratory: Lungs are clear to auscultation, Respirations are non-labored. Cardiovascular: Normal rate, Regular rhythm, No murmur, No gallop, No edema. Gastrointestinal: Soft, Non-tender. Genitourinary: No costovertebral angle tenderness. Lymphatics: No lymphadenopathy neck, axilla, groin. Musculoskeletal: Normal strength, painful ROM L foot, wears boot. Integumentary: Warm, Dry, Entiat. Neurologic: Alert, Oriented. Psychiatric: Cooperative, Appropriate mood & affect. Review / Management Results review: No qualifying data available. Impression and Plan Condition: Stable. documented in this encounter Plan of Treatment Upcoming Encounters Date Type Department Care Team (Late st Contact Info) Description 09/06/2024 10:30 AM EDT Procedure Visit [facility] Neurology - [address] [facility] [address] [place] [address] Nik Gu MD [address] [facility] [address] [place] [address] 09/19/2024 1:15 PM EDT Office Visit [facility] Bariatric Services [address] [facility] [address] [place] [address] Ann Espana, INTERIOR PAINTER [address] [place] [address] 10/15/2024 9:00 AM EDT Office Visit [facility] Primary Care [address] [place] [address] Mariluz Reyes DO [address] [place] [address] 10/24/2024 10:30 AM EDT Office Visit [facility] Gastroenterology [address] [facility] [address] [place] [address] Mana Rodriguez PA-C [address] [facility] [address] [place] [address] documented as of this encounter Visit Diagnoses Not on filedocumented in this encounter Care Teams Acupuncture Physician Relationship Specialty Start Date End Date Elvi Posada MD PCP - General Family Medicine 01/21/22 12/19/23 Mariluz Reyes DO [address] [place] [address] PCP - General Family Medicine 12/20/23 01/13/24 Mariluz Reyes DO [address] [place] [address] PCP - General Family Medicine 01/18/24 Mana Rodriguez PA-C [address] [facility] [address] [place], [place] [address] Gastroenterology 05/16/24 documented as of this encounter
--- OUTSIDE RECORDS SUMMARY | 2024-09-02 09:56 | XMS_ITS | Encounter Summary ---
Author Organization [employer] Address [address] [place] [address] Care Team Providers Care Cash Management Clerk Name Role Phone Elvi Posada MD Primary Care Provider [phone] Mariluz Reyes DO Primary Care Provider [phone] Mariluz Reyes DO Primary Care Provider [phone] Mana Rodriguez PA-C Unavailable [phone] Encounter Details Date Type Department Care Team (Late st Contact Info) Description 02/04/2020 Transcribed Document [facility] [place] [address] [place] [address] ProviderLeslie MD [address] [place] [address] Social History Tobacco Use Types [...] - Historical ProviderMD - 02/04/2020 7:48 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 Name: ROBIN MENDEZ Zaira /Sex: 1965 Female Med Rec #: [id number] Physician: ALAN TREVINO DPM-HANNAH Financial #: [id number] Pt. Type: O Room/Bed: / Admit/Disch: 02/04/20 08:24:00 - Institution: [facility] Main OR PACU I Case Times Entry 1 In PACU I 02/04/20 08:20:00 Ready for PACU 02/04/20 09:22:00 Discharge Discharge from PACU 02/04/20 09:22:00 I Last Modified By: TERESA FRANCO RN 02/04/20 09:28:19 Finalized By: TERESA FRANCO, RN Document Signatures Signed By: TERESA FRANCO RN 02/04/20 09:28 Electronically signed by Nazia [facility] Conversion Home Health Care Physician Cerner at 07/05/2022 3:34 PM CDT documented in this encounter Plan of Treatment Upcoming Encounters Date Type Department Care Team (Late st Contact Info) Description 09/06/2024 10:30 AM EDT Procedure Visit [facility] Neurology - [address] [facility] [address] [place] [address] Nik Gu MD [address] [facility] [address] [place] [address] 09/19/2024 1:15 PM EDT Office Visit [facility] Bariatric Services [address] [facility] [address] [place] [address] Ann Espana, REPTILE KEEPER [address] [place] [address] 10/15/2024 9:00 AM EDT Office Visit [facility] Primary Care [address] [place] [address] Mariluz Reyes DO [address] [place] [address] 10/24/2024 10:30 AM EDT Office Visit [facility] Gastroenterology [address] [facility] [address] [place] [address] Mana Rodriguez PA-C [address] [facility] [address] [place], [place] [phone] documented as of this encounter Visit Diagnoses Not on filedocumented in this encounter Care Teams Cash Management Clerk Relationship Specialty Start Date End Date Elvi Posada MD PCP - General Family Medicine 01/21/22 12/19/23 Mariluz Reyes DO [address] [facility] [address] [place] [address] PCP - General Family Medicine 12/20/23 01/13/24 Mariluz Reyes DO [address] [facility] [address] [place] [address] PCP - General Family Medicine 01/18/24 Mana Rodriguez PA-C [address] [facility] [address] [place], [place] [id number] Gastroenterology 05/16/24 documented as of this encounter
--- OUTSIDE RECORDS SUMMARY | 2024-09-02 09:56 | XMS_ITS | Encounter Summary ---
Author Organization [email or web address] Address [address] [place] [address] Care Team Providers Care Payment Processor Name Role Phone Analy Reyessarah Primary Care Provider [phone] Mana Rodriguez PA-C Unavailable [phone] Encounter Details Date Type Department Care Team (Latest Contact Info) Description 2024 Travel Social History Tobacco Use Types Packs/Day [...] Date Rayray rded Speak language other than Mongolian at home Not on file 03/29/2023 Want [...] Description 09/06/2024 10:30 AM EDT Procedure Visit [facility] Neurology - [facility] [address] [facility] [address] [place] [address] Nik Gu MD [address] [facility] [address] [place] [address] 09/19/2024 1:15 PM EDT Office Visit [facility] Bariatric Services [address] [facility] [address] [place] [address] Ann Espana, OPTICAL LABORATORY MECHANIC [address] [place] [address] 10/15/2024 9:00 AM EDT Office Visit [facility] Primary Care [address] [place] [address] Mariluz Reyes DO [address] [place] [address] 10/24/2024 10:30 AM EDT Office Visit [facility] Gastroenterology [address] [facility] [address] [place] [address] Mana Rodriguez PA-C [address] [address] documented as of this encounter Visit Diagnoses Not on filedocumented in this encounter Care Teams Payment Processor Relationship Specialty Start Date End Date EricMariluz DO [address] [place] [address] PCP - General Family Medicine 01/18/24 Mana Rodriguez PA-C [address] [address] Gastroenterology 05/16/24 documented as of this encounter
--- OUTSIDE RECORDS SUMMARY | 2024-09-02 09:56 | XMS_ITS | Encounter Summary ---
Author Organization [employer] Address [address] [place] [address] Care Team Providers Care County Adviser Name Role Phone Elvi Posada MD Primary Care Provider Mariluz Reyes DO Primary Care Provider [phone] Mariluz Reyes DO Primary Care Provider [phone] Mana Rodriguez PA-C Unavailable [phone] Encounter Details Date Type Department Care Team (Late st Contact Info) Description 02/04/2020 Transcribed Document [facility] Family Medicine [address] [place] [address] ProviderLeslie MD [address] [place] [address] Social History Tobacco Use Types [...] Conversion Note - Leslie ProviderMD - 02/04/2020 8:26 AM 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 She underwent radiographs as well as conservative treatment therapy for approximately 2 months. She underwent immobilization therapy and walking boot. She underwent local steroid injection to her left foot. She had used oral anti-inflammatories as well as modified her activity level in her shoe gear. She is still had pain and desired further treatment options. I discussed with her possible treatment options including conservative and surgical treatment. I discussed with her the possible risks, benefits and complications of each option. She elects for surgical treatment for her left foot. I discussed the surgical plan as well as necessary recovery period. All questions were answered. No guarantees were given. The patient consents for surgery to her left foot and presents today for surgery. Physical exam: Vascular: DP and PT pulses palpable +2 out of 4 to bilateral feet. Capillary refill time less than 3 seconds to digits of bilateral feet. Dermatological: Mild diffuse edema noted to bilateral lower extremities. Neurological: Protective sensation is grossly intact to bilateral lower extremities. Musculoskeletal: Gastrocnemius equinus is noted to the left lower extremity. Ankle joint range of motion is noted to be less than 10??. Pain on palpation noted to the plantar medial tubercle of the calcaneal tuberosity of the left foot. No pain with compression of the calcaneus is noted. *Preoperative Diagnosis Plantar fasciitis left foot Gastrocnemius equinus left leg Pain left foot *Postoperative Diagnosis Plantar fasciitis left foot Gastrocnemius equinus left leg Pain left foot *Surgeon(s) Primary Surgeon ALAN TREVINO DPM-SUR (Surgeon/Proceduralist, First) *Procedure Narrative The patient was seen in the preoperative holding area where I discussed reviewed the consent and procedure in detail with the patient. I again reviewed all possible risks, benefits and complications. She understands this. All questions were answered. No guarantees were given. The consent was signed and charted. The operative foot was confirmed and marked. The patient was then transported from the preoperative holding area to the operating room and placed in the operative table in the supine position. At this time anesthesia was ministered by the anesthesiologist. Following this, a pneumatic thigh tourniquet was applied over copious amounts of padding just above the left thigh. The left lower extremity was then prepped using ChloraPrep and draped in normal sterile fashion. Timeout was called and the patient and procedure were confirmed. The left lower extremity was then elevated and exsanguinated using an Esmarch bandage and the pneumatic thigh tourniquet was inflated to 300 mmHg. A local nerve block was then given to the left foot and leg at the incision sites using 15 cc of 1% lidocaine and 0.5% Marcaine plain in a 1:1 mixture. Attention was then directed towards the medial aspect of the left calf where an approximate 3 cm linear incision was made using a #15 blade. Incision was deepened down to subcutaneous tissue to the layer of the gastrocnemius fascia. Blunt dissection was utilized to dissect to the fascia. At this time, a small fascial incision was made underlying the original skin incision. Combination of blunt dissection and retraction was utilized to visualize the gastrocnemius and soleus fascia and muscle. A speculum was utilized for retraction and the gastrocnemius was visualized. At this time using a long handled #15 blade, the gastrocnemius was carefully incised and at this level the fascia was carefully released and a straight transverse fashion. The foot was dorsiflexed and there is noted to be adequate release achieved. Incision site was then irrigated with copious amounts of sterile saline solution. Fascia was reapproximated using 2-0 Vicryl. Subcutaneous taste tissues reapproximated using 2-0 Vicryl. Skin was reapproximated using 3-0 nylon. Attention was then directed towards the plantar aspect of the left foot where a approximate half centimeter incision was made inferior to the medial malleolus at the level of the plantar fascia. Blunt dissection was utilized and a hemostat was used to free up soft tissue across the plantar aspect of foot. At this time the blunt obturator was utilized and passed from medial to lateral and a half centimeter incision was made on the lateral aspect of the foot. The cannula for the endoscopic system was utilized and passed through the portal. The camera was inserted and the plantar fascia was visualized. At this time using the triangle blade and a standard fashion, approximately 50% of the medial and central band were released of the plantar fascia. The foot was dorsiflexed and there is noted to be adequate release achieved. This was carefully visualized using endoscopy. The camera and cannula were then removed and the incision site was irrigated with copious amounts of sterile saline solution. Incision sites were then deemed adequate for closure. Incision sites were reapproximated using 3-0 nylon. All the incision sites were then dressed utilizing Acticoat silver, 4 x 4 gauze, Kerlix and an Fred bandage and a mildly compressive dressing. The pneumatic thigh tourniquet was deflated and instantaneous perfusion was noted to the digits of the left foot. The patient was then awoken from anesthesia and tolerated the procedure and anesthesia well. The patient was then transported from the operative room to the postoperative area with vital signs stable and vascular status intact. In the postoperative area the patient received oral and written postoperative instructions. The patient will be allowed minimal protected weight bearing in a walking boot at all times to the left foot. Patient follow-up in the office in approximately 1 week. Drains/Packs Used None Anesthesia General KIRSTEN OVALLES MD-ANS (Anesthesiologist) *Estimated Blood Loss Minimal *Findings Hemostasis: Thigh tourniquet 300 mm hg Materials: None Injectable: 15 cc of 1% lidocaine and 0.5% Marcaine plain 1:1 mix left foot and leg *Specimen(s) None Complications None Technique Condition: Stable Date of Service Date/Time of Service SN - Proc - Start Time: 02/04/20 07:48:00 (02/04/20 07:58:02) documented in this encounter Plan of Treatment Upcoming Encounters Date Type Department Care Team (Late st Contact Info) Description 09/06/2024 10:30 AM EDT Procedure Visit [facility] Neurology - [address] [facility] [address] [place] [id number] Nik Gu MD [address] [facility] [address] [place] [address] 09/19/2024 1:15 PM EDT Office Visit [facility] Bariatric Services [address] [facility] [address] [place] [address] Ann Espana, CORPORATE TRAVEL CONSULTANT [address] [place] [address] 10/15/2024 9:00 AM EDT Office Visit [facility] Primary Care [address] [place] [address] Mariluz Reyes DO [address] [place] [address] 10/24/2024 10:30 AM EDT Office Visit [facility] Gastroenterology [address] [facility] [address] [place] [address] Mana Rodriguez PA-C [address] [facility] [address] [place] [address] documented as of this encounter Visit Diagnoses Not on filedocumented in this encounter Care Teams County Adviser Relationship Specialty Start Date End Date Elvi Posada MD PCP - General Family Medicine 01/21/22 12/19/23 Mariluz Reyes DO [address] [place] [address] PCP - General Family Medicine 12/20/23 01/13/24 Mariluz Reyes DO [address] [place] [address] PCP - General Family Medicine 01/18/24 Mana Rodriguez PA-C [address] [facility] [address] [place] [address] Gastroenterology 05/16/24 documented as of this encounter
--- OUTSIDE RECORDS SUMMARY | 2024-09-02 09:56 | XMS_ITS | Encounter Summary ---
Author Organization [employer] Address [address] [place] [address] Care Team Providers Care Water Registrar Name Role Phone Elvi Posdaa MD Primary Care Provider [phone] Mariluz Reyes DO Primary Care Provider [phone] Mariluz Reyes DO Primary Care Provider [phone] Mana Rodriguez PA-C Unavailable [phone] Reason for Visit * Reason Comments Medication Refill Encounter Details Date Type Department Care Team (Late st Contact Info) Description 05/15/2022 Refill [facility] Neurology - [facility] [address] [facility] [address] [place] [address] Ana Amin APRN [address] [facility] [address] [place] [address] Social History Tobacco Use Types Packs/Day Years [...] Description 09/06/2024 10:30 AM EDT Procedure Visit [facility] Neurology - [address] [place] [address] Nik Gu MD [address] [place] [address] 09/19/2024 1:15 PM EDT Office Visit [facility] Bariatric Services [address] [place] [address] Ann Espana, FIELD AIDE [address] [place] [address] 10/15/2024 9:00 AM EDT Office Visit [facility] Primary Care [address] [place] [address] Mariluz Reyes DO [address] [place] [address] 10/24/2024 10:30 AM EDT Office Visit [facility] Gastroenterology [address] [facility] [address] [place] [address] Mana Rodriguez PA-C [address] [place], [place] [id number] documented as of this encounter Visit Diagnoses Not on filedocumented in this encounter Care Teams Water Registrar Relationship Specialty Start Date End Date Elvi Posada MD PCP - General Family Medicine 01/21/22 12/19/23 Mariluz Reyes DO [address] [place] [address] PCP - General Family Medicine 12/20/23 01/13/24 Mariluz Reyes DO [address] [place] [address] PCP - General Family Medicine 01/18/24 Mana Rodriguez PA-C [address] [place] [id number] Gastroenterology 05/16/24 documented as of this encounter
--- OUTSIDE RECORDS SUMMARY | 2024-09-02 09:56 | XMS_ITS | Encounter Summary ---
Author Organization [employer] Address [address] [place] [address] Care Team Providers Care Prospecting Observer Name Role Phone Elvi Posada MD Primary Care Provider [phone] Mariluz Reyes DO Primary Care Provider [phone] Mariluz Reyes DO Primary Care Provider [phone] Mana Rodriguez PA-C Unavailable [phone] Encounter Details Date Type Department Care Team (Late st Contact Info) Description 02/04/2020 Transcribed Document [facility] [address] [place] [address] ProviderLeslie MD [address] [place] [address] Social History Tobacco Use Types [...] Note - Leslie Garcia MD - 02/04/2020 9:44 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 [address] ALLISON MENDEZ :1965 Visit Time:02/04/2020 What to do next Instructions From Your Care Team Diet after Discharge: Resume usual diet as tolerated, Do not drink any alcoholic beverages, Drink at least 8-10 glasses of water per day : _ Activity after Discharge: As tolerated, Rest and relax today, No strenuous activity : _ Weight Bearing: _weight bearing as needed ith boot Bedrest: _ Driving after Discharge: Do not drive until 24 hours after no longer taking pain medications May Return to Work/School: Showering/Bathing: No showering, No tub bathing, soaking or swimming Notify Provider of:fever, chills or bleeding Wound/Incision Care after Discharge: Keep operative site/wound site clean and dry; ice pack 2o minutes on 20 mins off; no ice hile sleeping , _ Medical Equipment for Home Use: Home Health Services: Community Services: Follow-Up Appointments Follow Up with ALAN TREVINO When Within 2 to 3 days Where: [address] [place] [address]- [facility] (1) Medications What How Much When Instructions Next Dose albuterol (ProAir HFA 90 mcg/ inh inhalation aerosol) 2 Puff(s) Inhalation Four Times A Day as needed for as needed for wheezing atorvastatin (atorvastatin 20 mg oral tablet) Oral Every Day conjugated estrogens (Premarin 0.9 mg oral tablet) Oral Every Day fluticasone nasal (Flonase) 1 [place](s) Nostrils Both Every Day fluticasone-vilanterol (Breo Ellipta 200 mcg-25 mcg/ inh inhalation powder) 1 Puff(s) Inhalation Every Day gabapentin (gabapentin 300 mg oral capsule) 2 Capsule(s) Oral At Bedtime hydroCHLOROthiazide (hydroCHLOROthiazide 12.5 mg oral tablet) 12.5 Milligram(s) Oral Every Day levocetirizine (levocetirizine 5 mg oral tablet) 5 Milligram(s) Oral Every Morning metFORMIN (metFORMIN 500 mg oral tablet) 0.5 Tablet(s) Oral Every Day omalizumab (Xolair 150 mg subcutaneous injection) SubCutaneous Every Two Weeks pantoprazole (pantoprazole 40 mg oral delayed release tablet) 1 Tablet(s) Oral Every Day as needed for Indigestion topiramate (topiramate 100 mg oral tablet) 1 Tablet(s) Oral Two Times A Day valsartan 40 Milligram(s) Oral Every Day Take your medications faithfully. Do NOT skip medication. Do NOT stop taking medications without the direction of a physician. Carry a list of your medications with you at all times, and take this medication list with you to your first follow up visit. Report any side effects. Avoid herbal remedies unless discussed with your physician. As part of your treatment plan, your physician may have prescribed a limited course of a controlled substance. This medication may be given to help people with moderate or severe pain or for other medical conditions, but there are risks involved with treatment. Common side effects may include nausea, constipation, drowsiness, sweating, itching, dry mouth, and rash. More serious side effects may include cognitive and motor impairment, like problems with thinking, concentrating, alertness, and movement (e.g. slowed reflexes), and driving and operating heavy machinery can be dangerous. It is important for you to talk to your physician if you have these side effects or questions. These controlled substances can produce physical dependence and be habit-forming if taken for an extended period of time, which means that the body has gotten used to them and may experience withdrawal symptoms if they are abruptly stopped. Withdrawal symptoms can include runny nose, sweating, goose bumps, diarrhea, abdominal cramping, rapid heartbeat, difficulty sleeping, and nervousness. Please dispose of unused and medications per pharmacy guidance. Education Materials General Anesthesia, Adult, Care After This sheet [...] activities are safe for you. ??? Take [id number] and prescription medicines only as told by [...] 06/12/2001 Document Revised: 03/09/2018 Document Reviewed: 10/20/2017 [employer] Patient Education ?? 2020 [employer]. acetaminophen and oxycodone (a SEET a MIN oh fen and OX i KOE done) Endocet 10/325, Endocet 2.5/325, Endocet 5/325, Endocet 7.5/325, Nalocet, Percocet, Primlev What is the most important information I should know about acetaminophen and oxycodone? MISUSE OF OPIOID MEDICINE CAN CAUSE ADDICTION, OVERDOSE, OR . Keep the medication in a place where others cannot get to it. An overdose of acetaminophen can damage your liver or cause . Call your doctor at once if you have pain in your upper stomach, loss of appetite, dark urine, or jaundice (yellowing of your skin or eyes). Taking opioid medicine during may cause life-threatening withdrawal symptoms in the . Fatal side effects can occur if you use opioid medicine with alcohol, or with other drugs that cause drowsiness or slow your breathing. Stop taking this medicine and call your doctor right away if you have skin redness or a rash that spreads and causes blistering and peeling. What is acetaminophen and oxycodone? Acetaminophen and oxycodone is a combination medicine used to relieve moderate to severe pain. Acetaminophen and oxycodone may also be used for purposes not listed in this medication guide. What should I discuss with my healthcare provider before taking acetaminophen and oxycodone? You should not use this medicine if you are allergic to acetaminophen or oxycodone, or if you have: ?? severe asthma or breathing problems; or ?? a blockage in your stomach or intestines. Tell your doctor if you have ever had: ?? breathing problems, sleep apnea; ?? liver disease; ?? a drug or alcohol addiction; ?? kidney disease; ?? a head injury or seizures; ?? urination problems; or ?? problems with your thyroid, pancreas, or gallbladder. If you use opioid medicine while you are , your baby could become dependent on the drug. This can cause life-threatening withdrawal symptoms in the baby after it is born. Babies born dependent on opioids may need medical treatment for several weeks. Do not breastfeed. This medicine can pass into breast milk and cause drowsiness, breathing problems, or in a nursing baby. How should I take acetaminophen and oxycodone? Follow all directions on your prescription label. Never take this medicine in larger amounts, or for longer than prescribed. An overdose can damage your liver or cause . Tell your doctor if you feel an increased urge to use more of this medicine. Never share this medicine with another person, especially someone with a history of drug abuse or addiction. MISUSE CAN CAUSE ADDICTION, OVERDOSE, OR . Keep the medicine in a place where others cannot get to it. Selling or giving away acetaminophen and oxycodone is against the law. Measure liquid medicine carefully. Use the dosing syringe provided, or use a medicine dose-measuring device (not a kitchen spoon). If you need surgery or medical tests, tell the doctor ahead of time that you are using this medicine. You should not stop using this medicine suddenly. Follow your doctor's instructions about tapering your dose. Store at room temperature away from moisture and heat. Keep track of your medicine. You should be aware if anyone is using it improperly or without a prescription. Do not keep leftover opioid medication. Just one dose can cause in someone using this medicine accidentally or improperly. Ask your pharmacist where to locate a drug take-back disposal program. If there is no take-back program, flush the unused medicine down the toilet. What happens if I miss a dose? Since this medicine is used for pain, you are not likely to miss a dose. Skip any missed dose if it is almost time for your next dose. Do not use two doses at one time. What happens if I overdose? Seek emergency medical attention or call the Poison Help line at . An overdose of acetaminophen and oxycodone can be fatal. The first signs of an acetaminophen overdose include loss of appetite, nausea, vomiting, stomach pain, sweating, and confusion or weakness. Later symptoms may include pain in your upper stomach, dark urine, and yellowing of your skin or the whites of your eyes. Overdose can also cause severe muscle weakness, pinpoint pupils, very slow breathing, extreme drowsiness, or coma. What should I avoid while taking acetaminophen and oxycodone? Avoid driving or operating machinery until you know how this medicine will affect you. Dizziness or drowsiness can cause falls, accidents, or severe injuries. Do not drink alcohol. Dangerous side effects or could occur. Ask a doctor or pharmacist before using any other medicine that may contain acetaminophen (sometimes abbreviated as APAP). Taking certain medications together can lead to a fatal overdose. What are the possible side effects of acetaminophen and oxycodone? Get emergency medical help if you have signs of an allergic reaction: hives; difficulty breathing; swelling of your face, lips, tongue, or throat. Opioid medicine can slow or stop your breathing, and may occur. A person caring for you should seek emergency medical attention if you have slow breathing with long pauses, blue colored lips, or if you are hard to wake up. In rare cases, acetaminophen may cause a severe skin reaction that can be fatal. This could occur even if you have taken acetaminophen in the past and had no reaction. Stop taking this medicine and call your doctor right away if you have skin redness or a rash that spreads and causes blistering and peeling. Call your doctor at once if you have: ?? noisy breathing, sighing, shallow breathing, breathing that stops during sleep; ?? a light-headed feeling, like you might pass out; ?? weakness, tiredness, fever, unusual bruising or bleeding; ?? confusion, unusual thoughts or behavior; ?? problems with urination; ?? liver problems--nausea, upper stomach pain, tiredness, loss of appetite, dark urine, joe-colored stools, jaundice (yellowing of the skin or eyes); or ?? low cortisol levels-- nausea, vomiting, loss of appetite, dizziness, worsening tiredness or weakness. Seek medical attention right away if you have symptoms of serotonin syndrome, such as: agitation, hallucinations, fever, sweating, shivering, fast heart rate, muscle stiffness, twitching, loss of coordination, nausea, vomiting, or diarrhea. Serious side effects may be more likely in older adults and those who are overweight, malnourished, or debilitated. Long-term use of opioid medication may affect fertility (ability to have children) in men or women. It is not known whether opioid effects on fertility are permanent. Common side effects include: ?? dizziness, drowsiness, feeling tired; ?? feelings of extreme happiness or sadness; ?? nausea, vomiting, stomach pain; ?? constipation; or ?? headache. This is not a complete list of side effects and others may occur. Call your doctor for medical advice about side effects. You may report side effects to FDA at 5-424-IZW-2101. What other drugs will affect acetaminophen and oxycodone? You may have breathing problems or withdrawal symptoms if you start or stop taking certain other medicines. Tell your doctor if you also use an antibiotic, antifungal medication, heart or blood pressure medication, seizure medication, or medicine to treat HIV or hepatitis C. Opioid medication can interact with many other drugs and cause dangerous side effects or . Be sure your doctor knows if you also use: ?? cold or allergy medicines, bronchodilator asthma/COPD medication, or a diuretic ('water pill'); ?? medicines for motion sickness, irritable bowel syndrome, or overactive bladder; ?? other narcotic medications--opioid pain medicine or prescription cough medicine; ?? a sedative like Valium--diazepam, alprazolam, lorazepam, Xanax, Klonopin, Versed, and others; ?? drugs that make you sleepy or slow your breathing--a sleeping pill, muscle relaxer, medicine to treat mood disorders or mental illness; ?? drugs that affect serotonin levels in your body--a stimulant, or medicine for depression, Parkinson's disease, migraine headaches, serious infections, or nausea and vomiting. This list is not complete. Other drugs may affect acetaminophen and oxycodone, including prescription and [id number] medicines, vitamins, and herbal products. Not all possible interactions are listed here. Where can I get more information? Your doctor or pharmacist can provide more information about acetaminophen and oxycodone. Remember, keep this and all other medicines out of the reach of children, never share your medicines with others, and use this medication only for the indication prescribed. Every effort has been made to ensure that the information provided by [employer]') is accurate, up-to-date, and complete, but no guarantee is made to that effect. Drug information contained herein may be time sensitive. [employer] information has been compiled for use by healthcare practitioners and consumers in the [place] and therefore [employer] does not warrant that uses outside of the [place] are appropriate, unless specifically indicated otherwise. [employer] drug information does not endorse drugs, diagnose patients or recommend therapy. [employer] drug information is an informational resource designed to assist licensed healthcare practitioners in caring for their patients and/or to serve consumers viewing this service as a supplement to, and not a substitute for, the expertise, skill, knowledge and judgment of healthcare practitioners. The absence of a warning for a given drug or drug combination in no way should be construed to indicate that the drug or drug combination is safe, effective or appropriate for any given patient. [employer] does not assume any responsibility for any aspect of healthcare administered with the aid of information [employer] provides. The information contained herein is not intended to cover all possible uses, directions, precautions, warnings, drug interactions, allergic reactions, or adverse effects. If you have questions about the drugs you are taking, check with your doctor, nurse or pharmacist. Copyright 3660-0482 [employer]. Version: .. Revision Date: 04/10/2019. Emergency Awareness and Preventative Care STROKE is an EMERGENCY Every Minute Counts Act FAST and Check for these signs: FACE Does the face look uneven? ARM Does one arm drift down? SPEECH Does their speech sound strange? TIME Call at any sign of stroke Stroke Risk Factors Atrial Fibrillation (irregular heartbeat) Diabetes Family history of stroke Heart Disease Heavy alcohol use High Blood Pressure High Cholesterol Physical inactivity and obesity Smoking Cigarette Smoking The facts are clear, cigarette smoking will shorten your life. Smoking can cause many illnesses along the way. As a healthcare provider, we recommend that you stop smoking. Assistance with quitting is available by contacting 0-182-SLIB-NOW. This is a free resource providing counseling, support, and referral. Or you may contact your personal physician. National Suicide Prevention Lifeline: The National Suicide Prevention Lifeline is a national network of local crisis centers that provides free and confidential emotional support to people in suicidal crisis or emotional distress 24 hours a day, 7 days a week. Don't Wait! Stop a Heart Attack Before it Starts What is a heart attack? A heart attack is damage or to a part of the heart from severely decreased or lack of blood flow to the heart. Over time, arteries can become narrow from the buildup of fat and cholesterol, which is called plaque. The plaque can rupture causing a blood clot to form. When the blood clot forms, the artery can become severely narrowed or completely blocked, causing a heart attack. Heart attack is the leading cause of in the [place]. 85% of muscle damage occurs within the first 2 hours. Delay in the recognition of heart attack symptoms increases the chances of . Know the early symptoms of a heart attack: Nausea Feeling of fullness in chest Jaw Pain Pain that travels down one or both arms Fatigue/being tired Anxiety Back Pain Chest pressure, squeezing, or discomfort Shortness of breath Sweating, or a cold sweat Feeling of impending doom There are unusual signs of a heart attack, too! Women, the elderly, and diabetics may present with atypical symptoms: Fainting/dizziness Weakness Confusion Risk Factors for a Heart Attack Some heart disease risk factors, such as age and family history, cannot be changed. Others, like smoking and lack of exercise, can be changed. Smoking High Cholesterol High Blood Pressure Family History Obesity Age Gender (Males are at higher risk) Lack of Exercise Diabetes Diet Stress Excessive Alcohol Intake If you or someone you know is experiencing the signs and symptoms of a heart attack, DON???T DELAY. Call immediately and seek help. If someone collapses, perform CPR! Do not attempt to drive if you are having symptoms of heart attack. Hands-Only CPR Why Hands-Only CPR? Hands-Only CPR has been shown to be as effective as conventional CPR for cardiac arrests that occur outside of a hospital. Survival depends on immediately receiving CPR from someone nearby. How do you perform Hands-Only CPR? There are two easy steps: Call if you see a teen or adult collapse Push hard and fast in the center of the chest at a beat of 100 beats per minute. Save a life! 4 WAYS TO GET AHEAD OF SEPSIS SEPSIS is a MEDICAL EMERGENCY. Time matters! Infections put you and your family at risk for a life-threatening condition called sepsis. Sepsis is the body's extreme response to an infection. It is life-threatening, and without timely treatment, sepsis can rapidly lead to tissue damage, organ failure, and . Sepsis happens when an infection you already have-in your skin, lungs, urinary tract or somewhere else-triggers a chain reaction throughout your body. 1 PREVENT INFECTIONS Take good care of chronic conditions. Talk to your doctor about getting the recommended vaccines. 2 PRACTICE GOOD HYGIENE Wash your hands frequently. Keep cuts or open sores clean and covered until they are healed. 3 KNOW THE SYMPTOMS Confusion or disorientation Shortness of breath High heart rate Fever, shivering, or feeling very cold Extreme pain or discomfort Clammy or sweaty skin 4 ACT FAST Get medical care IMMEDIATELY if you suspect sepsis or if you have an infection that is not getting better or is getting worse. To learn more about sepsis and how to prevent infections, visit www.cdc.gov/sepsis. Test Results Laboratory or Other Results This Visit (last charted value for your 02/04/2020 visit) Microbiology 01/31/2020 11:25 AM Novel Coronavirus 2019: Negative General Chemistry 02/04/2020 8:31 AM Glucose POC2: 97 mg/dL -- Normal range between ( 70 and 110 ) Device Comment 1: Device Comment 1 01/31/2020 10:04 AM Potassium POC: 3.3 mmol/L -- Normal range between ( 3.5 and 4.9 ) Glucose POC: 82 mg/dL -- Normal range between ( 70 and 105 ) Patient Name:ALLISON MENDEZ I have received this information and was given the opportunity to ask questions. Patient/Dental Practitioner Name: Patient/Dental Practitioner Signature: Relationship to Patient: Clinician/Hospital Dental Practitioner Signature: Date: documented in this encounter Plan of Treatment Upcoming Encounters Date Type Department Care Team (Late st Contact Info) Description 09/06/2024 10:30 AM EDT Procedure Visit [facility] - [facility] [address] [facility] [address] [place] [address] Nik Gu MD [address] [facility] [address] [place], [place] [id number] 09/19/2024 1:15 PM EDT Office Visit [facility] [address] [facility] [address] [place] [address] Ann Espana, TRACKLESS TROLLEY DRIVER [address] [place] [address] 10/15/2024 9:00 AM EDT Office Visit [facility] [address] [place] [address] Mariluz Reyes DO [address] [place] [address] 10/24/2024 10:30 AM EDT Office Visit [facility] [address] [facility] [address] [place] [address] Mana Rodriguez PA-C [address] [facility] [address] [place] [address] [id number] documented as of this encounter Visit Diagnoses Not on filedocumented in this encounter Care Teams Prospecting Observer Relationship Specialty Start Date End Date Elvi Posada MD PCP - General Family Medicine 01/21/22 12/19/23 Mariluz Reyes DO [address] [place] [address] PCP - General Family Medicine 12/20/23 01/13/24 Mariluz Reyes DO [address] [facility] [address] [place] [address] PCP - General Family Medicine 01/18/24 Mana Rodriguez PA-C [address] [facility] [address] [address] Gastroenterology 05/16/24 documented as of this encounter
--- OUTSIDE RECORDS SUMMARY | 2024-09-02 09:56 | XMS_ITS | Encounter Summary ---
Author Organization [employer] Address [address] [place] [address] Care Team Providers Care Catheter Finisher And Inspector Name Role Phone Elvi Posada MD Primary Care Provider [phone] Mariluz Reyes DO Primary Care Provider Mariluz Reyes DO Primary Care Provider [phone] Mana Rodriguez PA-C Unavailable [phone] Reason for Visit * Reason Comments Medication Refill Encounter Details Date Type Department Care Team (Late st Contact Info) Description 06/09/2022 Refill [facility] - [facility] [address] [facility] [address] [place] [address] Ana Amin APRN [address] [facility] [address] [place] [address] Social History Tobacco Use Types Packs/Day Years [...] Description 09/06/2024 10:30 AM EDT Procedure Visit [facility] Neurology - [address] [facility] [address] [place] [id number] Nik Gu MD [address] [facility] [address] [place] [address] 09/19/2024 1:15 PM EDT Office Visit [facility] Bariatric Services [address] [facility] [address] [place] [address] Ann Espana, CIVIL PROCESS SERVER [address] [place] [address] 10/15/2024 9:00 AM EDT Office Visit [facility] [address] [place] [address] Mariluz Reyes DO [address] [place] [address] 10/24/2024 10:30 AM EDT Office Visit [facility] Gastroenterology [address] [facility] [address] [place] [address] Mana Rodriguez PA-C [address] [place], [place] [phone] documented as of this encounter Visit Diagnoses Not on filedocumented in this encounter Care Teams Catheter Finisher And Inspector Relationship Specialty Start Date End Date Elvi Posada MD PCP - General Family Medicine 01/21/22 12/19/23 Mariluz Reyes DO [address] [place] [address] PCP - General Family Medicine 12/20/23 01/13/24 Mrailuz Reyes DO [address] [place] [address] PCP - General Family Medicine 01/18/24 Mana Rodriguez PA-C [address] [place] [address] Gastroenterology 05/16/24 documented as of this encounter
--- OUTSIDE RECORDS SUMMARY | 2024-09-02 09:57 | XMS_ITS | Encounter Summary ---
Author Organization [employer] Address [address] [place] [address] Care Team Providers Care Bridge Tender Name Role Phone Elvi Posada MD Primary Care Provider [phone] Mariluz Reyes DO Primary Care Provider [phone] Mariluz Reyes DO Primary Care Provider [phone] Mana Rodriguez PA-C Unavailable Encounter Details Date Type Department Care Team (Late st Contact Info) Description 01/31/2020 Transcribed Document [facility] [address] [place] [address] ProviderLeslie MD [address] [place] [address] Social History Tobacco Use Types [...] Cerner Conversion Note - Historical ProviderMD - 01/31/2020 10:11 AM LEAD NURSE PAT Adult Entered On: 01/31/2020 10:37 EST Performed On: 01/31/2020 10:11 EST by Ian Roca Rn Vital Measurements Temperature Source : Temporal artery scanning Temperature Mode : Fahrenheit Temperature, Fahrenheit : 97 Deg F Clinical Temperature, C : 36.1 Deg C Pulse Method : Pulse Oximetry Peripheral Pulse Rate : 53 bpm (LOW) Respiratory Rate : 18 Breaths/Min Blood Pressure Location : Arm, left upper Blood Pressure Source : Non-Invasive BP Device Systolic Blood Pressure : 119 mmHg Diastolic Blood Pressure : 76 mmHg Oxygen Saturation : 98 % Oxygen Therapy Mode : Room air Ian Roca Rn - 01/31/2020 10:11 EST Height and Weight, Clinical Dosing Height Source : Measured Height Entry Format : Reagan Height, Feet : 5 ft(Converted to: 152 cm, 60 Inch) Height, Inches : 6 Inch(Converted to: 0 ft 6 Inch, 15.24 cm) Clinical Height : 167.64 cm Weight Source : Standing scale Weight Entry Format : Reagan Clinical Dosing Weight : 96.82 kg Weight, Pounds : 213 lb Body Surface Area (BSA) : 2.06 m2 Body Mass Index : 34.5 kg/m2 (HI) [place] Body Weight : 59 kg Ian Roca Rn - 01/31/2020 10:11 EST Health Histories Smoking Status : Never (less than 100 in lifetime; none in last 30 days) Smokeless Tobacco Status : Never Ian Roca Rn - 01/31/2020 10:11 EST Social History (As Of: 01/31/2020 10:38:00 EST) Tobacco: Smoking Status Never smoker. (Last Updated: 12/27/2016 10:38:37 EDT by Cherie Diaz Rn) Never (less than 100 in lifetime) Smoking Status. Never Smokeless Tobacco Status. None Smokeless Tobacco Use History. (Last Updated: 01/28/2020 10:24:21 EST by Jai Massey Rn) Alcohol: Alcohol Use History No. (Last Updated: 12/27/2016 10:38:41 EDT by Cherie Diaz Rn) Alcohol Use History No. Use in Last 12 Months: No. (Last Updated: 01/28/2020 10:24:21 EST by Jai Massey Rn) Substance Abuse: Drug Use Hx: No. (Last Updated: 12/27/2016 10:38:44 EDT by Cherie Diaz Rn) Drug Use Hx: No. Use in Last 12 Months: No. (Last Updated: 01/28/2020 10:24:21 EST by Jai Massey Rn) Nutrition/Health: Type of diet: limits sweets. Regular, Diabetic (Last Updated: 11/24/2017 10:37:06 EDT by HUBER COLE, RN) Home/Environment: Lives with Alone. Living situation: Home/Independent. Home equipment: Glucose monitoring, Walker/Cane. Alcohol abuse in household: No. Substance abuse in household: No. Smoker in household: No. Injuries/Abuse/Neglect in household: No. Feels unsafe at home: No. Family/Friends available for support: Yes. (Last Updated: 11/24/2017 10:37:50 EDT by HUBER COLE, RICHY) Infectious Disease History Where are the test results? : In EMR Results Has the patient ever been tested for COVID-19? : Yes, Patient stated results Negative SANCHEZ WEAVER - 02/04/2020 7:08 EST Date of COVID-19 test known? : Yes Date of COVID-19 Test : 01/31/2020 EST Does patient have symptoms of COVID-19? : No COVID19 Screening : No Experiencing Infectious Disease Symptoms : No symptoms Physical contact outside [place] in the last 30 days : No Infectious Disease History : Chicken pox/Shingles, Influenza, Measles, Mumps Tuberculosis Symptoms : None Ian Roca Rn - 01/31/2020 10:11 EST COVID19 PreProcedure Screening Is this an Emergent or Add on Procedure? : No Date PreProcedure COVID-19 test known? : Yes Date of PreProcedure COVID-19 : 01/31/2020 EST Has patient been isolated since the test : Yes Exposed to COVID19 symptoms since test? : No SANCHEZ WEAVER - 02/04/2020 6:27 EST Anesthesia/Transfusion History Blood Transfusion Acceptable to Patient : Yes SANCHEZ WAEVER - 02/04/2020 6:27 EST Family History of Anesthesia Reaction : No prior transfusion(s) Transfusion History : Prior anesthesia without reaction Family History of Anesthesia Reaction : None Ian Roca Rn - 01/31/2020 10:11 EST Functional Assessment Functional ADL Evaluation Index EBN Bathing : Independent (2) Dressing : Independent (2) Toileting : Independent (2) Transferring Bed or Chair : Independent (2) Continence : Independent (2) Feeding : Independent (2) SANCHEZ WEAVER - 02/04/2020 6:27 EST ADL Index Score : 12 SANCHEZ WEAVER - 02/04/2020 6:27 EST Advance Directive Patient has Advance Directive *Q : No, patient refuses Advance Directive information Ian Roca Rn - 01/31/2020 10:11 EST Spiritual/Cultural Needs Any Spiritual/Cultural Needs or Requests : No TRAMKATHLEENSANCHEZ - 02/04/2020 6:27 EST [place] Suicide Severity Rating Scale (C-SSRS) CSSRS Past Month Wish to be : No CSSRS Past Month Suicidal Thoughts : No CSSRS Lifetime Suicide Behavior : No Suicide Severity Rating Score : 0 Suicide Severity Rating : No Additional Care Required at this time Ian Roca Rn - 01/31/2020 10:11 EST Psychosocial History Do You Have a History of the Following? : Anxiety Currently in Unsafe Situation : No Ian Roca Rn - 01/31/2020 10:11 EST General Info Preferred Name : Allison Arrived From : Home Mode of Arrival on Unit : Ambulatory Support Person/Patient Functional Support Analyst : Yes Support Person/Pt Rep Name : Jarad Mendez - Support Person/Pt Rep Contact Information : [phone] Want Family/Rep/Phys Notified of Admit : No Emergency Contact #1 : Jarad Mendez Emergency Contact #1 Phone Number : [phone] Emergency Contact #1 Relationship : Emergency Contact #2 : ` Emergency Contact #2 Phone Number : ` Emergency Contact #2 Relationship : ` Information Obtained From : Patient Primary Language : Persian Preferred Communication Mode : Verbal Communication Barrier : None Brake Repair Mechanic Needed : No Ian Roca Rn - 01/31/2020 10:11 EST Bulmaro Scale Bulmaro Sensory Perception : No impairment Bulmaro Moisture : Rarely moist Bulmaro Activity : Walks frequently Bulmaro Mobility : Slightly limited Bulmaro Nutrition : Excellent Bulmaro Friction and Shear : No apparent problem Bulmaro Score : 22 Ian Roca Rn - 01/31/2020 10:11 EST Sleep Apnea Risk Assmt Hx of Obstructive Sleep Apnea Diagnosis : No Snore Loudly : Yes Tired, Fatigued, or Sleepy During Day : No Observed Stopping Breathing During Sleep : No Have/Are Being Treated for Hypertension : Yes BMI Greater Than 35 kg/m2 : Yes Age over 50 Years Old : Yes Neck Circumference Greater Than 40 cm : No Gender Male : No STOP-BANG Sleep Apnea Risk Level Score : 4 Ian Roca Rn - 01/31/2020 10:11 EST documented in this encounter Plan of Treatment Upcoming Encounters Date Type Department Care Team (Late st Contact Info) Description 09/06/2024 10:30 AM EDT Procedure Visit [facility] Neurology - [address] [facility] [address] [place] [address] Nik Gu MD [address] [facility] [place] [address] 09/19/2024 1:15 PM EDT Office Visit [facility] Bariatric Services [address] [place] [address] Ann Espana, TALLOW MAKER [address] [place] [address] 10/15/2024 9:00 AM EDT Office Visit [facility] Primary Care [address] [place] [address] Mariluz Reyes DO [address] [place] [address] 10/24/2024 10:30 AM EDT Office Visit [facility] Gastroenterology [address] [facility] [address] [place] [address] Mana Rodriguez PA-C [address] [place] [address] documented as of this encounter Visit Diagnoses Not on filedocumented in this encounter Care Teams Bridge Tender Relationship Specialty Start Date End Date Elvi Posada MD PCP - General Family Medicine 01/21/22 12/19/23 Mariluz Reyes DO [address] [place] [address] PCP - General Family Medicine 12/20/23 01/13/24 Mariluz Reyes DO [address] [facility] [address] [place] [address] PCP - General Family Medicine 01/18/24 Mana Rodriguez PA-C [address] [facility] [place] [address] Gastroenterology 05/16/24 documented as of this encounter
--- OUTSIDE RECORDS SUMMARY | 2024-09-02 09:57 | XMS_ITS | Clinical Summary ---
Author Organization [facility] Address [address] [place] [address] Care Team Providers Care Chief Business Officer Name Role Phone Mariluz Reyes Primary Care Provider [phone] Allergies Active Allergy Reactions Criticality Noted Date Comments Codeine Itching Medium 06/15/2015 1no rash, just [id number] Tramadol Itching Medium 07/29/2022 Other reaction(s): Insomnia, Itching Medications albuterol 108 (90 Base) MCG/ACT inhaler Inhale 2 Inhalers. Active gabapentin (Neurontin) 300 mg split tablet Take 1 split tablet by mouth in the morning and 1 split tablet at noon and 1 split tablet in the evening. 01/12/2024 Active fluticasone (Flonase) 50 MCG/ACT nasal spray INSTILL TWO (2) SPRAYS IN EACH NOSTRIL EVERY MORNING 06/03/2024 Active Fluticasone Furoate-Vilante rol 200-25 MCG/ACT aerosol powder Inhale 1 Inhaler 1 (one) time each day. Active Veozah 45 MG tablet 06/17/2024 Active esomeprazole (NexIUM) [address] capsule Take 1 capsule by mouth in the morning and 1 capsule before bedtime. 03/04/2024 Active ergocalciferol 1.25 MG (74484 UT) capsule Take 1 capsule by mouth 1 (one) time per week. 01/07/2024 Active EPINEPHrine (Epipen) 0.3 MG/0.3ML injection syringe INJECT CONTENTS OF 1 PEN INTO OUTER THIGH FOR SEVERE ALLERGIC REACTION, THEN CALL 911 AFTER USE 07/12/2023 Active cyanocobalamin (Vitamin B-12) 1000 MCG/ML injection Inject 1 mL into the muscle. 03/22/2024 Active cholecalciferol (Vitamin D-3) 1.25 MG (77012 UT) capsule Take 1 cap weekly for 8 weeks then once monthly. 01/12/2024 Active cetirizine (ZyrTEC) 5 MG tablet Take 2 tablets by mouth 1 (one) time each day. Active Breztri Aerosphere 160-9-4.8 MCG/ACT aerosol INHALE 2 PUFFS TWICE DAILY WITH SPACER 07/26/2023 Active atorvastatin (Lipitor) 20 MG tablet Take 1 tablet by mouth daily. Active amLODIPine (Norvasc) 5 MG tablet Take 1 tablet by mouth 1 (one) time each day. Active metoprolol succinate XL (Toprol-XL) 12.5 mg 24 hr split tablet Take 1 tablet by mouth 1 (one) time each day. Active hydroCHLOROthia zide 12.5 MG PO tablet Take 1 tablet by mouth 1 (one) time each day. Active ipratropium-alb uterol (Duo-Neb) 0.5-2.5 mg/3 mL nebulizer solution Inhale 3 mL as needed. 05/14/2024 Active Linzess 72 MCG capsule capsule Take 1 capsule by mouth daily. 07/12/2023 Active losartan (Cozaar) 25 MG tablet Take 1 tablet by mouth. Active pyridoxine (B-6) 100 MG tablet Take 1 tablet by mouth 1 (one) time each day. 05/14/2024 05/14/19 26 Active Topiramate ER 150 MG capsule extended-releas e 24 hour sprinkle Take 150 mg by mouth 1 (one) time each day. 06/10/2024 Active nortriptyline (Pamelor) 25 MG capsuleIndicati ons:Neuropathic pain Take 1 capsule by mouth nightly. 30 capsule 2 06/20/2024 Active Active Problems Problem Noted Date Diagnosed Date Neuropathy 06/20/2024 Neuropathic pain 06/20/2024 Encounters Date Type Department Care Team Description 06/20/2024 10:00 AM EDT Consult [facility] [address], [address] [place] [address] Candido Killian MD Neuropathic pain (Primary Dx); Neuropathy; Disease related peripheral neuropathy 06/20/2024 Travel from Last 3 Months Immunizations Immunization Administration Dates Next Due Hep A / Hep B 07/17/2018,02/20/2018,12/31/2017 Influenza, injectable, MDCK, preservative free, quadrivalent 12/19/2023,12/15/2022 Influenza, injectable, quadrivalent 01/12/2018,0 12/10/2016 Influenza, injectable, quadr ivalent, preservative free 01/13/2021,12/10/2016 Influenza, seasonal, injectable 12/26/2011 Influenza, seasonal, injecta ble, preservative free 12/31/2013 Pneumococcal 20-otilio Conj Vaccine 03/28/2023 Pneumococcal Polysaccharide PPV23 12/15/2016 TD (adult), 2 Lf tetanus tox oid, preservative free, adsorbed 10/15/2002 Td (adult) 10/08/2010 Tdap 10/07/2022,10/17/2011,10/08/2010 Zoster, Recombinant 09/30/2021,07/15/2021 Social History Tobacco Use Types Packs/Day Years Used Date Smoking Tobacco: Never Passive Smoke Exposure: Past Smokeless Tobacco: Never Tobacco Cessation:Counseling Given: Not Answered Alcohol Use Standard Drinks/Week Comments Never 0 (1 standard drink = 0.6 oz pur e alcohol) PHQ-2 Answer Date Recorded Patient Health Questionnaire-2 Score 0 06/20/2024 PHQ-9 Answer Date Recorded Patient Health Questionnaire-9 Score 3 06/20/2024 Comments Unknown Sex and Gender Information Value Date Recorded Sex Assigned at Not on file Legal Sex Female 8:45 PM EDT Gender Identity Not on file Sexual Orientation Not on file Last Filed Vital Signs Vital Sign Reading Time Taken Comments Blood Pressure 127/86 06/20/2024 10:30 AM EDT Pulse 76 06/20/2024 10:30 AM EDT Temperature 36.8 C (98.3 F) 06/20/2024 10:30 AM EDT Respiratory Rate - - Oxygen Saturation 95% 06/20/2024 10:30 AM EDT Inhaled Oxygen Concentration - - Weight 100 kg (221 lb 1.9 oz) 06/20/2024 10:30 A M EDT Height 168.9 cm (5' 6.5 ) 06/20/2024 10:30 AM ED T Body Mass Index 35.16 06/20/2024 10:30 AM EDT Plan of Treatment Upcoming Encounters Date Type Department Care Team (Late st Contact Info) Description 09/30/2024 9:30 AM EDT Office Visit [facility] [address] , [address] [place] [address] Candido Killian MD [address] [place] [address] Health Maintenance Due Date Last Done Comments [facility]-HIV Screening 1966 [facility]-Hepatitis C Screening 1966 [facility]-Medicare Annual Wellness (AWV) 1966 [facility]-Infant/Child/Adol SDOH Screenings 1966 [facility]- SDOH Screenings 1984 [facility]-Adult SDOH Screenings 1984 CT Colonography 08/16/2011 Colonoscopy 08/16/2011 FIT-DNA 08/16/2011 FIT 08/16/2011 FOBT 08/16/2011 Sigmoidoscopy 08/16/2011 [facility]-Colorectal Cancer Screening 08/16/2011 [facility]-Breast Cancer Screening 2016 [id number] Vaccine ( season) 2023 [facility]-Depression Screening 06/20/2025 06/20/2024, 04/0 05/2024 [facility]-Diabetes: Hemoglobin A1C 06/20/2025 06/20/2024 [facility]-DTaP,Tdap,and Td Vaccines (5 - Td or Tdap) 10/07/2032 10/07/2022, 10/17/2011, 10/08/2010, Additional history exists [facility]-Hepatitis A Vaccines Aged Out 019, 02/20/2018, 12/31/2017 No longer eligible based on patient's age to complete this topic [facility]-Hepatitis B Vaccines Completed 019, 02/20/2018, 12/31/2017 [facility]-Zoster Vaccines Completed 09/30/2021, [facility]-Pneumococcal Vaccine: 50+ Years Completed 03/28/2023, 12/15/2016 [facility]-Influenza Vaccine Completed 12/19/2023 , 12/15/2022, 01/13/2021, Additional history exists [facility]-Obesity Intervention Completed 06/20/2024 HPV Vaccines Aged Out No longer eligi ble based on patient's age to complete this topic [facility]-HIB Vaccines Aged Out No longer e ligible based on patient's age to complete this topic [facility]-IPV Vaccines Aged Out No longer e ligible based on patient's age to complete this topic [facility]-Rotavirus Vaccines Aged Out No lo nger eligible based on patient's age to complete this topic Procedures Procedure Name Priority Date/Time Associated Diagnosis Comments CHARITO SERUM, PATHOLOGIST INTERPRETATION Routine 06/20/2024 11:18 AM EDT Neuropathy Disease related peripheral neuropathy Neuropathic pain PROTEIN ELECTROPHORESIS, PATHOLOGIST INTERPRETATION Routine 06/20/2024 11:18 AM EDT Neuropathy Disease related peripheral neuropathy Neuropathic pain TOTAL PROTEIN, SERUM Routine 06/20/2024 11:18 AM EDT Neuropathy Disease related peripheral neuropathy Neuropathic pain PROTEIN ELECTROPHORESIS, SERUM Routine 06/20/2024 11:18 AM EDT Neuropathy Disease related peripheral neuropathy Neuropathic pain QIG, SERUM Routine 06/20/2024 11:18 AM EDT Neuropathy Disease related peripheral neuropathy Neuropathic pain IMMUNOFIXATION ELECTROPHORESIS Routine 06/20/2024 11:18 AM EDT Neuropathy Disease related peripheral neuropathy Neuropathic pain VITAMIN B6 (PYRIDOXAL 5-PHOSPHATE) (SO) Routine 06/20/2024 11:18 AM EDT Neuropathy Disease related peripheral neuropathy Neuropathic pain VITAMIN B1 (THIAMINE), WHOLE BLOOD (SO) Routine 06/20/2024 11:18 AM EDT Neuropathy Disease related peripheral neuropathy Neuropathic pain HEMOGLOBIN A1C Routine 06/20/2024 11:18 AM EDT Neuropathy Disease related peripheral neuropathy Neuropathic pain PROTEIN ELECTROPHORESIS, SERUM Routine 06/20/2024 11:18 AM EDT Neuropathy Disease related peripheral neuropathy Neuropathic pain METHYLMALONIC ACID SERUM Routine 06/20/2024 11:18 AM EDT Neuropathy Disease related peripheral neuropathy Neuropathic pain IMMUNOFIXATION ELECTROPHORESIS Routine 06/20/2024 11:18 AM EDT Neuropathy Disease related peripheral neuropathy Neuropathic pain HEAVY METALS PANEL 3, BLOOD (SO) Routine 06/20/2024 11:18 AM EDT Neuropathy Disease related peripheral neuropathy Neuropathic pain ANTINUCLEAR ANTIBODY (NENITA) WITH HEP-2 SUBSTRATE, IGG BY IFA (SO) Today 06/20/2024 11:18 AM EDT Neuropathy Disease related peripheral neuropathy Neuropathic pain ANCA VASCULITIS PROFILE (SO) Today 06/20/2024 11:18 AM EDT Neuropathy Disease related peripheral neuropathy Neuropathic pain SSA 52 AND 60 (RO) (SUSAN) ANTIBODIES, IGG (SO) Today 06/20/2024 11:18 AM EDT Neuropathy Disease related peripheral neuropathy Neuropathic pain SSB (LA) (SUSAN) ANTIBODY, IGG (SO) Today 06/20/2024 11:18 AM EDT Neuropathy Disease related peripheral neuropathy Neuropathic pain C3 COMPLEMENT Today 06/20/2024 11:18 AM EDT Neuropathy Disease related peripheral neuropathy Neuropathic pain C4 COMPLEMENT Today 06/20/2024 11:18 AM EDT Neuropathy Disease related peripheral neuropathy Neuropathic pain from Last 3 Months Results * QIG, Serum (06/20/2024 11:18 AM EDT) IGA 389 75 - 400 mg/dL 06/20/2024 3:56 PM EDT [facility] IGG 1,114 720 - 1,589 mg/dL 06/20/2024 3:56 PM EDT [facility] IGM 66 35 - 225 mg/dL 06/20/2024 3:56 PM EDT [facility] Blood Venous blood specimen / Unknown Venipuncture / Unknown 06/20/2024 11:18 AM EDT 06/20/2024 11:18 AM EDT us Candido Killian MD LAB BLOOD ORDERABLES Final Resul t [facility] [address] [place] [address] * ANCA Vasculitis Profile (06/20/2024 11:18 AM EDT) Pathologist [facility] Myeloperoxidase (MPO) Ab, IgG 0 0 - 19 AU/mL 06/22/2024 2:28 PM EDT [facility] ([employer]) Serine Proteinase 3 (PR3) Ab, IgG 19 0 - 19 AU/mL 06/22/2024 2:28 PM EDT [facility] ([facility]) ANCA IFA Titer <1:20 <1:20 06/22/2024 2:28 PM EDT [facility] ([facility]) ANCA IFA Pattern None Detected None Detected 06/22/2024 2:28 PM EDT [facility] ([facility]) Blood Venous blood specimen / Unknown Venipuncture / Unknown 06/20/2024 11:18 AM EDT 06/20/2024 11:18 AM EDT Narrative [facility] ([facility] - 06/22/2024 2:28 PM EDT INTERPRETIVE INFORMATION: Myeloperoxidase Abs, IgG 19 AU/mL or Less ......... Negative 20-25 AU/mL .............. Equivocal 26 AU/mL or Greater ...... Positive Approximately 90% of patients with a P-ANCA pattern by IFA have antibodies specific for MPO. INTERPRETIVE INFORMATION: Serine Proteinase 3, IgG 19 AU/mL or Less ........ Negative 20-25 AU/mL ............. Equivocal 26 AU/mL or Greater ..... Positive Approximately 85% of patients with a C-ANCA pattern by IFA have antibodies specific for PR3. INTERPRETIVE INFORMATION: ANCA IFA Pattern Neutrophil Cytoplasmic Antibodies (C-ANCA = granular cytoplasmic staining, P-ANCA = perinuclear staining) are found in the serum of over 90 percent of patients with certain necrotizing systemic vasculitides, and usually in less than 5 percent of patients with collagen vascular disease or arthritis. Performed By: [facility] [address] [place] [address] Mig Welder: Ender Guzman MD, PhD CLIA Number: [id number] Candido Killian MD LAB BLOOD ORDERABLES Final Resul t Performing Organization Address City/[facility]/ZIP Co de Phone Number [facility] ([facility]) [address] [place] [address] * Total Protein, Serum (06/20/2024 11:18 AM EDT) Total Protein 6.9 6.2 - 7.7 g/dL 06/20/2024 3:56 PM EDT [facility] Blood Venous blood specimen / Unknown Venipuncture / Unknown 06/20/2024 11:18 AM EDT 06/20/2024 11:18 AM EDT Candido Killian MD LAB BLOOD ORDERABLES Final Resul t [facility] [address] [place] [address] * Protein Electrophoresis, Serum (06/20/2024 11:18 AM EDT) Albumin Electrophoresis, Serum 3.8 3.6 - 4.7 g/dL 06/21/2024 1:46 AM EDT [facility] Alpha 1 Globulin Electrophoresis, Serum 0.3 0.2 - 0.4 g/dL 06/21/2024 1:46 AM EDT [facility] Alpha 2 Globulin Electrophoresis, Serum 0.8 0.5 - 0.9 g/dL 06/21/2024 1:46 AM EDT [facility] Beta 1 Globulin Electrophoresis, Serum 0.5 0.3 - 0.5 g/dL 06/21/2024 1:46 AM EDT [facility] Beta 2 Globulin Electrophoresis, Serum 0.5 0.2 - 0.5 g/dL 06/21/2024 1:46 AM EDT [facility] Gamma Globulin Electrophoresis, Serum 1.0 0.6 - 1.5 g/dL 06/21/2024 1:46 AM EDT [facility] Interpretation, Serum Protein Electrophoresis Pathology report to follow. 06/21/2024 1:46 AM EDT [facility] Blood Venous blood specimen / Unknown Venipuncture / Unknown 06/20/2024 11:18 AM EDT 06/20/2024 11:18 AM EDT Candido Killian MD LAB BLOOD ORDERABLES Final Resul t Performing Organization Address City/[facility]/[place] [address] * Immunofixation Electrophoresis (06/20/2024 11:18 AM EDT) Immunofixation Interpretation Pathology report to follow. 06/24/2024 5:51 PM EDT [facility] Blood Venous blood specimen / Unknown Venipuncture / Unknown 06/20/2024 11:18 AM EDT 06/20/2024 11:18 AM EDT us Candido Killian MD LAB BLOOD ORDERABLES Final Resul t Performing Organization Address [facility] [place] [address] * SSA 52 and 60 (Ro) (SUSAN) Antibodies, IgG (06/20/2024 11:18 AM EDT) SSA-52 (RO52) (SUSAN) Antibody, IgG 2 0 - 40 AU/mL 06/22/2024 8:11 AM EDT [facility] ([facility]) SSA-60 (RO60) (SUSAN) Antibody, IgG 1 0 - 40 AU/mL 06/22/2024 8:11 AM EDT [facility] ([employer]) Serum 06/20/2024 11:1 8 AM EDT 06/20/2024 11:18 AM EDT Narrative [facility] ([facility]) - 06/22/2024 8:11 AM EDT INTERPRETIVE INFORMATION: SSA-52 (Ro52) (SUSAN) Antibody, IgG 29 AU/mL or Less ............. Negative 30 - 40 AU/mL ................ Equivocal 41 AU/mL or Greater .......... Positive SSA-52 (Ro52) and/or SSA-60 (Ro60) antibodies are associated with a diagnosis of Sjogren syndrome, systemic lupus erythematosus (SLE), and systemic sclerosis. SSA-52 antibody overlaps significantly with the major SSc-related antibodies. SSA-52 (Ro52) antibody occurs frequently in patients with inflammatory myopathies, often in the presence of interstitial lung disease. REFERENCE INTERVAL: SSA-60 (Ro60) (SUSAN) Antibody, IgG 29 AU/mL or Less ............. Negative 30 - 40 AU/mL ................ Equivocal 41 AU/mL or Greater .......... Positive Performed By: [facility] [address] [place] [address] Mig Welder: Ender Guzman MD, PhD CLIA Number: [id number] us Candido Killian MD LAB REF LAB BLOOD AND FLUID ORD Final Result [facility] ([facility]) [address] [id number] * CHARITO serum, pathologist interpretation (06/20/2024 11:18 AM EDT) Clinical Diagnosis, CHARITO Serum Neuropathy 06/25/2024 11:58 AM EDT [facility] Interpretation , CHARITO Serum There are no qualitative or quantitative abnormalities present in the IgG, IgA, IgM, kappa or lambda light chains as observed by immunofixation electrophoresis and immunochemical quantitation. 06/25/2024 11:58 AM EDT [facility] Pathologist Signature, CHARITO Serum Reviewed by: Royal Harrell MD 06/25/2024 11:58 AM EDT [facility] LAB CP ASR DISCLAIMER No 06/25/2024 11:58 AM EDT [facility] Blood Venous blood specimen / Unknown Venipuncture / Unknown 06/20/2024 11:18 AM EDT 06/20/2024 11:18 AM EDT Candido Killian MD LAB PATHOLOGY ORDERABLES Final R esult [facility] [address] [place] [address] * Protein electrophoresis serum, pathologist interpretation (06/20/2024 11:18 AM EDT) Clinical Diagnosis, SPEP Neuropathy 06/21/2024 3:19 PM EDT [facility] Interpretation , SPEP The total protein and serum protein electrophoretic fractions are within normal limits. 06/21/2024 3:19 PM EDT [facility] Pathologist Signature, SPEP Reviewed by: Steve Loving MD 06/21/2024 3:19 PM EDT [facility] LAB CP ASR DISCLAIMER No 06/21/2024 3:19 PM EDT [facility] Blood Venous blood specimen / Unknown Venipuncture / Unknown 06/20/2024 11:18 AM EDT 06/20/2024 11:18 AM EDT Candido Killian MD LAB PATHOLOGY ORDERABLES Final R esult Performing Organization Address City/[facility]/ZIP Co de Phone Number [facility] [address] [place] [address] * Heavy Metals Panel 3, Blood (06/20/2024 11:18 AM EDT) ARSENIC, BLOOD <10.0 <=12.0 ug/L 06/22/2024 4:53 AM EDT [facility] ([facility]) MERCURY, BLOOD <2.5 <=10.0 ug/L 06/22/2024 4:53 AM EDT [facility] ([facility]) Lead, Blood (Venous) 2.9 <=4.9 ug/dL 06/22/2024 4:53 AM EDT [facility] ([facility]) Blood Venous blood specimen / Unknown Venipuncture / Unknown 06/20/2024 11:18 AM EDT 06/20/2024 11:18 AM EDT [facility] [place] ([facility]) - 06/22/2024 4:53 AM EDT INTERPRETIVE INFORMATION: Arsenic, Blood Elevated results may be due to skin or collection-related contamination, including the use of a noncertified metal-free collection/transport tube. If contamination concerns exist due to elevated levels of blood arsenic, confirmation with a second specimen collected in a certified metal-free tube is recommended. Potentially toxic ranges for blood arsenic: Greater than or equal to 600 ug/L. Blood arsenic is for the detection of recent exposure poisoning only. Blood arsenic levels in healthy subjects vary considerably with exposure to arsenic in the diet and the environment. A 24-hour urine arsenic is useful for the detection of chronic exposure. This test was developed and its performance characteristics determined by [facility]. It has not been cleared or approved by the [place] Food and Drug Administration. This test was performed in a CLIA certified laboratory and is intended for clinical purposes. INTERPRETIVE INFORMATION: Lead, Blood (Venous) Analysis performed by Inductively Coupled Plasma-Mass Spectrometry (ICP-MS). Elevated results may be due to skin or collection-related contamination, including the use of a noncertified lead-free tube. If contamination concerns exist due to elevated levels of blood lead, confirmation with a second specimen collected in a certified lead-free tube is recommended. Information sources for blood lead reference intervals and interpretive comments include the CDC's Childhood Lead Poisoning Prevention: Recommended Actions Based on Blood Lead Level and the Adult Blood Lead Epidemiology and Surveillance: Reference Blood Lead Levels (BLLs) for Adults in the [place] Thresholds and time intervals for retesting, medical evaluation, and response vary by state and regulatory body. Contact your State Department of Health and/or applicable regulatory agency for specific guidance on medical management recommendations. This test was developed and its performance characteristics determined by [facility]. It has not been cleared or approved by the U.S. Food and Drug Administration. This test was performed in a CLIA-certified laboratory and is intended for clinical purposes. Group Concentration Comment Children 3.5-19.9 ug/dL Children under the age of 6 years are the most vulnerable to the harmful effects of lead exposure. Environmental investigation and exposure history to identify potential sources of lead. Biological and nutritional monitoring are recommended. Follow-up blood lead monitoring is recommended. 20-44.9 ug/dL Lead hazard reduction and prompt medical evaluation are recommended. Contact a Pediatric Environmental Health Specialty Unit or poison control center for guidance. Greater than Critical. Immediate medical 44.9 ug/dL evaluation, including detailed neurological exam is recommended. Consider chelation therapy when symptoms of lead toxicity are present. Contact a Pediatric Environmental Health Specialty Unit or poison control center for assistance. Adult 5-19.9 ug/dL Medical removal is recommended for women or those who are trying or may become . Adverse health effects are possible. Reduced lead exposure and increased blood lead monitoring are recommended. 20-69.9 ug/dL Adverse health effects are indicated. Medical removal from lead exposure is required by OSHA if blood lead level exceeds 50 ug/dL. Prompt medical evaluation is recommended. Greater than Critical. Immediate medical 69.9 ug/dL evaluation is recommended. Consider chelation therapy when symptoms of lead toxicity are present. INTERPRETIVE INFORMATION: Mercury, Blood Elevated results may be due to skin or collection-related contamination, including the use of a noncertified metal-free collection/transport tube. If contamination concerns exist due to elevated levels of blood mercury, confirmation with a second specimen collected in a certified metal-free tube is recommended. Blood mercury levels predominantly reflect recent exposure and are most useful in the diagnosis of acute poisoning as blood mercury concentrations rise sharply and fall quickly over several days after ingestion. Blood concentrations in unexposed individuals rarely exceed 20 ug/L. The provided reference interval relates to inorganic mercury concentrations. Dietary and non-occupational exposure to organic mercury forms may contribute to an elevated total mercury result. Clinical presentation after toxic exposure to organic mercury may include dysarthria, ataxia and constricted vision freeman with mercury blood concentrations from 20 to 50 ug/L. This test was developed and its performance characteristics determined by [facility]. It has not been cleared or approved by the [place] Food and Drug Administration. This test was performed in a CLIA certified laboratory and is intended for clinical purposes. Performed By: [facility] [address] [place] [address] Mig Welder: Ender Guzman MD, PhD CLIA Number: [id number] us Candido Killian MD LAB BLOOD ORDERABLES Final Resul t [facility] ([facility]) [address] [place] [address] * SSB (La) (SUSAN) Antibody, IgG (06/20/2024 11:18 AM EDT) SSB (LA) (SUSAN) Antibody, IgG 7 0 - 40 AU/mL 06/22/2024 8:11 AM EDT [facility] ([facility]) Serum Venous blood specimen / Unknown 06/20/2024 11:18 AM EDT 06/20/2024 11:18 AM EDT Narrative [facility]) - 06/22/2024 8:11 AM EDT INTERPRETIVE INFORMATION: SSB (La) (SUSAN) Ab, IgG 29 AU/mL or Less ............. Negative 30 - 40 AU/mL ................ Equivocal 41 AU/mL or Greater .......... Positive SSB (La) antibody is seen in 50-60% of Sjogren syndrome cases and is specific if it is the only SUSAN antibody present. 15-25% of patients with systemic lupus erythematosus (SLE) and 5-10% of patients with progressive systemic sclerosis (PSS) also have this antibody. Performed By: [facility] [address] [place] [address] Mig Welder: Ender Guzman MD, PhD CLIA Number: [id number] us Candido Killian MD LAB BLOOD ORDERABLES Final Resul t [facility] [address] [place] [address] * Methylmalonic Acid (06/20/2024 11:18 AM EDT) Methylmalonic Acid 137 50 - 400 nmol/L 06/25/2024 12:30 AM EDT [facility] Blood Venous blood specimen / Unknown Venipuncture / Unknown 06/20/2024 11:18 AM EDT 06/20/2024 11:18 AM EDT Narrative [facility] - 06/25/2024 12:30 AM EDT Test performed by LC-MS/MS at the [facility]. This test was developed and its performance characteristics determined by [facility]. It has not been cleared or approved by the FDA. The laboratory is regulated under CLIA as qualified to perform high-complexity testing. This test is used for clinical purposes. Candido Killian MD LAB BLOOD ORDERABLES Final Resul t Performing Organization Address [facility] [place] [address] * (ABNORMAL) C3 Complement (06/20/2024 11:18 AM EDT) C3 Complement 174(H) 84 - 166 mg/dL 06/20/2024 3:55 PM EDT [facility] Blood Venous blood specimen / Unknown Venipuncture / Unknown 06/20/2024 11:18 AM EDT 06/20/2024 11:18 AM EDT Candido Killian MD LAB BLOOD ORDERABLES Final Resul t Performing Organization Address [facility] Co de Phone Number [facility] [address] [place] [address] * C4 Complement (06/20/2024 11:18 AM EDT) C4 Complement 31 13 - 36 mg/dL 06/20/2024 3:55 PM EDT [facility] Blood Venous blood specimen / Unknown Venipuncture / Unknown 06/20/2024 11:18 AM EDT 06/20/2024 11:18 AM EDT Candido Killian MD LAB BLOOD ORDERABLES Final Resul t Performing Organization Address City/[facility] Co de Phone Number [facility] [address] [place] [address] * Antinuclear Antibody (NENITA), HEp-2, IgG (06/20/2024 11:18 AM EDT) NENITA INTERPRETIVE COMMENT See Note 06/22/2024 9:24 AM EDT [facility] ([facility]) Anti Nuc Ab Screen <1:80 <1:80 06/22/2024 9:24 AM EDT [facility] ([facility]) Blood Venous blood specimen / Unknown Venipuncture / Unknown 06/20/2024 11:18 AM EDT 06/20/2024 11:18 AM EDT Narrative [facility]) - 06/22/2024 9:24 AM EDT Antinuclear antibodies by IFA negative for homogeneous, speckled, nucleolar, centromere, and nuclear dots patterns. Cytoplasmic antibodies by IFA negative for reticular/AMA, discrete/GW body-like, polar/golgi-like, rods and rings, and cytoplasmic speckled patterns. INTERPRETIVE INFORMATION: NENITA Interpretive Comment Presence of antinuclear antibodies (NENITA) is a hallmark feature of systemic autoimmune rheumatic diseases (SARD). However, NENITA lacks diagnostic specificity and is associated with a variety of diseases (cancers, autoimmune, infectious, and inflammatory conditions) and may also occur in healthy individuals in varying prevalence. The lack of diagnostic specificity requires confirmation of positive NENITA by more specific serologic tests. NENITA (nuclear reactivity) positive patterns reported include centromere, homogeneous, nuclear dots, nucleolar, or speckled. NENITA (cytoplasmic reactivity) positive patterns reported include reticular/AMA, discrete/GW body-like, polar/golgi-like, cytoplasmic speckled or rods and rings. All positive patterns are reported to endpoint titers (1:2560). Reported patterns may help guide differential diagnosis, although they may not be specific for individual antibodies or diseases. Mitotic staining patterns not reported. Negative results do not necessarily rule out SARD. Performed By: [facility] [address] [place] [address] Mig Welder: Ender Guzman MD, PhD CLIA Number: [id number] us Candido Killian MD LAB BLOOD ORDERABLES Final Resul t [facility] [address] [place] [address] * Vitamin B1 (Thiamine), Whole Blood (06/20/2024 11:18 AM EDT) Pathologist [facility] VITAMIN B1, WHOLE BLOOD 93 70 - 180 nmol/L 06/23/2024 8:29 PM EDT [facility] ([facility]) Blood Venous blood specimen / Unknown Venipuncture / Unknown 06/20/2024 11:18 AM EDT 06/20/2024 11:18 AM EDT Narrative [facility]) - 06/23/2024 8:29 PM EDT INTERPRETIVE INFORMATION: Vitamin B1, Whole Blood This assay measures the concentration of thiamine diphosphate (TDP), the primary active form of vitamin B1. Approximately 90 percent of vitamin B1 present in whole blood is TDP. Thiamine and thiamine monophosphate, which comprise the remaining 10 percent, are not measured. This test was developed and its performance characteristics determined by [facility]. It has not been cleared or approved by the [place] Food and Drug Administration. This test was performed in a CLIA certified laboratory and is intended for clinical purposes. Performed By: [facility] [address] [place] [address] Mig Welder: Ender Guzman MD, PhD CLIA Number: [id number] Candido Killian MD LAB BLOOD ORDERABLES Final Resul t [facility] [address] [place] [address] * (ABNORMAL) Vitamin B6 (Pyridoxal 5-Phosphate) (06/20/2024 11:18 AM EDT) VITAMIN B6, PLASMA 9.1(L) 20.0 - 125.0 nmol/L 06/23/2024 8:55 PM EDT [facility]) Blood Venous blood specimen / Unknown Venipuncture / Unknown 06/20/2024 11:18 AM EDT 06/20/2024 11:18 AM EDT Narrative [facility]) - 06/23/2024 8:55 PM EDT INTERPRETIVE INFORMATION: Vitamin B6 (Pyridoxal 5-Phosphate) Pyridoxal 5'-phosphate measured in a specimen collected following an 8-hour or overnight fast accurately indicates vitamin B6 nutritional status. Non-fasting specimen concentration reflects recent vitamin intake. This test was developed and its performance characteristics determined by [facility]. It has not been cleared or approved by the [place] Food and Drug Administration. This test was performed in a CLIA certified laboratory and is intended for clinical purposes. Performed By: [facility] [address] [place] [address] Mig Welder: Ender Guzman MD, PhD CLIA Number: [id number] Candido Killian MD LAB BLOOD ORDERABLES Final Resul t Performing Organization Address City/State/[facility] Co de Phone Number [facility] ([facility]) [address] [place] [address] * (ABNORMAL) Hemoglobin A1c (06/20/2024 11:18 AM EDT) Hemoglobin A1c 5.7(H) <5.7 % 06/20/2024 5:38 PM EDT [facility] Blood Venous blood specimen / Unknown Venipuncture / Unknown 06/20/2024 11:18 AM EDT 06/20/2024 11:18 AM EDT Narrative [facility] - 06/20/2024 5:38 PM EDT HA1C Interpretive Data: Diagnosis of Diabetes: Diabetic > or = 6.5% Pre-diabetic 5.7 to 6.4% Non-diabetic < or = 5.6% Glycemic Targets for Type I and Type II Diabetics: Non- Adults <7.0% Adults <6.0% Children and Adolescents <7.5% Source: [place] [employer]. Standards of medical care in diabetes,2017. Diabetes Care.2017:40 (suppl 1):S1-S135. HbA1c assay performed by an ion-exchange chromatography method that is certified traceable to the DCCT. Candido Killian MD LAB BLOOD ORDERABLES Final Resul t [facility] [address] [place] [address] from Last 3 Months Insurance [employer] MEDICARE [place] Care Teams Chief Business Officer Relationship Specialty Start Date End Date Mariluz Reyes DO [address] [place], [place] [id number] PCP - General Family Medicine 06/20/24
--- OUTSIDE RECORDS SUMMARY | 2024-09-02 09:57 | XMS_ITS | Encounter Summary ---
Author Organization [facility] Address [address] [place] [address] Care Team Providers Care Walking Dragline Operator Name Role Phone Mariluz Reyes DO Primary Care Provider [phone] Mana Rodriguez PA-C Unavailable [phone] Encounter Details Date Type Department Care Team (Late st Contact Info) Description 06/10/2024 Abstract [facility] Primary Care [address] [place] [place] [address] Mariluz Reyes DO [address] [place] [address] Social History Tobacco Use Types [...] Description 09/06/2024 10:30 AM EDT Procedure Visit [facility] Neurology - [facility] [address] [facility] [address] [place] [address] Nik Gu MD [address] [facility] [address] [place] [address] 09/19/2024 1:15 PM EDT Office Visit [facility] Bariatric Services [address] [facility] [address] [place] [address] Ann Espana, CUTTER HEAD SHARPENER [address] [place] [address] 10/15/2024 9:00 AM EDT Office Visit [facility] Primary Care [address] [place] [address] Mariluz Reyes DO [address] [place] [address] 10/24/2024 10:30 AM EDT Office Visit [facility] Gastroenterology [address] [facility] [address] [place] [address] Mana Rodriguez PA-C [address] [facility] [address] [place] [id number] documented as of this encounter Visit Diagnoses Not on filedocumented in this encounter Care Teams Walking Dragline Operator Relationship Specialty Start Date End Date Mariluz Reyes DO [address] [place] [address] PCP - General Family Medicine 01/18/24 Mana Rodriguez PA-C [address] [facility] [address] [place] [address] [id number] Gastroenterology 05/16/24 documented as of this encounter
--- OUTSIDE RECORDS SUMMARY | 2024-09-02 09:57 | XMS_ITS | Encounter Summary ---
Author Organization Healthcare Address [address] [place] [address] Care Team Providers Care Blood Bank Assistant Name Role Phone Mariluz Reyes DO Primary Care Provider [phone] Encounter Details Date Type Department Care Team (Late Contact Info) Description 03/11/2024 [facility] Community Practice [address] [place] [address] Sonya Mir, DPM [address] [place], [place] [id number] Social History Tobacco Use Types Packs/Day Years Used Date Smoking Tobacco: Never Assessed Comments Unknown Sex and Gender Information Value Date Recorded Sex Assigned at Not on file Legal Sex Female 8:45 PM EDT Gender Identity Not on file Sexual Orientation Not on file documented as of this encounter Plan of Treatment Upcoming Encounters Date Type Department Care Team (Late Contact Info) Description 09/30/2024 9:30 AM EDT Office Visit [facility] [address] [facility] [place] [address] Candido Killian MD [address] [place] [address] documented as of this encounter Visit Diagnoses Not on filedocumented in this encounter Care Teams Blood Bank Assistant Relationship Specialty Start Date End Date Mariluz Reyes DO [address] [place] [address] PCP - General Family Medicine 4/3/25 documented as of this encounter
--- OUTSIDE RECORDS SUMMARY | 2024-09-02 09:57 | XMS_ITS | Encounter Summary ---
Author Organization [facility] Address [address] [place] [address] Care Team Providers Care Instructional Material Director Name Role Phone Elvi Posada MD Primary Care Provider [phone] Mariluz Reyes DO Primary Care Provider [phone] Mariluz Reyes DO Primary Care Provider [phone] Mana Rodriguez PA-C Unavailable [phone] Reason for Visit * Reason Comments Medication Refill Encounter Details Date Type Department Care Team (Late st Contact Info) Description 01/30/2023 Refill [facility] Neurology - [facility] [address] [facility] [address] [place] [address] Ana Amin APRN [address] [facility] [address] [place] [address] Social History Tobacco Use Types Packs/Day Years [...] Description 09/06/2024 10:30 AM EDT Procedure Visit [facility] Neurology - [address] [facility] [address] [place] [address] Nik Gu MD [address] [facility] [address] [place] [address] 09/19/2024 1:15 PM EDT Office Visit [facility] Bariatric Services [address] [facility] [address] [place] [address] Ann Espana, PHYSICS TUTOR [address] [place] [address] 10/15/2024 9:00 AM EDT Office Visit [facility] Primary Care [address] [place] [address] Mariluz Reyes DO [address] [place] [address] 10/24/2024 10:30 AM EDT Office Visit [facility] Gastroenterology [address] [facility] [address] [place] [address] Mana Rodriguez PA-C [address] [place], [place] [id number] documented as of this encounter Visit Diagnoses Not on filedocumented in this encounter Care Teams Instructional Material Director Relationship Specialty Start Date End Date Elvi Posada MD PCP - General Family Medicine 01/21/22 12/19/23 Mariluz Reyes DO [address] [place] [address] PCP - General Family Medicine 12/20/23 01/13/24 Mariluz Reyes DO [address] [place] [address] [place] [address] PCP - General Family Medicine 01/18/24 Mana Rodriguez PA-C [address] [place] [address] Gastroenterology 05/16/24 documented as of this encounter
--- OUTSIDE RECORDS SUMMARY | 2024-09-02 09:57 | XMS_ITS | Encounter Summary ---
Author Organization [employer] [facility] [employer] Address [address] [place] [address] Care Team Providers Care Pizza Delivery Name Role Phone Elvi Posada MD Primary Care Provider [phone] Mariluz Reyes DO Primary Care Provider [phone] Mariluz Reyes DO Primary Care Provider [phone] Mana Rodriguez PA-C Unavailable [phone] Reason for Visit * Reason Comments Medication Refill Encounter Details Date Type Department Care Team (Late st Contact Info) Description 03/14/2023 Refill [facility] Neurology - [facility] [address] [facility] [address] [place] [address] Ana Amin APRN [address] [facility] [address] [place] [address] Social History Tobacco Use Types Packs/Day Years [...] Description 09/06/2024 10:30 AM EDT Procedure Visit [facility] Neurology - [address] [facility] [address] [place] [address] Nik Gu MD [address] [facility] [address] [place] [address] 09/19/2024 1:15 PM EDT Office Visit [facility] Bariatric Services [address] [facility] [address] [place] [address] Ann Espana, MANAGEMENT LIAISON [address] [place] [address] 10/15/2024 9:00 AM EDT Office Visit [facility] Primary Care [address] [place] [address] Mariluz Reyes DO [address] [place] [address] 10/24/2024 10:30 AM EDT Office Visit [facility] Gastroenterology [address] [facility] [address] [place] [address] Mana Rodriguez PA-C [address] [place], [place] [phone] documented as of this encounter Visit Diagnoses Not on filedocumented in this encounter Care Teams Pizza Delivery Relationship Specialty Start Date End Date Elvi Posada MD PCP - General Family Medicine 01/21/22 12/19/23 Mariluz Reyes DO [address] [place] [address] PCP - General Family Medicine 12/20/23 01/13/24 Mariluz Reyes DO [address] [place] [place] [address] PCP - General Family Medicine 01/18/24 Mana Rodriguez PA-C [address] [place] [address] Gastroenterology 05/16/24 documented as of this encounter
--- OUTSIDE RECORDS SUMMARY | 2024-09-02 09:57 | XMS_ITS | Encounter Summary ---
Author Organization [facility] Address [address] [place] [address] Care Team Providers Care Log Hauler Name Role Phone Mariluz Reyes DO Primary Care Provider [phone] Reason for Referral * Consultation (Routine) - Authorized Specialty Diagnoses / Procedures Referred By Contbryce villarreal Referred To Contact Neurology Diagnoses Intractable chronic migraine with aura and without status migrainosus Mariluz Reyes DO [address] [place] [address] Phone: tel: fax: Referral ID Status Reason Start Date Expiration Date Visits Requested Visits Authorized [id number] Authorized Specialty Services Required 05/10/2024 11/09/2025 1 1 Encounter Details Date Type Department Care Team (Late st Contact Info) Description 05/10/2024 [facility] Community Practice [address] [place] [address] Mariluz Reyes DO [address] [place] [address] Intractable chronic migraine with aura and without status migrainosus (Primary Dx) Social History Tobacco Use Types [...] [facility] [address] [facility], [address] [place] [address] Candido Killian MD [address] [place] [address] Scheduled Referrals Name Type Priority Associated Diagnoses Orde r Schedule Ambulatory referral to Neurology Outpatient Referral Routine Intractable chronic migraine with aura and without status migrainosus Expected: 05/10/2024 (Approximate), Expires: 11/07/2025 documented as of this encounter Visit Diagnoses Diagnosis Intractable chronic migraine with aura and without status migrainosus- Primary documented in this encounter Care Teams Log Hauler Relationship Specialty Start Date End Date Mariluz Reyes DO [address] [place] [address] PCP - General Family Medicine 06/20/24 documented as of this encounter
--- OUTSIDE RECORDS SUMMARY | 2024-09-02 09:57 | XMS_ITS | Encounter Summary ---
Author Organization [employer] [facility] [employer] Address [address] [place] [address] Care Team Providers Care Seamer Operator Name Role Phone Elvi Posada MD Primary Care Provider Mariluz Reyes DO Primary Care Provider [phone] Mariluz Reyes DO Primary Care Provider [phone] Mana Rodriguez PA-C Unavailable [phone] Reason for Visit * Reason Comments Medication Refill Encounter Details Date Type Department Care Team (Late st Contact Info) Description 04/07/2023 Refill [facility] Neurology - [facility] [address] [facility] [address] [place] [address] Ana Amin APRN [address] [facility] [address] [place] [address] Social History Tobacco Use Types Packs/Day Years [...] Date Rayray rded Speak language other than Citizen [place] at home Not on file 03/29/2023 Want [...] Description 09/06/2024 10:30 AM EDT Procedure Visit [facility] Neurology - [address] [place] [address] [place] [address] [place] [address] [address] [place] [address] 09/19/2024 1:15 PM EDT Office Visit [facility] Bariatric Services [address] [place] [address] Ann Espana, ASSISTANT PROFESSOR OF RADIOLOGY [address] [place] [address] 10/15/2024 9:00 AM EDT Office Visit [facility] Primary Care [address] [place] [address] Mariluz Reyes DO [address] [place] [address] 10/24/2024 10:30 AM EDT Office Visit [facility] Gastroenterology [address] [facility] [address] [place] [address] Mana Rodriguez PA-C [address] [facility] [address] [place] [address] documented as of this encounter Visit Diagnoses Not on filedocumented in this encounter Care Teams Seamer Operator Relationship Specialty Start Date End Date Elvi Posada MD PCP - General Family Medicine 01/21/22 12/19/23 Mariluz Reyes DO [address] [place] [address] PCP - General Family Medicine 12/20/23 01/13/24 Mariluz Reyes DO [address] [place] [address] PCP - General Family Medicine 01/18/24 Mana Rodriguez PA-C [address] [facility] [address] [place] [address] Gastroenterology 05/16/24 documented as of this encounter
--- OUTSIDE RECORDS SUMMARY | 2024-09-02 09:57 | XMS_ITS | Encounter Summary ---
Author Organization [facility] Address [address] [place] [address] Care Team Providers Care Heel Builder Machine Name Role Phone Eric Mariluz uGillen Primary Care Provider [phone] Reason for Referral * Consultation (Routine) - Closed Specialty Diagnoses / Procedures Referred By Contbryce villarreal Referred To Contact Neurology Diagnoses Neuropathy Disease related peripheral neuropathy Caroline Garcia APRN [address] [place] [address] Phone: tel: fax: Referral ID Status Reason Start Date Expiration Date V isits Requested Visits Authorized [id number] Closed Specialty Services Required 12/22/2023 06/22/2025 1 1 Encounter Details Date Type Department Care Team ([facility] Contact Info) Description 12/22/2023 [facility] Community Practice [address] [place] [address] Caroline Garcia APRN [address] [place] [address] Neuropathy (Primary Dx); Disease related peripheral neuropathy Social History Tobacco Use Types Packs/Day Years [...] 09/30/2024 9:30 AM EDT Office Visit [facility] [address] [facility] [place] [address] Candido Killian MD [address] [place] [address] Scheduled Referrals Name Type Priority Associated Diagnoses Order Schedule Ambulatory referral to Neurology Outpatient Referral Routine Neuropathy Disease related peripheral neuropathy Expected: 12/22/2023 (Approximate), Expires: 06/21/2025 documented as of this encounter Visit Diagnoses Diagnosis Neuropathy- Primary Mononeuritis of unspecified site Disease related peripheral neuropathy Other specified idiopathic peripheral neuropathy documented in this encounter Care Teams Heel Builder Machine Relationship Specialty Start Date End Date Mariluz Reyes DO [address] [place] [address] PCP - General Family Medicine 06/20/24 documented as of this encounter
--- OUTSIDE RECORDS SUMMARY | 2024-09-02 09:57 | XMS_ITS | Encounter Summary ---
Author Organization [employer] Address [address] [place] [address] Care Team Providers Care Public Transit Specialist Name Role Phone Umberto Olivares DO Primary Care Provider [phone] Mana Rodriguez PA-C Unavailable [phone] Reason for Visit * Reason Onset Date Comments Appointment 04/23/2024 Encounter Details Date Type Department Care Team (Late st Contact Info) Description 04/23/2024 Telephone [facility] Primary Care [address] [place] [address] Umberto Olivares DO [address] [place] [address] Appointment Social History Tobacco Use Types Packs/Day Years [...] encounter Miscellaneous Notes * Telephone Encounter - Bot EST [employer] Maria Elena - 04/23/2024 12:22 PM EST FROM: Jessica Pérez CSN: SUBJECT: Nurse/Marble Supervisor Appointment Request PROVIDER: UMBERTO OLIVARES [[id number]] DEPARTMENT: [facility] [[id number]] ENCOUNTER REASON FOR CALL: APPOINTMENT [375] ENCOUNTER TYPE: Telephone REASON FOR APPOINTMENT REQUEST: No Available Appointment NEXT AVAILABLE APPOINTMENT SCHEDULED? No LAST VISIT DATE IS NOT APPLICABLE: Yes NURSE/DECKHAND FISHING VESSEL APPOINTMENT TYPE: Injection PATIENT ADVISED STAFF WILL CONTACT THEM TO COORDINATE APPOINTMENT? Yes MESSAGE PRIORITY: Routine ADDITIONAL INFORMATION: B12 CALLER'S NAME: Allison Mendez RELATION TO PATIENT: Self [1] PREFERRED LANGUAGE: Swiss BEST CALL BACK PHONE NUMBER: Home Phone: ([phone]) WHAT IS THE BEST WAY FOR THE OFFICE TO CONTACT YOU?: OK to leave message on voicemail SCRIPT USED: Adult Vaccines/PPD SCRIPTING QUESTIONS/ANSWERS FROM THE WORKFLOW: (Is the patient looking to schedule for travel/ non-routine vaccines (e.g., yellow fever, rabies)?): Yes CE SYSTEMS TECHNOLOGY INSTRUCTOR documented in this encounter Plan of Treatment Upcoming Encounters Date Type Department Care Team (Late st Contact Info) Description 09/06/2024 10:30 AM EDT Procedure Visit [facility] Neurology - [facility] [address] [place] [address] [address] [place] [address] Nik Gu MD [address] [place] [address] [address] [place], [place] [id number] 09/19/2024 1:15 PM EDT Office Visit [facility] Bariatric Services [address] [facility] [address] [place] [address] Ann Espana, WELDING SETTER [address] [place] [address] 10/15/2024 9:00 AM EDT Office Visit [facility] Primary Care [address] [place] [address] Umberto Olivares DO [address] [place] [address] 10/24/2024 10:30 AM EDT Office Visit [facility] Gastroenterology [address] [facility] [address] [place] [address] Mana Rodriguez PA-C [address] [facility] [address] [place], [place] [id number] documented as of this encounter Visit Diagnoses Not on filedocumented in this encounter Care Teams Public Transit Specialist Relationship Specialty Start Date End Date Umberto Olivares DO [address] [facility] [address] [place] [address] PCP - General Family Medicine 01/18/24 Mana Rodriguez PA-C [address] [facility] [address] [place], [place] [id number] Gastroenterology 05/16/24 documented as of this encounter
--- OUTSIDE RECORDS SUMMARY | 2024-09-02 09:57 | XMS_ITS | Encounter Summary ---
Author Organization [employer] Address [address] [place] [address] Care Team Providers Care Mixed Livestock Farm Worker Name Role Phone Elvi Posada MD Primary Care Provider [phone] Mariluz Reyes DO Primary Care Provider [phone] Mariluz Reyes DO Primary Care Provider [phone] Mana Rodriguez PA-C Unavailable [phone] Encounter Details Date Type Department Care Team (Late st Contact Info) Description 01/31/2020 Transcribed Document [facility] [place] Medicine [address] [place] [address] ProviderLeslie MD [address] [place] [address] Social History Tobacco Use Types [...] Conversion Note - Historical ProviderMD - 01/31/2020 10:38 AM OCCUPATIONAL THERAPIST PAT Adult Entered On: 01/31/2020 10:38 EST Performed On: 01/31/2020 10:38 EST by Ian Roca Rn Sleep Apnea Risk Assmt Hx of Obstructive Sleep Apnea Diagnosis : No Snore Loudly : Yes Tired, Fatigued, or Sleepy During Day : No Observed Stopping Breathing During Sleep : No Have/Are Being Treated for Hypertension : Yes BMI Greater Than 35 kg/m2 : No Age over 50 Years Old : Yes Neck Circumference Greater Than 40 cm : No Gender Male : No STOP-BANG Sleep Apnea Risk Level Score : 3 Ian Roca Rn - 01/31/2020 10:38 EST Electronically signed by Nazia [facility] Conversion Technical Business Systems Analyst Cerner at 07/05/2022 3:37 PM CDT documented in this encounter Plan of Treatment Upcoming Encounters Date Type Department Care Team (Late st Contact Info) Description 09/06/2024 10:30 AM EDT Procedure Visit [facility] Neurology - [address] [facility] [address] [place] [address] Nik Gu MD [address] [facility] [address] [place] [address] 09/19/2024 1:15 PM EDT Office Visit [facility] Bariatric Services [address] [place] [address] Ann Espana, MAINTENANCE DISPATCHER [address] [place] [address] 10/15/2024 9:00 AM EDT Office Visit [facility] Primary Care [address] [place] [address] Mariluz Reyes DO [address] [place] [address] 10/24/2024 10:30 AM EDT Office Visit [facility] Gastroenterology [address] [facility] [address] [place] [address] Mana Rodriguez PA-C [address] [place] [address] documented as of this encounter Visit Diagnoses Not on filedocumented in this encounter Care Teams Mixed Livestock Farm Worker Relationship Specialty Start Date End Date Elvi Posada MD PCP - General Family Medicine 01/21/22 12/19/23 Mariluz Reyes DO [address] [place] [address] PCP - General Family Medicine 12/20/23 01/13/24 Mariluz Reyes DO [address] [facility] [address] [place] [address] PCP - General Family Medicine 01/18/24 Mana Rodriguez PA-C [address] [facility] [address] [place] [address] Gastroenterology 05/16/24 documented as of this encounter
--- OUTSIDE RECORDS SUMMARY | 2024-09-02 09:57 | XMS_ITS | Encounter Summary ---
Author Organization [employer] Address [address] [place] [address] Care Team Providers Care Finance Clerk Name Role Phone Elvi Posada MD Primary Care Provider [phone] Mariluz Reyes DO Primary Care Provider [phone] Mariluz Reyes DO Primary Care Provider [phone] Mana Rodriguez PA-C Unavailable [phone] Reason for Visit * Reason Comments Medication Refill Encounter Details Date Type Department Care Team (Late st Contact Info) Description 03/20/2023 Refill [facility] Neurology - [facility] [address] [facility] [address] [place] [address] Ana Amin APRN [address] [facility] [address] [place] [address] Social History Tobacco Use Types Packs/Day Years [...] 09/06/2024 10:30 AM EDT Procedure Visit [facility] Neurology - [address] [facility] [address] [place] [address] Nik uG MD [address] [facility] [address] [place] [address] 09/19/2024 1:15 PM EDT Office Visit [facility] Bariatric Services [address] [facility] [address] [place] [address] Ann Espana, CORPORATE CONTROLLER [address] [place] [address] 10/15/2024 9:00 AM EDT Office Visit [facility] Primary Care [address] [place] [address] Mariluz Reyes DO [address] [place] [address] 10/24/2024 10:30 AM EDT Office Visit [facility] Gastroenterology [address] [facility] [address] [place] [address] Mana Rodriguez PA-C [address] [place], [place] [id number] documented as of this encounter Visit Diagnoses Not on filedocumented in this encounter Care Teams Finance Clerk Relationship Specialty Start Date End Date Elvi Posada MD PCP - General Family Medicine 01/21/22 12/19/23 Mariluz Reyes DO [address] [place] [address] PCP - General Family Medicine 12/20/23 01/13/24 Mariluz Reyes DO [address] [place] [address] PCP - General Family Medicine 01/18/24 Mana Rodriguez PA-C [address] [place] [address] Gastroenterology 05/16/24 documented as of this encounter
--- OUTSIDE RECORDS SUMMARY | 2024-09-02 09:57 | XMS_ITS | Encounter Summary ---
Author Organization [employer] Address [address] [place] [address] Care Team Providers Care Coke Inspector Name Role Phone Umberto Olivares DO Primary Care Provider [phone] Mana Rodriguez PA-C Unavailable [phone] Reason for Visit * Reason Onset Date Comments CHANGE CLINICIAN OR REDIRECT REFERRAL 05/03/2024 Encounter Details Date Type Department Care Team (Late st Contact Info) Description 05/03/2024 Telephone [facility] Primary Care [address] [place] [address] Umberto Olivares DO [address] [place] [address] CHANGE CLINICIAN OR REDIRECT REFERRAL Social History Tobacco Use Types Packs/Day Years [...] Date Rayray rded Speak language other than Samoan at home Not on file 03/29/2023 Want [...] encounter Miscellaneous Notes * Telephone Encounter - Caren Rodriguez - 05/08/2024 8:52 AM EST Spoke with patient and informed her that I sent her referral with [facility] and once reviewed they will call to schedule. TRIMMER * Telephone Encounter - Bot EST [employer] Arredondo - 05/03/2024 12:51 PM EST FROM: Flakita Berrios CSN: TO: [facility] [employer] [address] MAINTENANCE SUPERVISOR [[id number]] SUBJECT: Referral Request PROVIDER: UMBERTO OLIVARES [[id number]] DEPARTMENT: [facility] [employer] [facility] [[id number]] ENCOUNTER REASON FOR CALL: CHANGE CLINICIAN OR REDIRECT REFERRAL ENCOUNTER TYPE: Telephone CALLING TO: Change clinician or redirect referral TYPE OF REFERRAL/SPECIALTY (EX. DERMATOLOGY, IMAGING, ETC.): Neurology REASON FOR REFERRAL/DIAGNOSIS: Intractable chronic migraine with aura and without status migrainosus PATIENT'S INSURANCE TYPE: Medicare REFERRAL PLACED? Yes IF YES, WHEN WAS THE REFERRAL PLACED? 2024-04-30 WHO WAS THE REFERRAL ORDERED BY? Umberto Olivares REASON FOR REDIRECTING REFERRAL: Patient called to get apt scheduled and they don't accept medicareinsurance, so she is needing to be referred elsewhere. DID THE PATIENT SEE THE ORIGINAL REFERRAL TO THE PROVIDER OR FACILITY? No UPCOMING APPOINTMENT WITH A SPECIALIST? No LAST VISIT DATE IS NOT APPLICABLE: Yes NEXT VISIT DATE IS NOT APPLICABLE: Yes MESSAGE PRIORITY: Routine CALLER'S NAME: Allison Mendez RELATION TO PATIENT: Self [1] PREFERRED LANGUAGE: Samoan BEST CALL BACK PHONE NUMBER: Mobile Phone: ([phone]) WHAT IS THE BEST WAY FOR THE OFFICE TO CONTACT YOU?: OK to leave message with whoever answers the phone TRIMMER documented in this encounter Plan of Treatment Upcoming Encounters Date Type Department Care Team (Late st Contact Info) Description 09/06/2024 10:30 AM EDT Procedure Visit [facility] Neurology - [address] [facility] [address] [place] [address] Nik Gu MD [address] [place] [address] [address] [place], [place] [id number] 09/19/2024 1:15 PM EDT Office Visit [facility] Services [address] [facility] [address] [place] [address] Ann Espana, FIELD RADIO OPERATOR [address] [place] [address] 10/15/2024 9:00 AM EDT Office Visit [facility] Primary Care [address] [place] [address] Umberto Olivares DO [address] [place] [address] 10/24/2024 10:30 AM EDT Office Visit [facility] Gastroenterology [address] [facility] [address] [place] [address] Mana Rodriguez PA-C [address] [facility] [address] [place] [address] documented as of this encounter Visit Diagnoses Not on filedocumented in this encounter Care Teams Coke Inspector Relationship Specialty Start Date End Date Umberto Olivares DO [address] [place] [address] PCP - General Family Medicine 01/18/24 Mana Rodriguez PA-C [address] [facility] [address] [place] [address] Gastroenterology 05/16/24 documented as of this encounter
== END 2024-09-02 23:59 | disposition home or self-care (01) ==
LOC: RAD 09:50
PROVIDERS: PCP Obstetrics & Gynecology; Visit Provider Obstetrics & Gynecology
DX: Z12.31 Encounter for screening mammogram for malignant neoplasm of breast (principal); N63.20 Unspecified lump in the left breast, unspecified quadrant; R92.323 Mammographic fibroglandular density, bilateral breasts
CPT/HCPCS: 77063; 77067

== ENCOUNTER 2025-01-13 10:54 | Outpatient (CLI) | payer MEDICARE, MEDICAID, SELFPAY ==
--- OUTSIDE RECORDS SUMMARY | 2025-01-13 11:15 | XMS_ITS | Encounter Summary ---
Author Organization [facility] Address [address] [place] [address] Care Team Providers Care School Of Nursing Director Name Role Phone Eric Mariluz Mindy LOMELI Primary Care Provider [phone] Reason for Referral * Consultation (Routine) - Closed Specialty Diagnoses / Procedures Referred By Contbryce villarreal Referred To Contact Neurology Diagnoses Neuropathy Disease related peripheral neuropathy Caroline Garcia APRN [address] [place] [address] Phone: tel: fax: Referral ID Status Reason Start Date Expiration Date V isits Requested Visits Authorized [id number] Closed Specialty Services Required 12/22/2023 06/22/2025 1 1 Encounter Details Date Type Department Care Team (Late st Contact Info) Description 12/22/2023 [facility] Orders [facility] [address] [place] [address] Caroline Garcia APRN [address] [place] [address] Neuropathy (Primary Dx); Disease related peripheral neuropathy Social History Tobacco Use Types Packs/Day Years Used Date Smoking Tobacco: Never Assessed Comments Unknown Sex and Gender Information Value Date Recorded Sex Assigned at Not on file Legal Sex Female 8:45 PM EDT Gender Identity Not on file Sexual Orientation Not on file documented as of this encounter Plan of Treatment Scheduled Referrals Name Type Priority Associated Diagnoses Order Schedule Ambulatory referral to Neurology Outpatient Referral Routine Neuropathy Disease related peripheral neuropathy Expected: 12/22/2023 (Approximate), Expires: 06/21/2025 documented as of this encounter Visit Diagnoses Diagnosis Neuropathy- Primary Mononeuritis of unspecified site Disease related peripheral neuropathy Other specified idiopathic peripheral neuropathy documented in this encounter Care Teams School Of Nursing Director Relationship Specialty Start Date End Date Mariluz Reyes DO [address] [place] [address] PCP - General Family Medicine 06/20/24 documented as of this encounter
--- OUTSIDE RECORDS SUMMARY | 2025-01-13 11:16 | XMS_ITS | Data Portability ---
Author Organization [facility] Address [address] [place] [address] Care Team Providers Care Crew Leader Name Role Phone [facility] Referring Provider ANGELA LOMELI Referring Provider Assessment Encounter Date Assessment Date Assessment LastModified by Organization Details LastModified Time 12/25/2014 12/25/2014 Allison has a sinus infection and severe seasonal allergies. isamar Not available 12/25/2014 11:23:37 03/02/2015 03/02/2015 Allison is havin g some troubles at night with her head feeling like it is spinning. She also has some racing thoughts and difficulty sleeping. She does drink sweet tea with sugar so we recommend she cut that out and consider using Stevia to leida tea but avoid tea at night or late in the day. We encourage her to go to the physical therapy for her knee as well. We can give a trial of Trazodone to setttle her down at night. She has an appointment later this month at for the migraines. isamar Not available 03/02/2015 17:03:36 09/22/2015 09/22/2015 Ms Parra presents for her wellness exam and a pre op evaluation for left knee replacement. Labs are reviewed and she does have elevated lipids. We will re evaluate these after she has been able to reduce her weight some. She also has gained some weight that she is unhappy with and wants to be able to resume exercise after the knee surgery. Depression screen is positive but she does not want medications as she feels it all relates to her knee. Also her fall risk is low. She is followed by PHYS[facility] DES[facility] ENGINEER, Dr Burton in [place] and we will request her recent mammograms. Medically she is cleared for the left knee surgery under general anesthesia. The patient does not have her own teeth only dentures and therefore has no need for a dentist. There is no infection as there are no teeth to be infected. Not available 09/29/2015 10:30:47 04/19/2016 04/19/2016 Allison has a sinus infection that we will treat. She also has elevated BP and it is time to treat that as it likely contributes to her headache. Heart rate is low so we will begin an ARB trial. She will monitor her BP and we would like it under 130/80. She will be due her physical in September with labs. I recommend she cut the BP med in half to start with and see how she does. Not available 04/19/2016 14:55:26 12/15/2016 12/15/2016 Mr.s Mendez presents for her wellness exam and a pre op evaluation for right knee replacement. Labs are reviewed and she does have elevated lipids, but is reluctant to take a statin due to the musculoskeletal potential side effects. She recently was started on potassium supplementation as the level was borderline low. Her blood pressure medication. losartan/ hctz was cut in half as well recently. Medications are reconciled. Migraine syndrome is stable. She also has pre diabetes and she has been primarily drinking sugary drinks and actually not eating much.. She advises me she stopped the sugary drinks this past week. We will follow this closely and will begin medication if dietary measures are not adequate. She also has gained some weight that she is unhappy with and wants to be able to resume exercise after the knee surgery. She should have a colonoscopy after she recovers from the pending orthopedic surgery She has an early sinus infection that will be treated. Depression screen has improved with a PHQ9 score of 5. Also her fall risk is low. She is followed by PHYSICAL DESIGN ENGINEER, Dr. Burton, in [place] and we will request her recent mammograms. She continues to take low dose estrogen replacement. Medically she is cleared for the right knee surgery under general anesthesia. She receives the Pneumococcal 23 vaccine today. She received the Influenza vaccine last week. Not available 12/16/2016 20:55:40 Plan of Treatment Reminders Order Date Submit Date Provider Last Modified By Organization Details Last Modified Time Details Appointments None recorded. Lab urinalysis , dipstick [address] [facility], [address] [place], [address], 7 14:53:52 lipid panel, serum [address] [facility], [address] [place], [address], 6 10:30:47 TSH, serum or plasma [address] [facility], [address] [place], [address], 6 10:30:47 Referral None recorded. Procedures None recorded. Surgeries None recorded. Imaging None recorded. Medication Orders amoxicilli n 500 mg capsule 2016 017 [facility], [address], [address], 7 15:29:31 amoxicilli n 500 mg capsule [address] [facility], [address], [address], 7 08:46:31 losartan 50 mg-hydroch lorothiazi de 12.5 mg tablet [address] [facility], [address], [address], 7 15:15:26 fluconazol e 150 mg tablet [address] [facility], [address], [address], 7 14:23:42 trazodone 100 mg tablet [address] [facility], [address], [address], 6 10:19:38 dexamethas one sodium phosphate 4 mg/mL injection solution 2014 015 Not available 5 16:45:13 methylpred nisolone 4 mg tablets in a dose pack [address] [facility], [address], [address], 7 14:39:36 fluconazol e 150 mg tablet [email or web address] [facility], [address], [address], 7 14:23:42 amoxicilli n 875 mg-potassi um clavulanat e 125 mg tablet [address] [facility], [address], [address], 5 16:45:12 ceftriaxon e 1 gram solution for injection 2014 015 Not available 5 16:45:13 Patient TargetsNo targets recorded. Patient Instructions Encounter Date Encounter Id Patient Instructions Last Modified By Organization Details Last Modified Time 04/19/2016 [id number] dash diet: care instructions Not available 04/19/2016 14:55:34 learning about t he mediterranean diet Not available 04/19/2016 14:55:34 12/15/2016 [id number] prediabetes: car e instructions Not available 12/15/2016 15:20:27 dash diet: care instructions Not available 12/15/2016 15:20:27 Reason for Referral None Reported. Results Created Date Observation Date Name Description Value Unit Range Abnormal Flag Note LastModifiedBy Organization Detail LastModifiedTime 04/19/19 17 04/19/2016 urina lysis , dipst ick Leukocytes Negati ve Not Available [facility] [address], [place], [address], 04/19/2016 14:27:32 04/19/19 17 04/19/2016 urina lysis , dipst ick Nitrite negati ve Not Available [facility] [address], [place], [address], 04/19/2016 14:27:32 04/19/19 17 04/19/2016 urina lysis , dipst ick Protein Negati ve Not Available [facility] [address], [place], [address], 04/19/2016 14:27:32 04/19/19 17 04/19/2016 urina lysis , dipst ick pH 6.0 Not Available [facility] [address] [place], [address], 04/19/2016 14:27:32 04/19/19 17 04/19/2016 urina lysis , dipst ick Blood Modera te Not Available [facility] [address], [place], [address], 04/19/2016 14:27:32 04/19/19 17 04/19/2016 urina lysis , dipst ick Specific [place] 1.020 Not Available [facility] [address], [place], [address], 04/19/2016 14:27:32 04/19/19 17 04/19/2016 urina lysis , dipst ick Ketone Negati ve Not Available [facility] [address], [place], [address], 04/19/2016 14:27:32 04/19/19 17 04/19/2016 urina lysis , dipst ick Bilirubin Negati ve Not Available [facility] [address] [place], [address], 04/19/2016 14:27:32 04/19/19 17 04/19/2016 urina lysis , dipst ick Glucose Negati ve Not Available [facility] [address], [place], [address], 04/19/2016 14:27:32 09/15/19 16 09/15/2015 CBC w/ auto diff WBC 6.2 10 4.5-11 .5 Not Available [facility] (Lab Registration) [address], [place], [address], 09/15/2015 08:03:41 09/15/19 16 09/15/2015 CBC w/ auto diff RBC 4.07 10 4.25-5 .57 low Not Available [facility] (Lab Registration) [address], [place], [address], 09/15/2015 08:03:41 09/15/19 16 09/15/2015 CBC w/ auto diff HGB 12.4 g/dL 12.0-1 5.7 Not Available [facility] (Lab Registration) [address] [place], [address], 09/15/2015 08:03:41 09/15/19 16 09/15/2015 CBC w/ auto diff HCT 37.3 % 36.0-4 7.0 Not Available [facility] (Lab Registration) [address] [place], [address], 09/15/2015 08:03:41 09/15/19 16 09/15/2015 CBC w/ auto diff MCV 91.6 fL 80-95 Not Available [facility] (Lab Registration) [address] [place], [address], 09/15/2015 08:03:41 09/15/19 16 09/15/2015 CBC w/ auto diff MCH 30.5 pg 27.0-3 4.0 Not Available [facility] (Lab Registration) [address] [place], [address], 09/15/2015 08:03:41 09/15/19 16 09/15/2015 CBC w/ auto diff MCHC 33.2 g/dL 32.0-3 6.0 Not Available [facility] (Lab Registration) [address] [place], [address], 09/15/2015 08:03:41 09/15/19 16 09/15/2015 CBC w/ auto diff RDW 13.0 % 12.3-1 5.1 Not Available [facility] (Lab Registration) [address] [place], [address], 09/15/2015 08:03:41 09/15/19 16 09/15/2015 CBC w/ auto diff platelet count 213 10 150-45 0 Not Available [facility] (Lab Registration) [address] [place], [address], 09/15/2015 08:03:41 09/15/19 16 09/15/2015 CBC w/ auto diff granulocyte% 51.1 % 40-75 Not Available [facility] (Lab Registration) [address] [place], [address], 09/15/2015 08:03:41 09/15/19 16 09/15/2015 CBC w/ auto diff lymphocyte% 37.8 % 15-57 Not Available [facility] (Lab Registration) [address] [place], [address], 09/15/2015 08:03:41 09/15/19 16 09/15/2015 CBC w/ auto diff monocyte% 7.3 % 4.0-12 .0 Not Available [facility] (Lab Registration) [address] [place], [address], 09/15/2015 08:03:41 09/15/19 16 09/15/2015 CBC w/ auto diff eosinophil% 3.6 % 0.0-4. 0 Not Available [facility] (Lab Registration) [address] [place], [address], 09/15/2015 08:03:41 09/15/19 16 09/15/2015 CBC w/ auto diff basophil% 0.2 % 0.0-1. 0 Not Available [facility] (Lab Registration) [address], [place], [address], 09/15/2015 08:03:41 09/15/19 16 09/15/2015 CBC w/ auto diff granulocyte# 3.15 10 1.8-8. 62 Not Available [facility] (Lab Registration) [address], [place], [address], 09/15/2015 08:03:41 09/15/19 16 09/15/2015 CBC w/ auto diff lymphocyte# 2.33 10 0.76-5 .40 Not Available [facility] (Lab Registration) [address], [place], [address], 09/15/2015 08:03:41 09/15/19 16 09/15/2015 CBC w/ auto diff monocyte# 0.45 10 0.18-1 .38 Not Available [facility] (Lab Registration) [address] [place], [address], 09/15/2015 08:03:41 09/15/19 16 09/15/2015 CBC w/ auto diff eosinophil# 0.22 10 0.00-0 .46 Not Available [facility] (Lab Registration) [address] [place], [address], 09/15/2015 08:03:41 09/15/19 16 09/15/2015 CBC w/ auto diff basophil# 0.01 10 0.-0.1 1 Not Available [facility] (Lab Registration) [address] [place], [address], 09/15/2015 08:03:41 09/15/19 16 09/15/2015 CBC w/ auto diff manual differential NO Not Available [facility] (Lab Registration) [address] [place], [address], 09/15/2015 08:03:41 09/15/19 16 09/15/2015 CBC w/ auto diff note Unles s other johnson noted testi ng perfo [facility]med at[facility] [address] [place], [place] [id number] [phone] Nik kraft MD CLIA: [id number] Not Available [facility] (Lab Registration) [address], [place], [address], 09/15/2015 08:03:41 09/15/19 16 09/15/2015 PT/IN R PT (prothrombin time) 9.1 secon ds 9.33-1 0.37 low Not Available [facility] (Lab Registration) [address], [place], [address], 09/15/2015 08:06:43 09/15/19 16 09/15/2015 PT/IN R INR 0.92 0.9-1. 1 INR is inten ded to be used only for patie nts on stabl e oral anti- coagu lant thera py. *Ther apeut ic Range s 2.0 - 3.0 Usual Thera peuti c Range 2.5 - 3.5 For patie nts with a histo ry of multi ple deep vein throm bus or mecha nical heart valve s. Not Available [facility] (Lab Registration) [address], [place], [address], 09/15/2015 08:06:43 09/15/19 16 09/15/2015 PT/IN R note Unles s other johnson noted testi ng perfo rmed at: [facility] [address] [place], [place] [id number] [phone] Nik kraft MD CLIA: [id number] Not Available [facility] (Lab Registration) [address] [place], [address], 09/15/2015 08:06:43 09/15/19 16 09/15/2015 activ ated parti al throm bopla stin time, coagu latio n assay , blood PTT (partial thromb time) 27.8 secon ds 24.0-3 2.8 Not Available [facility] (Lab Registration) [address], [place], [address], 09/15/2015 08:06:44 09/15/19 16 09/15/2015 activ ated parti al throm bopla stin time, coagu latio n assay , blood note Unles s other johnson noted testi ng perfo rmed at: [facility] [place] [address] [phone] Nik kraft MD CLIA: [id number] Not Available [facility] (Lab Registration) [address] [place], [address], 09/15/2015 08:06:44 09/15/19 16 09/15/2015 urina lysis , compl ete color YELLOW yellow Not Available [facility] (Lab Registration) [address] [place], [address], 09/15/2015 08:24:02 09/15/19 16 09/15/2015 urina lysis , compl ete appearance CLEAR clear Not Available [facility] (Lab Registration) [address] [place], [address], 09/15/2015 08:24:02 09/15/19 16 09/15/2015 urina lysis , compl ete glucose NORMAL normal Not Available [facility] (Lab Registration) [address] [place], [address], 09/15/2015 08:24:02 09/15/19 16 09/15/2015 urina lysis , compl ete bilirubin NEGATI VE negati ve Not Available [facility] (Lab Registration) [address] [place], [address], 09/15/2015 08:24:02 09/15/19 16 09/15/2015 urina lysis , compl ete ketone NEGATI VE mg/dL negati ve Not Available [facility] (Lab Registration) [address] [place], [address], 09/15/2015 08:24:02 09/15/19 16 09/15/2015 urina lysis , compl ete specific gravity 1.010 1.005- 1.035 Not Available [facility] (Lab Registration) [address] [place], [address], 09/15/2015 08:24:02 09/15/19 16 09/15/2015 urina lysis , compl ete blood NEGATI VE /mcL negati ve Not Available [facility] (Lab Registration) [address] [place], [address], 09/15/2015 08:24:02 09/15/19 16 09/15/2015 urina lysis , compl ete pH 6.00 5.0-7. 5 Not Available [facility] (Lab Registration) [address] [place], [address], 09/15/2015 08:24:02 09/15/19 16 09/15/2015 urina lysis , compl ete protein NEGATI VE mg/dL negati ve Not Available [facility] (Lab Registration) [address] [place], [address], 09/15/2015 08:24:02 09/15/19 16 09/15/2015 urina lysis , compl ete urobilnogen NORMAL mg/dL normal Not Available [facility] (Lab Registration) [address] [place], [address], 09/15/2015 08:24:02 09/15/19 16 09/15/2015 urina lysis , compl ete nitrite NEGATI VE negati ve Not Available [facility] (Lab Registration) [address] [place], [address], 09/15/2015 08:24:02 09/15/19 16 09/15/2015 urina lysis , compl ete leukocyte esterase NEGATI VE /mcL negati ve Not Available [facility] (Lab Registration) [address] [place], [address], 09/15/2015 08:24:02 09/15/19 16 09/15/2015 urina lysis , compl ete culture? NOT REQUIR ED Not Available [facility] (Lab Registration) [address] [place], [address], 09/15/2015 08:24:02 09/15/19 16 09/15/2015 urina lysis , compl ete RBC RARE 0-3 Not Available [facility] (Lab Registration) [address] [place], [address], 09/15/2015 08:24:02 09/15/19 16 09/15/2015 urina lysis , compl ete WBC RARE none seen Not Available [facility] (Lab Registration) [address] [place], [address], 09/15/2015 08:24:02 09/15/19 16 09/15/2015 urina lysis , compl ete epithelial cell 0-3 none seen Not Available [facility] (Lab Registration) [address] [place], [address], 09/15/2015 08:24:02 09/15/19 16 09/15/2015 urina lysis , compl ete bacteria TRACE none seen Not Available [facility] (Lab Registration) [address] [place], [address], 09/15/2015 08:24:02 09/15/19 16 09/15/2015 urina lysis , compl ete note Unles s other johnson noted testi ng perfo rmed at: [facility] [address] [place] [address] [phone] Nik kraft MD CLIA: [id number] Not Available [facility] (Lab Registration) [address] [place], [address], 09/15/2015 08:24:02 09/15/19 16 09/15/2015 BMP, serum or plasm a sodium 144 mmol/ L 136-14 5 Not Available [facility] (Lab Registration) [address] [place], [address], 09/15/2015 08:41:21 09/15/19 16 09/15/2015 BMP, serum or plasm a potassium 3.6 mmol/ L 3.5-5. 1 Not Available [facility] (Lab Registration) [address] [place], [address], 09/15/2015 08:41:21 09/15/19 16 09/15/2015 BMP, serum or plasm a chloride 109 mmol/ L 98-107 high Not Available [facility] (Lab Registration) [address] [place], [address], 09/15/2015 08:41:21 09/15/19 16 09/15/2015 BMP, serum or plasm a carbon dioxide 26 mmol/ L 21-32 Not Available [facility] (Lab Registration) [address] [place], [address], 09/15/2015 08:41:21 09/15/19 16 09/15/2015 BMP, serum or plasm a anion gap 9.0 Not Available [facility] (Lab Registration) [address] [place], [address], 09/15/2015 08:41:21 09/15/19 16 09/15/2015 BMP, serum or plasm a glucose 95 mg/dL 70-110 Not Available [facility] (Lab Registration) [address] [place], [address], 09/15/2015 08:41:21 09/15/19 16 09/15/2015 BMP, serum or plasm a blood urea nitrogen 8 mg/dL 7-18 Not Available [facility] (Lab Registration) [address] [place], [address], 09/15/2015 08:41:21 09/15/19 16 09/15/2015 BMP, serum or plasm a creatinine 0.8 mg/dL 0.6-1. 0 Not Available [facility] (Lab Registration) [address] [place], [address], 09/15/2015 08:41:21 09/15/19 16 09/15/2015 BMP, serum or plasm a BUN/creatini ne ratio 10.0 ratio 9-21 Not Available [facility] (Lab Registration) [address] [place], [address], 09/15/2015 08:41:21 09/15/19 16 09/15/2015 BMP, serum or plasm a estimated glom filtration rate 81 mL/mi n >60- Not Available [facility] (Lab Registration) [address] [place], [address], 09/15/2015 08:41:21 09/15/19 16 09/15/2015 BMP, serum or plasm a calcium 8.5 mg/dL 8.5-10 .1 Not Available [facility] (Lab Registration) [address] [place], [address], 09/15/2015 08:41:21 09/15/19 16 09/15/2015 BMP, serum or plasm a note Matthew s other johnson noted testi ng perfo rmed at: [facility] [address] [place] [address] [phone] Nik kraft MD CLIA: [id number] Not Available [facility] (Lab Registration) [address] [place], [address], 09/15/2015 08:41:21 09/15/19 16 09/15/2015 HbA1c (hemo globi n A1c), blood glycosylated hemoglobin A1C 5.3 % 4.5-6. 2 Not Available [facility] (Lab Registration) [address] [place], [address], 09/15/2015 08:50:27 09/15/19 16 09/15/2015 HbA1c (hemo globi n A1c), blood note Unles s other johnson noted testi ng perfo rmed at: [facility] [address] [place] [address] [phone] Nik kraft MD CLIA: [id number] Not Available [facility] (Lab Registration) [address] , [place], [address], 09/15/2015 08:50:27 09/15/19 16 09/15/2015 methi cilli n resis tant staph yloco ccus aureu s, cultu re, unspe cifie d speci men results LJS 09-15 1436 METHI CILLI N RESIS TANT STAPH AUREU S NOT OBSER GENA Not Available [facility] (Lab Registration) [address] , [place], [address], 09/16/2015 14:38:28 09/15/19 16 09/15/2015 methi cilli n resis tant staph yloco ccus aureu s, cultu re, unspe cifie d speci men note Unles s other johnson noted testi ng perfo rmed at: [facility] [address] [place] [address] [phone] Nik kraft MD CLIA: [id number] Not Available [facility] (Lab Registration) [address] [place], [address], 09/16/2015 14:38:28 09/22/19 16 09/23/2015 lipid panel , serum cholesterol, total 234 mg/dL 125-20 0 high Not Available [facility] [address] [facility], [place], [address], 09/23/2015 08:17:41 09/22/19 16 09/23/2015 lipid panel , serum HDL cholesterol 62 mg/dL > or = 46 normal Not Available [facility] [address], [place], [address], 09/23/2015 08:17:41 09/22/19 16 09/23/2015 lipid panel , serum triglyceride s 144 mg/dL <150 normal Not Available [facility] [address] [place], [address], 09/23/2015 08:17:41 09/22/1909/23/2015 lipid panel , serum LDL-choleste rol 143 mg/dL _(nazia c) <130 high Mihir able range <100 mg/dL for patie nts with CHD or diabe van and <70 mg/dL for diabe tic patie nts with known heart disea se. Not Available [facility] [address] [place], [address], 09/23/2015 08:17:41 09/22/1909/23/2015 lipid panel , serum chol/HDLC ratio 3.8 (calc ) < or = 5.0 normal Not Available [facility] [address] [place], [address], 09/23/2015 08:17:41 09/22/1909/23/2015 lipid panel , serum non HDL cholesterol 172 mg/dL _(nazia c) high Targe t for non-H DL sangeeta stero l is 30 mg/dL highe r than LDL sangeeta stero l targe t. Not Available [facility] [address] [place], [address], 09/23/2015 08:17:41 09/22/1909/23/2015 TSH, serum or plasm a TSH 2.50 mIU/L normal Refer ence Range > or = 20 Years 0.40- 4.50 Pregn ann-marie Range s First trime ster 0.26- 2.66 Secon d trime ster 0.55- 2.73 Third trime ster 0.43- 2.91 Not Available [facility] [address] [place], [address], 09/23/2015 08:17:41 05/26/1905/25/2016 CBC w/ auto diff WBC 8.3 10 4.5-11 .5 Not Available [facility] (Lab Registration) [address] [place], [address], 05/25/2016 00:32:48 05/26/19 17 05/25/2016 CBC w/ auto diff RBC 3.97 10 4.25-5 .57 low Not Available [facility] (Lab Registration) [address] [place], [address], 05/25/2016 00:32:48 05/26/19 17 05/25/2016 CBC w/ auto diff HGB 11.8 g/dL 12.0-1 5.7 low Not Available [facility] (Lab Registration) [address] [place], [address], 05/25/2016 00:32:48 05/26/19 17 05/25/2016 CBC w/ auto diff HCT 35.6 % 36.0-4 7.0 low Not Available [facility] (Lab Registration) [address] [place], [address], 05/25/2016 00:32:48 05/26/19 17 05/25/2016 CBC w/ auto diff MCV 89.7 fL 80-95 Not Available [facility] (Lab Registration) [address] [place], [address], 05/25/2016 00:32:48 05/26/1905/25/2016 CBC w/ auto diff MCH 29.7 pg 27.0-3 4.0 Not Available [facility] (Lab Registration) [address] [place], [address], 05/25/2016 00:32:48 05/26/19 17 05/25/2016 CBC w/ auto diff MCHC 33.1 g/dL 32.0-3 6.0 Not Available [facility] (Lab Registration) [address] [place], [address], 05/25/2016 00:32:48 05/26/1905/2505/25/2016 CBC w/ auto diff RDW 13.2 % 12.3-1 5.1 Not Available [facility] (Lab Registration) [address] [place], [address], 05/25/2016 00:32:48 05/26/19 17 05/25/2016 CBC w/ auto diff platelet count 215 10 150-45 0 Not Available [facility] (Lab Registration) [address] [place], [address], 05/25/2016 00:32:48 05/26/19 17 05/25/2016 CBC w/ auto diff granulocyte% 59.6 % 40-75 Not Available [facility] (Lab Registration) [address] [place], [address], 05/25/2016 00:32:48 05/26/19 17 05/25/2016 CBC w/ auto diff lymphocyte% 31.6 % 15-57 Not Available [facility] (Lab Registration) [address] [place], [address], 05/25/2016 00:32:48 05/26/19 17 05/25/2016 CBC w/ auto diff monocyte% 8.2 % 4.0-12 .0 Not Available [facility] (Lab Registration) [address] [place], [address], 05/25/2016 00:32:48 05/26/19 17 05/25/2016 CBC w/ auto diff eosinophil% 0.5 % 0.0-4. 0 Not Available [facility] (Lab Registration) [address] [place], [address], 05/25/2016 00:32:48 05/26/19 17 05/25/2016 CBC w/ auto diff basophil% 0.1 % 0.0-1. 0 Not Available [facility] (Lab Registration) [address] [place], [address], 05/25/2016 00:32:48 05/26/19 17 05/25/2016 CBC w/ auto diff granulocyte# 4.96 10 1.8-8. 62 Not Available [facility] (Lab Registration) [address], [place], [address], 05/25/2016 00:32:48 05/26/19 17 05/25/2016 CBC w/ auto diff lymphocyte# 2.63 10 0.76-5 .40 Not Available [facility] (Lab Registration) [address], [place], [address], 05/25/2016 00:32:48 05/26/19 17 05/25/2016 CBC w/ auto diff monocyte# 0.68 10 0.18-1 .38 Not Available [facility] (Lab Registration) [address], [place], [address], 05/25/2016 00:32:48 05/26/19 17 05/25/2016 CBC w/ auto diff eosinophil# 0.04 10 0.00-0 .46 Not Available [facility] (Lab Registration) [address], [place], [address], 05/25/2016 00:32:48 05/26/19 17 05/25/2016 CBC w/ auto diff basophil# 0.01 10 0.-0.1 1 Not Available [facility] (Lab Registration) [address], [place], [address], 05/25/2016 00:32:48 05/26/19 17 05/25/2016 CBC w/ auto diff manual differential NO Not Available [facility] (Lab Registration) [address], [place], [address], 05/25/2016 00:32:48 05/26/19 17 05/25/2016 CBC w/ auto diff note Unles s other johnson noted testi ng perfo rmed at: [facility] [address] [place] [address] [phone] Nik kraft MD CLIA: [id number] Not Available [facility] (Lab Registration) [address] [place], [address], 05/25/2016 00:32:48 05/26/19 17 05/25/2016 BMP, serum or plasm a sodium 142 mmol/ L 136-14 5 Not Available [facility] (Lab Registration) [address] [place], [address], 05/25/2016 00:41:31 05/26/1905/25/2016 BMP, serum or plasm a potassium 3.0 mmol/ L 3.5-5. 1 low Not Available [facility] (Lab Registration) [address] [place], [address], 05/25/2016 00:41:31 05/26/19 17 05/25/2016 BMP, serum or plasm a chloride 107 mmol/ L 98-107 Not Available [facility] (Lab Registration) [address] [place], [address], 05/25/2016 00:41:31 05/26/1905/25/2016 BMP, serum or plasm a carbon dioxide 25 mmol/ L 21-32 Not Available [facility] (Lab Registration) [address] [place], [address], 05/25/2016 00:41:31 05/26/1905/25/2016 BMP, serum or plasm a anion gap 10.0 Not Available [facility] (Lab Registration) [address] [place], [address], 05/25/2016 00:41:31 05/26/1905/25/2016 BMP, serum or plasm a glucose 110 mg/dL 70-110 Not Available [facility] (Lab Registration) [address] [place], [address], 05/25/2016 00:41:31 05/26/1905/25/2016 BMP, serum or plasm a blood urea nitrogen 8 mg/dL 7-18 Not Available [facility] (Lab Registration) [address] [place], [address], 05/25/2016 00:41:31 05/26/19 17 05/25/2016 BMP, serum or plasm a creatinine 0.8 mg/dL 0.6-1. 0 Not Available [facility] (Lab Registration) [address] [place], [address], 05/25/2016 00:41:31 05/26/19 17 05/25/2016 BMP, serum or plasm a BUN/creatini ne ratio 10.0 ratio 9-21 Not Available [facility] (Lab Registration) [address] [place], [address], 05/25/2016 00:41:31 05/26/19 17 05/25/2016 BMP, serum or plasm a estimated glom filtration rate 81 mL/mi n >60- Not Available [facility] (Lab Registration) [address] [place], [address], 05/25/2016 00:41:31 05/26/19 17 05/25/2016 BMP, serum or plasm a calcium 9.1 mg/dL 8.5-10 .1 Not Available [facility] (Lab Registration) [address] [place], [address], 05/25/2016 00:41:31 05/26/19 17 05/25/2016 BMP, serum or plasm a note Unles s other johnson noted testi ng perfo rmed at: [facility] [address] [place] [address] [phone] Nik kraft MD CLIA: [id number] Not Available [facility] (Lab Registration) [address] [place], [address], 05/25/2016 00:41:31 05/26/19 17 05/25/2016 CK-mb , blood CKMB 0.2 NG/mL 0.0-3. 6 Not Available [facility] (Lab Registration) [address] [place], [address], 05/25/2016 00:54:28 05/26/19 17 05/25/2016 CK-mb , blood note Unles s other johnson noted testi ng perfo rmed at: [facility] [address] [place] [address] [phone] Nik kraft MD CLIA: [id number] Not Available [facility] (Lab Registration) [address] [place], [address], 05/25/2016 00:54:28 05/26/19 17 05/25/2016 tropo lissette I, serum or plasm a troponin <0.04 NG/mL 0.0-0. 056 Not Available [facility] (Lab Registration) [address] [place], [address], 05/25/2016 00:54:29 05/26/19 17 05/25/2016 tropo lissette I, serum or plasm a note Matthew s other johnson noted testi ng perfo rmed at: [facility] [address] [place], [place] [id number] [phone] Nik kraft MD CLIA: [id number] Not Available [facility] (Lab Registration) [address] [place], [address], 05/25/2016 00:54:29 05/26/19 17 05/25/2016 D-dim er, quant , plasm a D-dimer quantitative 204.49 NG/mL 0-500 Not Available [facility] (Lab Registration) [address] [place], [address], 05/25/2016 00:55:30 05/26/19 17 05/25/2016 D-dim er, quant , plasm a note Matthew lu other johnson noted testi ng perfo rmed at: [facility] [address] [place], [place] [id number] [phone] Nik kraft MD CLIA: [id number] Not Available [facility] (Lab Registration) [address] [place], [address], 05/25/2016 00:55:30 06/27/19 17 06/26/2016 influ magnus virus A+B Ag, nasop haryn geal flu A NEGATI VE negati ve Not Available [facility] (Lab Registration) [address] [place], [address], 06/26/2016 20:07:33 06/27/19 17 06/26/2016 influ magnus virus A+B Ag, nasop haryn geal flu B NEGATI VE negati ve Not Available [facility] (Lab Registration) [address] [place], [address], 06/26/2016 20:07:33 06/27/19 17 06/26/2016 influ magnus virus A+B Ag, nasop haryn geal flu A int control neg N negati ve Not Available [facility] (Lab Registration) [address] [place], [address], 06/26/2016 20:07:33 06/27/19 17 06/26/2016 influ magnus virus A+B Ag, nasop haryn geal flu A int control pos P positi ve Not Available [facility] (Lab Registration) [address] [place], [address], 06/26/2016 20:07:33 06/27/19 17 06/26/2016 influ magnus virus A+B Ag, nasop haryn geal flu lot # [id number] Not Available [facility] (Lab Registration) [address] [place], [address], 06/26/2016 20:07:33 06/27/19 17 06/26/2016 influ magnus virus A+B Ag, nasop haryn geal flu exp date 2016 Not Available [facility] (Lab Registration) [address] [place], [address], 06/26/2016 20:07:33 06/27/19 17 06/26/2016 influ magnus virus A+B Ag, nasop haryn geal note Unles s other johnson noted testi ng perfo rmed at: [facility] [address] [place], [place] [id number] [phone] Nik kraft MD CLIA: [id number] Not Available [facility] (Lab Registration) [address] [place], [address], 06/26/2016 20:07:33 10/22/19 17 10/21/2016 H pylor i Ag EIA stool note Unles s other johnson noted testi ng perfo rmed at: [facility] [address] [place], [place] [id number] [phone] Nik kraft MD CLIA: [id number] Not Available [facility] (Lab Registration) [address] [place], [address], 10/24/2016 07:08:29 10/22/19 17 10/24/2016 H pylor i Ag EIA stool H. pylori stool Ag, EIA Negati ve negati ve Perfo rmed at: - [facility] Becky romero [address] [facility] [place] [address] 1268 Lab Direc tor: Russell ruggiero MD, Phone : [phone] Not Available [facility] (Lab Registration) [address] [place], [address], 10/24/2016 07:08:29 11/16/19 17 11/15/2016 BMP, serum or plasm a sodium 142 mmol/ L 136-14 5 Not Available [facility] (Lab Registration) [address] [place], [address], 11/15/2016 12:48:09 11/16/19 17 11/15/2016 BMP, serum or plasm a potassium 3.5 mmol/ L 3.5-5. 1 Not Available [facility] (Lab Registration) [address] [place], [address], 11/15/2016 12:48:09 11/16/19 17 11/15/2016 BMP, serum or plasm a chloride 107 mmol/ L 98-107 Not Available [facility] (Lab Registration) [address] [place], [address], 11/15/2016 12:48:09 11/16/19 17 11/15/2016 BMP, serum or plasm a carbon dioxide 24 mmol/ L 21-32 Not Available [facility] (Lab Registration) [address] [place], [address], 11/15/2016 12:48:09 11/16/19 17 11/15/2016 BMP, serum or plasm a anion gap 11.0 Not Available [facility] (Lab Registration) [address] [place], [address], 11/15/2016 12:48:09 11/16/19 17 11/15/2016 BMP, serum or plasm a glucose 91 mg/dL 70-110 Not Available [facility] (Lab Registration) [address] [place], [address], 11/15/2016 12:48:09 11/16/19 17 11/15/2016 BMP, serum or plasm a blood urea nitrogen 9 mg/dL 7-18 Not Available [facility] (Lab Registration) [address] [place], [address], 11/15/2016 12:48:09 11/16/19 17 11/15/2016 BMP, serum or plasm a creatinine 0.9 mg/dL 0.6-1. 0 Not Available [facility] (Lab Registration) [address] [place], [address], 11/15/2016 12:48:09 11/16/19 17 11/15/2016 BMP, serum or plasm a BUN/creatini ne ratio 10.0 ratio 9-21 Not Available [facility] (Lab Registration) [address] [place], [address], 11/15/2016 12:48:09 11/16/19 17 11/15/2016 BMP, serum or plasm a estimated glom filtration rate 70 mL/mi n >60- Not Available [facility] (Lab Registration) [address], [place], [address], 11/15/2016 12:48:09 11/16/19 17 11/15/2016 BMP, serum or plasm a calcium 8.7 mg/dL 8.5-10 .1 Not Available [facility] (Lab Registration) [address] [place], [address], 11/15/2016 12:48:09 11/16/19 17 11/15/2016 BMP, serum or plasm a note Unles s other johnson noted testi ng perfo rmed at: [facility] [address] [place] [address] [phone] Nik kraft MD CLIA: [id number] Not Available [facility] (Lab Registration) [address] [place], [address], 11/15/2016 12:48:09 12/03/19 17 12/02/2016 CBC WBC 6.0 10 4.5-11 .5 Not Available [facility] (Lab Registration) [address] [place], [address], 12/02/2016 10:20:51 12/03/19 17 12/02/2016 CBC RBC 4.20 10 4.25-5 .57 low Not Available [facility] (Lab Registration) [address] [place], [address], 12/02/2016 10:20:51 12/03/19 17 12/02/2016 CBC HGB 12.1 g/dL 12.0-1 5.7 Not Available [facility] (Lab Registration) [address] [place], [address], 12/02/2016 10:20:51 12/03/19 17 12/02/2016 CBC HCT 37.2 % 36.0-4 7.0 Not Available [facility] (Lab Registration) [address], [place], [address], 12/02/2016 10:20:51 12/03/19 17 12/02/2016 CBC MCV 88.6 fL 80-95 Not Available [facility] (Lab Registration) [address] [place], [address], 12/02/2016 10:20:51 12/03/19 17 12/02/2016 CBC MCH 28.8 pg 27.0-3 4.0 Not Available [facility] (Lab Registration) [address] [place], [address], 12/02/2016 10:20:51 12/03/19 17 12/02/2016 CBC MCHC 32.5 g/dL 32.0-3 6.0 Not Available [facility] (Lab Registration) [address] [place], [address], 12/02/2016 10:20:51 12/03/19 17 12/02/2016 CBC RDW 14.2 % 12.3-1 5.1 Not Available [facility] (Lab Registration) [address], [place], [address], 12/02/2016 10:20:51 12/03/19 17 12/02/2016 CBC platelet count 226 10 150-45 0 Not Available [facility] (Lab Registration) [address], [place], [address], 12/02/2016 10:20:51 12/03/19 17 12/02/2016 CBC note Unles s other johnson noted testi ng perfo rmed at: [facility] [address] [place] [address] [phone] Nik kraft MD CLIA: [id number] Not Available [facility] (Lab Registration) [address] [place], [address], 12/02/2016 10:20:51 12/03/19 17 12/02/2016 HbA1c (hemo globi n A1c), blood glycosylated hemoglobin A1C 6.4 % 4.5-6. 2 high Not Available [facility] (Lab Registration) [address] [place], [address], 12/02/2016 10:36:09 12/03/19 17 12/02/2016 HbA1c (hemo globi n A1c), blood note Unles s other johnson noted testi ng perfo rmed at: [facility] [address] [place] [address] [phone] Nik kraft MD CLIA: [id number] Not Available [facility] (Lab Registration) [address] [place], [address], 12/02/2016 10:36:09 12/03/19 17 12/02/2016 PT/IN R PT (prothrombin time) 9.4 secon ds 9.33-1 0.37 Not Available [facility] (Lab Registration) [address] [place], [address], 12/02/2016 10:36:11 12/03/19 17 12/02/2016 PT/IN R INR 0.95 0.9-1. 1 INR is inten ded to be used only for patie nts on stabl e oral anti- coagu lant thera py. *Ther apeut ic Range s 2.0 - 3.0 Usual Thera peuti c Range 2.5 - 3.5 For patie nts with a histo ry of multi ple deep vein throm bus or mecha nical heart valve s. Not Available [facility] (Lab Registration) [address] [place], [address], 12/02/2016 10:36:11 12/03/19 17 12/02/2016 PT/IN R note Unles s other johnson noted testi ng perfo rmed at: [facility] [address] [place] [address] [phone] Nik kraft MD CLIA: [id number] Not Available [facility] (Lab Registration) [address] [place], [address], 12/02/2016 10:36:11 12/03/19 17 12/02/2016 activ ated parti al throm bopla stin time, coagu latio n assay , blood PTT (partial thromb time) 26.7 secon ds 24.0-3 2.8 Not Available [facility] (Lab Registration) [address] [place], [address], 12/02/2016 10:36:11 12/03/19 17 12/02/2016 activ ated parti al throm bopla stin time, coagu latio n assay , blood note Unles s other johnson noted testi ng perfo rmed at: [facility] [address] [place] [address] [phone] Nik kraft MD CLIA: [id number] Not Available [facility] (Lab Registration) [address] [place], [address], 12/02/2016 10:36:11 12/03/19 17 12/02/2016 urina lysis , compl ete color YELLOW yellow Not Available [facility] (Lab Registration) [address] [place], [address], 12/02/2016 10:40:19 12/03/19 17 12/02/2016 urina lysis , compl ete appearance CLEAR clear Not Available [facility] (Lab Registration) [address] [place], [address], 12/02/2016 10:40:19 12/03/19 17 12/02/2016 urina lysis , compl ete glucose NORMAL normal Not Available [facility] (Lab Registration) [address] [place], [address], 12/02/2016 10:40:19 12/03/19 17 12/02/2016 urina lysis , compl ete bilirubin NEGATI VE negati ve Not Available [facility] (Lab Registration) [address] [place], [address], 12/02/2016 10:40:19 12/03/19 17 12/02/2016 urina lysis , compl ete ketone NEGATI VE mg/dL negati ve Not Available [facility] (Lab Registration) [address] [place], [address], 12/02/2016 10:40:12/03/19 17 12/02/2016 urina lysis , compl ete specific gravity 1.015 1.005- 1.035 Not Available [facility] (Lab Registration) [address] [place], [address], 12/02/2016 10:40:12/03/19 17 12/02/2016 urina lysis , compl ete blood 25 (1+) /mcL negati ve Not Available [facility] (Lab Registration) [address] [place], [address], 12/02/2016 10:40:12/03/19 17 12/02/2016 urina lysis , compl ete pH 5.00 5.0-7. 5 Not Available [facility] (Lab Registration) [address] [place], [address], 12/02/2016 10:40:12/03/19 17 12/02/2016 urina lysis , compl ete protein NEGATI VE mg/dL negati ve Not Available [facility] (Lab Registration) [address] [place], [address], 12/02/2016 10:40:12/03/19 17 12/02/2016 urina lysis , compl ete urobilnogen NORMAL mg/dL normal Not Available [facility] (Lab Registration) [address] [place], [address], 12/02/2016 10:40:19 12/03/19 17 12/02/2016 urina lysis , compl ete nitrite NEGATI VE negati ve Not Available [facility] (Lab Registration) [address] [place], [address], 12/02/2016 10:40:12/03/19 17 12/02/2016 urina lysis , compl ete leukocyte esterase NEGATI VE /mcL negati ve Not Available [facility] (Lab Registration) [address] [place], [address], 12/02/2016 10:40:12/03/19 17 12/02/2016 urina lysis , compl ete culture? NOT REQUIR ED Not Available [facility] (Lab Registration) [address] [place], [address], 12/02/2016 10:40:12/03/19 17 12/02/2016 urina lysis , compl ete RBC 1-5 0-3 Not Available [facility] (Lab Registration) [address] [place], [address], 12/02/2016 10:40:12/03/19 17 12/02/2016 urina lysis , compl ete WBC 0-3 none seen Not Available [facility] (Lab Registration) [address] [place], [address], 12/02/2016 10:40:12/03/19 17 12/02/2016 urina lysis , compl ete epithelial cell 5-10 none seen Not Available [facility] (Lab Registration) [address] [place], [address], 12/02/2016 10:40:12/03/19 17 12/02/2016 urina lysis , compl ete bacteria NONE SEEN none seen Not Available [facility] (Lab Registration) [address] [place], [address], 12/02/2016 10:40:12/03/19 17 12/02/2016 urina lysis , compl ete note Unles s other johnson noted testi ng perfo rmed at: [facility] [address] [place] [phone] Nik kraft MD CLIA: [id number] Not Available [facility] (Lab Registration) [address] [place], [address], 12/02/2016 10:40:19 12/03/19 17 12/02/2016 TSH, serum or plasm a thyroid stimulating hormone 2.54 mIU/m L 0.34-4 .80 Not Available [facility] (Lab Registration) [address] [place], [address], 12/02/2016 11:06:17 12/03/19 17 12/02/2016 TSH, serum or plasm a note Matthew lu other johnson noted testi ng perfo rmed at: [facility] [address] [place] [phone] Nik kraft MD CLIA: [id number] Not Available [facility] (Lab Registration) [address] [place], [address], 12/02/2016 11:06:17 12/03/19 17 12/02/2016 CMP, serum or plasm a sodium 142 mmol/ L 136-14 5 Not Available [facility] (Lab Registration) [address] [place], [address], 12/02/2016 11:07:21 12/03/1912/02/2016 CMP, serum or plasm a potassium 3.4 mmol/ L 3.5-5. 1 low Not Available [facility] (Lab Registration) [address] [place], [address], 12/02/2016 11:07:21 12/03/1912/02/2016 CMP, serum or plasm a chloride 107 mmol/ L 98-107 Not Available [facility] (Lab Registration) [address] [place], [address], 12/02/2016 11:07:21 12/03/19 17 12/02/2016 CMP, serum or plasm a carbon dioxide 26 mmol/ L 21-32 Not Available [facility] (Lab Registration) [address] [place], [address], 12/02/2016 11:07:21 12/03/19 17 12/02/2016 CMP, serum or plasm a anion gap 9.0 Not Available [facility] (Lab Registration) [address] [place], [address], 12/02/2016 11:07:21 12/03/19 17 12/02/2016 CMP, serum or plasm a glucose 91 mg/dL 70-110 Not Available [facility] (Lab Registration) [address] [place], [address], 12/02/2016 11:07:21 12/03/19 17 12/02/2016 CMP, serum or plasm a blood urea nitrogen 11 mg/dL 7-18 Not Available [facility] (Lab Registration) [address] [place], [address], 12/02/2016 11:07:21 12/03/19 17 12/02/2016 CMP, serum or plasm a creatinine 0.9 mg/dL 0.6-1. 0 Not Available [facility] (Lab Registration) [address] [place], [address], 12/02/2016 11:07:21 12/03/19 17 12/02/2016 CMP, serum or plasm a BUN/creatini ne ratio 12.2 ratio 9-21 Not Available [facility] (Lab Registration) [address] [place], [address], 12/02/2016 11:07:21 12/03/19 17 12/02/2016 CMP, serum or plasm a estimated glom filtration rate 70 mL/mi n >60- Not Available [facility] (Lab Registration) [address] [place], [address], 12/02/2016 11:07:21 12/03/19 17 12/02/2016 CMP, serum or plasm a total protein 7.0 g/dL 6.4-8. 2 Not Available [facility] (Lab Registration) [address] [place], [address], 12/02/2016 11:07:21 12/03/19 17 12/02/2016 CMP, serum or plasm a albumin 3.1 g/dL 3.4-5. 0 low Not Available [facility] (Lab Registration) [address] [place], [address], 12/02/2016 11:07:21 12/03/19 17 12/02/2016 CMP, serum or plasm a calcium 8.4 mg/dL 8.5-10 .1 low Not Available [facility] (Lab Registration) [address] [place], [address], 12/02/2016 11:07:21 12/03/19 17 12/02/2016 CMP, serum or plasm a corrected calcium 9.1 mg/dL 8.5-10 .1 Not Available [facility] (Lab Registration) [address] [place], [address], 12/02/2016 11:07:21 12/03/19 17 12/02/2016 CMP, serum or plasm a bilirubin total 0.3 mg/dL 0.4-1. 5 low Not Available [facility] (Lab Registration) [address] [place], [address], 12/02/2016 11:07:21 12/03/19 17 12/02/2016 CMP, serum or plasm a AST (SGOT) 10 U/L 15-37 low Not Available [facility] (Lab Registration) [address] [place], [address], 12/02/2016 11:07:21 12/03/19 17 12/02/2016 CMP, serum or plasm a ALT (SGPT) 12 U/L 12-78 Not Available [facility] (Lab Registration) [address] [place], [address], 12/02/2016 11:07:21 12/03/19 17 12/02/2016 CMP, serum or plasm a alk phosphatase 125 U/L 50-120 high Not Available [facility] (Lab Registration) [address] [place], [address], 12/02/2016 11:07:21 12/03/19 17 12/02/2016 CMP, serum or plasm a note Unles s other johnson noted testi ng perfo rmed at: [facility] [address] [place] [address] [phone] Nik kraft MD CLIA: [id number] Not Available [facility] (Lab Registration) [address] [place], [address], 12/02/2016 11:07:21 12/03/19 17 12/02/2016 lipid panel , serum triglyceride 167 mg/dL 20-200 The [employer]io nal [employer] ([employer] ) has set the follo wing guide lines for Fasti ng Trigl yceri evon: SABINE L: <150 mg/dL BORDE RLINE HIGH: 150 - 199 mg/dL HIGH: 200 - 499 mg/dL VERY HIGH: > or =500 mg/dL Not Available [facility] (Lab Registration) [address] [place], [address], 12/02/2016 11:07:22 12/03/19 17 12/02/2016 lipid panel , serum cholesterol 225 mg/dL 0-200 high The [employer]io nal [employer] ([employer] ) has set the follo wing guide lines for Fasti ng Sangeeta stero l: MIHIR ABLE: <200 mg/dL BORDE RLINE HIGH: 200 - 239 mg/dL HIGH: > or =240 mg/dL Not Available [facility] (Lab Registration) [address] [place], [address], 12/02/2016 11:07:22 12/03/19 17 12/02/2016 lipid panel , serum HDL cholesterol 62 mg/dL 60- The Natio nal [employer] ([facility] ) has set the follo wing guide lines for Fasti ng HDL Sangeeta stero l: LOW HDL: <40 mg/dL SABINE L: 40 - 60 mg/dL MIHIR ABLE: >60 mg/dL Not Available [facility] (Lab Registration) [address], [place], [address], 12/02/2016 11:07:22 12/03/19 17 12/02/2016 lipid panel , serum LDL calculated 130 mg/dL 100- The [employer]io n[employer] ([facility] ) has set the follo wing guide lines for Fasti ng LDL Sangeeta stero l: OPTIM AL: < 100 mg/dL LOW RISK: 100 - 129 mg/dL BORDE RLINE HIGH: 130 - 159 mg/dL HIGH: 160 - 189 mg/dL VERY HIGH: > or = 190 mg/dL Not Available [facility] (Lab Registration) [address], [place], [address], 12/02/2016 11:07:22 12/03/19 17 12/02/2016 lipid panel , serum chol/HDL ratio 4 ratio -5 Not Available [facility] (Lab Registration) [address], [place], [address], 12/02/2016 11:07:22 12/03/19 17 12/02/2016 lipid panel , serum note Unles s other johnson noted testi ng perfo rmed at: [facility] [address] [place] [address] [phone] Nik kraft MD CLIA: [id number] Not Available [facility] (Lab Registration) [address], [place], [address], 12/02/2016 11:07:22 12/03/19 17 12/02/2016 methi cilli n resis tant staph yloco ccus aureu s, cultu re, unspe cifie d speci men results TDM 12-03 620 NO GROWT H AT OVERN IGHT INCUB ATION TDM 12-04 644 Plate s negat lizzy for MRSA at 48 hrs incub ation . Not Available [facility] (Lab Registration) [address] [place], [address], 12/04/2016 06:46:08 12/03/19 17 12/02/2016 methi cilli n resis tant staph yloco ccus aureu s, cultu re, unspe cifie d speci men note Unles s other johnson noted testi ng perfo rmed at: [facility] [address] [place] [address] [phone] Nik kraft MD CLIA: [id number] Not Available [facility] (Lab Registration) [address] [place], [address], 12/04/2016 06:46:08 01/27/20 17 01/26/2017 BMP, serum or plasm a sodium 142 mmol/ L 136-14 5 Not Available [facility] (Lab Registration) [address] [place], [address], 01/26/2017 11:23:20 01/27/20 17 01/26/2017 BMP, serum or plasm a potassium 3.7 mmol/ L 3.5-5. 1 Not Available [facility] (Lab Registration) [address] [place], [address], 01/26/2017 11:23:20 01/27/20 17 01/26/2017 BMP, serum or plasm a chloride 107 mmol/ L 98-107 Not Available [facility] (Lab Registration) [address] [place], [address], 01/26/2017 11:23:20 01/27/20 17 01/26/2017 BMP, serum or plasm a carbon dioxide 24 mmol/ L 21-32 Not Available [facility] (Lab Registration) [address] [place], [address], 01/26/2017 11:23:20 01/27/20 17 01/26/2017 BMP, serum or plasm a anion gap 11.0 Not Available [facility] (Lab Registration) [address] [place], [address], 01/26/2017 11:23:20 01/27/20 17 01/26/2017 BMP, serum or plasm a glucose 104 mg/dL 70-110 Not Available [facility] (Lab Registration) [address] [place], [address], 01/26/2017 11:23:20 01/27/20 17 01/26/2017 BMP, serum or plasm a blood urea nitrogen 8 mg/dL 7-18 Not Available [facility] (Lab Registration) [address] [place], [address], 01/26/2017 11:23:20 01/27/20 17 01/26/2017 BMP, serum or plasm a creatinine 0.8 mg/dL 0.6-1. 0 Not Available [facility] (Lab Registration) [address] [place], [address], 01/26/2017 11:23:20 01/27/20 17 01/26/2017 BMP, serum or plasm a BUN/creatini ne ratio 10.0 ratio 9-21 Not Available [facility] (Lab Registration) [place], [address], 01/26/2017 11:23:20 01/27/20 17 01/26/2017 BMP, serum or plasm a estimated glom filtration rate 81 mL/mi n >60- Not Available [facility] (Lab Registration) [address] [place], [address], 01/26/2017 11:23:20 01/27/20 17 01/26/2017 BMP, serum or plasm a calcium 9.3 mg/dL 8.5-10 .1 Not Available [facility] (Lab Registration) [address] [place], [address], 01/26/2017 11:23:20 01/27/20 17 01/26/2017 BMP, serum or plasm a note Unles s other johnson noted testi ng perfo rmed at: [facility] [address] [place] [address] [phone] Nik kraft MD CLIA: [id number] Not Available [facility] (Lab Registration) [address] , [place], [address], 01/26/2017 11:23:20 01/14/20 21 01/13/2021 CBC W/ AUTO DIFF WBC 10.27 K/uL 4.5-11 .5 Not Available [facility] (Pre-Op Clinic) [address] [place] [address] [place], [address], 01/13/2021 12:24:22 01/14/20 21 01/13/2021 CBC W/ AUTO DIFF RBC 4.29 M/uL 4.0-5. 4 Not Available [facility] (Pre-Op Clinic) [address] [place] [address] [place], [address], 01/13/2021 12:24:22 01/14/20 21 01/13/2021 CBC W/ AUTO DIFF HGB 12.5 g/dL 12.0-1 5.0 Not Available [facility] (Pre-Op Clinic) [address] [place] [address] [place], [address], 01/13/2021 12:24:22 01/14/20 21 01/13/2021 CBC W/ AUTO DIFF HCT 38.3 % 35-49 Not Available [facility] (Pre-Op Clinic) [address] [place] [address] [place], [address], 01/13/2021 12:24:22 01/14/20 21 01/13/2021 CBC W/ AUTO DIFF MCV 89.3 fL 80.0-1 00.0 Not Available [facility] (Pre-Op Clinic) [address] [place] [address] [place], [address], 01/13/2021 12:24:22 01/14/20 21 01/13/2021 CBC W/ AUTO DIFF MCH 29.1 pg 26.0-3 2.0 Not Available [facility] (Pre-Op Clinic) [address] [place] [address] [place], [address], 01/13/2021 12:24:22 01/14/20 21 01/13/2021 CBC W/ AUTO DIFF MCHC 32.6 g/dL 32.0-3 6.0 Not Available [facility] (Pre-Op Clinic) [address] [place] [address] [place], [address], 01/13/2021 12:24:22 01/14/20 21 01/13/2021 CBC W/ AUTO DIFF RDW 13.2 % 11.5-1 4.5 Not Available [facility] (Pre-Op Clinic) [address] [place] [address] [place], [address], 01/13/2021 12:24:22 01/14/20 21 01/13/2021 CBC W/ AUTO DIFF platelet count 236 K/uL 142-42 4 Not Available [facility] (Pre-Op Clinic) [address] [place] [address] [place], [address], 01/13/2021 12:24:22 01/14/20 21 01/13/2021 CBC W/ AUTO DIFF MPV 9.4 fL 6.8-10 .2 Not Available [facility] (Pre-Op Clinic) [address] [place] [address] [place], [address], 01/13/2021 12:24:22 01/14/20 21 01/13/2021 CBC W/ AUTO DIFF neutrophil % 59.6 % 50-70 Not Available [facility] (Pre-Op Clinic) [address] [place] [address] [place], [address], 01/13/2021 12:24:22 01/14/20 21 01/13/2021 CBC W/ AUTO DIFF lymphocyte % 33.1 % 18.0-4 2.0 Not Available [facility] (Pre-Op Clinic) [address] [place] [address] [place], [address], 01/13/2021 12:24:22 01/14/20 21 01/13/2021 CBC W/ AUTO DIFF monocyte % 5.9 % 2.0-11 .0 Not Available [facility] (Pre-Op Clinic) [address] [place] [address] [place], [address], 01/13/2021 12:24:22 01/14/20 21 01/13/2021 CBC W/ AUTO DIFF eosinophil % 0.6 % 1.0-3. 0 low Not Available [facility] (Pre-Op Clinic) [address] [place] [address] [place], [address], 01/13/2021 12:24:22 01/14/2001/13/2021 CBC W/ AUTO DIFF basophil % 0.3 % 0.0-2. 0 Not Available [facility] (Pre-Op Clinic) [address] [place] [address] [place], [address], 01/13/2021 12:24:22 01/14/2001/13/2021 CBC W/ AUTO DIFF immature granulocytes % 0.5 % 0.0-0. 8 Not Available [facility] (Pre-Op Clinic) [address] [place] [address] [place], [address], 01/13/2021 12:24:22 01/14/20 21 01/13/2021 CBC W/ AUTO DIFF nucleated red blood cells % 0.0 % Not Available [facility] (Pre-Op Clinic) [address] [place] [address] [place], [address], 01/13/2021 12:24:22 01/14/20 21 01/13/2021 CBC W/ AUTO DIFF neutrophil # 6.12 K/uL Not Available [facility] (Pre-Op Clinic) [address] [place] [address] [place], [address], 01/13/2021 12:24:22 01/14/20 21 01/13/2021 CBC W/ AUTO DIFF lymphocyte # 3.40 K/uL Not Available [facility] (Pre-Op Clinic) [address] [place] [address] [place], [address], 01/13/2021 12:24:22 01/14/20 21 01/13/2021 CBC W/ AUTO DIFF monocyte # 0.61 K/uL Not Available [facility] (Pre-Op Clinic) [address] [place] [address] [place], [address], 01/13/2021 12:24:22 01/14/20 21 01/13/2021 CBC W/ AUTO DIFF eosinophil # 0.06 K/uL Not Available [facility] (Pre-Op Clinic) [address] [place] [address] [place], [address], 01/13/2021 12:24:22 01/14/20 21 01/13/2021 CBC W/ AUTO DIFF basophil # 0.03 K/uL Not Available [facility] (Pre-Op Clinic) [address] [place] [address] [place], [address], 01/13/2021 12:24:22 01/14/20 21 01/13/2021 CBC W/ AUTO DIFF immature gramulocytes # 0.05 K/uL Not Available [facility] (Pre-Op Clinic) [address] [place] [address] [place], [address], 01/13/2021 12:24:22 01/14/20 21 01/13/2021 CBC W/ AUTO DIFF nucleated red blood cells # 0.00 k/uL Not Available [facility] (Pre-Op Clinic) [address] [place] [address] [place], [address], 01/13/2021 12:24:22 01/14/20 21 01/13/2021 CBC W/ AUTO DIFF manual differential NO Not Available [facility] (Pre-Op Clinic) [address] [place] [address] [place], [address], 01/13/2021 12:24:22 01/14/20 21 01/13/2021 CBC W/ AUTO DIFF note Unles s other johnson noted testi ng perfo rmed at: [facility] [address] [place] [address] Fermin lu MD Not Available [facility] (Pre-Op Clinic) [address] [place] [address] [place], [address], 01/13/2021 12:24:22 01/14/20 21 01/13/2021 VITAM IN D, 25-HY DROXY vitamin D, 25-hydroxy 29.9 NG/mL 30-100 low Vitam in D defic iency has been defin ed by the [facility] pract ice guide line as a level of serum 25-OH vitam in D less than 20 ng/mL . The Endoc rine Socie ty went on to [facility] er defin e vitam in D insuf ficie ncy as a level betwe en 20 and 29 ng/mL . Level s of vitam in D betwe en 30 and 100 ng/mL are consi dered suffi ent. Level s above 100 ng/mL are consi dered poten tiall y toxic . Not Available [facility] (Pre-Op Clinic) [address] [place] [address] [place], [address], 01/13/2021 13:06:51 01/14/20 21 01/13/2021 VITAM IN D, 25-HY DROXY note Unles s other johnson noted testi ng perfo rmed at: [facility] [address] [place] [address] Fermin lu MD Not Available [facility] (Pre-Op Clinic) [address] [place] [address] [place], [address], 01/13/2021 13:06:51 01/14/20 21 01/13/2021 IRON STUDY W FE/TI BC/UI BC/%S AT iron 53 ug/dL 37-170 Not Available [facility] (Pre-Op Clinic) [address] [place] [address] [place], [address], 01/13/2021 13:47:08 01/14/20 21 01/13/2021 IRON STUDY W FE/TI BC/UI BC/%S AT total iron bind cap. 377 ug/dL 265-49 7 Not Available [facility] (Pre-Op Clinic) [address] [place] [address] [place], [address], 01/13/2021 13:47:08 01/14/20 21 01/13/2021 IRON STUDY W FE/TI BC/UI BC/%S AT unsaturated iron binding cap 324 ug/dL 150-37 5 Not Available [facility] (Pre-Op Clinic) [address] [place] [address] [place], [address], 01/13/2021 13:47:08 01/14/20 21 01/13/2021 IRON STUDY W FE/TI BC/UI BC/%S AT % saturation 14 % 15-55 low Not Available [facility] (Pre-Op Clinic) [address] [place] [address] [place], [address], 01/13/2021 13:47:08 01/14/20 21 01/13/2021 IRON STUDY W FE/TI BC/UI BC/%S AT note Unles s other johnson noted testi ng perfo rmed at: [facility] [address] [place] [address] Fermin lu MD Not Available [facility] (Pre-Op Clinic) [address] [place] [address] [place], [address], 01/13/2021 13:47:08 01/14/20 21 01/13/2021 VITAM IN B12 vitamin B12 456 pg/mL 239-93 1 Not Available [facility] (Pre-Op Clinic) [address] [facility] [place], [address], 01/13/2021 14:05:00 01/14/20 21 01/13/2021 VITAM IN B12 folate (folic acid), serum 3.5 NG/mL 2.76- Not Available [facility] (Pre[facility]Op [facility]) [address] [facility] [place], [address], 01/13/2021 14:05:00 01/14/20 21 01/13/2021 VITAM IN B12 note Unles s other johnson noted testi ng perfo rmed at: [facility] [address] [facility] [place] [address] Fermin lu MD Not Available [facility] (Pre-Op Clinic) [address] [facility] [place], [address], 01/13/2021 14:05:00 01/14/20 21 01/13/2021 COMP METAB OLIC PANEL sodium 142 mmol/ L 137-14 7 Not Available [facility] (Pre-Op Clinic) [address] [facility] [place], [address], 01/13/2021 14:57:29 01/14/20 21 01/13/2021 COMP METAB OLIC PANEL potassium 3.3 mmol/ L 3.5-5. 1 low Not Available [facility] (Pre-Op Clinic) [address] [facility] [place], [address], 01/13/2021 14:57:29 01/14/20 21 01/13/2021 COMP METAB OLIC PANEL chloride 108 mmol/ L 98-110 Not Available [facility] (Pre-Op Clinic) [address] [place] [address] [place], [address], 01/13/2021 14:57:29 01/14/20 21 01/13/2021 COMP METAB OLIC PANEL carbon dioxide 22 mmol/ L 21-30 Not Available [facility] (Pre-Op Clinic) [address] [place] [address] [place], [address], 01/13/2021 14:57:29 01/14/20 21 01/13/2021 COMP METAB OLIC PANEL anion gap 12 mmol/ L 6-14 Not Available [facility] (Pre[facility]Op Clinic) [address] [facility] [place], [address], 01/13/2021 14:57:29 01/14/20 21 01/13/2021 COMP METAB OLIC PANEL glucose 99 mg/dL 70-115 Not Available [facility] (Pre-Op Clinic) [address] [facility] [place], [address], 01/13/2021 14:57:29 01/14/20 21 01/13/2021 COMP METAB OLIC PANEL BUN 10 mg/dL 7-17 Not Available [facility] (Pre-Op Clinic) [address] [facility] [place], [address], 01/13/2021 14:57:29 01/14/20 21 01/13/2021 COMP METAB OLIC PANEL creatinine 0.9 mg/dL 0.5-1. 5 Not Available [facility] (Pre-Op Clinic) [address] [facility] [place], [address], 01/13/2021 14:57:29 01/14/20 21 01/13/2021 COMP METAB OLIC PANEL BUN/creatini ne ratio 11 ratio 10-20 Not Available [facility] (Pre-Op Clinic) [address] [place] [address] [place], [address], 01/13/2021 14:57:29 01/14/20 21 01/13/2021 COMP METAB OLIC PANEL glom filtration rate 69 mL/mi n >60- Not Available [facility] (Pre-Op Clinic) [address] [place] [address] [place], [address], 01/13/2021 14:57:29 01/14/20 21 01/13/2021 COMP METAB OLIC PANEL osmolality (calculated) 294 mosmo l/kg 275-30 1 OSMOL ALITY IS A CALCU LATIO N UTILI ZING THE SERUM /PLAS MA SODIU M, GLUCO SE AND UREA NITRO GEN (BUN) LEVEL S. FOR THE MOST ACCUR ATE RESUL T A MEASU RED SERUM OSMOL ALITY IS ARA RÍOS. Not Available [facility] (Pre[facility]Op [facility]) [address] [place] [address] [place], [address], 01/13/2021 14:57:29 01/14/20 21 01/13/2021 COMP METAB OLIC PANEL total protein 6.9 g/dL 6.2-8. 2 Not Available [facility] (Pre-Op Clinic) [address] [place] [address] [place], [address], 01/13/2021 14:57:29 01/14/20 21 01/13/2021 COMP METAB OLIC PANEL albumin 3.9 g/dL 3.5-5. 0 Not Available [facility] (Pre[facility]Op Clinic) [address] [place] [address] [place], [address], 01/13/2021 14:57:29 01/14/20 21 01/13/2021 COMP METAB OLIC PANEL calcium 9.4 mg/dL 8.5-10 .8 Not Available [facility] (Pre[facility]Op Clinic) [address] [place] [address] [place], [address], 01/13/2021 14:57:29 01/14/20 21 01/13/2021 COMP METAB OLIC PANEL bilirubin total 0.4 mg/dL 0.2-1. 3 Not Available [facility] (Pre-Op Clinic) [address] [place] [address] [place], [address], 01/13/2021 14:57:29 01/14/20 21 01/13/2021 COMP METAB OLIC PANEL AST (SGOT) 14 IU/L 14-36 Not Available [facility] (Pre-Op Clinic) [address] [place] [address] [place], [address], 01/13/2021 14:57:29 01/14/20 21 01/13/2021 COMP METAB OLIC PANEL ALT (SGPT) 10 IU/L 0-35 Pleas e note new refer ence inter otilio for ALT. Due to a recen t manuf actur er metho dolog y akins e, the refer ence inter toilio for ALT is lower effec tive July 09, 2020. Not Available [facility] (Pre[facility]Op Clinic) [address] [place] [address] [place], [address], 01/13/2021 14:57:29 01/14/20 21 01/13/2021 COMP METAB OLIC PANEL alk phosphatase 142 IU/L 38-126 high Not Available [facility] (Pre-Op Clinic) [address] [place] [address] [place], [address], 01/13/2021 14:57:29 01/14/20 21 01/13/2021 COMP METAB OLIC PANEL note Unles s other johnson noted testi ng perfo rmed at: [facility] [address] [place] [address] Fermin lu MD Not Available [facility] (Pre-Op Clinic) [address] [place] [address] [place], [address], 01/13/2021 14:57:29 01/14/20 21 01/13/2021 LIPID PANEL cholesterol 140 mg/dL 0-200 Not Available [facility] (Pre-Op Clinic) [address] [place] [address] [place], [address], 01/13/2021 14:58:32 01/14/20 21 01/13/2021 LIPID PANEL HDL 54 mg/dL 40- Not Available [facility] (Pre-Op Clinic) [address] [place] [address] [place], [address], 01/13/2021 14:58:32 01/14/20 21 01/13/2021 LIPID PANEL total chol/HDL ratio 2.6 ratio 0-4 Not Available [facility] (Pre-Op Clinic) [address] [place] [address] [place], [address], 01/13/2021 14:58:32 01/14/20 21 01/13/2021 LIPID PANEL triglyceride 182 mg/dL 35-135 high Not Available [facility] (Pre[facility]Op Clinic) [address] [facility] [place], [address], 01/13/2021 14:58:32 01/14/20 21 01/13/2021 LIPID PANEL LDL calculated 50 mg/dL 0-130 Not Available [facility] (Pre[facility]Op Clinic) [address] [facility] [place], [address], 01/13/2021 14:58:32 01/14/2001/13/2021 LIPID PANEL VLDL calculated 36 mg/dL 0-40 Not Available [facility] (Pre[facility]Op Clinic) [address] [facility] [place], [address], 01/13/2021 14:58:32 01/14/2001/13/2021 LIPID PANEL note Unles s other johnson noted testi ng perfo rmed at: [facility] [address] [place] [address] Fermin lu MD Not Available [facility] (Pre-Op Clinic) [address] [facility] [place], [address], 01/13/2021 14:58:32 01/14/2001/13/2021 TSH thyroid stim hormone 6.99 uIU/m L 0.465- 4.68 high Not Available [facility] (Pre[facility]Op Clinic) [address] [facility] [place], [address], 01/13/2021 15:24:56 01/14/2001/13/2021 TSH note Unles s other johnson noted testi ng perfo rmed at: [facility] [address] [place] [address] Fermin lu MD Not Available [facility] (Pre-Op Clinic) [address] [facility] [place], [address], 01/13/2021 15:24:56 05/05/19 23 05/05/2022 CREAT ININE creatinine 0.9 mg/dL 0.5-1. 5 Not Available [facility] (Pre[facility]Op [facility]) [address] [place] [address] [place], [address], 05/05/2022 09:33:52 05/05/19 23 05/05/2022 CREAT ININE glom filtration rate 69 mL/mi n >60- Not Available [facility] (Pre-Op Clinic) [address] [place] [address] [place], [address], 05/05/2022 09:33:52 05/05/19 23 05/05/2022 CREAT ININE note Unles s other johnson noted testi ng perfo rmed at: [facility] [address] [place] [place] [address] Fermin lu MD Not Available [facility] (Pre-Op Clinic) [address] [place] [address] [place], [address], 05/05/2022 09:33:52 09/15/19 16 09/15/2015 chest [facility] [address] [place] [address] Phone: Fax: Name: BRANDT ALFARO Exam Date: : [birth year] Age 50 Gender : F Access ion: [id number] Physic david: KRISTINA CARRILLO Facili ty: [facility] Facili ty HSV: Outpat ient Exam: CHEST PA ^ LAT 2 view chest Histor y: Preope rative evalua tion. Findin gs: No prior exams. Heart and pulmon sharlene vessel s are normal . There are no acute infilt rates or effusi ons. There is a calcif ied granul kaylan in the right lung. Impres sharon: No acute proces s. Dictat ed By: EVELIO BLAKE Transc ribed By: ban marie Transc ribed On: 016 8:58 AM Electr onical ly signed by: EVELIO BLAKE Thank you for referr ing DAVID [facility] Legall y authen ticate d by SHIELA Ha MD 2015-0 09-14 09:23: 05 CC'ed Logic: Orderi ng Provid er: D'KEO LO KRISTINA Y CC Provid er: ALLIVONNE JONES A Attend ing Provid er: D'KEO LO KRISTINA Y Referr ing Provid er: D'KEO LO KRISTINA Y Admitt ing Provid er: D'KEO LO KRISTINA Y [facility] (Radiology) [address] [place], [address], 09/22/2015 10:40:40 09/28/19 16 09/15/2015 elect nina youngblood am No observ ation record ed. [email or web address] [place] [address] (Scheduling) [address] [place], [address], 09/28/2015 21:52:40 05/26/19 17 05/25/2016 XR, chest , 1 view [facility] [address] [place] [address] Phone: Fax: Name: BRANDT ALFARO Exam Date: 05/26/19 17 : [birth year] Age 50 Gender : F Access ion: [id number] Physic david: EUGENI O, JERMAIN Facili ty: [facility] Facili ty HSV: Outpat ient Exam: CHEST SINGLE VIEW/P ORTABL E PORTAB LE CHEST, One view HISTOR Y: Cough COMPAR KELI: None FINDIN GS: Portab le view of the chest demons trates the lungs to be grossl y clear. There is no eviden ce of effusi on, pneumo thorax or other signif icant pleura l diseas e.The medias tinum is unrema rkable . The heart size is normal . IMPRES SHARON: Unrema rkable portab le chest. Dictat ed By: RUMA GARZA Transc ribed By: RUMA GARZA Transc ribed On: 05/26/19 17 7:58 AM Electr onical ly signed by: RUMA GARZA 05/26/19 17 Thank you for referr ing BRANDT [facility]AR[facility] to [facility]. Legall y authen ticate d by KAYLA REYES MD 2016-0 05-25 07:58: 35 CC'ed Logic: Orderi ng Provid er: EUGENI O JERMAIN CC Provid er: ALLISO N KAREN A Attend ing Provid er: EUGENI O JERMAIN Referr ing Provid er: EUGENI O JERMAIN Admitt ing Provid er: EUGENI O JERMAIN vanda1 [facility] (Radiology) [address] , [place], [address], 05/25/2016 09:15:14 05/26/19 17 05/17/[address] spec wm/ef record maker NUCLEA R STRESS TEST BRANDT ALFARO [facility] 3 2 EXAM: NM MYOCAR D SPEC WM/EF AQUATICS SPECIALIST [id number] DATE OF EXAM: 2016 09:19: 45 PROVID ER: Todd Cheng MD TECHNI QUE: The patien t was studie d with a 1-day protoc ol using sestam ibi and Lexisc an 0.4 mg becaus e of inabil ity to walk on a treadm ill. FINDIN GS: Heart rate varied from 96 to 108. Blood pressu re varied from 127/88 to 150/94 . EKG at [facility] showed normal sinus rhythm with nonspe cific ST and T-wave abnorm alitie s which did not change after vasodi lator infusi on. Reason for ending test was protoc ol comple tion. Sympto ms of shortn ess of breath , chest pain and headac he develo ped with Lexisc an inject ion; howeve r, no wheezi ng was noted and oxygen satura tion remain ed stable on room air. Nuclea r ejecti on fracti on was 59% at rest and 67% at stress . No wall motion abnorm ality was seen on gated imagin g. SDS score was 1. There is a very small area of anteri or revers ible defect . Transi ent ischem ic dilata tion ratio is 1.16. CONCLU SIONS: Normal nuclea r ejecti on fracti on. Very small area of anteri or revers ibilit y. DICTAT ED BY: Todd Cheng MD CW/MOD L DD: 2016 16:51: 49 DT: 2016 17:34: 31 [id number] Electr onical ly Signed By: RACHEL ZHENG MD 2016-05-25 16:00: 05 CC'ed Logic: Orderi ng Provid er: YAHAIRA SMITH CC Provid er: FILEMON Meneses Attend ing Provid er: YAHAIRA SMITH Referr ing Provid er: YAHAIRA SMITH Admitt ing Provid er: YAHAIRA dc1 [facility] (Radiology) [address] [place], [address], 05/25/2016 17:00:16 06/28/19 17 06/26/2016 XR, chest , 2 view [facility] [facility] [address] [place] [address] Phone: Fax: Name: BRANDT ALFARO Exam Date: 06/27/19 17 : 967 Age 50 Gender : F Access ion: [id number] Physic david: VIOLETA PRABHAKAR Facili ty: [facility] Facili ty HSV: Outpat ient Exam: CHEST PA ^ LAT 2 view chest Indica tion: Cough, conges tion and shortn ess of breath 3 days. Fever. Compar keli: FINDIN GS: Minima l calcif icatio ns likely due to old granul omatou s diseas e appear stable . The lungs are clear and there is no eviden ce of effusi on or other pleura l diseas e. The cardia c silhou ette and medias tinum appear to be normal in size and config uratio n. The bony thorax appear s intact . IMPRES SHARON: No acute cardio pulmon sharlene findin gs. Dictat ed By: HIRO SHAH Transc ribed By: julio cesar shah Transc ribed On: 017 7:04 AM Electr onical ly signed by: HIRO SHAH 017 Thank you for referr ing DAVID LawBRANDT Zaira to [facility]. Legall y authen ticate d by ALEXIS Suero MD 06-27 07:04: 48 CC'ed Logic: Orderi ng Provid er: AKI Hummel CC Provid er: FILEMON Meneses Attend ing Provid er: AKI Hummel Referr ing Provid er: AKI Hummel Admitt ing Provid er: AKI penn [facility] (Radiology) [address] [place], [address], 06/27/2016 08:09:56 11/19/19 17 11/18/2016 CT chest W [facility] [address] [facility] [place] [address] Phone: Fax: Name: BRANDT ALFARO Exam Date: 11/19/19 : 967 Age 51 Gender : F Access ion: [id number] Physic david: JOSE ONMELISSA LY Facili ty: [facility] Facili ty HSV: Outpat ient Exam: CT CHEST WITH CONTRA ST CT of the chest with contra st. Exam date: 11/19/19 17. Histor y: Precor dial chest pain with shortn ess of breath . Techni que: Axial imagin g was perfor med from the apical region s the chest throug h a portio n of the upper abdome n along with bailey l reform atted images . The examin ation was perfor med follow ing the inject ion of 75 ML's of Isovue 300.Th e study was perfor med with techni ques to keep radiat ion doses as low as reason ably achiev able,( ALARA) . Indivi dualiz ed dose reduct ion techni ques using automa yoel exposu re contro l, or adjust ment of ma,and or kvp accord ing to the patien ts size were employ ed. Findin gs: There is no eviden ce of medias tinal or hilar adenop athy by size criter ia. The heart size is within normal limits and there is no eviden ce perica rdial effusi on. Limite d images throug h a portio n of the upper abdome n demons trate surgic al clips in the gallbl adder bed from prior cholec ystect olga. Lung window techni ques demons trate no eviden ce of pulmon sharlene infilt rates or consol idatio ns and no eviden ce of pneumo thorax or pleura l fluid. There is no eviden ce of pulmon sharlene nodule s. Impres sharon: Unrema rkable CT of the chest. The examin ation was review ed , interp reted, and dicate d by Dr Ish Garza , transc ribed by Frederick Olguin [facility] PAC. Dictat ed By: RUMA GARZA Transc ribed By: RUMA GARZA Transc ribed On: 11/19/19 17 12:04 PM Electr onical ly signed by: RUMA GARZA 11/19/19 17 Thank you for referr ing BRANDT ALFARO to [facility] Hospit [facility]. Legall y authen ticate d by KAYLA REYES MD 2016-0 11-18 12:04: 06 CC'ed Logic: Orderi ng Provid er: HAMILT ON MELISSA LY CC Provid er: FILEMON Meneses Attend ing Provid er: HAMILT ON MELISSA LY Referr ing Provid er: HAMILT ON MELISSA LY Admitt ing Provid er: HAMILT ON MELISSA LY isamar [facility] (Radiology) [address] [place] [address] , [place], [address], 11/20/2016 22:50:26 12/03/19 17 12/02/2016 rhyth m strip , EKG* No observ ation record ed. isamar Not Available 2016 15:08:21 12/22/19 17 10/27/2016 MAMMO lindsey, digit al, bilat eral No observ ation record ed. [address], [place], [address], 01/04/2017 21:09:09 03/28/19 18 03/24/2017 MAMMO lindsey, digit al, bilat eral No observ ation record ed. [address] [facility] [address] [place], [id number], 03/28/2017 16:08:16 05/05/19 23 05/05/2022 CT, abdom en + pelvi s, w/ contr ast [facility] [address] [place] [address] [phone] (Phone ) DIAGNO STIC IMAGIN G REPORT ------ ------ ------ ------ ------ ------ ------ ------ ----- Sharon villarreal Name: DAVID Ani SUSUELLIE Laylazaro t No: [id number] Medica l Record No: [id number] Date of : 1965 Access ion No: [id number] Date of Exam: 2022 Sharon villarreal Type: Outpat ient Orderi ng Physic david: SARAH NARAYANAN ------ ------ ------ ------ ------ ------ ------ ------ ----- FINAL REPORT PROCED URE: CT ABD AND PELVIS IV ONLY NO PO TECHNI QUE: Postco ntrast axial images throug h the abdome n and pelvis were perfor med. This study was perfor med with techni ques to keep radiat ion doses as low as reason ably achiev able, (ALARA ). Indivi dualiz ed dose reduct ion techni ques using automa yoel exposu re contro l or adjust ment of mA and/or kV accord ing to the patien t's size were employ ed. CLINIC AL HISTOR Y: R31.29 OTHER MICROS COPIC HEMATU JERMAIN FINDIN GS: Abdome n: Streak y linear atelec tasis in the right lower lobe. Mild linear atelec tasis in the left lower lobe. There is hepati c steato sis. There has been cholec ystect olga. The spleen is unrema rkable . The adrena ls are normal . The pancre as is unrema rkable . There is a puncta te 2 mm nonobs tructi ng lower pole right renal stone. Otherw ise the kidney s enhanc e approp riatel y. The aorta is normal in calibe r. No free fluid or adenop athy is identi fied. No findin gs for mechan ical bowel obstru ction are identi fied. There is coloni c divert iculos is withou t eviden ce of divert iculit is. Pelvis : The append ix is not identi fied. The urinar y bladde r is unrema rkable . No free fluid, free air, absces s or adenop athy is identi fied. There has been hyster ectomy . There are degene rative change s of the spine. IMPRES SHARON: Puncta te nonobs tructi ng right renal stone otherw ise no acute abnorm ality. Review ed, Interp reted and Dictat ed by Simon Joshi MD Transc ribed by Xavier Morrow ticate d and Electr onical ly Signed by Simon Joshi MD on 2022 12:59: 04 PM LAVONNE Arias CC'ed Logic: Orderi ng Provid er: FILEMON Meneses CC Provid er: FILEMON Meneses Attend ing Provid er: LADY Castillo Referr ing Provid er: LADY Castillo Admitt ing Provid er: LADY penn [facility] ([facility]) [address] [place] [address] [place], [address], 05/06/2022 08:43:04 Result Notes Documentation Provider Name and Address Organization Details Recorded Time Xr, Chest, 1 View : [address] [place] [address] Name: ALLISON MENDEZ Exam Date: 05/25/2016 : 1965 Age 50 Gender: F Physician: JERMAIN SANCHEZ Facility: [facility] Facility HSV: Outpatient Exam: CHEST SINGLE VIEW/PORTABLE PORTABLE CHEST, One view HISTORY: Cough COMPARISON: None FINDINGS: Portable view of the chest demonstrates the lungs to be grossly clear.There is no evidence of effusion, pneumothorax or other significant pleural disease.The mediastinum is unremarkable. The heart size is normal. IMPRESSION: Unremarkable portable chest. Dictated By: RUMA GARZA Transcribed By: RUMA GARZA Transcribed On: 05/25/2016 7:58 AM Electronically signed by: RUMA GARZA 05/25/2016 Thank you for referring ALLISON MENDEZ to [facility]. Legally authenticated by KAYLA REYES MD 2016-05-25 07:58:35 CC'ed Logic: Ordering Provider: DANIEL ALY CC Provider: TENISHA MANNING Attending Provider: DANIEL ALY Referring Provider: DANIEL ALY Admitting Provider: DANIEL Steven MD [address] [facility], [address], [place], [address] [place] [facility] 05/25/2016 09:15:14 Xr, Chest, 2 View : [address] [place] [address] Name: ALLISON MENDEZ Exam Date: 06/26/2016 : 1965 Age 50 Gender: F Physician: DENG PRABHAKAR Facility: [facility] Facility HSV: Outpatient Exam: CHEST PA ^ LAT 2 view chest Indication: Cough, congestion and shortness of breath 3 days. Fever. Comparison: 05-24-16 FINDINGS: Minimal calcifications likely due to old granulomatous disease appear stable. The lungs are clear and there is no evidence of effusion or other pleural disease. The cardiac silhouette and mediastinum appear to be normal in size and configuration. The bony thorax appears intact. IMPRESSION: No acute cardiopulmonary findings. Dictated By: RUPESH SHAH Transcribed By: julio cesar shah Transcribed On: 06/27/2016 7:04 AM Electronically signed by: RUPESH SHAH 06/27/2016 Thank you for referring ALLISON MENDEZ to [facility]. Legally authenticated by ALEXIS Suero MD 2016-06-27 07:04:48 CC'ed Logic: Ordering Provider: AKI VILCHIS CC Provider: TENISHA MANNING Attending Provider: AKI VILCHIS Referring Provider: AKI VILCHIS Admitting Provider: AKI Steven MD [address] [place] [address], [facility], [place], [address] 06/27/2016 08:09:56 Ct, Abdomen + Pelvis, W/ Contrast : [place] [address] (Phone) DIAGNOSTIC IMAGING REPORT - Patient Name: ALLISON MENDEZ Patient No: [id number] Date of : 1965 Accession No: [id number] Date of Exam: 05/05/2022 Patient Type: Outpatient Ordering Physician: MARGO NARAYANAN - FINAL REPORT PROCEDURE: CT ABD AND PELVIS IV ONLY NO PO TECHNIQUE: Postcontrast axial images through the abdomen and pelvis were performed. This study was performed with techniques to keep radiation doses as low as reasonably achievable, (ALARA). Individualized dose reduction techniques using automated exposure control or adjustment of mA and/or kV according to the patient's size were employed. CLINICAL HISTORY: R31.29 OTHER MICROSCOPIC HEMATURIA FINDINGS: Abdomen: Streaky linear atelectasis in the right lower lobe. Mild linear atelectasis in the left lower lobe. There is hepatic steatosis. There has been cholecystectomy. The spleen is unremarkable. The adrenals are normal. The pancreas is unremarkable. There is a punctate 2 mm nonobstructing lower pole right renal stone. Otherwise the kidneys enhance appropriately. The aorta is normal in caliber. No free fluid or adenopathy is identified. No findings for mechanical bowel obstruction are identified. There is colonic diverticulosis without evidence of diverticulitis. Pelvis: The appendix is not identified. The urinary bladder is unremarkable. No free fluid, free air, abscess or adenopathy is identified. There has been hysterectomy. There are degenerative changes of the spine. IMPRESSION: Punctate nonobstructing right renal stone otherwise no acute abnormality. Reviewed, Interpreted and Dictated by Simon Joshi MD Transcribed by Xavier Gibson Authenticated and [facility]'ed Logic: Ordering Provider: TENIHSA MANNING Provider: TENISHA MANNING Attending Provider: LADY ARAGON Referring Provider: LADY ARAGON Admitting Provider: LADY Steven MD [address], [address], [place] [facility] 05/06/2022 08:43:04 Problems Name Problem SNOMED Code Status Onset Date Resolution Date Notes Provider Name and Address Organization Details Recorded Time Menopausal problem [id number] Pilo Steven MD [address] [place] [id number] [place] [facility] 6 10:18:07 Fatigue [id number] Pilo Steven MD [address] [place] [id number], [place] [facility] 6 10:30:47 Gastroesophage al reflux disease [id number] Pilo Steven MD [address] [address], [place] [facility] 6 10:18:07 Cellulitis of skin [id number] Pilo Steven MD [address] [place] [address], [facility] 6 10:18:07 Sciatica [id number] Pilo Steven MD [address] [place] [address], [facility] 6 10:18:07 Restless legs syndrome 24804560 Pilo Steven MD [address] [place] [address], [facility] 6 10:18:07 Insomnia [id number] Pilo Steven MD [address] [place] [address], [facility] 6 10:18:07 Feeling stressed [id number] Pilo Steven MD [address] [place] [address], [facility] 6 10:18:07 Anxiety disorder [id number] Pilo Steven MD [address] [place] [address], [facility] 6 10:18:07 Benign essential hypertension [id number] Pilo Steven MD [address] [place] [address], [facility] 6 10:18:07 Urinary tract infectious disease [id number] Pilo Steven MD [address] [place] [address], [facility] 6 10:18:07 Hypoglycemia 505581264 Active Sandy Steven MD [address], [address] [place] [address], [place] - [facility] 6 10:18:07 Osteoarthritis of knee 603670461 Pilo Steven MD [address] [place] [address], [place] - [facility] 6 10:30:47 Asthma [id number] Active Sandy Steven MD [address] [place] [address], [place] - [facility] 6 10:30:47 Body mass index 30+ - obesity 119340148 Pilo Steven MD [address] [place] [address], [place] - [facility] 6 10:30:47 Edentulous [id number] Pilo Steven MD [address] [place] [address], [place] - [facility] 6 10:30:47 Candidal vulvovaginitis [id number] Pilo Steven MD [address] [place] [address], [place] [facility] 6 10:18:07 Acute sinusitis [id number] Pilo Steven MD [address] [place] [address], [place] [facility] 6 10:18:07 Atopic dermatitis 90664029 Pilo Steven MD [address] [place] [address], [place] [facility] 6 10:18:07 Abdominal pain 43722328 Pilo Steven MD [address] [place] [address], [facility] 6 10:18:07 Knee pain Active Sandy Steven MD [address] [place] [address], [facility] 6 10:18:07 Migraine 77409069 Active Sandy Steven MD [address] [place] [address], [facility] 6 10:18:07 Allergic rhinitis 25612817 Active Sandy Steven MD [address] [place] [address], [facility] 6 10:18:07 Anxiety state 192023817 Active Sandy Steven MD [address] [place] [address], [facility] 6 10:18:07 Sprain of spinal ligament 635484096 Active Sandy Steven MD [address] [place] [address], [facility] 6 10:18:07 Disorder of urinary tract 21215435 Active Sandy Steven MD [address] [place] [address], [facility] 6 10:18:07 Vaginitis and vulvovaginitis Active Sandy Steven MD [address] [place] [address], [facility] 6 10:18:07 Mononeuritis of lower limb Active Sandy Steven MD [address] [place] [address], [facility] 6 10:18:07 Problem Notes None recorded. Procedures Surgical History Date Name Laterality Status Provider Name and Address Organization Details Recorded Time 03/20/19 10 Other completed [facility] 03/04/2011 16:24:19 03/20/19 00 Cholecystectomy completed [facility] 03/04/2011 16:24:19 03/20/18 99 Hysterectomy completed [facility] 03/04/2011 16:24:19 Orthopaedic Surgery completed Brando Steven MD [address] [facility], [address], [place], [address], [facility] 09/22/2015 10:20:43 Imaging Results None recorded. Procedure Notes None recorded. Medical Equipment None Reported. Allergies No known drug allergies Medications Name Sig Start Date Stop Date Status Note LastModified by Organization Details LastModified Time celecoxib 200 mg capsule 04/19 completed Not Available Not Available Not Available amoxicill in 500 mg capsule Take 2 capsules every 12 hours by oral route for 10 days. 2016 active Not Available Not Available Not Avai lable nystatin 100,000 unit/mL oral suspensio n 08/10 completed Not Available Not Available Not Available potassium chloride ER 10 mEq capsule,e xtended release active Not Available Not Available Not Available prednison e 10 mg tablet active Not Available Not Available Not Available doxycycli ne hyclate 100 mg capsule Take 1 capsule twice a day by oral route for 15 days. active Not Available Not Available No t Available ropinirol e 1 mg tablet Take 1 tablet every day by oral route in the evening for 30 days. active Not Available Not Available No t Available trazodone 50 mg tablet active Not Available Not Available Not Available azithromy luba 250 mg tablet take as directed . 05/11 completed Not Available Not Available Not Available ibuprofen 800 mg tablet 06/04 completed Not Available Not Available Not Available tramadol 37.5 mg-acetam inophen 325 mg tablet active Not Available Not Available Not Available fluconazo le 150 mg tablet Take 1 tablet every day by oral route as needed. 11/10 completed Not Available Not Available Not Available benzonata te 200 mg capsule Take 1 capsule 3 times a day by oral route for 10 days. 07/08 completed Not Available Not Available Not Available clarithro mycin 500 mg tablet 08/18 completed Not Available Not Available Not Available hydrocodo ne 5 mg-acetam inophen 325 mg tablet active Not Available Not Available Not Available meloxicam 15 mg tablet 04/19 completed Not Available Not Available Not Available promethaz ine 12.5 mg tablet 04/19 completed Not Available Not Available Not Available Maxalt 10 mg tablet active Not Available Not Available No t Available clindamyc in HCl 150 mg capsule active Not Available Not Available Not Available penicilli n V potassium 500 mg tablet active Not Available Not Available Not Available metronida zole 500 mg tablet active Not Available Not Available No t Available hydroxyzi ne HCl 50 mg tablet Take 1 tablet twice a day by oral route as needed. active Not Available Not Available No t Available valacyclo vir 500 mg tablet Take 2 tablets every day by oral route for 10 days. active Not Available Not Available No t Available ciproflox acin 500 mg tablet active Not Available Not Available No t Available sulfameth oxazole 800 mg-trimet hoprim 160 mg tablet active Not Available Not Available Not Available omeprazol e 40 mg capsule,d elayed release 07/09 completed Not Available Not Available Not Available tramadol 50 mg tablet 04/19 completed Not Available Not Available Not Available butalbita l-acetami nophen-ca ffeine 50 mg-325 mg-40 mg tablet active Not Available Not Available Not Available meloxicam 7.5 mg tablet active Not Available Not Available Not Available betametha sone acetate and sodium phos 6 mg/mL suspensio n for injection 2011 active celeston e Not Available Not Available Not Available oxycodone -acetamin ophen 5 mg-325 mg tablet active Not Available Not Available Not Available ceftriaxo ne 1 gram solution for injection 2014 active Rocephin Not Available Not Available Not Avai lable amoxicill in 875 mg tablet 04/19 completed Not Available Not Available Not Available citalopra m 20 mg tablet active Not Available Not Available Not Available amitripty line 25 mg tablet active Not Available Not Available No t Available methocarb dennise 750 mg tablet active Not Available Not Available No t Available triamcino lone acetonide 0.025 % topical cream active Not Available Not Available Not Available trazodone 100 mg tablet Take 1 tablet every day by oral route in the evening for 30 days. 2014 active Not Available Not Available Not Avai lable amitripty line 10 mg tablet active Not Available Not Available No t Available baclofen 10 mg tablet active Not Available Not Available Not Available benzonata te 100 mg capsule Take 1 capsule 3 times a day by oral route as needed. 2014 active Not Available Not Available Not Avai lable hydrocodo ne 7.5 mg-acetam inophen 325 mg tablet active Not Available Not Available Not Available cephalexi n 500 mg capsule Take 2 capsules every 12 hours by oral route for 10 days. active Not Available Not Available No t Available paroxetin e 20 mg tablet active Not Available Not Available Not Available pantopraz ole 40 mg tablet,de layed release TAKE ONE TABLET BY MOUTH ONCE DAILY 30 MINUTES BEFORE A MEAL 11/30 completed Not Available Not Available Not Available venlafaxi ne 37.5 mg tablet active Not Available Not Available No t Available nystatin 100,000 unit/gram topical cream active Not Available Not Available Not Available ranitidin e 150 mg tablet 06/26 completed Not Available Not Available Not Available Shanika-D 12 Hour 60 mg-120 mg tablet,ex tended release Take 1 tablet twice a day by oral route as needed. 2010 active Not Available Not Available Not Avai lable fluoromet holone 0.1 % eye drops,buck pension active Not Available Not Available Not Available propranol ol ER 80 mg capsule,2 4 hr,extend ed release active Not Available Not Available Not Available promethaz ine 25 mg tablet active Not Available Not Available Not Available hydrocodo ne 7.5 mg-acetam inophen 650 mg tablet active Not Available Not Available Not Available metoprolo l tartrate 50 mg tablet active Not Available Not Available Not Available gabapenti n 300 mg capsule TAKE TWO CAPSULES BY MOUTH 3 TIMES A DAY NGUYỄN RR active Not Available Not Available No t Available omeprazol e 20 mg capsule,d elayed release 09/08 completed Not Available Not Available Not Available verapamil ER (SR) 240 mg tablet,ex tended release active Not Available Not Available Not Available monteluka st 10 mg tablet 10/08 completed Not Available Not Available Not Available hydrocodo ne 5 mg-acetam inophen 500 mg tablet active Not Available Not Available Not Available mupirocin 2 % topical ointment 04/19 completed Not Available Not Available Not Available Levaquin 500 mg tablet Take 1 tablet every 24 hours by oral route for 10 days. 01/10 completed Not Available Not Available Not Available gabapenti n 100 mg capsule active Not Available Not Available Not Available metoprolo l succinate ER 25 mg tablet,ex tended release 24 hr 06/19 completed Not Available Not Available Not Available dexametha sone sodium phosphate 4 mg/mL injection solution 2014 active Not Available Not Available Not Avai lable azelastin e 137 mcg (0.1 %) nasal spray 08/10 completed Not Available Not Available Not Available Nasonex 50 mcg/actua tion Mullens Mullens 2 sprays every day by intranas al route for 30 days. active Not Available Not Available No t Available polyethyl daisy glycol 3350 17 gram/dose oral powder 10/30 completed Not Available Not Available Not Available methylpre dnisolone 4 mg tablets in a dose pack Take by oral route. 04/19 completed Not Available Not Available Not Available losartan 50 mg-hydroc hlorothia zide 12.5 mg tablet TAKE ONE TABLET BY MOUTH EVERY DAY ..GENERI C FOR HYZAAR active Not Available Not Available No t Available hydrocodo ne 7.5 mg-acetam inophen 500 mg tablet active Not Available Not Available Not Available topiramat e 100 mg tablet TAKE ONE TABLET BY MOUTH 3 TIMES A DAY Rfs rem none active Not Available Not Available No t Available fluticaso ne propionat e 50 mcg/actua tion nasal spray,buck pension 08/10 completed Not Available Not Available Not Available naproxen 500 mg tablet active Not Available Not Available Not Available amoxicill in 875 mg-potass ium clavulana te 125 mg tablet Take 1 tablet twice a day by oral route for 10 days. active Not Available Not Available No t Available oxycodone 5 mg tablet 04/19 completed Not Available Not Available Not Available Premarin 0.3 mg tablet Take 1 tablet every day by oral route. active Not Available Not Available No t Available Premarin 0.625 mg tablet active Not Available Not Available Not Available Premarin 1.25 mg tablet 1/2 daily active Not Available Not Available No t Available escitalop mike 5 mg tablet Take 1 tablet every day by oral route for 30 days. active Not Available Not Available No t Available epinastin e 0.05 % eye drops active Not Available Not Available No t Available topiramat e 50 mg tablet TAKE ONE IN THE MORNING & TWO TABLETS BY MOUTH AT BEDTIME FOR 14 DAYS THEN TAKE TWO TABLETS TWICE DAILY FOR MIGRAINE PREVENTI ON active Not Available Not Available No t Available ProAir HFA 90 mcg/actua tion aerosol inhaler active Not Available Not Available Not Available levocetir izine 5 mg tablet active Not Available Not Available No t Available omeprazol e 20 mg tablet,de layed release Take 1 tablet every day by oral route in the morning for 30 days. 2013 active Not Available Not Available Not Avai lable Voltaren 1 % topical gel active Not Available Not Available Not Available krill oil active Not Available Not Jasmina ilable Not Available Dymista 137 mcg-50 mcg/spray nasal spray active Not Available Not Available Not Available Breo Ellipta 200 mcg-25 mcg/dose powder for inhalatio n active Not Available Not Available Not Available Vitals Date Recorded Body height Body weight Body mass index (BMI) Heart rate Oxygen saturation Oxygen saturation in Arterial blood by Pulse oximetry Body temperature Systolic And Diastolic Provider Name and Address Organization Details Last Updated DateTime 7 167.64 cm 74945.0 7 g 32.4 kg/m2 66 /min 98 % 98 % 98.4 [degF] 163/96 mm[Hg] [facility] 7 13:57:51 Date Recorded Body temperature Oxygen saturation Oxygen saturation in Arterial blood by Pulse oximetry Body weight Body height Body mass index (BMI) Heart rate Systolic And Diastolic Provider Name and Address Organization Details Last Updated DateTime 6 97.9 [degF] 99 % 99 % 70189.8 15696 g 167.64 cm 32.5 kg/m2 58 /min 120/86 mm[Hg] [facility] 6 09:20:31 Date Recorded Body height Body mass index (BMI) Body weight Heart rate Oxygen saturation Oxygen saturation in Arterial blood by Pulse oximetry Body temperature Systolic And Diastolic Provider Name and Address Organization Details Last Updated DateTime 7 170.18 cm 32.4 kg/m2 51061.3 2 g 65 /min 99 % 99 % 98.3 [degF] 122/78 mm[Hg] [facility] 7 14:22:15 Date Recorded Body weight Oxygen saturation Oxygen saturation in Arterial blood by Pulse oximetry Body height Body mass index (BMI) Heart rate Body temperature Systolic And Diastolic Provider Name and Address Organization Details Last Updated DateTime 5 02617.1 05925 g 98 % 98 % 172.72 cm 29.4 kg/m2 70 /min 97 [degF] 137/79 mm[Hg] [facility] 5 10:16:18 Date Recorded Body weight Oxygen saturation Oxygen saturation in Arterial blood by Pulse oximetry Body height Body mass index (BMI) Body temperature Heart rate Systolic And Diastolic Provider Name and Address Organization Details Last Updated DateTime 5 55522.0 6637 g 98 % 98 % 172.72 cm 30.6 kg/m2 98.2 [degF] 81 /min 135/82 mm[Hg] [facility] 5 15:17:14 Social History Question Answer Notes LastModified by Organizat ion Details LastModified Time Tobacco Smoking Status Never Smoker Not Available [facility] 01/14/2020 03:11:19 Do You Have An Advance Directive? No [id number] Information not available 01/14/2020 Animal Exposure? Yes Informat ion not available 09/12/2013 Auto Related Injury? No Information not available 03/04/2011 Is Blood Transfusion Acceptable In An Emergency? Yes [id number] Information not available 01/14/2020 What Is Your Level Of Caffeine Consumption? None [id number] Information not available 01/14/2020 How Much Tobacco Do You Chew? None [id number] Information not available 01/14/2020 Diabetes No Information no t available 03/04/2011 What Type Of Diet Are You Following? REGULAR [id number] Information not available 01/14/2020 Which Illicit Or Recreational Drugs Have You Used? None [id number] Information not available 01/14/2020 Education 12 Information no t available 03/04/2011 Family History Of Heart Disease? Yes Information not available 03/04/2011 Which Of Your Hands Is Dominant? Right [id number] Information not available 01/14/2020 High Blood Pressure Yes Information not available 03/04/2011 High Cholesterol No Informat ion not available 09/12/2013 Live Alone Or With Others? With Others Information not available 03/04/2011 Marital Status isamar Informatio n not available 07/10/2014 What Was The Date Of Your Most Recent Tobacco Screening? 12/15/2016 [id number] Information not available 01/14/2020 How Many Children Do You Have? 0 [id number] Information not available 01/14/2020 Do You Use Your Seat Belt Or Car Seat Routinely? Yes [id number] Information not available 01/14/2020 Seat Belts Used Routinely Yes Information not available 09/12/2013 Smoke Alarm In Home Yes Information not available 09/12/2013 Are You Passively Exposed To Smoke? Yes Information not available 03/04/2011 General Stress Level Medium Information not available 03/04/2011 Do You Use Sunscreen Routinely? Yes [id number] Information not available 01/14/2020 Work Related Injury? No Information not available 09/12/2013 Sex: Unknown Functional Status Question Answer Note LastModified by Organizat ion Details LastModified Time What is your level of alcohol consumption? None [id number] Information not available 01/14/2020 Are you currently employed? No [id number] Information not available 01/14/2020 Are you able to care for yourself independently? Yes [id number] Information not available 01/14/2020 What is your occupation? [employer] Information not available 09/12/2013 What is your exercise level? Occasional [id number] Information not available 01/14/2020 Mental Status None recorded. Family History Relationship Description Onset Age of this Age Resolved Age Notes LastModified by Organization Details LastModified Time Father Hypertensive disorder heart proble m (previ ously record ed as Hypert ension ) Not available 09/22/2015 10:20:43 Maternal Grandmother Diabetes mellitus previo usly record ed as Diabet es Not available 09/22/2015 10:20:43 Paternal Grandmother Malignant neoplastic disease previo usly record ed as Cancer Not available 09/22/2015 10:20:43 Mother Hypertensive disorder migrai alphonso (previ ously record ed as Hypert ension ) Not available 09/22/2015 10:20:43 Medical History Condition Response Coronary Artery Disease N Gout N Blood Diseases N Kidney Stones Y Hyperthyroidism N Hypothyroidism N Depression Y COPD N Developmental or Behavioral Disorders N Eczema, Hives or other skin conditions N Anxiety Disorder N Muscle, Joint, or Bone Problems N Vision or Eye Problems N Arthritis Y Serious Illness or Injuries N Congenital Anomalies N Cancer N Stroke N Bladder or Kidney Problems N Hospital Admission other than N High Cholesterol N Liver Disease N Fibromyalgia N Kidney Disease N Heart Problems N Ear or Hearing Problems N ADD or ADHD N Thyroid Problems N Skin Problems N Anemia N Constipation N Diabetes N Bedwetting N Seizures/Epilepsy N Tuberculosis N Diverticulitis N Asthma N Allergies Y GERD/Reflux N Heart Disease N Pulmonary Embolism N Hypertension N Osteoporosis N Chicken Pox N Gynecological HistoryNo gynecological history recorded. Obstetrics History GPAL:G 0 P 0 0 0 0 Immunizations Vaccine Type Date Status Note Provider Nam e and Address Organization Details Recorded Time Td (adult) 1 completed [facility] 06/11/2013 08:19:40 pneumococcal polysaccharide PPV23 7 completed Not Available [facility] 04/06/2019 02:12:07 Influenza, split virus, quadrivalent, preservative 7 completed Sandy Steven MD [address], [address], [facility] 12/15/2016 15:10:06 Hep A-Hep B 8 completed Sandy Steven MD [address], [address], [facility] 01/14/2018 15:06:23 Influenza, split virus, trivalent, preservative 2 completed Not Available [facility] 04/06/2019 02:12:11 Past Encounters Encounter ID Performer Location Encounter Start Date Encounter Closed Date Diagnosis/Indication Diagnosis SNOMED-CT Code Diagnosis ICD10 Code Diagnosis IMO Codes Diagnosis Note [id number] Sandy Steven MD [address] [id number] 03/04/2011 15:44:32 03/07/2011 12:27:11 [id number] Yash Solis MD [address] [id number] 06/22/2011 08:55:45 06/23/2011 03:48:31 [id number] Yash Solis MD [address] [id number] 12/14/2011 09:18:14 12/15/2011 09:55:27 [id number] Yash Solis MD [address] [id number] 12/20/2011 10:48:42 12/20/2011 14:04:41 [id number] Sandy Steven MD [address] [id number] 07/13/2012 13:24:17 07/13/2012 17:05:39 [id number] Sandy Steven MD [address] [address] 06/11/2013 10:31:43 06/11/2013 12:00:15 Abdominal pain 30426566 Migraine 13647152 Feeling stressed 323603610 Menopausal problem 45034129 Fatigue 51750008 Gastroesop hageal reflux disease 926929190 [id number] Sandy Steven MD [place] [address] 7 09/12/2013 10:56:42 09/17/2013 09:57:49 Cellulitis of skin 251461669 Migraine 48635739 Abdominal pain 73588022 [id number] Sandy Steven MD [place] [address] 7 10/31/2013 14:28:04 10/31/2013 16:17:16 Restless legs syndrome 50972249 Insomnia 804198235 Migraine 97181217 [id number] Sandy Steven MD [place] [address] 7 07/10/2014 13:53:11 07/10/2014 15:50:48 Acute sinusitis 48391751 Anxiety state 005939034 Migraine 06792834 [id number] Sandy Steven MD [place] [address] 7 12/25/2014 09:26:06 12/25/2014 16:16:42 Acute sinusitis 57682073 J01.90 Allergic rhinitis 700521 04 J30.9 Candidal vulvovaginitis 13270269 B37.3 [id number] Sandy Steven MD [place] [address] 7 03/02/2015 14:49:00 03/02/2015 17:46:05 Feeling stressed 813684158 Z73.3 Fatigue 29027995 R53.83 Anxiety disorder 1456409 06 F41.9 Insomnia 047002882 G47.0 0 [id number] Sandy Steven MD [place] [id number] 09/22/2015 08:56:31 09/24/2015 07:38:00 Adult health examination 054766237 Z00.01 Pre-surger y evaluation 440892783 Z01.818 Osteoarthr itis of knee 525090576 M17.9 Asthma 656971434 J45.90 9 Body mass index 30+ - obesity 526181297 Z68.32 Fatigue 23572112 R53.83 Edentulous 779112714 K08 .109 [id number] Sandy Steven MD [facility] [address] [place] [id number] 04/19/2016 13:42:36 04/19/2016 16:37:47 Acute low back pain 405815046 M54.5 Acute sinusitis 63666677 J01.90 Candidiasis of vagina 72 401364 B37.3 Chronic he adache disorder 060631244 G43.719 Body mass index 30+ - obesity 026341922 Z68.32 Essential hypertension 84085929 I10 [id number] Sandy Steven MD [facility] [address] [place] [id number] 12/15/2016 14:11:46 12/20/2016 08:47:41 Adult health examination 856966279 Z00.01 Essential hypertension 99667695 I10 Active or passive immunization 949095182 Z23 Glucose le sánchez outside reference range 365505918 R73.09 Body mass index 30+ - obesity 826730396 Z68.32 Osteoarthr itis of knee 515608232 M17.11 Depression screening 171 229237 Z13.89 Acute sinusitis 05316466 J01.90 Pre-surger y evaluation 440684402 Z01.818 Asthma 781829009 J45.90 9 Fatigue 62733622 R53.83 Edentulous 213051570 K08 .109 Health Concerns Section Related Observation LastModified by Organization Detai ls LastModified Time None Recorded Concern Status LastModified by Organization Details LastModified Time None Recorded Advance Directives Directive N: Payers Insurance Date Sequence Insurance Name Policy Number Policy Obrien Covered Member ID Obrien Member ID Guarantor Name 02/02/2017 [facility]TRAD[facility] NAL Allison Mendez [id number] Allison Mendez 01/31/2017 1 [place] Allison Mendez [id number] Allison Mendez Notes Date Note Type Note Provider Name and Address Organization Details Recorded Time 12/25/2014 text/html ROS as noted in the HPI Sandy Steven MD [address], [address], [facility] 12/25/2014 11:24:40 03/02/2015 text/html ROS as noted in the HPI Sandy Steven MD [address], [address], [facility] 03/02/2015 17:03:59 09/22/2015 text/html ROS as noted in the HPI Sandy Steven MD [address], [address], [facility] 09/29/2015 10:31:10 12/15/2016 text/html plans for Jan 09 for right knee replacement; She already had the left knee replaced last year Sandy Steven MD [address], [address], [facility] 12/16/2016 20:56:00 OBGyn Episode No OBEpisode recorded.
--- OUTSIDE RECORDS SUMMARY | 2025-01-13 11:16 | XMS_ITS | Encounter Summary ---
Author Organization [facility] Address [address] [place] [address] Care Team Providers Care Databases Software Consultant Name Role Phone Mariluz Reyes DO Primary Care Provider [phone] Reason for Referral * Consultation (Routine) - Authorized Specialty Diagnoses / Procedures Referred By Rahul villarreal Referred To Contact Neurology Diagnoses Intractable chronic migraine with aura and without status migrainosus Mariluz Reyes DO [address] [place] [address] Phone: tel: fax: Referral ID Status Reason Start Date Expiration Date Visits Requested Visits Authorized [id number] Authorized Specialty Services Required 05/10/2024 11/09/2025 1 1 Encounter Details Date Type Department Care Team (Late st Contact Info) Description 05/10/2024 [facility] [address] [place] [address] Mariluz Reyes DO [address] [place] [address] Intractable chronic migraine with aura [...] Primary documented in this encounter Care Teams Databases Software Consultant Relationship Specialty Start Date End Date Mariluz Reyes DO [address] [place] [id number] PCP - General Family Medicine 06/20/24 documented as of this encounter
--- OUTSIDE RECORDS SUMMARY | 2025-01-13 11:16 | XMS_ITS | Clinical Summary ---
Author Organization [facility] Address [address] [place] [address] Care Team Providers Care Tin Container Straightener Name Role Phone Sandy Steven MD Primary Care Provider + Allergies Active Allergy Reactions Criticality Noted Date Comments Codeine Itching 05/30/2016 Medications estrogens, conjugated, (PREMARIN) 1.25 MG tablet Take 1.25 mg by mouth Daily. Active raNITIdine (ZANTAC) 150 MG tablet Take 150 mg by mouth Daily. Active metoprolol succinate XL (TOPROL-XL) 12.5 MG 24 hr half tablet Take 25 mg by mouth Daily. Active omeprazole (priLOSEC) 40 MG capsule Take 40 mg by mouth Daily. Active losartan (COZAAR) 25 MG tablet Take 25 mg by mouth Daily. Active topiramate (TOPAMAX) 100 MG tablet Take 100 mg by mouth 3 (Three) Times a Day. Active potassium chloride (K-DUR) 10 MEQ CR tablet Take 10 mEq by mouth Daily. Active cetirizine (zyrTEC) 5 MG tablet Take 10 mg by mouth Daily. Active Albuterol Sulfate (PROAIR HFA IN) Inhale 2 inhalers Daily As Needed. Active Fluticasone Furoate-Vilante rol (BREO ELLIPTA) 200-25 MCG/INH aerosol powder Inhale 1 inhaler Daily. Active ALLERGY SERUM INJECTION Inject under the skin 2 (Two) Times a Week. Active Family History Medical History Relation Name Comments Heart attack Father Relation Name Status Comments Father at age 49 secondary to myocardial infarction Social History Tobacco Use Types Packs/Day Years Used Date Smoking Tobacco: Never Smokeless Tobacco: Never Tobacco Cessation:Counseling Given: No Alcohol Use Standard Drinks/Week Comments No 0 (1 standard drink = 0.6 oz pur e alcohol) Abuse Screen Answer Date Recorded Unsafe at Home or Work/School Not on file Feels Threatened by Someone? Not on file 11/2022 Does Anyone Keep You from Co ntacting Others or Doint Things Outside the Home? Not on file 12/26/2022 Physical Sign of Abuse Present Not on file 1 Housing Stability Answer Date Recorded Current Living Arrangements Not on file 11/2022 Potentially Unsafe Housing Conditions Not on lesly e 12/26/2022 Family and Community Support Answer Moses e Recorded Help with Day-to-Day Activities Not on file 12/26/2022 Lonely or Isolated Not on file 12/26/2022 Employment Answer Date Recorded Do you want help finding or keeping work or a harlan b? Not on file 12/26/2022 Disabilities Answer Date Recorded Concentrating, Remembering, or Making Decisions Difficulty Not on file 12/26/2022 Doing Errands Independently Difficulty Not on fi le 12/26/2022 Education Answer Date Recorded Help with school or training? Not on file Preferred Language Not on file 12/26/2022 Comments Unknown Sex and Gender Information Value Date Recorded Sex Assigned at Not on file Legal Sex Female 1:14 PM EDT Gender Identity Not on file Sexual Orientation Not on file Last Filed Vital Signs Vital Sign Reading Time Taken Comments Blood Pressure 109/70 05/30/2016 3:15 PM EDT Post Ambulation Blood Pressure. Pulse 56 05/30/2016 3:15 PM EDT Temperature 36.7 C (98.1 F) 05/30/2016 11:29 AM EDT Respiratory Rate 18 05/30/2016 1:30 PM EDT Oxygen Saturation 89% 05/30/2016 3:1 5 PM EDT Inhaled Oxygen Concentration - - Weight 91.8 kg (202 lb 6.1 oz) 05/30/2016 11:29 AM EDT Height 170.2 cm (5' 7 ) 05/30/2016 11:2 9 AM EDT Body Mass Index 31.7 05/30/2016 11:29 AM EDT Plan of Treatment Health Maintenance Due Date Last Done Comments ANNUAL PHYSICAL 1966 Annual Gynecologic Pelvic and Breast Exam 1966 HEPATITIS C SCREENING 1966 TDAP/TD VACCINES (1 - Tdap) 1985 MAMMOGRAM 2006 COLOGUARD 08/16/2011 COLON CANCER SCREENING 5 YEAR SIGMOIDOSCOPY 08/16/2011 COLONOSCOPY 08/16/2011 COLORECTAL CANCER SCREENING 08/16/2011 CT COLONOGRAPHY 08/16/2011 FECAL OCCULT BLOOD TEST 08/16/2011 FIT Testing (1 year) 08/16/2011 Pneumococcal Vaccine 50+ (1 of 1 - PCV) 2016 ZOSTER VACCINE (1 of 2) 2016 INFLUENZA VACCINE 10/18/2024 Insurance MEDICARE A & B MEDICAID [place] Advance Directives * Full Code (Latest Code Status on File) Date Activated Date Inactivated Comments 05/30/2016 1:51 PM 05/30/2016 5:38 PM Care Teams Tin Container Straightener Relationship Specialty Start Date End Date Sandy Steven MD [address] [place] [address] PCP - General Family Medicine 05/30/16
--- OUTSIDE RECORDS SUMMARY | 2025-01-13 11:16 | XMS_ITS | Encounter Summary ---
Author Organization [facility] Address [address] [place] [address] Care Team Providers Care Learn To Swim Instructor Name Role Phone Mariluz Reyes DO Primary Care Provider [phone] Encounter Details Date Type Department Care Team (Late st Contact Info) Description 03/11/2024 [facility] [address] [place] [address] Sonya Mir, DPM [address] [place] [address] Social History Tobacco Use Types Packs/Day Years Used Date Smoking Tobacco: Never Assessed Comments Unknown Sex and Gender Information Value Date Recorded Sex Assigned at Not on file Legal Sex Female 8:45 PM EDT Gender Identity Not on file Sexual Orientation Not on file documented as of this encounter Plan of Treatment Not on file documented as of this encounter Visit Diagnoses Not on filedocumented in this encounter Care Teams Learn To Swim Instructor Relationship Specialty Start Date End Date Mariluz Reyes DO [address] [place] [address] PCP - General Family Medicine 06/20/24 documented as of this encounter
--- OUTSIDE RECORDS SUMMARY | 2025-01-13 11:16 | XMS_ITS | Data Portability ---
Author Organization [facility] TA Cantrell [place] Address [address] [address] [place] [address] Assessment No assessment recorded. Plan of Treatment Reminders Order Date Submit Date Provider Last Modified By Organization Details Last Modified Time Details Appointments None record ed. Lab None record ed. Referral None record ed. Procedures None record ed. Surgeries None record ed. Imaging None record ed. Medication Orders None record ed. Patient TargetsNo targets recorded. Patient Instructions Encounter Date Encounter Id Patient Instructions Last Modified By Organization Details Last Modified Time 09/30/[id number] 1[address] scan of th e sinus ordered 2. F/u with CT Scan of the sinus results. nstaton Not available 09/30/2016 10:06:48 Reason for Referral None Reported. Medical Equipment None Reported. Allergies Allergen ID Allergen Name Allergen Category Reaction Reaction Severity Criticality Documentation Date Start Date Code Code System Note Provider Name and Address Organization Details Recorded Time [id number] codeine medicatio n Not available Not available Not available 09/30/2016 2670 RxNorm Martine Rivera [facility] 7 09:44:53 Medications Name Sig Start Date Stop Date Status Note LastModified by Organization Details LastModified Time olopatadine 0.1% yari INSTILL 1 DROP INTO EACH EYE TWICE DAILY NEEDED FOR RED, ITCHY, WATERY EYES active Not Available Not Available Not Available vitamin d3 (amado) 5,000iu tab TAKE 1 TABLET BY MOUTH ONCE DAILY active Not Available Not Available No t Available celecoxib 200 mg capsule active Not Available Not Available Not Available amoxicillin 500 mg capsule TAKE 1 CAPSULE BY MOUTH EVERY 6 HOURS UNTIL GONE active Not Available Not Available N ot Available nystatin 100,000 unit/mL oral suspension active Not Available Not Available N ot Available potassium chloride ER 10 mEq capsule,exte nded release active Not Available Not Available Not Available gabapentin 600 mg tablet TAKE 1 TABLET BY MOUTH EVERY MORNING, 1 AT NOON, AND 1 IN THE EVENING active Not Available Not Available Not Available atorvastatin 20 mg tablet TAKE 1 TABLET BY MOUTH EVERY DAY active Not Available Not Available No t Available azithromycin 250 mg tablet active Not Available Not Available Not Available ibuprofen 800 mg tablet active Not Available Not Available Not Available fluconazole 150 mg tablet TAKE DIRECTED active Not Available Not Available No t Available benzonatate 200 mg capsule TAKE 1 CAPSULE BY MOUTH THREE TIMES DAILY active Not Available Not Available Not Available clarithromyc in 500 mg tablet active Not Available Not Available Not Available meloxicam 15 mg tablet active Not Available Not Available No t Available promethazine 12.5 mg tablet active Not Available Not Available Not Available prednisone 20 mg tablet TAKE 2 TABLETS BY MOUTH ONCE DAILY FOR 5 DAYS active Not Available Not Available No t Available potassium chloride ER 10 mEq tablet,exten ded release TAKE 1 TABLET BY MOUTH ONCE DAILY WITH FOOD active Not Available Not Available No t Available metronidazol e 500 mg tablet TAKE 1 TABLET BY MOUTH EVERY 8 HOURS FOR 10 DAYS active Not Available Not Available No t Available Space Chamber USE DIRECTED NEEDED WITH INHALERS active Not Available Not Available No t Available oxcarbazepin e 300 mg tablet TAKE 1/2 TABLET BY MOUTH TWICE DAILY FOR 1 WEEK THEN 1 TAB TWICE DAILY active Not Available Not Available No t Available amlodipine 5 mg tablet TAKE 1 TABLET BY MOUTH EVERY DAY active Not Available Not Available No t Available ciprofloxaci n 500 mg tablet TAKE 1 TABLET BY MOUTH EVERY 12 HOURS FOR 10 DAYS active Not Available Not Available Not Available omeprazole 40 mg capsule,ezio yed release active Not Available Not Available Not Available tramadol 50 mg tablet active Not Available Not Available No t Available ofloxacin 0.3 % ear drops INSTILL 4 DROPS INTO EACH EAR TWICE DAILY active Not Available Not Available Not Available amoxicillin 875 mg tablet active Not Available Not Available Not Available famotidine 20 mg tablet TAKE 1 TABLET BY MOUTH TWICE DAILY active Not Available Not Available No t Available estradiol 1 mg tablet TAKE 1 TABLET BY MOUTH ONCE DAILY active Not Available Not Available No t Available tamsulosin 0.4 mg capsule TAKE 1 CAPSULE BY MOUTH ONCE DAILY FOR 15 DAYS active Not Available Not Available No t Available hydrocodone 7.5 mg-acetamino phen 325 mg tablet TAKE 1 TABLET BY MOUTH EVERY 6 HOURS NEEDED active Not Available Not Available No t Available cephalexin 500 mg capsule TAKE 1 CAPSULE BY MOUTH EVERY 12 HOURS FOR 10 DAYS active Not Available Not Available Not Available pantoprazole 40 mg tablet,delay ed release TAKE 1 TABLET BY MOUTH EVERY DAY active Not Available Not Available No t Available ranitidine 150 mg tablet active Not Available Not Available Not Available indomethacin 50 mg capsule TAKE 1 CAPSULE BY MOUTH TWICE DAILY NEEDED FOR MIGRAINE HEADACHE active Not Available Not Available No t Available gabapentin 300 mg capsule TAKE 1 CAPSULE BY MOUTH 4 TIMES DAILY active Not Available Not Available Not Available omeprazole 20 mg capsule,ezio yed release active Not Available Not Available Not Available oxcarbazepin e 600 mg tablet TAKE 1 TABLET BY MOUTH TWICE DAILY active Not Available Not Available No t Available montelukast 10 mg tablet TAKE 1 TABLET BY MOUTH ONCE DAILY AT NIGHT active Not Available Not Available No t Available hydroxyzine HCl 25 mg tablet TAKE 1 TABLET BY MOUTH ONCE DAILY EVERY NIGHT NEEDED active Not Available Not Available No t Available mupirocin 2 % topical ointment active Not Available Not Available Not Available pyridoxine (vitamin B6) 100 mg tablet TAKE 1 TABLET BY MOUTH ONCE DAILY active Not Available Not Available No t Available metoprolol succinate ER 25 mg tablet,exten ded release 24 hr active Not Available Not Available Not Available ergocalcifer ol (vitamin D2) 1,250 mcg (50,000 unit) capsule TAKE 1 CAPSULE BY MOUTH ONCE A WEEK active Not Available Not Available No t Available azelastine 137 mcg (0.1 %) nasal spray USE 1 SPRAY IN EACH NOSTRIL ONCE DAILY active Not Available Not Available N ot Available epinephrine 0.3 mg/0.3 mL injection, auto-injecto r INJECT 1 PEN INJECTOR INTRAMUSCUL LEELEE NEEDED. INJECT INTO OUTER THIGH FOR SEVERE ALLERGIC REACTION. CALL 911 AFTER USE. active Not Available Not Available N ot Available polyethylene glycol 3350 17 gram/dose oral powder active Not Available Not Available Not Available methylpredni solone 4 mg tablets in a dose pack active Not Available Not Available No t Available albuterol sulfate HFA 90 mcg/actuatio n aerosol inhaler INHALE 1-2 PUFFS BY MOUTH FOUR TIMES A DAY NEEDED active Not Available Not Available No t Available losartan 50 mg-hydrochlo rothiazide 12.5 mg tablet active Not Available Not Available Not Available ondansetron 4 mg disintegrati ng tablet DISSOLVE 1 TABLET IN MOUTH EVERY 6 HOURS NEEDED FOR 3 DAYS active Not Available Not Available No t Available topiramate 100 mg tablet active Not Available Not Available Not Available fluticasone propionate 50 mcg/actuatio n nasal spray,suspen sharon INSTILL TWO (2) SPRAYS IN EACH NOSTRIL EACH MORNING active Not Available Not Available No t Available ipratropium bromide 21 mcg (0.03 %) nasal spray SPRAY 2 SPRAYS INTO BOTH NOSTRILS NEEDED 2-4 TIMES A DAY NEEDED active Not Available Not Available No t Available esomeprazole magnesium 20 mg capsule,ezio yed release TAKE 1 CAPSULE BY MOUTH TWICE DAILY active Not Available Not Available No t Available oxycodone 5 mg tablet active Not Available Not Available No t Available divalproex ER 250 mg tablet,exten ded release 24 hr active Not Available Not Available Not Available Premarin 1.25 mg tablet active Not Available Not Available Not Available potassium chloride ER 10 mEq tablet,exten ded release(part /cryst) TAKE 1 TABLET BY MOUTH ONCE DAILY WITH FOOD *EMERGENCY REFILL* active Not Available Not Available No t Available nitrofuranto in monohydrate/ macrocrystal s 100 mg capsule TAKE 1 CAPSULE BY MOUTH EVERY 12 HOURS FOR 7 DAYS active Not Available Not Available N ot Available duloxetine 60 mg capsule,ezio yed release TAKE 1 CAPSULE BY MOUTH TWICE DAILY active Not Available Not Available No t Available levocetirizi ne 5 mg tablet TAKE 1 TABLET BY MOUTH EVERY DAY active Not Available Not Available No t Available cholecalcife rol (vitamin D3) 50 mcg (2,000 unit) tablet TAKE 1 TABLET BY MOUTH ONCE DAILY active Not Available Not Available No t Available cholecalcife rol (vitamin D3) 125 mcg (5,000 unit) tablet TAKE 1 TABLET BY MOUTH ONCE DAILY active Not Available Not Available No t Available topiramate XR 200 mg capsule sprinkle,ext ended release 24 hr TAKE 1 CAPSULE BY MOUTH DAILY WITH [id number] active Not Available Not Available N ot Available topiramate XR 50 mg capsule sprinkle,ext ended release 24 hr TAKE 1 TABLET BY MOUTH AT BEDTIME WITH [id number] active Not Available Not Available Not Available topiramate XR 150 mg capsule sprinkle,ext ended release 24 hr TAKE 1 CAPSULE BY MOUTH ONCE DAILY active Not Available Not Available No t Available Breo Ellipta 200 mcg-25 mcg/dose powder for inhalation active Not Available Not Available N ot Available Spiriva Respimat 1.25 mcg/actuatio n solution for inhalation INHALE TWO (2) PUFFS BY MOUTH ONCE DAILY FOR ASTHMA active Not Available Not Available N ot Available Vraylar 1.5 mg capsule TAKE 1 CAPSULE BY MOUTH ONCE DAILY FOR 90 DAYS active Not Available Not Available No t Available Linzess 72 mcg capsule TAKE 1 CAPSULE BY MOUTH ONCE DAILY active Not Available Not Available No t Available Reyvow 100 mg tablet active Not Available Not Available No t Available Breztri Aerosphere 160 mcg-9mcg-4.8 mcg/actuatio n HFA aerosol inhaler INHALE 2 PUFFS TWICE DAILY WITH SPACER active Not Available Not Available No t Available Trelegy Ellipta 200 mcg-62.5 mcg-25 mcg powder for inhalation INHALE 1 PUFF BY MOUTH ONCE DAILY DIRECTED active Not Available Not Available No t Available Qulipta 60 mg tablet active Not Available Not Available No t Available Vitals Date Recorded Body height Body mass index (BMI) Body weight Body temperature Heart rate Systolic And Diastolic Provider Name and Address Organization Details Last Updated DateTime 7 167.64 cm 33.9 kg/m2 94702.4 g 98 [degF] 61 /min 140/83 mm[Hg] Martinesienna Daveyy [facility] 7 09:53:13 Social History Question Answer Notes LastModified by Organizat ion Details LastModified Time Tobacco Smoking Status Never [facility] 09/30/2016 09:45:38 How Much Tobacco Do You Smoke? No Information not available 09/30/2016 Sex: Unknown Functional Status Question Answer Note LastModified by Organization D etails LastModified Time What is your level of alcohol consumption? None Information not available 09/30/2016 Mental Status None recorded. Family History Nothing Reported Notes:Cancer Hearing loss He art disease Hypertension Medical History Condition Response Arthritis Y Asthma Y Hypertension Y Gynecological HistoryNo gynecological history recorded. Obstetrics History GPAL:G 0 P 0 0 0 0 Past Encounters Encounter ID Performer Location Encounter Start Date Encounter Closed Date Diagnosis/Indication Diagnosis SNOMED-CT Code Diagnosis ICD10 Code Diagnosis IMO Codes Diagnosis Note [id number] MD [facility] [address] [place] [address] 09/30/2016 09:14:38 09/30/2016 12:17:39 Headache 11622470 R51 Chronic sinusitis 223081 00 J32.9 Allergic rhinitis 713280 04 J30.9 Deviated nasal septum 12 1337044 J34.2 Migraine 76970094 G43.90 9 Health Concerns Section Related Observation LastModified by Organization Detai ls LastModified Time None Recorded Concern Status LastModified by Organization Details LastModified Time None Recorded Advance Directives Directive None Recorded Payers Insurance Date Sequence Insurance Name Policy Number Policy Obrien Covered Member ID Obrien Member ID Guarantor Name 05/16/2023 2 [facility]TRADITIO NAL Allison Mendez [id number] Allison Mendez 05/12/2023 1 [place] Allison Mendez [id number] Allison Mendez Notes Date Note Type Note Provider Name and Address Organization Details Recorded Time 09/30/2016 text/html Allison comes in for consultation of persistent headaches. She tends to keep headaches throughout the day. She does take Migraine Medication and she feels this is not migraine related. She has pressure in the sinus area. She has headaches daily. She has been evaluated by Dr. Marquez and has had surgery by him 3-4 years ago which did help. She thinks she had a Septoplasty. She has a history of allergies and has been under immunotherapy treatment in the past. She gets recurrent sinus infection and typically gets 2-3 sinus infections per month. She does get treated with oral antibiotics when the sinuses are infected. She has not had an updated CT scan of the sinus obtained. She takes Topamax which helps with her Migraine headaches. She is taking otc decongestant/antihi stamine with Tylenol. DENG DOMINGUEZ III, MD [facility] [place], [address], [facility] 09/30/2016 10:17:50 OBGyn Episode No OBEpisode recorded.
--- OUTSIDE RECORDS SUMMARY | 2025-01-13 11:17 | XMS_ITS | Clinical Summary ---
Author Organization [facility] Address [address] [place] [address] Care Team Providers Care Continuous Vulcanizing Machine Operator Name Role Phone None, Physician Primary Care Provider Unavailabl e Social History Tobacco Use Types Packs/Day Years Used Date Smoking Tobacco: Never Assessed Comments Unknown Sex and Gender Information Value Date Recorded Sex Assigned at Not on file Legal Sex Female 3:02 PM EST Gender Identity Not on file Sexual Orientation Not on file Plan of Treatment Health Maintenance Due Date Last Done Comments Breast Cancer Screening 1966 CT Colonography 1966 Colonoscopy 1966 Colorectal Cancer Screening 1966 FIT-DNA 1966 FIT 1966 FOBT 1966 Sigmoidoscopy 1966 Cervical Cancer Screening 08/16/1987 Annual [facility] Screening 03/20/2024 Influenza Vaccine (#1) 2024 3, 01/12/2018, 12/10/2016, Additional history exists Tdap/Td Vaccine >11 yo (4 - Td or Tdap) 10/07/2032 10/07/2022, 10/17/2011, 10/08/2010, Additional history exists RSV 50+ and (1 - 1-dose 75+ series) 2041 Hepatitis A (HepA) Vaccine Aged Out 07/17, 02/20/2018, 12/31/2017 No longer eligible based on patient's age to complete this topic Hepatitis B (HepB) Vaccine Completed 07/17, 02/20/2018, 12/31/2017 Shingles (Shingrix) Completed 09/30/2021, 2 Pneumococcal Vaccines >50 yo Completed 03/28/2023, 12/15/2016 Haemophilus Influenzae Type B (Hib) Vaccine Aged Out No longer eligible based on patient's age to complete this topic Meningococcal ACWY Aged Out No longer eligible based on patient's age to complete this topic Polio (IPV) Aged Out No longer eligi ble based on patient's age to complete this topic Rotavirus (RV) Vaccine Aged Out No lo nger eligible based on patient's age to complete this topic Care Teams Continuous Vulcanizing Machine Operator Relationship Specialty Start Date End Date None, Physician PCP - General 05/09/23
--- OUTSIDE RECORDS SUMMARY | 2025-01-13 11:17 | XMS_ITS | Clinical Summary ---
Author Organization [facility] Address [address] [place] [address] Care Team Providers Care Foundry Finisher Name Role Phone EricMariluz Primary Care Provider [phone] Allergies Active Allergy Reactions Criticality Noted Date Comments Codeine Itching Medium 06/15/2015 1no rash, just [id number] Tramadol Itching Medium 07/29/2022 Other reaction(s): Insomnia, [...] before bedtime. 03/04/2024 Active ergocalciferol 1.25 MG (88028 UT) capsule Take 1 capsule by mouth 1 (one) time per week. 01/07/2024 Active EPINEPHrine (Epipen) 0.3 MG/0.3ML injection syringe INJECT CONTENTS OF 1 PEN INTO OUTER THIGH FOR SEVERE ALLERGIC REACTION, THEN CALL 911 AFTER USE 07/12/2023 Active cyanocobalamin (Vitamin B-12) 1000 MCG/ML injection Inject 1 mL into the muscle. 03/22/2024 Active cholecalciferol (Vitamin D-3) 1.25 MG (20527 UT) capsule Take 1 cap weekly for [...] 1 (one) time each day. 05/14/2024 05/14/19 Active Topiramate ER 150 MG capsule extended-releas e 24 hour sprinkle Take 150 mg by mouth 1 (one) time each day. 06/10/2024 Active nortriptyline (Pamelor) 25 MG capsuleIndicati ons:Neuropathic pain Take 1 capsule by mouth nightly. 30 capsule 2 06/20/2024 Active Active Problems Problem Noted Date Diagnosed Date Neuropathy 06/20/2024 Neuropathic pain 06/20/2024 Immunizations Immunization Administration Dates Next Due Hep [...] 06/20/2024 10:30 AM EDT Plan of Treatment Health Maintenance Due Date Last Done Comments [facility]-HIV Screening 1966 [facility]-Hepatitis C Screening 1966 [facility]-Medicare Annual Wellness (AWV) 1966 [facility]-Infant/Child/Adol SDOH Screenings 1966 [id number] Vaccine (#1) 08/16/1971 [facility]- SDOH Screenings 1984 [facility]-Adult SDOH Screenings 1984 CT Colonography 08/16/2011 Colonoscopy 08/16/2011 FIT-DNA 08/16/2011 FIT 08/16/2011 FOBT 08/16/2011 Sigmoidoscopy 08/16/2011 [facility]-Colorectal Cancer Screening 08/16/2011 [facility]-Breast Cancer Screening 2016 [facility]-Influenza Vaccine (#1) 11/18/202412/18, 12/15/2022, 01/13/2021, Additional history exists [facility]-Depression Screening 06/20/2025 06/20/2024, 05/2024 [facility]-Diabetes: Hemoglobin A1C 06/20/2025 06/20/2024 [facility]-DTaP,Tdap,and Td Vaccines (5 - Td or Tdap) 10/07/2032 10/07/2022, 10/17/2011, 10/08/2010, Additional history exists [facility]-Hepatitis A Vaccines Aged Out 019, 02/20/2018, 12/31/2017 No longer eligible based on patient's age to complete this topic [facility]-Hepatitis B Vaccines Completed 019, 02/20/2018, 12/31/2017 [facility]-Zoster Vaccines Completed 09/30/2021, [facility]-Pneumococcal Vaccine: 50+ Years Completed 03/28/2023, 12/15/2016 [facility]-Obesity Intervention Completed 06/20/2024 HPV Vaccines Aged [...] Procedure Name Priority Date/Time Associated Diagnosis Comments HEMOGLOBIN A1C Routine 06/20/2024 11:18 AM EDT Neuropathy Disease related peripheral neuropathy Neuropathic pain from Last 3 Months or Most Recently Relevant to Health Maintenance Results * (ABNORMAL) Hemoglobin A1c (06/20/2024 11:18 AM EDT) Hemoglobin A1c 5.7(H) <5.7 % 06/20/2024 5:38 PM EDT [facility] Blood Venous blood specimen / Unknown Venipuncture / Unknown 06/20/2024 11:18 AM EDT 06/20/2024 11:18 AM EDT Narrative [facility] - 06/20/2024 5:38 PM EDT HA1C Interpretive Data: Diagnosis of Diabetes: Diabetic > or = 6.5% Pre-diabetic 5.7 to 6.4% Non-diabetic < or = 5.6% Glycemic Targets for Type I and Type II Diabetics: Non- Adults <7.0% Adults <6.0% Children and Adolescents <7.5% Source: [place] [employer]. Standards of medical care in diabetes,2017. Diabetes Care.2017:40 (suppl 1):S1-S135. HbA1c assay performed by an ion-exchange chromatography method that is certified traceable to the DCCT. us Candido Killian MD LAB BLOOD ORDERABLES Final Resul t [facility] [address] [place] [address] from Last 3 Months or Most Recently Relevant to Health Maintenance Insurance [employer] MEDICARE [place] Care Teams Foundry Finisher Relationship Specialty Start Date End Date Mariluz Reyes DO [address] [place] [address] PCP - General Family Medicine 06/20/24
--- OUTSIDE RECORDS SUMMARY | 2025-01-13 11:17 | XMS_ITS | Data Portability ---
Author Organization [place] - [facility] & [place] [facility] ADMIN Address [address] [place] [id number] Care Team Providers Care Digital Intern Name Role Phone UMBERTO REYES Primary Care Provider [phone] Assessment Encounter Date Assessment Date Assessment LastModified by Organization Details LastModified Time 12/19/2023 12/19/2023 check labs as noted pt was very aggitated today in the office and frustrated about her weight gain stating that no one cares about [her] problems. We discussed that I have very much tried to help her look into further testing and work up for many issues but we do need her help for things like requesting records from other providers, such as the location where testing was done, to help follow up on some of these things. I offered to make suggestions for another PCP, perhaps closer to home if she would like. tien Not available 12/19/2023 17:14:21 Plan of Treatment Reminders Order Date Submit Date Provider Last Modified By Organization Details Last Modified Time Details Appointments OV EST 15 2025 09:15A Jonathan FELIX NP Not available Not available Not available Lab lipid panel, serum 2023 024 [facility] 19 [facility] ([facility], [address] [place], [address], 02/01/2024 16:09:35 CMP, serum or plasma 2023 024 [facility] ([facility]), [address] [place], [address], 02/01/2024 16:09:35 iron + total iron-bind ing capacity (TIBC), serum [address] ([facility]), [address] [place], [address], 02/01/2024 16:09:36 ferritin, serum or plasma [address]), [address] [place] [address], [address], 02/01/2024 16:09:36 HbA1c (hemoglob in A1c), blood [address]), [address] [place] [address], [address], 02/01/2024 16:09:35 vitamin B6 + metabolit es panel, serum or plasma [address]), [address] [place], [address], 02/20/2024 13:49:24 vitamin B12 + folate, serum or blood [address]), [address] [place] [address], [address], 02/01/2024 16:09:35 CBC w/ auto diff [address]), [address] [place] [address], [address], 02/01/2024 16:09:35 Referral None recorded. Procedures None recorded. Surgeries None recorded. Imaging None recorded. Medication Orders hydrocort isone 2.5 % topical ointment 2024 025 [facility] 902, [address], [place], [address], 10/16/2024 13:01:46 cyanocoba sade (vit B-12) 1,000 mcg/mL injection solution 2023 024 [email or web address] [facility] 591, [address] [facility] [place], [address], 12/14/2023 11:46:00 cyanocoba sade (vit B-12) 1,000 mcg/mL injection solution 2023 024 [email or web address] [facility], [address] [place], [address], 11/09/2023 11:48:50 Patient TargetsNo targets recorded. Patient Instructions Encounter Date Encounter Id Patient Instructions Last Modified By Organization Details Last Modified Time 12/19/2023 [id number] advance directives: care instructions Not available 12/19/2023 12:05:42 well visit, over 65: care instructions Not available 12/19/2023 12:05:42 visual acuity* [email or web address] Not available 1 12:05:42 [facility] Recommendations: (5-10 year screening/preventi on plan) [email or web address] Not available 12/19/2023 09:39:08 10/16/2024 [id number] I have advised Allison to use hydrocortisone ointment nightly for the next 7 days and have encouraged her to stop using Q-tips. I feel that overuse of Q-tips has led to an ear canal that is too dry. [email or web address] Not available 10/16/2024 13:07:55 Reason for Referral None Reported. Results Created Date Observation Date Name Description Value Unit Range Abnormal Flag Note LastModifiedBy Organization Detail LastModifiedTime 10/30/1910/31/2023 LIPID PANEL cholesterol, total 154 mg/dL 100-19 9 normal Not Available [facility]) [address] [facility], [place], [address], 10/31/2023 03:36:23 10/30/19 24 10/31/2023 LIPID PANEL triglyceride s 193 mg/dL 0-149 above high normal Not Available [facility] ([facility]) [address] [facility], [place], [address], 10/31/2023 03:36:23 10/30/19 24 10/31/2023 LIPID PANEL HDL cholesterol 40 mg/dL >39 normal Not Available [facility] [address] [facility], [place], [address], 10/31/2023 03:36:23 10/30/19 24 10/31/2023 LIPID PANEL VLDL cholesterol nazia 33 mg/dL 5-40 Not Available [facility]) [address] [facility], [place], [address], 10/31/2023 03:36:23 10/30/19 24 10/31/2023 LIPID PANEL LDL chol calc ([facility]) 81 mg/dL 0-99 Not Available [facility] [address] [facility], [place], [address], 10/31/2023 03:36:23 10/30/19 24 10/31/2023 LIPID PANEL 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 [email or web address] [facility] [address], [place], [address], 11/03/2023 11:25:13 11/01/19 24 11/01/2023 XR, foot No observ ation record ed. [email or web address] [facility] [address], [place], [address], 11/03/2023 11:24:45 Result Notes None recorded. Problems Name Problem SNOMED Code Status Onset Date Resolution Date Notes Provider Name and Address Organization Details Recorded Time Restless legs syndrome 18486629 Active Not Available [facility] 4 13:49:32 Dyspnea 384701489 Active Not Available [facility] 01/19/202 4 13:49:31 Folic acid deficiency 882381034 Active Not Available [facility] 4 13:49:31 Lower abdominal pain 72917915 Active Not Available [facility] 4 13:49:32 Indigestio n 696345748 Active Not Available [facility] 4 13:49:31 Non-cardia c chest pain 259735714 Active Not Available [facility] 4 13:49:32 History of nasal sinus surgery 9033535266531 08 Active Not Available [facility] 4 13:49:31 Unintentio nal weight loss 018359102 Active Not Available [facility] 4 13:49:32 Transforme d migraine 576730668 Active Not Available [facility] 4 13:49:32 Allergic rhinitis caused by pollen 73658858 Active Not Available [facility] 4 13:49:31 Night sweats 55239163 Active Not Available [facility] 4 13:49:32 Chronic intractabl e migraine without aura 1081545655318 05 Active Not Available [facility] 4 13:49:31 New daily persistent headache 6151383462121 05 Active Not Available [facility] 4 13:49:31 Abnormal response to nerve stimulatio n 071276925 Active Not Available [facility] 4 13:49:32 Prediabete s 648208385 Active Not Available [facility] 4 13:49:32 Mixed hyperlipid emia 581281002 Active Not Available [facility] 4 13:49:31 Abdominal bloating 510285018 Active Not Available [facility] 4 13:49:31 Left lower quadrant pain 520653231 Active Not Available [facility] 4 13:49:32 Vitamin D deficiency 59126878 Active Not Available [facility] 4 13:49:32 Loose stool 466594918 Active Not Available [facility] 4 13:49:32 Knee pain Active Not Available [facility] 4 13:49:32 Essential hypertensi on 91898317 Active Not Available [facility] 4 13:49:32 Refractory migraine without aura 290716062 Active Not Available [facility] 4 13:49:32 Skin sensation disturbanc e 93894047 Active Not Available [facility] 4 13:49:32 Feeling of lump in throat 631922445 Active Not Available [facility] 4 13:49:31 Moderate persistent allergic asthma 7453914007827 9108 Active Not Available [facility] 4 13:49:31 Vitamin B6 deficiency 306962638 Active Not Available [facility] 4 13:49:32 Ascorbic acid deficiency 79902517 Active Not Available [facility] 4 13:49:32 Infection caused by Helicobact er pylori 160726359 Active Not Available [facility] 4 13:49:32 Nausea 142328266 Active Not Available [facility] 4 13:49:32 Gastroesop hageal reflux disease 164575432 Active Not Available [facility] 4 13:49:31 Cobalamin deficiency 566246484 Active Not Available [facility] 4 13:49:31 Anxiety about body function or health 254903963 Active Not Available [facility] 4 13:49:31 Cough 96517524 Active Not Available [facility] 4 13:49:32 Constipati on 06644003 Active Not Available [facility] 4 13:49:31 Dyspnea on exertion 67447598 Active 2023 Joshua Shine MD [address] , [place], [address] , [facility] & [place] 4 11:10:14 Hyperlipid emia 21488365 Active 2023 Joshua Shine MD [address], [place], [address] , [facility] - [facility] & [place] 4 11:13:58 Aortic valve regurgitat ion 83053129 Active 2023 Joshua Shine MD [address], [place], [address] , [place] - [facility] [place] & [place] 4 09:41:44 Obesity 324380856 Active 2023 Joshua Shine MD [address] [facility], [place], [address] , [place] - [facility] [place] & [place] 4 09:42:30 Problem Notes None recorded. Procedures Surgical History Date Name Laterality Status Provider Name and Address Organization Details Recorded Time 11/04 Date of Last Pap Smear completed Sanjuanita CODY - [facility] - [place] & [place] 4 11:11:42 08/15 completed Angelica Garcia [place] - [facility] [place] & [place] 4 08:45:56 05/10 Cystoscopy-Female completed Nestor Parker Jr, MD [address] [place] [address], [address], [place], [address] , [place] - [facility] [place] & [place] 3 14:57:02 02/22 Most Recent Mammogram completed Yin Singh- ALANNA [place] - [facility] [place] & [place] 3 16:52:40 08/23 Colonoscopy completed Yarely Ruiz [place] - [facility] [place] & [place] 3 15:12:43 08/23 esophagogastroduodenoscopy completed Aureliano Ruiz [place] - [facility] [place] & [place] 3 15:12:09 03/20 esophagogastroduodenoscopy completed Chris Woodall [place] - [facility] [place] & [place] 4 11:13:43 12/24 Date of Last Colonoscopy completed Lor Woodall [place] - [facility] [place] & [place] 4 11:11:42 03/20 Sinus Surgery completed Allyson Morelos [place] - [facility] [place] & [place] 3 15:15:18 03/20 Most Recent Bone Density completed Angelica CODY - [facility] - [place] & [place] 4 08:45:56 03/20 cholecystectomy completed Carrie Gonzalez [place] - [facility] - [place] & [place] 2 09:22:33 03/20 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 Procedure Notes None recorded. Medical Equipment None Reported. Allergies Allergen ID Allergen Name Allergen Category Reaction Reaction Severity Criticality Documentation Date Start Date Code Code System Note Provider Name and Address Organization Details Recorded Time 905067 No known allergy (situatio n) Not available Not available Not available Not available 08/28/2023 41211 6003 SNOMED Breanna Phil [place], [place] - [facility] & [place] 5 08:58:43 347417 tramadol medicatio n insomnia itching mild Not available high 10/07/2024 33149 RxNorm Naomi Shipley maryan, [place] - [facility] & [place] 5 10:58:43 23192 codeine medicatio n itching Not available Not available 01/31/2022 2670 RxNorm Sanjuanita steinberg, [place] - [facility] & [place] 4 11:10:26 Medications Name Sig Start Date Stop Date Status Note LastModified by Organization Details LastModified Time olopatadi ne 0.1% yari INSTILL 1 DROP INTO EACH EYE TWICE DAILY NEEDED FOR RED, ITCHY, WATERY EYES 08/20 completed Not Available Not Available Not Available vitamin d3 (amado) 5,000iu tab TAKE 1 TABLET BY MOUTH ONCE DAILY 09/12 completed Not Available Not Available Not Available amoxicill in 500 mg capsule TAKE 1 CAPSULE BY MOUTH EVERY 6 HOURS UNTIL GONE 08/20 completed Not Available Not Available Not Available cyanocoba sade (vit B-12) ER 1,000 mcg tablet,ex tended release TAKE 2 TABLETS BY MOUTH ONCE DAILY 12/14 completed Not Available Not Available Not Available potassium chloride ER 10 mEq capsule,e xtended release TAKE 1 CAPSULE BY MOUTH TWICE DAILY FOR 3 DAYS 10/16 completed Not Available Not Available Not Available prednison e 10 mg tablet TAKE 1 TABLET BY MOUTH ONCE DAILY 06/16 completed Not Available Not Available Not Available gabapenti n 600 mg tablet Take 1 tablet 3 times a day by oral route. active Not Available Not Available No t Available atorvasta tin 20 mg tablet TAKE 1 TABLET (20 MG TOTAL) BY MOUTH NIGHTLY. 10/30 completed Not Available Not Available Not Available ropinirol e 1 mg tablet TAKE 1 TABLET BY MOUTH 1-3 HOURS BEFORE BEDTIME ONCE A DAY 12/14 completed Not Available Not Available Not Available ipratropi um 0.5 mg-albute rol 3 mg (2.5 mg base)/3 mL nebulizat ion soln USE 1 AMPULE IN NEBULIZE R EVERY 6 HOURS NEEDED FOR WHEEZING FOR SHORTNES S OF BREATH active Not Available Not Available No t Available cetirizin e 10 mg tablet TAKE 1 TABLET BY MOUTH ONCE DAILY active Not Available Not Available No t Available azithromy luba 250 mg tablet TAKE 2 TABLETS BY MOUTH ON DAY 1 AND THEN TAKE 1 TABLET BY MOUTH ONCE A DAY ON DAY 2 THROUGH DAY 5 12/14 completed Not Available Not Available Not Available fluconazo le 150 mg tablet 09/12 completed Not Available Not Available Not Available benzonata te 200 mg capsule 01/16 completed Not Available Not Available Not Available phenazopy ridine 200 mg tablet TAKE 1 TABLET BY MOUTH EVERY 8 HOURS FOR 2 DAYS 03/22 completed Not Available Not Available Not Available ondansetr on HCl 4 mg tablet Take 1 {tablet} by oral route. 12/14 completed Not Available Not Available Not Available prednison e 20 mg tablet 10/30 /2023 completed Not Available Not Available Not Available estradiol 0.05 mg/24 hr weekly transderm al patch APPLY 1 PATCH TOPICALL Y ONCE A WEEK 10/07 completed Not Available Not Available Not Available phentermi ne 15 mg capsule TAKE 1 CAPSULE BY MOUTH ONCE DAILY IN THE MORNING MAX DAILY AMOUNT 15 MG 10/16 completed Not Available Not Available Not Available thiamine HCl (vitamin B1) 100 mg tablet TAKE 1 TABLET BY MOUTH ONCE DAILY active Not Available Not Available No t Available valsartan 80 mg tablet Take 1 {tablet} by oral route. 12/14 completed Not Available Not Available Not Available potassium chloride ER 10 mEq tablet,ex tended release TAKE 1 TABLET BY MOUTH ONCE DAILY WITH FOOD active Not Available Not Available No t Available metronida zole 500 mg tablet Take 1 tablet every 8 hours by oral route. 10/04 completed Not Available Not Available Not Available Space Chamber active Not Available Not Available Not Available oxcarbaze pine 300 mg tablet 08/20 completed Not Available Not Available Not Available phentermi ne 37.5 mg tablet TAKE 1 TABLET BY MOUTH IN THE MORNING BEFORE BREAKFAS T MAX DAILY DOSE 1 TABLET active Not Available Not Available No t Available amlodipin e 5 mg tablet TAKE 1 TABLET BY MOUTH DAILY 10/30 completed Not Available Not Available Not Available nortripty line 25 mg capsule TAKE 1 CAPSULE BY MOUTH NIGHTLY 10/16 completed Not Available Not Available Not Available ofloxacin 0.3 % ear drops 09/12 completed Not Available Not Available Not Available famotidin e 20 mg tablet TAKE 1 TABLET BY MOUTH TWICE DAILY 10/07 completed Not Available Not Available Not Available estradiol 1 mg tablet TAKE 1 TABLET BY MOUTH ONCE DAILY 10/07 completed Not Available Not Available Not Available tamsulosi n 0.4 mg capsule 10/07 completed Not Available Not Available Not Available baclofen 10 mg tablet TAKE 1/2-1 TABLET BY MOUTH EVERY NIGHT AT BEDTIME 03/22 completed Lars r Not Available Not Available Not Available benzonata te 100 mg capsule TAKE 1 CAPSULE BY MOUTH THREE TIMES DAILY NEEDED FOR COUGH 03/22 completed Not Available Not Available Not Available hydrocort isone 1 % topical cream APPLY CREAM EXTERNAL LY TO AFFECTED AREA TWICE DAILY FOR 7 DAYS active Not Available Not Available No t Available hydrocodo ne 7.5 mg-acetam inophen 325 mg tablet TAKE 1 TABLET BY MOUTH EVERY 6 HOURS NEEDED 08/20 completed Not Available Not Available Not Available cephalexi n 500 mg capsule TAKE 1 CAPSULE BY MOUTH EVERY 12 HOURS FOR 10 DAYS 11/24 completed Not Available Not Available Not Available pantopraz ole 40 mg tablet,de layed release TAKE 1 TABLET BY MOUTH DAILY active Not Available Not Available No t Available cyanocoba sade (vit B-12) 1,000 mcg/mL injection solution Inject 1 mL by subcutan eous route. 2023 active Not Available Not Available Not Avai lable Cipro 500 mg tablet Take 1 tablet every 12 hours by oral route. 10/04 completed Not Available Not Available Not Available ropinirol e 0.5 mg tablet TAKE 1 TABLET BY MOUTH ONCE DAILY 1 3 HOURS BEFORE BEDTIME FOR 30 DAYS 12/14 completed Not Available Not Available Not Available losartan 25 mg tablet TAKE 1 TABLET BY MOUTH NIGHTLY 10/30 completed Not Available Not Available Not Available indometha luba 50 mg capsule TAKE 1 CAPSULE BY MOUTH TWICE DAILY NEEDED FOR MIGRAINE HEADACHE 11/24 completed Not Available Not Available Not Available hydrochlo rothiazid e 12.5 mg capsule Take 1 capsule every day by oral route. 10/16 completed Not Available Not Available Not Available gabapenti n 300 mg capsule 09/12 completed Not Available Not Available Not Available oxcarbaze pine 600 mg tablet TAKE 1 TABLET BY MOUTH TWICE DAILY 08/20 completed Not Available Not Available Not Available cephalexi n 500 mg tablet Take 1 tablet every 12 hours by oral route. 09/12 completed Not Available Not Available Not Available folic acid 1 mg tablet Take 1 tablet every day by oral route. 10/16 completed Not Available Not Available Not Available monteluka st 10 mg tablet Take 1 tablet every day by oral route. active Not Available Not Available No t Available hydroxyzi ne HCl 25 mg tablet 10/07 completed Not Available Not Available Not Available topiramat e 200 mg tablet Take 1 tablet twice a day by oral route. 06/16 completed Cassmeye r Not Available Not Available Not Available mupirocin 2 % topical ointment 01/16 completed Not Available Not Available Not Available diclofena c sodium 50 mg tablet,de layed release TAKE 1 TABLET BY MOUTH TWICE DAILY NEEDED 06/16 completed Not Available Not Available Not Available pyridoxin e (vitamin B6) 100 mg tablet 10/16 completed Not Available Not Available Not Available gabapenti n 100 mg capsule Take 1 capsule 4 times a day by oral route. 06/16 completed Lars r Not Available Not Available Not Available ergocalci ferol (vitamin D2) 1,250 mcg (50,000 unit) capsule TAKE 1 CAPSULE BY MOUTH ONCE A WEEK active Not Available Not Available No t Available levalbute rol 1.25 mg/3 mL solution for nebulizat ion 12/14 completed Not Available Not Available Not Available azelastin e 137 mcg (0.1 %) nasal spray INSTILL 1 TO 2 SPRAYS IN EACH NOSTRIL TWICE DAILY NEEDED active Not Available Not Available No t Available epinephri ne 0.3 mg/0.3 mL injection , auto-inje ctor INJECT CONTENTS OF 1 PEN NEEDED FOR ALLERGIC REACTION USE DIRECTED active Not Available Not Available No t Available polyethyl daisy glycol 3350 17 gram/dose oral powder MIX 17 GRAMS OF POWDER IN 8 OUNCES OF LIQUID AND DRINK ONCE DAILY FOR 3 DAYS 10/16 completed Not Available Not Available Not Available levofloxa luba 500 mg tablet TAKE 1 TABLET BY MOUTH EVERY 24 HOURS 03/22 completed Not Available Not Available Not Available albuterol sulfate HFA 90 mcg/actua tion aerosol inhaler INHALE 1-2 PUFFS BY MOUTH FOUR TIMES A DAY NEEDED active Not Available Not Available No t Available hydrocort isone 2.5 % topical ointment APPLY A THIN LAYER OF OINTMENT EXTERNAL LY TO AFFECTED AREAS TWICE DAILY 2024 active Not Available Not Available Not Avai lable ropinirol e 5 mg tablet TAKE 1 TABLET BY MOUTH EVERY DAY 1 TO 3 HOURS BEFORE BEDTIME 12/14 completed Not Available Not Available Not Available ondansetr on 4 mg disintegr ating tablet 09/12 completed Not Available Not Available Not Available cefdinir 300 mg capsule TAKE 1 CAPSULE BY MOUTH TWICE DAILY 03/22 completed Not Available Not Available Not Available fluticaso ne propionat e 50 mcg/actua tion nasal spray,buck pension INSTILL 2 SPRAYS IN EACH NOSTRIL DAILY active Not Available Not Available No t Available ipratropi um bromide 21 mcg (0.03 %) nasal spray 10/07 completed Not Available Not Available Not Available esomepraz ole magnesium 20 mg capsule,d elayed release TAKE 1 CAPSULE BY MOUTH TWICE DAILY 10/07 completed Not Available Not Available Not Available Bactrim DS 800 mg-160 mg tablet Take 1 {tablet} twice a day by oral route. 12/14 completed Not Available Not Available Not Available azithromy luba 500 mg tablet TAKE 1 TABLET BY MOUTH ONCE DAILY FOR 3 DAYS 10/13 completed Not Available Not Available Not Available divalproe x ER 250 mg tablet,ex tended release 24 hr 09/09 completed Not Available Not Available Not Available eletripta n 40 mg tablet TAKE 1 TABLET BY MOUTH TWICE DAILY NEEDED DO NOT EXCEED 80 MG IN 24 HOURS 10/16 completed Not Available Not Available Not Available cyclobenz aprine 5 mg tablet TAKE 1 TABLET BY MOUTH EVERY 8 HOURS NEEDED FOR MUSCLE SPASM FOR UP TO 10 DAYS 10/16 completed Not Available Not Available Not Available Femring 0.1 mg/24 hr vaginal INSERT ONE RING VAGINALL Y AND LEAVE IN PLACE FOR 3 CONSECUT RICKIE MONTHS 10/07 completed Not Available Not Available Not Available Xolair 150 mg subcutane ous solution 12/14 completed Not Available Not Available Not Available potassium chloride ER 10 mEq tablet,ex tended release(p art/cryst ) 09/12 completed Not Available Not Available Not Available topiramat e 50 mg tablet Take 1 tablet twice a day by oral route. 06/16 completed Cassmeye r Not Available Not Available Not Available Spiriva with [employer] r 18 mcg and inhalatio n capsules INHALE THE CONTENTS OF 1 CAPSULE VIA HANDIHAL ER ONCE DAILY DIRECTED (1 capsule = 2 inhalati ons) 12/14 completed Not Available Not Available Not Available nitrofura ntoin monohydra te/macroc rystals 100 mg capsule 09/12 completed Not Available Not Available Not Available duloxetin e 60 mg capsule,d elayed release 01/16 completed Not Available Not Available Not Available pregabali n 75 mg capsule TAKE 1 CAPSULE BY MOUTH TWICE DAILY 12/03 completed Not Available Not Available Not Available pregabali n 150 mg capsule TAKE 1 CAPSULE BY MOUTH TWICE DAILY 10/07 completed Not Available Not Available Not Available famotidin e active Not Available Not Available Not Available multivita min 10/16 completed Not Available Not Available Not Available hydrochlo rothiazid e 12.5 mg tablet TAKE 1 TABLET BY MOUTH ONCE DAILY 10/30 completed Not Available Not Available Not Available Symbicort 160 mcg-4.5 mcg/actua tion HFA aerosol inhaler 12/12 completed Not Available Not Available Not Available cholecalc iferol (vitamin D3) 1,250 mcg (50,000 unit) capsule TAKE 1 CAPSULE BY MOUTH ONCE A WEEK FOR 8 WEEKS THEN DECREASE TO ONCE A MONTH 10/30 completed Not Available Not Available Not Available ferrous sulfate 324 mg (65 mg iron) tablet,de layed release TAKE 1 TABLET BY MOUTH ONCE DAILY 12/14 completed Not Available Not Available Not Available levocetir izine 5 mg tablet TAKE 1 TABLET BY MOUTH ONCE DAILY 10/30 completed Not Available Not Available Not Available cholecalc iferol (vitamin D3) 50 mcg (2,000 unit) capsule Take 1 {capsule } by oral route. 09/12 completed Not Available Not Available Not Available cholecalc iferol (vitamin D3) 50 mcg (2,000 unit) tablet 09/12 completed Not Available Not Available Not Available cholecalc iferol (vitamin D3) 125 mcg (5,000 unit) tablet TAKE 1 TABLET BY MOUTH ONCE DAILY active Not Available Not Available No t Available Dulera 200 mcg-5 mcg/actua tion HFA aerosol inhaler INHALE 2 PUFFS BY MOUTH TWICE DAILY 12/14 completed Not Available Not Available Not Available Vitamin B-1 (mononitr ate) 100 mg tablet 09/12 completed Not Available Not Available Not Available ferrous gluconate 324 mg (37.5 mg iron) tablet Take 1 tablet every day by oral route. 10/16 completed Not Available Not Available Not Available Linzess 145 mcg capsule TAKE 1 CAPSULE BY MOUTH IN THE MORNING BEFORE BREAKFAS T active Not Available Not Available No t Available topiramat e XR 200 mg capsule sprinkle, extended release 24 hr TAKE 1 CAPSULE BY MOUTH DAILY WITH 38DS=274 MG 08/20 completed Not Available Not Available Not Available topiramat e XR 50 mg capsule sprinkle, extended release 24 hr TAKE 1 TABLET BY MOUTH AT BEDTIME WITH 200MG=25 0MG 08/20 completed Not Available Not Available Not Available topiramat e XR 150 mg capsule sprinkle, extended release 24 hr TAKE 1 BY MOUTH ONCE DAILY active Not Available Not Available No t Available Spiriva Respimat 1.25 mcg/actua tion solution for inhalatio n INHALE 2 SPRAY(S) BY MOUTH ONCE DAILY active Not Available Not Available No t Available Vraylar 1.5 mg capsule TAKE 1 CAPSULE BY MOUTH ONCE DAILY FOR 90 DAYS 08/20 completed Not Available Not Available Not Available Zembrace Symtouch 3 mg/0.5 mL subcutane ous pen injector INJECT 1 PENFUL SUBCUTAN EOUSLY WHEN HEADACHE OCCURS. MAY REPEAT DOSE ONCE IN 2 HOURS 12/14 completed Not Available Not Available Not Available Linzess 72 mcg capsule TAKE 1 CAPSULE BY MOUTH ONCE DAILY 10/16 completed Not Available Not Available Not Available Intrarosa 6.5 mg vaginal insert 08/01 completed Not Available Not Available Not Available Reyvow 100 mg tablet Take 1 {tablet_ as_neede d} by oral route. 01/16 completed Not Available Not Available Not Available Breztri Aerospher e 160 mcg-9mcg- 4.8mcg/ac tuation HFA aerosol inhaler INHALE 2 PUFFS TWICE DAILY WITH SPACER 10/07 completed Not Available Not Available Not Available Trelegy Ellipta 200 mcg-62.5 mcg-25 mcg powder for inhalatio n 09/12 completed Not Available Not Available Not Available Sutab 1.479-0.1 88-0.225 gram tablet TAKE THE FIRST 12 TABLETS AT 4 PM THE EVENING BEFORE PROCEDUR E, THEN TAKE THE REMAININ G 12 TABLETS AT 10 PM THE EVENING BEFORE PROCEDUR E 10/16 completed Not Available Not Available Not Available Wegovy 0.25 mg/0.5 mL subcutane ous pen injector Inject 0.25 mg every week by subcutan eous route for 84 days. 12/15 completed Not Available Not Available Not Available Qulipta 60 mg tablet 1 tablet once daily 08/20 completed Not Available Not Available Not Available Veozah 45 mg tablet TAKE 1 TABLET BY MOUTH ONCE DAILY active Not Available Not Available No t Available thiamine HCl (vitamin B1) 100 mg capsule Take 100 mg every day by oral route. 10/16 completed Not Available Not Available Not Available Vitals Date Recorded Body height Body mass index (BMI) Body weight Body temperature Provider Name and Address Organization Details Last Updated DateTime 10/16/2024 167.64 cm 32.3 kg/m2 93356.47 g 97 [degF] Naomi Shipley [facility] [place] 10/16/2024 09:10:00 Date Recorded Body height Body mass index (BMI) Body weight Oxygen saturation Oxygen saturation in Arterial blood by Pulse oximetry Heart rate Systolic And Diastolic Provider Name and Address Organization Details Last Updated DateTime 5 167.64 cm 31 kg/m2 71942.7 4 g 97 % 97 % 87 /min 102/68 mm[Hg] Breanna Villarreal [facility] [place] 5 09:03:11 Date Recorded Body height Body mass index (BMI) Body weight Body temperature Oxygen saturation Oxygen saturation in Arterial blood by Pulse oximetry Heart rate Systolic And Diastolic Provider Name and Address Organization Details Last Updated DateTime 4 167.64 cm 35.7 kg/m2 340976. 91 g 97.8 [degF] 97 % 97 % 75 /min 112/70 mm[Hg] Angelica Garcia [facility] [place] 4 09:52:20 Social History Question Answer Notes LastModified by Organizat ion Details LastModified Time Tobacco Smoking Status [facility] [place] 04/13/2022 12:55:30 Do You Have An Advance Directive? Yes Information not available 02/07/2023 Are You Blind Or Do You Have Difficulty Seeing? No [email or web address] Information not available 02/07/2023 What Is Your Level Of Caffeine Consumption? Moderate [email or web address] Information not available 08/21/2023 Are You Deaf Or Do You Have Serious Difficulty Hearing? No Information not available 04/06/2023 What Type Of Diet Are You Following? REGULAR Information not available 04/06/2023 In General, Would You Say Your Health Is Fair [email or web address] Information not available 12/19/2023 How Would You Describe The Condition Of Your Mouth And Teeth i ncluding False Teeth Or Dentures? Excellent [email or web address] Information not available 12/19/2023 Each Night, How Many Hours Of Sleep Do You Usually Get? 6-7 Hours [email or web address] Information not available 12/19/2023 Do You Snore Or Has Anyone Told You That You Snore? No [email or web address] Information not available 02/07/2023 Do You Have Chronic Pain? Yes Information not available 02/07/2023 If Yes, Location Of Pain Legs And Feet [email or web address] Information not available 02/07/2023 In The Past 7 Days, How Would You Rate Your Pain? Severe Pain(7-9) [email or web address] Information not available 02/07/2023 Are You In A Pain Management Program? No Information not available 02/07/2023 Do You Take Opioids For Your Pain? No [email or web address] Information not available 02/07/2023 How Often Is Stress A Problem For You In Handling Such Things As: Your Health, Your Finances, Your Family And Social Relationships, Your Work? Often [email or web address] Information not available 02/07/2023 How Often Do You Get The Social And Emotional Support You Need: Never [email or web address] Information not available 02/07/2023 In The Past 7 Days, Did You Need Help From Others To Take Care Of Things Such As Laundry And Housekeep- Ing, Banking, Shopping, Using The Telephone, Food Preparation, Transportation, Or Taking Your Own Medications? Yes [email or web address] Information not available 02/07/2023 Do You Live Alone? No [email or web address] Information not available 02/07/2023 Does Your Home Have Any Fall Risks (un-level Floors, Unfastened Rugs, Poor Lighting, Etc)? No [email or web address] Information not available 02/07/2023 What Was The Date Of Your Most Recent Tobacco Screening? 12/19/2023 [email or web address] Information not available 12/19/2023 Do You Use Your Seat Belt Or Car Seat Routinely? No Information not available 04/06/2023 Are You Passively Exposed To Smoke? No [email or web address] Information not available 02/07/2023 Do You Use Sunscreen Routinely? No Information not available 04/06/2023 Has Tobacco Cessation Counseling Been Provided? No Information not available 04/06/2023 Do You Have Difficulty Walking Or Climbing Stairs? No Information not available 04/06/2023 Sex: Female Functional Status Question Answer Note LastModified by Organizat ion Details LastModified Time Do you use any illicit or recreational drugs? No [email or web address] Information not available 03/22/2022 Do you or have you ever used any other forms of tobacco or nicotine? No Information not available 04/06/2023 What is your level of alcohol consumption? None [email or web address] Information not available 03/22/2022 Do you have transportation difficulties? No Information not available 04/06/2023 Are you able to walk independently without assistance or assistive devices? [email or web address] Information not available 04/06/2023 Do you have difficulty doing errands alone? No Information not available 04/06/2023 Are you able to care for yourself independently? Yes Information not available 04/06/2023 Do you have difficulty dressing, bathing, grooming, or toileting? No Information not available 04/06/2023 What is your exercise level? None [email or web address] Information not available 02/07/2023 Mental Status Question Answer Note LastModified by Organization D etails LastModified Time Do you have difficulty concentrating, remembering or making decisions? No Information no t available 04/06/2023 Family History Relationship Description Onset Age of this Age Resolved Age Notes LastModified by Organization Details LastModified Time Unspecified Relation Family history of malignant neoplasm [email or web address] Not available 2024 08:56:42 Unspecified Relation Family history of diabetes mellitus [email or web address] Not available 08/13/ 2025 08:56:42 Unspecified Relation Myocardial infarction [email or web address] Not available 16:46:22 Unspecified Relation Family history of Hypertension [email or web address] Not available 08:56:42 Unspecified Relation Family history of harmful pattern of substance use [email or web address] Not available 2024 08:56:42 Father Allergy pt. added direct ly (10/15) [email or web address] Not available 10/15/2024 09:53:30 Mother Allergy pt. added direct ly (10/15) [email or web address] Not available 10/15/2024 09:53:30 Notes:Patient does not have any children Medical History Condition Response Diabetes N Allergies/Hayfever Y Other Y Arthritis Y Kidney Stones Y Back Problems Y Asthma Y Breast Problem Y Bladder or Kidney Problems Reflux/GERD Y High Cholesterol Y Rheumatoid Arthritis Y Headaches Y Hypertension Y Mental Illness Gynecological History Statement/Question Response Abnormal Pap N 2022 Date of Last Colonoscopy 12/24/2009 Most Recent Bone Density 03/20/2002 Date of LMP 08/31/2023 Sexually Active? N Menses Monthly Y Date of Last Pap Smear 11/04/2022 Current Control Method None Most Recent Mammogram 02/22/2022 Obstetrics History GPAL:G 0 P 0 0 0 0 Immunizations Vaccine Type Date Status Note Provider Nam e and Address Organization Details Recorded Time Hep A-Hep B 8 completed Not Available [facility] 04/07/2023 13:49:34 Td (adult), 2 Lf tetanus toxoid, preservative free, adsorbed 3 completed Not Available [facility] 04/07/2023 13:49:34 Hep A-Hep B 8 completed Not Available [facility] 04/07/2023 13:49:34 zoster recombinant 2 completed Not Available [facility] 04/07/2023 13:49:34 Influenza, split virus, quadrivalent, PF 7 completed Not Available [facility] 04/07/2023 13:49:34 zoster recombinant 2 completed Not Available [facility] 04/07/2023 13:49:34 Influenza, split virus, quadrivalent, preservative 8 completed Not Available [facility] 04/07/2023 13:49:34 Tdap 1 completed Not Available [facility] 04/07/2023 13:49:34 Tdap 2 completed Not Available [facility] 04/07/2023 13:49:34 Hep A-Hep B 9 completed Not Available [facility] 04/07/2023 13:49:34 pneumococcal polysaccharide PPV23 7 completed Not Available [facility] 04/07/2023 13:49:34 Influenza, split virus, trivalent, PF 4 completed Not Available [facility] 04/07/2023 13:49:34 Influenza, MDCK, quadrivalent, PF 3 completed Elvi Posada MD [address] [place], [address], [facility] [place] 12/15/2022 12:49:10 Tdap 3 completed Not Available [facility] 04/07/2023 13:49:34 Pneumococcal conjugate PCV20, polysaccharide [id number] conjugate, adjuvant, PF 4 completed [place] [facility] & [place] 08/28/2023 11:10:40 Influenza, MDCK, quadrivalent, PF 4 completed Elvi Posada MD [address] [place], [address] & [place] 12/19/2023 17:04:16 Influenza, split virus, quadrivalent, PF 1 completed Not Available [facility] 04/07/2023 13:49:34 Past Encounters Encounter ID Performer Location Encounter Start Date Encounter Closed Date Diagnosis/Indication Diagnosis SNOMED-CT Code Diagnosis ICD10 Code Diagnosis IMO Codes Diagnosis Note [id number] Elvi Posada MD [facility] [address] [facility] [address] [place] [address] 12/14/2021 08:59:18 12/14/2021 10:08:30 Adult health examination 556649973 Z00.00 Diabetes m ellitus screening 953800323 Z13.1 Screening for malignant neoplasm of breast 674081561 Z12.39 mammogram pending Vitamin D deficiency 347 06751 E55.9 Vitamin B6 deficiency 38 9512438 E53.1 Mixed hyperlipidemia 267 424902 E78.2 Folic acid deficiency 19 8656817 E53.8 Essential hypertension 03636262 I10 Chronic id iopathic constipation 73665892 K59.04 trial of linzess , has failed miralax, dulcolax Iron deficiency 02453009 E61.1 [id number] Kemal Dunlap MD [address] [place] [address] 01/31/2022 13:57:35 02/08/2022 08:55:29 Abdominal pain 55658376 R10.9 Clinically she has what appears to be diverticul itis. She is aware that for symptoms not improve she is to contact her primary care provider or go to the emergency room for possible CT scan of her abdomen pelvis to investigat e further. [id number] Elvi Posada MD [address] [place] [address] 03/22/2022 10:52:33 03/22/2022 11:54:17 Frontal sinus pain 292728359 R51.9 trial of abx, steroids, diflucan for yeast as it is quite common with her use of abxf/u if not improvingn eg f/u and covid Fever 239065315 R50.9 Candidiasis of skin 4988 3006 B37.2 rx for ppx fluconazol e provided to use if sx develop [id number] Nestor Parker Jr, MD [facility] [address] [address] 04/13/2022 12:43:14 04/13/2022 13:26:21 Microscopic hematuria 223400230 R31.29 Patient is a 56-year-ol d white female with microscopi c hematuria noted on at least 3 urine specimens of past 2 months. She denies any gross hematuria. She denies any recent imaging. We discussed possible causes of microscopi c hematuria and further workup with CT and cystoscopy . She wishes to proceed we will set this up at her earliest convenienc e. Urethritis 93380299 N34. 2 patient with recent urinary symptoms of burning after urination as well as suprapubic pressure and discomfort . Her urine culture from February 14 showed multiple organisms consistent with contaminat ion. Her urinalysis on March 21 showed a small amount of blood but no evidence of infection. We discussed possible causes of her recent symptoms. She states that the symptoms have resolved since being treated with Keflex, steroids and Diflucan. Her urinalysis today shows only a small amount blood. She has had a total hysterecto my and was recently taken off of her Premarin. We discussed some vaginal suppositor ies to help with chronic cystitis and/or urethritis . We will put her on DHEA suppositor ies 3 times a week. [id number] Nestor Parker Jr, MD [facility] [address] [place] [address] 05/10/2022 11:12:48 05/10/2022 12:36:59 Microscopic hematuria 984613500 R31.29 patient presents for further workup of microscopi c hematuria. CT scan showed only a small punctate stone in the right kidney. Cystoscopy today was within normal limits. Her urinalysis shows only a trace amount of blood. We discussed the normal findings and she was reassured. She will return as Urethritis 51827289 N34. 2 patient with recent urinary symptoms of burning after urination as well as suprapubic pressure and discomfort . Her urine culture from February 14 showed multiple organisms consistent with contaminat ion. Her urinalysis on March 21 showed a small amount of blood but no evidence of infection. We discussed possible causes of her recent symptoms. She states that the symptoms have resolved since being treated with Keflex, steroids and Diflucan. Her urinalysis today shows only a small amount blood. She has had a total hysterecto my and was recently taken off of her Premarin. We discussed some vaginal suppositor ies to help with chronic cystitis and/or urethritis . We will put her on DHEA suppositor ies 3 times a week. [id number] Elvi Posada MD [facility] [address] [facility] [address] [facility] [place] [address] 06/16/2022 10:19:24 06/16/2022 11:30:56 Prediabetes 407262337 R73.03 Hyperlipidemia 41966727 E78.5 Obesity 867333169 E66.9 Paresthesi a of lower extremity 004577603 R20.2 pt agreeable to consult with vascular surgery for possible additional work up as nerve conduction studies, extensive trials of medication s, vitamin supplement ation, imaging, therapy have not yielded benefit. Vitamin D deficiency 347 21449 E55.9 Gastroesop hageal reflux disease 746743658 K21.9 [id number] Elvi Posada MD [address] [place] [address] 06/30/2022 08:59:25 06/30/2022 09:40:48 Cobalamin deficiency 855171069 E53.8 Vitamin D deficiency 347 99157 E55.9 Vitamin B6 deficiency 38 2234150 E53.1 Folic acid deficiency 19 7411329 E53.8 [id number] Elvi Posada MD [address] [place] [address] 06/23/2022 09:19:52 06/23/2022 10:12:45 Cobalamin deficiency 935477865 E53.8 [id number] Elvi Posada MD [address] [place] [address] 07/05/2022 09:18:49 07/05/2022 09:31:32 Cobalamin deficiency 528075339 E53.8 [id number] Elvi Posada MD [address] [place] [address] 07/21/2022 08:50:33 07/21/2022 10:07:24 Left lower quadrant pain 791501057 R10.32 suspect early/mild diverticul itisER if acute changestri al of abx with close f/uflucona zole for issues with yeast after abxincreas e dose of duloxetine to BID to help with anxiety issues Vitamin B1 2 deficiency (non anemic) 68817123 E53.8 Vitamin B6 deficiency 38 6565083 E53.1 Vitamin D deficiency 347 91455 E55.9 Anxiety 17094702 F41.9 [id number] Elvi Posada MD [address] [place] [address] 07/12/2022 08:13:10 07/12/2022 09:02:47 Cobalamin deficiency 199841500 E53.8 [id number] Elvi Posada MD [address] [place] [address] 08/04/2022 08:59:50 08/04/2022 09:41:39 Vitamin B6 deficiency 699407080 E53.1 plan for labs to check at next visit. I do suspect that her burning feet is related to this. She has spoken to neurology regarding this in the past as well. 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 she would like to try wegovy. we discussed that her insurance may not cover but we can try. Cobalamin deficiency 190 516805 E53.8 [id number] Elvi Posada MD [address] [place] [address] 07/27/2022 09:04:30 07/27/2022 09:30:50 Vitamin B12 deficiency (non anemic) 58388107 E53.8 [id number] Elvi Posada MD [address] [place] [address] 08/25/2022 09:55:21 08/25/2022 11:15:21 Vitamin D deficiency 75845718 E55.9 Vitamin B6 deficiency 38 3918785 E53.1 plan for labs to check at next visit. I do suspect that her burning feet is related to this. She has spoken to neurology regarding this in the past as well. Vitamin B1 2 deficiency (non anemic) 76221925 E53.8 Mood disorder 00563636 F 39 [id number] Elvi Posada MD [address] [place] [address] 08/16/2022 09:40:33 08/16/2022 10:05:22 Vitamin B12 deficiency (non anemic) 63441507 E53.8 [id number] Elvi Posada MD [address] [place] [address] 08/30/2022 08:09:27 08/30/2022 08:40:22 Vitamin B12 deficiency (non anemic) 43426919 E53.8 [id number] Elvi Posada MD [address] [place] [address] 09/14/2022 09:49:52 09/14/2022 09:55:30 Vitamin B12 deficiency (non anemic) 83663613 E53.8 [id number] Elvi Posada MD [address] [place] [address] 10/04/2022 08:46:55 10/04/2022 09:55:35 Vitamin B6 deficiency 147587686 E53.1 Vitamin B1 2 deficiency (non anemic) 67129609 E53.8 Vitamin D deficiency 347 78489 E55.9 [id number] Elvi Posada MD [address] [place] [address] 11/01/2022 11:27:12 11/01/2022 11:48:03 Vitamin B12 deficiency (non anemic) 25413933 E53.8 [id number] Elvi Posada MD [address] [place] [address] 11/24/2022 13:01:53 11/24/2022 13:27:53 Pain in throat 510089480 R07.0 Acute uppe r respiratory infection 31998196 J06.9 Exacerbati on of intermittent asthma 259362498 J45.21 [id number] Elvi Posada MD [address] [place] [address] 12/15/2022 09:13:58 12/15/2022 10:43:09 Adult health examination 698151416 Z00.00 Diabetes m ellitus screening 402974075 Z13.1 Vitamin B1 2 deficiency (non anemic) 19207845 E53.8 Vitamin B6 deficiency 38 2701239 E53.1 Vitamin D deficiency 347 52632 E55.9 Hyperlipidemia 10294343 E78.5 Iron deficiency 94382302 E61.1 Administra tion of influenza vaccine 24038230 Z23 [id number] Elvi Posada MD [address] [place] [address] 01/02/2023 10:02:55 01/02/2023 10:54:06 Vitamin B12 deficiency (non anemic) 24623672 E53.8 [id number] Elvi Posada MD [address] [place] [address] 01/18/2023 12:55:59 01/18/2023 13:47:18 Frontal sinus pain 353268147 R51.9 trial of abx, steroids, diflucan for yeast as it is quite common with her use of abxf/u if not improving Environmental allergy 42 3901914 T78.49XS 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 Vitamin B6 deficiency 38 5968391 E53.1 [id number] Rufus Hernandez MD [address] [place] [address] 03/17/2023 09:57:45 03/17/2023 10:17:23 Vitamin B6 deficiency 010629821 E53.1 [id number] Elvi Posada MD [address] [place] [address] 04/06/2023 10:48:30 04/06/2023 15:40:14 Dysuria 08945494 R30.0 Right flank pain 6396646 09 R10.9 History of calculus of kidney 905525584 Z87.120 [id number] Joshua Shine MD [address] [place] [phone] 08/21/2023 10:42:06 08/21/2023 11:16:36 Dyspnea on exertion 53427422 R06.09 Given clinical presentati on and risk profile , will get stress test for ischemic evaluation and risk stratifica tionEcho to evaluate EF, diastolic function, valves and pulmonary pressures Essential hypertension 58638214 I10 Continue current medication . Keep log Low-salt diet < 2 gm Na/day, Regular exercise Weight loss Hyperlipidemia 22212749 E78.5 Continue statin Low fat/carboh ydrate diet Increase exercise Lose weight [id number] Elvi Posada MD [facility] [address] [facility] [address] [place] [address] 09/13/2023 08:40:14 09/13/2023 09:47:45 Vitamin B6 deficiency 114101771 E53.1 Vitamin B1 2 deficiency (non anemic) 02548818 E53.8 Iron deficiency 03873099 E61.1 Hypokalemia 58222807 E87 .6 [id number] Elvi Posada MD [facility] [address] [facility] [address] [place] [address] 10/30/2023 08:44:24 10/30/2023 11:52:41 Vitamin B6 deficiency 317496902 E53.1 we have tried to help pt get the correct type she needs for b6 (p5P) but she is unable to order, unable to have a family member order, and pharmacy states the cannot helpI have given her the name of [facility] to see if they may be able to helpwe have also requested her records from her neurologis t to review those labs as well Hyperlipidemia 34239986 E78.5 lipid panel pendingcon senior integration architect dose adjustment s pending result [id number] Joshua Shine MD [facility] [address] [facility] [address] [place] [address] 10/23/2023 09:15:36 10/23/2023 09:43:37 Dyspnea on exertion 57217199 R06.09 cardiac evaluation was unremarkab le. Her symptoms have improved following cessation of hormonal injections Essential hypertension 65754911 I10 Continue current medication . Keep log Low-salt diet < 2 gm Na/day, Regular exercise Weight loss Hyperlipidemia 29909875 E78.5 Continue statin Low fat/carboh ydrate diet Increase exercise Lose weight Aortic otilio ve regurgitation 32595379 I35.1 mild, clinically monitor echo in 2-3 years Obesity 657255377 E66.9 BMI over 35Low-carb ohydrate and low-fat diet Increase exercise to 30 minutes a day. Increase fruits and fresh vegetable intake and decrease processed foods and sugars [id number] Elvi Posada MD [facility] [address] [facility] [address] 11/09/2023 08:58:29 11/09/2023 09:13:40 Vitamin B12 deficiency (non anemic) [id number] E53.8 [id number] Elvi Posada MD [facility] [address] [facility] [address] 12/19/2023 09:11:13 12/19/2023 10:55:04 Adult health examination [id number] Z00.00 Administra tion of influenza vaccine 63925798 Z23 Prediabetes 837147191 R7 3.03 Mixed hyperlipidemia 267 524282 E78.2 Vitamin B6 deficiency 38 5470964 E53.1 we have tried to help pt get the correct type she needs for b6 (p5P) but she is unable to order, unable to have a family member order, and pharmacy states the cannot helpI have given her the name of [facility] to see if they may be able to helpwe have also requested her records from her neurologis t to review those labs as well Vitamin B1 2 deficiency (non anemic) 12486914 E53.8 Obesity 727257810 E66.9 we discussed that her recent d/c of HRT due to mammogram findings as well as her lyrica may be playing a role Iron deficiency 96305345 E61.1 Anxiety 31522512 F41.9 [id number] Elvi Posada MD [facility] [address] [facility] [place] [address] 12/14/2023 09:18:42 12/14/2023 09:32:01 Vitamin B12 deficiency (non anemic) 56522948 E53.8 [id number] Mckenna Ruano MD [facility] [id number] [place] [address] 10/16/2024 08:50:58 10/16/2024 09:42:02 Itching of ear [id number] L29.9 0657834 Otalgia of left ear 1010 544827 H92.02 [id number] Joshua Shine MD [facility] [address] [place] [address] 10/30/2024 08:49:23 10/30/2024 09:18:41 Essential hypertension 39945973 I10 Now off all Rx. blood pressure is low and patient reports dizziness, agree with holding off on HCTZ and increasing volume intakeKeep logLow-billy t diet < 2 gm Na/day,Reg ular exerciseWe ight loss Hyperlipidemia 83335885 E78.5 Continue statin Low fat/carboh ydrate diet Increase exercise Lose weight Aortic otilio ve regurgitation 63889898 I35.1 mild on echo 09/2023, clinically monitor echo in 2-3 years Obesity 534888719 E66.9 BMI over 31, lost considerab le weight with diet and exerciseLo w-carbohyd rate and low-fat dietIncrea se exercise to 30 minutes a day.Increa se fruits and fresh vegetable intake and decrease processed foods and sugars Health Concerns Section Related Observation LastModified by Organization Detai ls LastModified Time None Recorded Concern Status LastModified by Organization Details LastModified Time None Recorded Advance Directives Directive Y: Payers Insurance Date Sequence Insurance Name Policy Number Policy Obrien Covered Member ID Obrien Member ID Guarantor Name 10/27/2024 1 [employer] (MEDICARE REPLACEMENT/AD VANTAGE - PPO) [id number] Allison Mendez [id number] Allison Mendez 06/30/2022 SLIDING FEE SCHEDULE - DISCOUNT Allison Mendez 10/21/2024 2 [place]/TRADITIONA L Allison Mendez [id number] Allison Mendez 10/02/2024 2 [place]TRADITIONA L Allison Villatoroano [id number] Allison Villatoroano 10/16/2024 1 [place]MEDICARE REPLACEMENT HMO) [id number] Allison Kenevano [id number] Allison Kenevano 10/02/2024 3 [place] [id number] Allison Meneses Andrea [id number] Allison Meneses Andrea 10/02/2024 1 [place] [id number] Allison Meneses Andrea [id number] Allison Villatoroano Notes Date Note Type Note Provider Name and Address Organization Details Recorded Time 4 text/html Medicare Annual Wellness VisitReported by PatientSocial/Behavioral HistoryFor physical activity, patient reportsdecreased physical activity,poor physical condition, anddeconditioned due to sedentary lifestylebut reportsdiscussed weightbearing activitiesanddiscussed exercise habits. For diet and nutrition, patient reportsdiscussed vitamin and supplement use,discussed portion control, anddiscussed diet improvement. For fracture risk, patient reportsno history of fractures.Mental Status:For depression risk, patient reportsloss of interest in activities,significant changes in weight,agitated,history of mood disorders, andhistory of depression. For concentration and memory, patient reportsmemory lapses or lossbut reportsno decreased concentrating abilityanddoes not forget words. For orientation, patient reportsno disorientation to time,no disorientation to date, andno disorientation to place. For speech/motor difficulties, patient reportsno speech difficulties,no difficulty expressing formulated concepts,no difficulty with fine manipulative tasks,no difficulty writing/copying, andno slowed reaction time.Functional AbilityFor hearing, patient reportsno loss of hearing. For vision, patient reportsno vision problems. For activities of daily living, patient reportsable to bathe with limited or no assistance,able to contol urination and bowels,able to dress with limited or no assistance,able to feed self with limited or no assistance,able to get out of chair or bed with limited or no assistance,able to groom with limited or no assistance, andable to toilet with limited or no assistance. For instrumental activities of daily living, patient reportsable to do house work with limited or no assistance,able to grocery shop with limited or no assistance,able to manage medications with limited or no assistance,able to manage money with limited or no assistance,able to prepare meals with limited or no assistance, andable to use the phone with limited or no assistance. For falls risk assessment, patient reportsno frequent falls while walking. For home safety, patient reportsno unsafe anupam hazzards,no unsafe stairs,no unsafe gas appliances,working smoke/co detectors, anduse of seatbelts.ROS as noted in the HPI Patient is here for yearly check up and follow up.Last dental visit: 2-3 months agoLast eye exam: 2022 Tdap vaccine: October 2022Flu vaccine: currently dueCovid vaccine: declinedShingles vaccine: UTDPNA vaccine: UTD mammogram: [address] [facility] with gynecology, repeat due in 6 months to f/uColon cancer screenin, due for f/u in 10 years, Dr. Rama: not yet due for screeningPap smear: follows with gynecology at [facility], 2022 HLP screening: see belowDM Screenin.5 in Nov 2022HTN screening:see below Diet: working on smaller portions with weight gain with samuel. Continues to struggle with protein intake as she does not like eating meat but has started to increase this. She does feel that she gets vegetables.Exercise: She has been more active with walking but struggles with RLS and leg pain. Mood: overall feels that she is doing well, but does have high amount stress due to her chronic painSafety: pt wears seat belt, has smoke detectors in home, feels safe at home. HLP: on statin, doing well on this, due for f/u for TG, LDL WNL in October.HTN: on amlodipine 5mg and pressure WNLb6 def: pt struggled with trying to find the correct type as she did not improve on use of readily available option. We had sent her to [facility] who was able to help her get this but she feels she has nausea with it and doesn't want to keep using.Vitamin D def: currently on repalcaemetn and due for f/u labs. Elvi Posada MD [address], [place], [address], [facility] - [place] - [place] & [place] 12/19/2023 17:15:18 5 text/html 10/16/24-Patient is here for left ear pain for about one month, she states she feels like water is in here ear and itchy. She saw her PCP Umberto Reyes and tried using a Qtip to try to get a hair out of her ear. Patient has no history of ear surgery. Feels as if she hears well. Mckenna Ruano MD [address], [place], [address], [facility] & [place] 10/16/2024 13:08:15 5 text/html 59 F here for fuLast seen 10/2023 Lost 30lbs with diet and exercise. Blood pressure is low today. She is stopped all her blood pressure medications. Recently PCP stopped statin?, started HZTZ 12.5 felt dizzy so she stopped this on her own as well.( Though on review of PCP note09/29/24 the patient was still on losartan 25, Norvasc 5 and atorvastatin 20 and no instructions to stop any of these meds)No chest pain, shortness of breath, PND, orthopnea, peripheral edema, palpitations, presyncope, syncope + Mild AI on echo 09/2023+ asthma+ HTN - blood pressure well controlled off all Rx+ HLD-+ obesity BMI over 31+ Fam Hx- Dad [place] 42 EKG 08/21/2023 sinus bradycardia rate of 55, normal axis normal intervals Echo 09/2023Normal LV size with normal function. The ejection fraction is 65-70%. Normal diastolic function.There is mild aortic regurgitation.There is mild tricuspid regurgitation. Normal PA pressure (24 mmHg). Nuc stress test 09/2023 -no ischemia, normal EF Joshua Shine MD [address], [place], [address], [facility] - [facility] & [place] 10/30/2024 10:14:03 OBGyn Episode No OBEpisode recorded.
[2025-01-13 11:36] LABS: Albumin Level 3.1 g/dl (3.5-5.0); Chloride 105 mmol/L (98-107); Potassium 3.5 mmoL/L (3.5-5.1); Sodium 138 mmol/L (136-145)
[2025-01-13 11:38] LABS: Blood Urea Nitrogen 10 mg/dl (7-17); Creatinine,Serum 0.90 mg/dl (0.52-1.04); Estimated Glomerular Filt Rate 64 ml/min (>60); GFR (African American) 78 ML/MIN (>60)
[2025-01-13 11:39] LABS: Alanine Aminotransferase 11 U/L (12-78); Albumin/Globulin Ratio 0.8 (1.1-1.8); Alkaline Phosphatase 108 U/L (38-126); Anion Gap 9.5 mEq/L (5-15); Aspartate Amino Transferase 19 U/L (14-36); Bilirubin,Total 0.6 mg/dl (0.2-1.3); Calcium 9.0 mg/dl (8.4-10.2); Carbon Dioxide 27 mmol/L (22.0-30.0); Globulin 3.7 g/dL (1.3-3.2); Glucose 111 mg/dl (74-100); Total Protein,Serum 6.8 g/dl (6.3-8.2)
== END 2025-01-13 23:59 | disposition home or self-care (01) ==
LOC: LAB 10:56
PROVIDERS: PCP Family Medicine; Visit Provider Obstetrics & Gynecology
DX: N95.1 Menopausal and female climacteric states (principal)
CPT/HCPCS: 36415; 80053

== ENCOUNTER 2025-02-05 08:53 | Outpatient (CLI) | payer MEDICARE, MEDICAID, SELFPAY ==
--- NOTE | 2025-02-05 09:00 | US_ITS ---
PROCEDURE INFORMATION: Exam: US Left Breast, Complete Exam date and time: 02/05/2025 9:09 AM Age: 59 years old Clinical indication: Six-month follow-up prior for probably benign left breast mass. TECHNIQUE: Imaging protocol: Complete ultrasound of all four quadrants of the left breast and the retroareolar regions, including ultrasound of the axilla when performed. COMPARISON: 1. US BREAST LT COMPLETE 08/07/2024 1:47 PM 2. US BREAST LT LIMITED 08/21/2024 11:15 AM FINDINGS: ULTRASOUND: Breast ultrasound findings: At 1 o'clock 7 cm from nipple there is a stable benign simple cyst measuring 0.8 cm, now appearing entirely simple compatible with benignity. The previously seen structure 3 o'clock is no longer visualized. At 3 o'clock 4 cm from the nipple there is a probable oil cyst measuring 0.6 x 0.4 x 0.6 cm which was not definitely present on prior exam. IMPRESSION: 1. Left breast probable developing oil cyst at 3 o'clock, not definitely present on prior probably benign. Recommend six-month follow-up bilateral diagnostic mammogram and left breast ultrasound to ensure stability. 2. Benign simple cyst at 1 o'clock dedicated follow-up. ASSESSMENT: BI-RADS Category 3: Probably benign.
== END 2025-02-05 23:59 | disposition home or self-care (01) ==
LOC: RAD 08:54
PROVIDERS: PCP Family Medicine; Visit Provider Obstetrics & Gynecology
DX: N60.02 Solitary cyst of left breast (principal)
CPT/HCPCS: 76641